=== PATIENT | male | born 1955 | race Caucasian/White ===

== ENCOUNTER → 2016-03-07 | Emergency (ER) | payer OTHER ==
[~2016-03-07] MED LIST: LISINOPRIL 20 MG TABLET (FP) ONE; LISINOPRIL 20 MG TABLET (FP) PO ONE; hydrALAZINE HCL 25 MG TABLET (FP) ONE; hydrALAZINE HCL 50 MG TABLET (FP) PO ONE
[2016-03-07 15:25] VITALS: TEMP 97.4; BMI 32.3
[2016-03-07 16:40] LABS: BASOPHIL 0.6 % (0-2.0); EOSINOPHIL 1.9 % (0-4.5); MCH 31.6 pg (25.7-33.7); MCHC 33.5 g/dl (32.0-35.9); MEAN CELL VOLUME 94.5 fl (80-96); NEUTROPHILS 78.5 % (42.8-82.8); PLATELET COUNT 275 K/MM3 (134-434); RDW 15.3 % (11.9-15.9); WHITE BLOOD COUNT 7.8 K/mm3 (4.0-10.0)
[2016-03-07 17:14] LABS: ALBUMIN 3.3 g/dl (3.4-5.0); CALCIUM 8.6 mg/dL (8.5-10.1); CREATININE 5.4 mg/dL (0.7-1.3)
[2016-03-07 17:16] LABS: BILIRUBIN,TOTAL 0.4 mg/dL (0.2-1.0); TOT PROT 7.7 g/dl (6.4-8.2)
--- NOTE | 2016-03-07 17:16 | PDOC ---
History of Present Illness - General History Source: Patient - History of Present Illness Initial Comments: 03/07/16 17:16 Pt. is a 60 y/o male with PMH of ESRD on dialysis, HTN, presenting to the ED today complaining of a cough. History of present illness is translated by his daughter as the patient does not speak Yi. Patient states that his cough began approximate 10 days ago. His cough is productive with clear sputum. Patient also admits to sore throat. Denies fevers, chills, rhinorhea, ear pain, SOB, chest pain, palpitations, N/V/D. Patient was last dialyzed today. After the patient left dialysis he decided to get his cough evaluated at [facility] for treatment his cough. Upon evaluation patient's blood pressure was 190/90 and the pt.was sent back to the ED for evaluation. Pt. denies headaches or visual changes. GENERAL/CONSTITUTIONAL: No fever or chills. No weakness. No weight change. HEAD, EYES, EARS, NOSE AND THROAT: (+) sore throat. No change in vision. No ear pain or discharge. CARDIOVASCULAR: No chest pain or palpitations. RESPIRATORY: (+) cough. (-) wheezing, or shortness of breath. GASTROINTESTINAL: No nausea, vomiting, diarrhea or constipation. GENITOURINARY: No dysuria, frequency, or change in urination. MUSCULOSKELETAL: No joint or muscle swelling or pain. No neck or back pain. SKIN: No rash or easy bruising. NEUROLOGIC: No headache, vertigo, loss of consciousness, or loss of sensation. PSYCHIATRIC: No depression or anxiety. ENDOCRINE: No increased thirst. No abnormal weight change. HEMATOLOGIC/LYMPHATIC: No anemia, easy bleeding, or history of blood clots. ALLERGIC/IMMUNOLOGIC: No hives or skin allergy. No latex allergy. <Brittany Mcdonnell - Last Filed: 03/07/16 18:33> <Martha Rizvi - Last Filed: 03/08/16 10:12> - General Chief Complaint: Cold Symptoms Stated Complaint: HIGH BLOOD PRESSURE, COUGH Time Seen by Provider: 03/07/16 16:29 Past History - Past Medical History Anemia: No Asthma: No Cancer: No Cardiac Disorders: No CVA: No COPD: No CHF: No Dementia: No Diabetes: Yes (m,w,f) GI Disorders: Yes (EPIGASTRIC PAIN,CONSTIPATION) Disorders: No HTN: Yes Hypercholesterolemia: Yes Liver Disease: No Seizures: No Thyroid Disease: No - Surgical History Abdominal Surgery: No Appendectomy: No Cardiac Surgery: No Cholecystectomy: No Lung Surgery: No Neurologic Surgery: No Orthopedic Surgery: No - Immunization History Immunization Up to Date: Yes - Psycho/Social/Smoking Cessation Hx Anxiety: No Suicidal Ideation: No Smoking Status: No Smoking History: Never smoked Have you smoked in the past 12 months: No Number of Cigarettes Smoked Daily: 0 Hx Alcohol Use: No Drug/Substance Use Hx: No Substance Use Type: None Hx Substance Use Treatment: No <Brittany Mcdonnell - Last Filed: 03/07/16 18:33> <Martha Rizvi - Last Filed: 03/08/16 10:12> - Past Medical History Allergies/Adverse Reactions: Allergies Allergy/AdvReac Type Severity Reaction Status Date / Time No Known Allergies Allergy Verified 03/07/16 15:21 Home Medications: Ambulatory Orders Benzonatate [Tessalon Pearls -] 100 mg PO TID #21 capsule 03/07/16 Cinacalcet HCl [Sensipar] 90 mg PO DAILY 03/07/16 Hydralazine HCl [Apresoline -] 50 mg PO DAILY 03/07/16 Lisinopril [Prinivil -] 40 mg PO DAILY 03/07/16 Ranolazine [Ranexa] 800 mg PO DAILY 03/07/16 *Physical Exam - Vital Signs Last Vital Signs Temp Pulse Resp BP Pulse Ox 97.4 F L 64 20 192/91 98 03/07/16 15:22 03/07/16 15:22 03/07/16 15:22 03/07/16 15:22 03/07/16 15:22 - Physical Exam Comments: 03/07/16 17:27 GENERAL: The patient is awake, alert, and fully oriented, in no acute distress. HEAD: Normal with no signs of trauma. ENT: (+) mild erthyema of the posterior pharynx. Pupils equal, round and reactive to light, extraocular movements intact, sclera anicteric, conjunctiva clear. Neck supple. LUNGS: Clear to auscultation bilaterally. Normal excursion. No respiratory distress or use of accessory muscles. CV: RRR, S1/S2, no RG. (+) grade III systolic murmur heard over the base. Cap refill < 2 sec. AV Fistula intact. ABDOMEN: Soft, non-distended, non-tender. EXTREMITIES: Normal range of motion, no edema. NEUROLOGICAL: Normal speech, normal gait. CN II-XII grossly intact. PSYCH: Normal mood, normal affect. SKIN: Warm, dry, normal turgor, no rashes or lesions noted. <Brittany Mcdonnell - Last Filed: 03/07/16 18:33> - Vital Signs Last Vital Signs Temp Pulse Resp BP Pulse Ox 97.4 F L 71 18 178/82 98 03/07/16 15:22 03/07/16 18:57 03/07/16 18:57 03/07/16 18:57 03/07/16 18:57 <Martha Rizvi - Last Filed: 03/08/16 10:12> ED Treatment Course - LABORATORY CBC & Chemistry Diagram: 03/07/16 16:31 03/07/16 16:31 <Brittany Mcdonnell - Last Filed: 03/07/16 18:33> - LABORATORY CBC & Chemistry Diagram: 03/07/16 16:31 03/07/16 16:31 - ADDITIONAL ORDERS Additional order review: 03/07/16 16:50 Influenza Types A,B Antigen (MARIA G) - Final Nasopharyngeal Swab - Final 03/07/16 16:31 RBC 3.19 L MCV 94.5 MCHC 33.5 RDW 15.3 MPV 8.0 Neutrophils % 78.5 Lymphocytes % 12.1 D Monocytes % 6.9 Eosinophils % 1.9 Basophils % 0.6 - Medications Given in the ED: ED Medications Discontinued Medications Generic Name Dose Route Start Last Admin Trade Name Freq PRN Reason Stop Dose Admin Hydralazine HCl 50 mg 03/07/16 17:12 03/07/16 17:19 Apresoline - PO 03/07/16 17:13 50 mg ONCE ONE Administration Lisinopril 40 mg 03/07/16 17:09 03/07/16 17:19 Prinivil PO 03/07/16 17:10 40 mg ONCE ONE Administration <Martha Rizvi - Last Filed: 03/08/16 10:12> Medical Decision Making - Medical Decision Making 03/07/16 17:28 Pt. is a 60 y/o male with a cough and elevated blood pressure. Will evaluate for URI, flu, pneumonia. Given BP will evaluate for ACS, less likely given asymptomatic presentation. 1. Will order basic labs, CBC CMP, CXR for evaluation of infection 2. Will order EKG, and cardiac labs to evaluate blood pressure. 3. Since the pt. was dialyzed today, will readminister home blood pressure medications and doses. 4. Will re-evaluate. 03/07/16 18:15 CXR shows no acute cardiopulmonary event. No evidence of infiltrates. EKG remains unchanged from old one on 12/25/14. No acute ST-T wave changes. White count is WNL. Influenza A and B negative Most likely a viral URI with cough as the presenting symptom. 03/07/16 18:33 Pts. BP is still elevated at 180/90. However, pt is still asymptomatic. Denies headache, vision changes. Will discharge at this time. <Brittany Mcdonnell - Last Filed: 03/07/16 18:33> *DC/Admit/Observation/Transfer - Discharge Dispostion Admit: No <Brittany Mcdonnell - Last Filed: 03/07/16 18:33> - Attestations Physician Attestion: I reviewed the case with the mid-level practitioner and agree with the mid- level practitioner's assessment, diagnosis and disposition. <Martha Rizvi - Last Filed: 03/08/16 10:12> Diagnosis at time of Disposition: URI (upper respiratory infection) Qualifiers: URI type: unspecified URI Qualified Code(s): J06.9 - Acute upper respiratory infection, unspecified Hypertension Qualifiers: Hypertension type: secondary to other renal disorders Qualified Code(s): I15.1 - Hypertension secondary to other renal disorders - Prescriptions Prescriptions: Benzonatate [Tessalon Pearls -] 100 mg PO TID #21 capsule - Referrals Referrals: Maco Villanueva MD [Primary Care Provider] - - Patient Instructions Printed Discharge Instructions: DI for Common Cold Additional Instructions: You have an Upper respiratory infection (common cold). Your cough can last up to 4 weeks. Keep appropriately hydrated and get plenty of rest. You also have high blood pressure. Continue to take your home medications as prescribed. If you get a headache or have vision changes, return to the ED. - Post Discharge Activity Work/School Note: Back to Work
[2016-03-07 17:17] LABS: TROPONIN I 0.05 ng/ml (0.00-0.05)
[2016-03-07 18:29] LABS: URINE APPEARANCE CLEAR; URINE BILIRUBIN NEGATIVE (NEGATIVE); URINE BLOOD NEGATIVE (NEGATIVE); URINE COLOR LTYELLOW; URINE GLUCOSE (UA) 1+ (NEGATIVE); URINE KETONE NEGATIVE (NEGATIVE); URINE LEUK ESTERASE NEGATIVE (NEGATIVE); URINE NITRITE NEGATIVE (NEGATIVE); URINE UROBILINOGEN NEGATIVE E.U./dl (0.2-1.0)
[2016-03-07 18:30] LABS: URINE PROTEIN 3+ (NEGATIVE)
[2016-03-07 18:31] LABS: URINE HYALINE CAST 1 /lpf; URINE MUCUS RARE; URINE RBC 3 /hpf (0-3); URINE WBC 2 /hpf (3-5)
[2016-03-07 18:58] VITALS: BP 178/82; PULSE 71
--- NOTE | 2016-03-09 15:36 | EKG ---
Test Reason : Blood Pressure : / mmHG Vent. Rate : 066 BPM Atrial Rate : 066 BPM P-R Int : 158 ms QRS Dur : 098 ms QT Int : 462 ms P-R-T Axes : 042 032 -71 degrees QTc Int : 484 ms NORMAL SINUS RHYTHM LEFT VENTRICULAR HYPERTROPHY WITH REPOLARIZATION ABNORMALITY PROLONGED QT ABNORMAL ECG WHEN COMPARED WITH ECG OF 25-DEC-2014 09:05, NO SIGNIFICANT CHANGE WAS FOUND Confirmed by KARTIK SCOTT, GAB ([id number]) on 03/09/2016 3:35:43 PM Referred By: Confirmed By:GAB VERDUGO MD
== END | disposition home or self-care (01) ==
LOC: JERFT 15:11 → JER 15:11
DX: J06.9 Acute upper respiratory infection, unspecified (principal); I12.0 Hypertensive chronic kidney disease with stage 5 chronic kidney disease or end stage renal disease; N18.6 End stage renal disease; N17.8 Other acute kidney failure; Z99.2 Dependence on renal dialysis; E78.00 Pure hypercholesterolemia, unspecified
CPT/HCPCS: 36415; 71010-TC; 80053; 81003; 81015; 82550; 82553; 84484; 85025; 87804; 93005; 93010; 99282-25

== ENCOUNTER 2017-11-19 14:44 | Inpatient (IN) | payer OTHER ==
--- NOTE | 2017-11-19 14:56 | PDOC ---
History of Present Illness - General Chief Complaint: Chest Pain Stated Complaint: PAIN ON THE LEFT SIDE OF HIS CHEST Time Seen by Provider: 11/19/17 14:55 - History of Present Illness Initial Comments: 62 yo M w a hx of ESRD on dialysis m,w,f, HTN, T2DM, HLD, cardiac cath in [place] at [facility], presents to the ER today with subjective fevers and R sided chest pain which started 3 days ago. Yesterday, the pain acutely worsened and was associated with hemoptysis so he came into the ER today. A small amount of blood was spotted on the tissue. He describes the pain as pressure like, constant, non-radiating and 6/10 in intensity. It is painful for the patient to take a deep breath, the pain is reproducible with palpation and worsened with movement. He also endorses slight nausea but no emesis. He also admits to Left sided Calf pain. Here in the ER his oral temp is 102.5 No hx of cancer, recent travel. Denies dysuria, frequency or urgency. PCP: Rich Dewey Social Hx: Denies smoking, drinks alcohol recreationally, and denies illicit drug usage. Allergies: NKA, NKDA Past History - Past Medical History Allergies/Adverse Reactions: Allergies Allergy/AdvReac Type Severity Reaction Status Date / Time No Known Allergies Allergy Verified 11/19/17 14:54 Home Medications: Ambulatory Orders Amlodipine Besylate 10 mg PO DAILY 11/19/17 Hydralazine HCl 100 mg PO BID 11/19/17 Lisinopril [Prinivil -] 40 mg PO DAILY 11/19/17 Sevelamer Carbonate [Renvela] 1,600 mg PO BID 11/19/17 Anemia: No Asthma: No Cancer: No Cardiac Disorders: No CVA: No COPD: No CHF: No Dementia: No Diabetes: Yes Dialysis: Yes (M,W,F) GI Disorders: Yes (EPIGASTRIC PAIN,CONSTIPATION) Disorders: No HTN: Yes Hypercholesterolemia: Yes Liver Disease: No Seizures: No Thyroid Disease: No - Surgical History Abdominal Surgery: No Appendectomy: No Cardiac Surgery: No Cholecystectomy: No Lung Surgery: No Neurologic Surgery: No Orthopedic Surgery: No - Immunization History Immunization Up to Date: Yes - Suicide/Smoking/Psychosocial Hx Smoking Status: No Smoking History: Never smoked Have you smoked in the past 12 months: No Number of Cigarettes Smoked Daily: 0 Information on smoking cessation initiated: No Hx Alcohol Use: No Drug/Substance Use Hx: No Substance Use Type: None Hx Substance Use Treatment: No Cardiac Specific PMH - Complaint Specific PMHX Pacemaker: No Review of Systems - Review of Systems Constitutional: Yes: Chills, Diaphoresis, Fever, Loss of Appetite, Malaise, Night Sweats, Weakness HEENTM: No: Blurred Vision, Double Vision, Nose Congestion, Throat Pain, Difficulty Swallowing Respiratory: Yes: Cough, Shortness of Breath, Wheezing, Productive cough, Hemoptysis Cardiac (ROS): Yes: Chest Pain. No: Edema, Lightheadedness, Palpitations, Syncope ABD/GI: Yes: Abdominal Distended, Nausea, Poor Appetite, Poor Fluid Intake, Vomiting. No: Constipated, Diarrhea : Yes: Flank Pain, Hematuria, Pain. No: Burning, Dysuria, Discharge, Frequency Musculoskeletal: No: Back Pain Integumentary: Yes: Pallor, Sweating. No: Bruising, Change in Color, Erythema, Pruritus, Rash Neurological: Yes: Headache, Weakness. No: Numbness, Paresthesia, Tingling, Unsteady Gait, Ataxia, Dizziness Psychiatric: No: Anxiety, Depression Endocrine: No: Excessive Sweating, Flushing, Intolerance to Cold, Intolerance to Heat, Increased Thirst Hematologic/Lymphatic: Yes: Anemia, Easy Bleeding. No: Blood Clots *Physical Exam - Vital Signs Last Vital Signs Temp Pulse Resp BP Pulse Ox 102.8 F H 94 H 18 162/71 94 L 11/19/17 18:00 11/19/17 18:00 11/19/17 18:00 11/19/17 18:00 11/19/17 18:00 - Physical Exam General Appearance: Yes: Nourished, Appropriately Dressed, Moderate Distress HEENT: positive: EOMI, HANNAH, Normal ENT Inspection, Normal Voice, Pharynx Normal. negative: Pharyngeal Erythema, Nasal Congestion, Rhinorrhea Neck: positive: Trachea midline, Supple. negative: Decreased range of motion, Lymphadenopathy (R), Lymphadenopathy (L) Respiratory/Chest: positive: Chest Tender, Respiratory Distress, Labored Respiration, Rapid RR, Decreased Breath Sounds, Crackles, Wheezing, Dullness. negative: Lungs Clear, Normal Breath Sounds, Accessory Muscle Use, Paradoxal Breathing, Rales, Rhonchi, Stridor, Hyperresonant, Plerual Rub Cardiovascular: positive: Regular Rhythm, Murmur, Tachycardia, Systolic Murmur. negative: Regular Rate, JVD Vascular Pulses: Dorsalis-Pedis (R): 2+, Doralis-Pedis (L): 2+ Gastrointestinal/Abdominal: positive: Normal Bowel Sounds, Soft, Protuberent, Distended. negative: Increased Bowel Sounds, Guarding, Rebound Lymphatic: negative: Adenopathy Musculoskeletal: positive: Normal Inspection, CVA Tenderness, CVA Tenderness (R) , CVA Tenderness (L). negative: Decreased Range of Motion, Vertebral Tenderness Extremity: positive: Normal Inspection, Normal Range of Motion. negative: Normal Capillary Refill, Delayed Capillary Refill Integumentary: positive: Normal Color, Dry, Warm, Diaphoresis. negative: Jaundice, Petechiae, Rash, Ecchymosis Neurologic: positive: dentist attendant II-XII NML intact, Fully Oriented, Alert, Normal Mood/ Affect, Normal Response ED Treatment Course - LABORATORY CBC & Chemistry Diagram: 11/19/17 16:54 11/19/17 16:54 - ADDITIONAL ORDERS Additional order review: Laboratory Results 11/19/17 11/19/17 11/19/17 17:32 16:54 16:54 PT with INR INR PTT (Actin FS) VBG pH POC VBG pCO2 POC VBG pO2 Mixed VBG HCO3 Sodium Potassium Chloride Carbon Dioxide Anion Gap BUN Creatinine Creat Clearance w eGFR Random Glucose Lactic Acid 1.0 Calcium Total Bilirubin AST ALT Alkaline Phosphatase Creatine Kinase Creatine Kinase Index CK-MB (CK-2) Troponin I 0.16 H Total Protein Albumin Urine Color Ltyellow Urine Appearance Clear Urine pH 8.0 Ur Specific [place] 1.010 Urine Protein 3+ H Urine Glucose (UA) 1+ H Urine Ketones Negative Urine Blood 1+ H Urine Nitrite Negative Urine Bilirubin Negative Urine Urobilinogen Negative Ur Leukocyte Esterase Negative Urine WBC (Auto) 2 Urine RBC (Auto) 4 Blood Type Antibody Screen 11/19/17 11/19/17 11/19/17 16:54 16:54 16:54 PT with INR 13.40 H INR 1.13 H PTT (Actin FS) 33.2 VBG pH 7.41 POC VBG pCO2 40.9 POC VBG pO2 29.8 Mixed VBG HCO3 25.4 H Sodium 129 L Potassium 5.2 H Chloride 94 L Carbon Dioxide 25 Anion Gap 10 BUN 68 H Creatinine 12.5 H* Creat Clearance w eGFR 4.12 Random Glucose 108 H Lactic Acid Calcium 9.9 Total Bilirubin 0.6 AST 20 ALT 17 Alkaline Phosphatase 75 Creatine Kinase 219 Creatine Kinase Index 0.6 CK-MB (CK-2) 1.5 Troponin I 0.18 H Total Protein 7.6 Albumin 3.0 L Urine Color Urine Appearance Urine pH Ur Specific [place] Urine Protein Urine Glucose (UA) Urine Ketones Urine Blood Urine Nitrite Urine Bilirubin Urine Urobilinogen Ur Leukocyte Esterase Urine WBC (Auto) Urine RBC (Auto) Blood Type Antibody Screen 11/19/17 16:45 PT with INR INR PTT (Actin FS) VBG pH POC VBG pCO2 POC VBG pO2 Mixed VBG HCO3 Sodium Potassium Chloride Carbon Dioxide Anion Gap BUN Creatinine Creat Clearance w eGFR Random Glucose Lactic Acid Calcium Total Bilirubin AST ALT Alkaline Phosphatase Creatine Kinase Creatine Kinase Index CK-MB (CK-2) Troponin I Total Protein Albumin Urine Color Urine Appearance Urine pH Ur Specific [place] Urine Protein Urine Glucose (UA) Urine Ketones Urine Blood Urine Nitrite Urine Bilirubin Urine Urobilinogen Ur Leukocyte Esterase Urine WBC (Auto) Urine RBC (Auto) Blood Type A POSITIVE Antibody Screen Negative 11/19/17 16:54 RBC 3.68 L MCV 94.0 MCHC 32.4 RDW 19.7 H MPV 9.1 D Neutrophils % 87.9 H Lymphocytes % 3.3 L D Monocytes % 8.6 Eosinophils % 0.0 D Basophils % 0.2 - RADIOLOGY Radiology Studies Ordered: Category Date Time Status CHEST CT WITHOUT CONTRAST [CT] Stat CT Scan 11/19/17 17:44 Ordered CHEST X-RAY PORTABLE* [RAD] Stat Radiology 11/19/17 15:51 Taken - Medications Given in the ED: ED Medications Discontinued Medications Generic Name Dose Route Start Last Admin Trade Name Freq PRN Reason Stop Dose Admin Acetaminophen 1,000 mg 11/19/17 17:23 11/19/17 18:05 Ofirmev Injection - IVPB 11/19/17 17:24 1,000 mg ONCE ONE Administration Albuterol/Ipratropium 1 amp 11/19/17 17:24 11/19/17 17:45 Duoneb - NEB 11/19/17 17:25 1 amp ONCE ONE Administration Albuterol/Ipratropium 1 amp 11/19/17 17:25 11/19/17 18:06 Duoneb - NEB 11/19/17 17:26 1 amp ONCE ONE Administration Piperacillin Sod/Tazobactam 100 mls @ 200 mls/hr 11/19/17 17:25 11/19/17 18: 20 Sod 4.5 gm/ Dextrose IVPB 11/19/17 17:54 200 mls/hr ONCE ONE Administration Protocol Sodium Chloride 1,000 ml 11/19/17 17:23 11/19/17 18:05 Normal Saline - IV 11/19/17 17:24 1,000 ml ONCE ONE Administration Medical Decision Making - Medical Decision Making 62 yo M w a hx of ESRD on dialysis m,w,f, HTN, T2DM, HLD, cardiac cath in [place] at [facility], here with high fevers, tachycardia, tachypnea, hypoxia, hemoptysis. He satisfies SIRS criteria. Source - lungs. He is Septic. Sepsis protocall began here in ED. Treating infection with Vanc and Zosyn. In addition to Sepsis caused by PNA this patient has an elevated trop which might be from ACS. Given the hemoptysis other diagnoses that need to be ruled out include: PE, lung cancer, +/- TB? -Low suspicion for TB bc patient's fever was not gradual in onset. He has had an abrupt rise in fever two days prior. Labs are also significant for Cr of 12.1. Patient has chronic renal failure. Will obtain 2nd trop. Will recheck vitals after Abx administration. Patient will be admitted to [facility] for further care and workup. Signing out patient to Night team. *DC/Admit/Observation/Transfer Diagnosis at time of Disposition: Sepsis, Pneumonia, Hemoptysis, Renal failure - Discharge Dispostion Condition at time of disposition: Guarded Decision to Admit order: Yes Decision to Admit order Date/Time: Decision to Admit Order Category Date Time Status Decision to Admit to Hospital Routine Admission 11/19/17 17:55 Active - Referrals Referrals: Maco Villanueva MD [Primary Care Provider] - - Patient Instructions - Post Discharge Activity
[2017-11-19 17:09] LABS: VENOUS PC02 40.9 mmHg (38-52); VENOUS PH 7.41 (7.32-7.42); VENOUS PO2 29.8 mmHg (28-48)
[2017-11-19 17:10] LABS: HEMATOCRIT 34.6 % (35.4-49); HEMOGLOBIN 11.2 GM/dL (11.7-16.9); MCH 30.5 pg (25.7-33.7); MCHC 32.4 g/dl (32.0-35.9); PLATELET COUNT 260 K/MM3 (134-434); RBC 3.68 M/mm3 (4.00-5.60); RDW 19.7 % (11.9-15.9)
[2017-11-19 17:11] LABS: BASO % 0.2 % (0-2.0); LYMPH % 3.3 % (8-40); MEAN PLT VOLUME 9.1 fl (7.5-11.1); MONO % 8.6 % (3.8-10.2); NEUT % 87.9 % (42.8-82.8)
[2017-11-19] MEDS ORDERED: ACETAMINOPHEN 1000 MG/100 ML VIAL (NON FORMULARY) IVPB ONE (17:23)
[2017-11-19] MEDS ORDERED: SODIUM CHLORIDE 0.9% 500 ML INFUS.BAG IV ONE (17:23)
[2017-11-19] MEDS ORDERED: ALBUTEROL SO4 2.5/IPRATROPIUM 0.5 INH SOL 3 ML VIAL.NEB. NEB ONE ×3 (17:24→18:00)
[2017-11-19] MEDS ORDERED: VANCOMYCIN 1,500 MG in DEXTROSE 5%-WATER - 250 ML IVPB ONE (17:24)
[2017-11-19] MEDS ORDERED: PIPERACILLIN/TAZOB 4.5 GM 4.5 GM in DEXTROSE 5%-WATER 100 ML IVPB ONE (17:25)
[2017-11-19 17:36] LABS: INR 1.13 (0.83-1.09); PROTHROMBIN TIME (PATIENT) 13.4 SEC (9.7-13.0)
[2017-11-19 17:39] LABS: ACTIVATED PTT 33.2 SECONDS (25.2-36.5)
[2017-11-19 17:40] LABS: ALK PHOS 75 U/L (45-117); ANION GAP 10 MMOL/L (8-16); BILIRUBIN,TOTAL 0.6 mg/dL (0.2-1); BLOOD UREA NITROGEN 68 mg/dL (7-18); CALCIUM 9.9 mg/dL (8.5-10.1); CHLORIDE 94 mmol/L (98-107); CO2 25 mmol/L (21-32); GLUCOSE,RANDOM 108 mg/dL (74-106); POTASSIUM 5.2 mmol/L (3.5-5.1); SGOT/AST 20 U/L (15-37); SGPT/ALT 17 U/L (13-61); SODIUM 129 mmol/L (136-145); TOT PROT 7.6 g/dl (6.4-8.2)
[2017-11-19] MEDS ORDERED: VANCOMYCIN 1,500 MG in DEXTROSE 5%-WATER - 500 ML IVPB ONE ×2 (17:45→19:52)
[2017-11-19 17:48] LABS: CREATININE 12.5 mg/dL (0.55-1.3)
[2017-11-19 17:59] LABS: PLATELET ESTIMATE ADEQUATE
[2017-11-19 18:00] LABS: ANISOCYTOSIS 1+; MACROCYTOSIS 1+
[2017-11-19] MEDS ORDERED: PIPERACILLIN/TAZOB 4.5 GM 4.5 GM/100 ML BAG IVPB ONE (18:01)
[2017-11-19] MEDS ORDERED: ACETAMINOPHEN INJECTION 100 ML IVPB ONE (18:01)
--- NOTE | 2017-11-19 18:18 | PDOC ---
Attending Attestation - Resident Resident Name: Adeel Hernandez - ED Attending Attestation I have performed the following: I have examined & evaluated the patient, The case was reviewed & discussed with the resident, I agree w/resident's findings & plan - HPI HPI: 11/19/17 18:16 Mr. Chacon is a 62 year old male presenting with his and daughter, with a significant past medical history of ESRD (HD M/W/F), HTN, HLD, DM2, cardiac cath in [place] at [facility], who presents to the ED complaining of right sided chest pain, shortness of breath, fevers, nausea and hemoptysis (small amount of blood noticed on tissue) for the past 3 days. He describes his chest pain as a pressure, localized on the right side, ranging from mild to moderate, rating it a 6/10 in severity, without radiation and associated with his cough. The patient denies headache and dizziness. Denies chills, vomiting, diarrhea or constipation. Denies dysuria, frequency, urgency and hematuria. Allergies: None Past surgical history: AVF, cardiac cath Social History: No alcohol, tobacco or drug use reported - Physicial Exam PE: 11/19/17 18:15 malaised appearing, nl conjunctiva, anicteric; neck supple. (+) Wheezing on right side of lungs, crackles bilaterally at the bases, tachycardic and (+) holosystolic murmur, abdomen soft nontender. +RUE AV fistula with palp thrill. VELAZQUEZ x4, no focal neuro deficits. No peripheral edema. normal color for ethnicity , [facility]. 11/19/17 18:17 - Critical Care Time Total Critical Care Time: 45 (pneumonia, dehydration, sepsis) Critical Care Statement: The care of this patient involved high complexity decision making to prevent further life threatening deterioration of the patient 's condition and/or to evaluate & treat vital organ system(s) failure or risk of failure. - Medical Decision Making 11/19/17 18:18 Mr. Chacon is a 62 year old male presenting with his and daughter, with a significant past medical history of ESRD (HD M/W/F), HTN, HLD, DM2, presenting with productive cough, hemoptysis, fevers, SOB/CP and malaise x 3 days. DDx cough/SOB/fever: infection, Pneumonia, viral syndrome, bronchietasis, UTI, metabolic/electrolyte derangement, dehydration, ACS, PE, pleurisy, pleural effusion, pericardial effusion/tamponade. Vital signs reviewed, +febrile up to 103, tachycardic and mildly hypoxic in the low 90s. Prior notes reviewed, including admissions, discharges and consultations. laboratory results and imaging reviewed, basic labs and lytes wnl, notable for + leukocytosis up to 16K, c/w acute infection. coags wnl. VBG normal. lactic normal. sodium mildly low 129, but potassium fine; likely hypovolemic, will trend and hydrate. Cr with ESRD elevated ~12.5, changed from 2017. also able to produce urine. will need HD tomorrow. EKG normal sinus rhythm, no interval abnormalities, narrow QRS, ST and T wave segments and morphology normal. Nonspecific T wave abnormalities POCUS echo and thoracic exam performed, indication includes chest pain/dyspnea. views obtained (PSLA, PSS, A4, SX, IVC, bilateral lung soliz). Findings include normal EF, no pericardial or pleural effusion, primarily A lines, Flat IVC with >50% inspiratory collapse. Normal aortic root <4cm. RV<LV. Impression: severe dehydration, otherwise no acute findings, - does have hemoptysis, tachy and SOB, borderline hypoxia; however considered PE , but does have alternative etiology, an infection. - with pocus findings, less likely submassive/massive PE, so defer CTA as risk of contrast as there is alternative source with pneumonia/febrile illness and treat as such. more with dehydration and flat IVC, so can use fluids for adequate hydration, starting with 1L NSS hydration - abx with vancomycin/zosyn for empiric coverage of pneumonia/sepsis, as he is diabetic and gets HD with ESRD, cover broadly - antipyretics with tylenol, check VS again; gentle fluids. - CT chest to r/o multifocal pna vs mass vs. bronchiectasis; - sputum culture for production and hemoptysis. blood cultures and urine cultures pending. Dispo: Admit for febrile illness/sepsis likely secondary to pneumonia clinically. Discussed results and management plan with pt and family member at bedside, agree with impression and plan 11/19/17 18:30 11/19/17 18:31 Heart Score/ECG Review - ECG Impressions Comment:: 10/07/18 18:26 EKG normal sinus rhythm, no interval abnormalities, narrow QRS, ST and T wave segments and morphology normal. Nonspecific T wave abnormalities Procedures - Bedside Ultrasound Bedside Ultrasound: Cardiac Remarks: 11/19/17 18:24 POCUS echo and thoracic exam performed, indication includes chest pain/dyspnea. views obtained (PSLA, PSS, A4, SX, IVC, bilateral lung soliz). Findings include normal EF, no pericardial or pleural effusion, primarily A lines, Flat IVC with >50% inspiratory collapse. Normal aortic root <4cm. RV<LV. Impression: severe dehydration, otherwise no acute findings
[2017-11-19 18:20] LABS: URINE APPEARANCE CLEAR; URINE BILIRUBIN NEGATIVE (<2.0 mg/dL); URINE COLOR LTYELLOW; URINE GLUCOSE (UA) 1+ (NEGATIVE); URINE KETONE NEGATIVE (NEGATIVE); URINE LEUK ESTERASE NEGATIVE (NEGATIVE); URINE NITRITE NEGATIVE (NEGATIVE); URINE PROTEIN 3+ (NEGATIVE); URINE UROBILINOGEN NEGATIVE mg/dL (0.2-1.0)
--- NOTE | 2017-11-19 20:05 | HP ---
CHIEF COMPLAINT: fever, cough, chest pain PCP: Rich, Renal: Shelbie, Cardiology: Sarah Beth ([facility] [phone]) HISTORY OF PRESENT ILLNESS: This is a 62 year old male with a significant past medical history of ESRD on dialysis, HTN, CAD who presented to the ED with cough and right sided chest pain x 3 days. He states that the cough began first. Pt also reports fever since last night as well as hemoptysis and worsening pain. The chest pain is worsened with movement and deep breathing. He denies any respiratory distress or trouble breathing. He was hospitalized at [facility] 2 weeks ago for cardiac cath. ER course was notable for: (1) WBC 16.0, fever 102.9, HR 99, lactic acid 1.0 (2) CXR c/w right sided pneumonia (3) Recent Travel: pt denies PAST MEDICAL HISTORY: ESRD on dialysis MWF, HTN, HLD, CAD PAST SURGICAL HISTORY: AVF right upper arm Social History: Smoking: pt denies Alcohol: occasional Drugs: pt denies Family History: unknown Allergies No Known Allergies Allergy (Verified 11/19/17 14:54) HOME MEDICATIONS: 3 Medication Instructions Recorded Amlodipine Besylate 10 mg PO DAILY 11/19/17 Hydralazine HCl 100 mg PO BID 11/19/17 Lisinopril [Prinivil -] 40 mg PO DAILY 11/19/17 Sevelamer Carbonate [Renvela] 1,600 mg PO BID 11/19/17 REVIEW OF SYSTEMS CONSTITUTIONAL: Present: fever, chills Absent: diaphoresis, generalized weakness, malaise, loss of appetite, weight change HEENT: Absent: rhinorrhea, nasal congestion, throat pain, throat swelling, difficulty swallowing, mouth swelling, ear pain, eye pain, visual changes CARDIOVASCULAR: Present: chest pain Absent: syncope, palpitations, irregular heart rate, lightheadedness, peripheral edema RESPIRATORY: Present: cough, hemoptysis Absent: shortness of breath, dyspnea with exertion, orthopnea, wheezing, stridor GASTROINTESTINAL: Absent: abdominal pain, abdominal distension, nausea, vomiting, diarrhea, constipation, melena, hematochezia GENITOURINARY: Absent: dysuria, frequency, urgency, hesitancy, hematuria, flank pain, genital pain MUSCULOSKELETAL: Absent: myalgia, arthralgia, joint swelling, back pain, neck pain SKIN: Absent: rash, itching, pallor HEMATOLOGIC/IMMUNOLOGIC: Absent: easy bleeding, easy bruising, lymphadenopathy, frequent infections ENDOCRINE: Absent: unexplained weight gain, unexplained weight loss, heat intolerance, cold intolerance NEUROLOGIC: Absent: headache, focal weakness or paresthesias, dizziness, unsteady gait, seizure, mental status changes, bladder or bowel incontinence PSYCHIATRIC: Absent: anxiety, depression, suicidal or homicidal ideation, hallucinations. PHYSICAL EXAMINATION Vital Signs - 24 hr 3 11/19/17 11/19/17 11/19/17 14:47 15:54 17:12 Temperature 102.9 F H Pulse Rate 99 H Pulse Rate [ Apical] Respiratory 22 H Rate Blood Pressure 168/70 Blood Pressure [Right Arm] O2 Sat by Pulse 93 L 97 Oximetry (%) 3 11/19/17 18:00 Temperature 102.8 F H Pulse Rate Pulse Rate [ 94 H Apical] Respiratory 18 Rate Blood Pressure Blood Pressure 162/71 [Right Arm] O2 Sat by Pulse 94 L Oximetry (%) GENERAL: Awake, alert, and fully oriented, in no acute distress. HEAD: Normal with no signs of trauma. EYES: Pupils equal, round and reactive to light, extraocular movements intact, sclera anicteric, conjunctiva clear. No lid lag. EARS, NOSE, THROAT: Ears normal, nares patent, oropharynx clear without exudates. Moist mucous membranes. NECK: Normal range of motion, supple without lymphadenopathy, JVD, or masses. LUNGS: Clear to auscultation left side, + rhonchi right lung soliz. No wheezes , and no crackles. No accessory muscle use. HEART: Regular rate and rhythm, normal S1 and S2 without murmur, rub or gallop. ABDOMEN: Soft, nontender, not distended, normoactive bowel sounds, no guarding, no rebound, no masses. No hepatomegaly or splenomegaly. MUSCULOSKELETAL: Normal range of motion at all joints. No bony deformities or tenderness. No CVA tenderness. UPPER EXTREMITIES: 2+ pulses, warm, well-perfused. No cyanosis. No clubbing. No peripheral edema. Right upper arm + fistula, +bruit/thrill LOWER EXTREMITIES: 2+ pulses, warm, well-perfused. No calf tenderness. No peripheral edema. NEUROLOGICAL: Cranial nerves II-XII intact. Normal speech. Normal gait. PSYCHIATRIC: Cooperative. Good eye contact. Appropriate mood and affect. SKIN: Warm, dry, normal turgor, no rashes or lesions noted, normal capillary refill. Laboratory Results - last 24 hr 3 11/19/17 11/19/17 11/19/17 16:45 16:54 16:54 WBC 16.0 H RBC 3.68 L Hgb 11.2 L Hct 34.6 L MCV 94.0 MCH 30.5 MCHC 32.4 RDW 19.7 H Plt Count 260 MPV 9.1 D Absolute Neuts (auto) 14.0 H Neutrophils % 87.9 H Neutrophils % (Manual) 89.0 H Band Neutrophils % 2.0 Lymphocytes % 3.3 L D Lymphocytes % (Manual) 4.0 L Monocytes % 8.6 Monocytes % (Manual) 5 Eosinophils % 0.0 D Basophils % 0.2 Nucleated RBC % 0 Hypochromia 1+ Platelet Estimate Adequate Platelet Comment No clumping noted Anisocytosis 1+ Microcytosis 1+ Macrocytosis 1+ PT with INR INR PTT (Actin FS) VBG pH POC VBG pCO2 POC VBG pO2 Mixed VBG HCO3 Sodium 129 L Potassium 5.2 H Chloride 94 L Carbon Dioxide 25 Anion Gap 10 BUN 68 H Creatinine 12.5 H* Creat Clearance w eGFR 4.12 Random Glucose 108 H Lactic Acid Calcium 9.9 Total Bilirubin 0.6 AST 20 ALT 17 Alkaline Phosphatase 75 Creatine Kinase 219 Creatine Kinase Index 0.6 CK-MB (CK-2) 1.5 Troponin I 0.18 H Total Protein 7.6 Albumin 3.0 L Urine Color Urine Appearance Urine pH Ur Specific [place] Urine Protein Urine Glucose (UA) Urine Ketones Urine Blood Urine Nitrite Urine Bilirubin Urine Urobilinogen Ur Leukocyte Esterase Urine WBC (Auto) Urine RBC (Auto) Blood Type A POSITIVE Antibody Screen Negative 3 11/19/17 11/19/17 11/19/17 16:54 16:54 16:54 WBC RBC Hgb Hct MCV MCH MCHC RDW Plt Count MPV Absolute Neuts (auto) Neutrophils % Neutrophils % (Manual) Band Neutrophils % Lymphocytes % Lymphocytes % (Manual) Monocytes % Monocytes % (Manual) Eosinophils % Basophils % Nucleated RBC % Hypochromia Platelet Estimate Platelet Comment Anisocytosis Microcytosis Macrocytosis PT with INR 13.40 H INR 1.13 H PTT (Actin FS) 33.2 VBG pH 7.41 POC VBG pCO2 40.9 POC VBG pO2 29.8 Mixed VBG HCO3 25.4 H Sodium Potassium Chloride Carbon Dioxide Anion Gap BUN Creatinine Creat Clearance w eGFR Random Glucose Lactic Acid 1.0 Calcium Total Bilirubin AST ALT Alkaline Phosphatase Creatine Kinase Creatine Kinase Index CK-MB (CK-2) Troponin I 0.16 H Total Protein Albumin Urine Color Urine Appearance Urine pH Ur Specific [place] Urine Protein Urine Glucose (UA) Urine Ketones Urine Blood Urine Nitrite Urine Bilirubin Urine Urobilinogen Ur Leukocyte Esterase Urine WBC (Auto) Urine RBC (Auto) Blood Type Antibody Screen 3 Urine Color Ltyellow 11/19/17 17:32 Urine Appearance Clear 11/19/17 17:32 Urine pH 8.0 (5.0-8.0) 11/19/17 17:32 Ur Specific [place] 1.010 (1.010-1.035) 11/19/17 17:32 Urine Protein 3+ (NEGATIVE) H 11/19/17 17:32 Urine Glucose (UA) 1+ (NEGATIVE) H 11/19/17 17:32 Urine Ketones Negative (NEGATIVE) 11/19/17 17:32 Urine Blood 1+ (NEGATIVE) H 11/19/17 17:32 Urine Nitrite Negative (NEGATIVE) 11/19/17 17:32 Urine Bilirubin Negative (<2.0 mg/dL) 11/19/17 17:32 Ur Leukocyte Esterase Negative (NEGATIVE) 11/19/17 17:32 Urine WBC (Auto) 2 11/19/17 17:32 Urine RBC (Auto) 4 11/19/17 17:32 ECG Normal sinus rhythm Vent rate 89, QTC 430 moderate voltage criteria for LVH Nonspecific T wave abnormality ASSESSMENT/PLAN: 62yM with PMH ESRD on dialysis MWF, HTN, HLD, CAD presented to the ED with fever , cough, right sided chest pain. Sepsis secondary to PNA - tx with zosyn and vanco in ED, cont same, will treat for health care related PNA given recent hospitalization and dialysis status - ID consult, defer to PCP in am - CT chest pending - received 1L NS bolus in ED; hold further IVF unless BP low given dialysis status Chest pain with elevated troponin - likely due to pneumonia - given cardiac history will trend trops - monitor on tele - troponin possibly due to ESRD, will trend - recommend cardiology consult, defer to PCP in am HTN/HLD/CAD - cont home meds ESRD - renal consult - 1000ml fluid restriction diabetes - no longer on po meds - monitor glucose on BMP, was 108 in ED, if elevated add finger sticks and novolog SS DVT PPX - heparin SC FEN - tolerating po - bmp in am - renal diet Dispo: Pt currently requires further inpatient management of his emergent condition. Visit type - Emergency Visit Emergency Visit: Yes ED Registration Date: 11/19/17 Care time: The patient presented to the Emergency Department on the above date and was hospitalized for further evaluation of their emergent condition. - New Patient This patient is new to me today: Yes Date on this admission: 11/19/17 - Critical Care Critical Care patient: No
[2017-11-19] MEDS: HEPARIN NA (PORCINE) 5,000 UNITS/ML 1ML VIAL SQ SCH (22:05)
[2017-11-19] MEDS: hydrALAZINE HCL 50 MG TABLET (FP) PO SCH (22:05)
[2017-11-19] MEDS ORDERED: HEPARIN NA (PORCINE) 5,000 UNITS/ML 1ML VIAL ONE (22:28)
[2017-11-19] MEDS ORDERED: hydrALAZINE HCL 25 MG TABLET (FP) ONE (22:28)
[2017-11-20] MEDS ORDERED: HEPARIN NA (PORCINE) 5,000 UNITS/ML 1ML VIAL ONE ×3 (06:21→22:35)
[2017-11-20] MEDS: HEPARIN NA (PORCINE) 5,000 UNITS/ML 1ML VIAL SQ SCH ×3 (06:27→22:44)
[2017-11-20 07:01] LABS: BASO % 0.1 % (0-2.0); HEMATOCRIT 31.4 % (35.4-49); HEMOGLOBIN 10.1 GM/dL (11.7-16.9); LYMPH % 3.2 % (8-40); MCH 30.3 pg (25.7-33.7); MCHC 32.2 g/dl (32.0-35.9); MEAN CELL VOLUME 94.2 fl (80-96); MEAN PLT VOLUME 8.6 fl (7.5-11.1); MONO % 6.7 % (3.8-10.2); PLATELET COUNT 247 K/MM3 (134-434); RBC 3.33 M/mm3 (4.00-5.60); RDW 19.7 % (11.9-15.9); WHITE BLOOD COUNT 17.9 K/mm3 (4.0-10.0)
[2017-11-20 07:37] LABS: ANION GAP 14 MMOL/L (8-16); BLOOD UREA NITROGEN 76 mg/dL (7-18); CALCIUM 9.1 mg/dL (8.5-10.1); CHLORIDE 95 mmol/L (98-107); CO2 24 mmol/L (21-32); GLUCOSE,RANDOM 110 mg/dL (74-106); MAGNESIUM 2.3 mg/dL (1.8-2.4); PHOSPHOROUS 6.2 mg/dL (2.5-4.9); POTASSIUM 5.5 mmol/L (3.5-5.1); SODIUM 133 mmol/L (136-145)
[2017-11-20 07:38] LABS: CREATININE 13.8 mg/dL (0.55-1.3)
[2017-11-20] MEDS ORDERED: ACETAMINOPHEN 325 MG TABLET (FP) ONE ×3 (08:17→23:06)
[2017-11-20] MEDS: ACETAMINOPHEN 325 MG TABLET (FP) PO PRN ×2 (08:21→14:28)
[2017-11-20] MEDS: SEVELAMER CARBONATE 800 MG TAB (FP) PO SCH ×2 (08:39→17:59)
[2017-11-20] MEDS: LISINOPRIL 20 MG TABLET (FP) PO SCH (09:34)
[2017-11-20] MEDS: amLODIPine BESYLATE 10 MG TABLET (FP) PO SCH (09:34)
[2017-11-20] MEDS: hydrALAZINE HCL 50 MG TABLET (FP) PO SCH ×2 (09:34→22:44)
[2017-11-20] MEDS ORDERED: PATIENT'S OWN MEDICATION (NON-FORMULARY) (Lisinopril [Prinivil -] 40 MG) PO SCH (10:00)
[2017-11-20] MEDS ORDERED: PATIENT'S OWN MEDICATION (NON-FORMULARY) (Hydralazine Hcl [Hydralazine Hcl] 100 MG) PO SCH (10:00)
[2017-11-20] MEDS ORDERED: SODIUM CHLORIDE 250 ML IV PRN (11:36)
[2017-11-20] MEDS ORDERED: HEPARIN NA (PORCINE) 5,000 UNITS/ML 1ML VIAL IVPUSH ONE (11:36)
--- NOTE | 2017-11-20 11:36 | CONSULT ---
Consult Consult Specialty:: Nephrology Reason for Consultation:: ESRD - History of Present Illness Chief Complaint: fever and chest pain History of Present Illness: Pt is a 62 year old male with pmhx of ESRD (MWF), HTN, DM, HLD, and cardiac cath who presents to the ER with fevers and chest pain. He says that it began about 3 days ago. He does complain of a productive cough. He denies palpitations. He last went to HD on Monday. He still has the cough and he does feel the discomfort when he coughs. - History Source History Provided By: Patient - Past Medical History Cardio/Vascular: Yes: CAD, HTN, Hyperlipdemia Pulmonary: Yes: Asthma Renal/: Yes: Renal Inusuff, Hemodialysis, Renal Calculi Endocrine: Yes: Diabetes Mellitus - Past Surgical History Past Surgical History: Yes: AV Fistula/Graft - Alcohol/Substance Use Hx Alcohol Use: No History of Substance Use: reports: None - Smoking History Smoking history: Never smoked Have you smoked in the past 12 months: No Aproximately how many cigarettes per day: 0 Home Medications - Allergies Allergies/Adverse Reactions: Allergies Allergy/AdvReac Type Severity Reaction Status Date / Time No Known Allergies Allergy Verified 11/19/17 14:54 - Home Medications Home Medications: Ambulatory Orders Amlodipine Besylate 10 mg PO DAILY 11/19/17 Hydralazine HCl 100 mg PO BID 11/19/17 Lisinopril [Prinivil -] 40 mg PO DAILY 11/19/17 Sevelamer Carbonate [Renvela] 1,600 mg PO BID 11/19/17 Family Disease History - Family Disease History Family Disease History: Heart Disease: Father (stroke, kidney stones, of [place] at age 56), Other: Grandparent (stroke), Father Review of Systems - Review of Systems Constitutional: reports: No Symptoms Eyes: reports: No Symptoms HENT: reports: No Symptoms Neck: reports: No Symptoms Cardiovascular: reports: Chest Pain. denies: Edema Respiratory: reports: Cough Gastrointestinal: reports: No Symptoms Genitourinary: reports: No Symptoms Musculoskeletal: reports: No Symptoms Integumentary: reports: No Symptoms Neurological: reports: No Symptoms Endocrine: reports: No Symptoms Hematology/Lymphatic: reports: No Symptoms Psychiatric: reports: No Symptoms Physical Exam Vital Signs: Vital Signs Temperature 100.7 F H 11/20/17 11:21 Pulse Rate 70 11/20/17 11:21 Respiratory Rate 17 11/20/17 11:21 Blood Pressure 113/61 11/20/17 11:21 O2 Sat by Pulse Oximetry (%) 98 11/20/17 11:21 Constitutional: Yes: Calm Eyes: Yes: Conjunctiva Clear HENT: Yes: Atraumatic Neck: Yes: Supple Cardiovascular: Yes: S1, S2 Respiratory: Yes: CTA Bilaterally Gastrointestinal: Yes: Soft Renal/: Yes: WNL Extremities: Yes: Other (right arm fistula with thrill and bruit) Edema: No Neurological: Yes: Oriented Psychiatric: Yes: Oriented Labs: CBC, BMP 11/20/17 06:00 11/20/17 06:00 Laboratory Tests 11/19/17 11/19/17 11/19/17 16:54 16:54 16:54 WBC 16.0 H Hgb 11.2 L Sodium 129 L Potassium 5.2 H BUN 68 H Creatinine 12.5 H* Troponin I 0.18 H 0.16 H 11/20/17 11/20/17 06:00 06:00 WBC 17.9 H Hgb 10.1 L Sodium 133 L Potassium 5.5 H BUN 76 H Creatinine 13.8 H* Troponin I Imaging - Results Chest X-ray: Report Reviewed Cat Scan: Report Reviewed Problem List - Problems (1) ESRD (end stage renal disease) Code(s): N18.6 - END STAGE RENAL DISEASE (2) Pneumonia Code(s): J18.9 - PNEUMONIA, UNSPECIFIED ORGANISM Assessment/Plan Current Medications Generic Name Dose Route Start Last Admin Trade Name Freq PRN Reason Stop Dose Admin Acetaminophen 650 mg 11/20/17 08:12 11/20/17 08:21 Tylenol - PO 650 mg Q6H PRN Administration FEVER Amlodipine Besylate 10 mg 11/20/17 10:00 11/20/17 09:34 Norvasc - PO 10 mg DAILY VONNIE Administration Heparin Sodium (Porcine) 5,000 unit 11/19/17 22:00 11/20/17 06:27 Heparin - SQ 5,000 unit TID VONNIE Administration Hydralazine HCl 100 mg 11/19/17 22:00 11/20/17 09:34 Apresoline - PO 100 mg BID VONNIE Administration Lisinopril 40 mg 11/20/17 10:00 11/20/17 09:34 Prinivil PO 40 mg DAILY VONNIE Administration Sevelamer Carbonate 1,600 mg 11/20/17 08:00 11/20/17 08:39 Renvela - PO 1,600 mg BIDWM VONNIE Administration Impression 1. ESRD 2. Hyperkalemia 3. HTN 4. chest pain 5. DM 6. PNA 7. pleural effusion Plan - will arrange for HD today - will treat potassium with HD - orders written - consider pulmonary eval - HD orders: AVF 3:30, opti 180, abf 450, 2 k , heparin 1000 bolus, micera 100 q 2 weeks (last dose 11/15)
--- NOTE | 2017-11-20 14:40 | PN ---
Progress Note (short form) - Note Progress Note: Pt examined in ER Denies chest pain or SOB he is lying in bed without any discomfort Vital Signs - 24 hr 11/20/17 11/20/17 11/20/17 07:32 07:37 11:21 Temperature 102.2 F H 100.7 F H Pulse Rate Pulse Rate [ 89 70 Apical] Respiratory 18 17 Rate Blood Pressure Blood Pressure 133/65 113/61 [Right Arm] O2 Sat by Pulse 95 95 98 Oximetry (%) 11/20/17 11/20/17 11/20/17 13:42 15:05 15:10 Temperature 101.1 F H 99.9 F H Pulse Rate 68 65 Pulse Rate [ 85 Apical] Respiratory 18 18 18 Rate Blood Pressure 149/76 143/71 Blood Pressure 151/78 [Right Arm] O2 Sat by Pulse 93 L Oximetry (%) 11/20/17 11/20/17 11/20/17 15:40 16:10 16:40 Temperature Pulse Rate 68 76 87 Pulse Rate [ Apical] Respiratory 18 18 18 Rate Blood Pressure 153/72 157/80 146/65 Blood Pressure [Right Arm] O2 Sat by Pulse Oximetry (%) 11/20/17 11/20/17 11/20/17 17:10 17:40 18:10 Temperature Pulse Rate 87 84 100 H Pulse Rate [ Apical] Respiratory 18 18 18 Rate Blood Pressure 150/63 173/81 H 177/93 H Blood Pressure [Right Arm] O2 Sat by Pulse Oximetry (%) 11/20/17 11/20/17 18:40 18:45 Temperature Pulse Rate 93 H 91 H Pulse Rate [ Apical] Respiratory 18 18 Rate Blood Pressure 161/93 158/90 Blood Pressure [Right Arm] O2 Sat by Pulse Oximetry (%) Current Medications Generic Name Dose Route Start Last Admin Trade Name Freq PRN Reason Stop Dose Admin Acetaminophen 650 mg 11/20/17 08:12 11/20/17 14:28 Tylenol - PO 650 mg Q6H PRN Administration FEVER Amlodipine Besylate 10 mg 11/20/17 10:00 11/20/17 09:34 Norvasc - PO 10 mg DAILY VONNIE Administration Heparin Sodium (Porcine) 5,000 unit 11/19/17 22:00 11/20/17 13:41 Heparin - SQ 5,000 unit TID VONNIE Administration Hydralazine HCl 100 mg 11/19/17 22:00 11/20/17 09:34 Apresoline - PO 100 mg BID VONNIE Administration Sodium Chloride 250 mls @ 3,000 mls/hr 11/20/17 11:36 Normal Saline - IV 11/21/17 11:36 PRN PRN Hypotension during Dialysis Levofloxacin 500 mg in 100 mls @ 100 mls/hr 11/22/17 16:30 Levaquin 500 Mg Premixed Ivpb - IVPB Q48H [facility] Protocol Lisinopril 40 mg 11/20/17 10:00 11/20/17 09:34 Prinivil PO 40 mg DAILY VONNIE Administration Sevelamer Carbonate 1,600 mg 11/20/17 08:00 11/20/17 17:59 Renvela - PO Not Given BIDWM [facility] Laboratory Results - last 24 hr 11/19/17 11/19/17 11/20/17 21:24 23:11 06:00 WBC 17.9 H RBC 3.33 L Hgb 10.1 L Hct 31.4 L MCV 94.2 MCH 30.3 MCHC 32.2 RDW 19.7 H Plt Count 247 MPV 8.6 Absolute Neuts (auto) 16.1 H Neutrophils % 90.0 H Lymphocytes % 3.2 L Monocytes % 6.7 Eosinophils % 0.0 Basophils % 0.1 Nucleated RBC % 0 Sodium Potassium Chloride Carbon Dioxide Anion Gap BUN Creatinine Creat Clearance w eGFR Random Glucose Lactic Acid 1.6 Calcium Phosphorus Magnesium Creatine Kinase 297 Creatine Kinase Index 0.9 CK-MB (CK-2) 2.9 Troponin I 0.17 H 11/20/17 06:00 WBC RBC Hgb Hct MCV MCH MCHC RDW Plt Count MPV Absolute Neuts (auto) Neutrophils % Lymphocytes % Monocytes % Eosinophils % Basophils % Nucleated RBC % Sodium 133 L Potassium 5.5 H Chloride 95 L Carbon Dioxide 24 Anion Gap 14 BUN 76 H Creatinine 13.8 H* Creat Clearance w eGFR 3.67 Random Glucose 110 H Lactic Acid Calcium 9.1 Phosphorus 6.2 H Magnesium 2.3 Creatine Kinase 396 H Creatine Kinase Index 0.8 CK-MB (CK-2) 3.2 Troponin I 0.22 H S1 S2 RRR Lungs decreased Abd- soft, NT No edema PLAN Check urine antigens for pneumonia sputum culture IV antibiotics ID eval HD per Renal Troponins flat, denies chest pain Problem List - Problems (1) Diastolic dysfunction without heart failure Code(s): I51.89 - OTHER ILL-DEFINED HEART DISEASES (2) ESRD (end stage renal disease) Code(s): N18.6 - END STAGE RENAL DISEASE (3) Hypertensive cardiomyopathy Code(s): I11.9 - HYPERTENSIVE HEART DISEASE WITHOUT HEART FAILURE; I43 - CARDIOMYOPATHY IN DISEASES CLASSIFIED ELSEWHERE (4) Pneumonia Code(s): J18.9 - PNEUMONIA, UNSPECIFIED ORGANISM Qualifiers: Pneumonia type: due to unspecified organism Laterality: right Lung location: lower lobe of lung Qualified Code(s): J18.1 - Lobar pneumonia, unspecified organism (5) Sepsis Code(s): A41.9 - SEPSIS, UNSPECIFIED ORGANISM
--- NOTE | 2017-11-20 14:58 | CON.CARD ---
Consult Consult Specialty:: Cardiology Referred by:: Monica Marlow MD Reason for Consultation:: Demand ischemia - History of Present Illness Chief Complaint: Chest pain History of Present Illness: PCP: Rich, Renal: Shelbie, Cardiology: Sarah Beth ([facility] [phone]) HISTORY OF PRESENT ILLNESS: This is a 62 year old male with a significant past medical history of ESRD on dialysis, HTN, CAD who presented to the ED with cough and right sided chest pain x 3 days. He states that the cough began first. Pt also reports fever since last night as well as hemoptysis and worsening pain. The chest pain is worsened with movement and deep breathing. He denies any respiratory distress or trouble breathing. ER course was notable for: (1) WBC 16.0, fever 102.9, HR 99, lactic acid 1.0 (2) CXR c/w right sided pneumonia - History Source History Provided By: Patient Limitations to Obtaining History: No Limitations - Past Medical History Cardio/Vascular: Yes: CAD, HTN, Hyperlipdemia Pulmonary: Yes: Asthma Renal/: Yes: Renal Inusuff, Hemodialysis, Renal Calculi Endocrine: Yes: Diabetes Mellitus - Past Surgical History Past Surgical History: Yes: AV Fistula/Graft - Alcohol/Substance Use Hx Alcohol Use: No History of Substance Use: reports: None - Smoking History Smoking history: Never smoked Have you smoked in the past 12 months: No Aproximately how many cigarettes per day: 0 Home Medications - Allergies Allergies/Adverse Reactions: Allergies Allergy/AdvReac Type Severity Reaction Status Date / Time No Known Allergies Allergy Verified 11/19/17 14:54 - Home Medications Home Medications: Ambulatory Orders Amlodipine Besylate 10 mg PO DAILY 11/19/17 Hydralazine HCl 100 mg PO BID 11/19/17 Lisinopril [Prinivil -] 40 mg PO DAILY 11/19/17 Sevelamer Carbonate [Renvela] 1,600 mg PO BID 11/19/17 Family Disease History - Family Disease History Family Disease History: Heart Disease: Father (stroke, kidney stones, of [place] at age 56), Other: Grandparent (stroke), Father Review of Systems - Review of Systems Constitutional: reports: Fever Eyes: reports: No Symptoms HENT: reports: No Symptoms Neck: reports: No Symptoms Cardiovascular: reports: Chest Pain Respiratory: reports: Cough, Hemoptysis Gastrointestinal: reports: No Symptoms Genitourinary: reports: No Symptoms Musculoskeletal: reports: No Symptoms Integumentary: reports: No Symptoms Neurological: reports: No Symptoms Vital Signs: Vital Signs Temperature 101.1 F H 11/20/17 13:42 Pulse Rate 85 11/20/17 13:42 Respiratory Rate 18 11/20/17 13:42 Blood Pressure 151/78 11/20/17 13:42 O2 Sat by Pulse Oximetry (%) 93 L 11/20/17 13:42 Constitutional: Yes: No Distress, Calm Neck: Yes: Supple Respiratory: Yes: Regular, Diminished Gastrointestinal: Yes: Normal Bowel Sounds, Soft Cardiovascular: Yes: Regular Rate and Rhythm JVD: No Carotid Bruit: No Heart Sounds: Yes: S1, S2 Murmur: Yes: Systolic Murmur, Grade 1 Edema: No - Other Data Labs, Other Data: CBC, BMP 11/20/17 06:00 11/20/17 06:00 INR, PTT INR 1.13 (0.83-1.09) H 11/19/17 16:54 Troponin, BNP 11/19/17 11/19/17 11/19/17 16:54 16:54 23:11 Troponin I 0.18 H 0.16 H 0.17 H 11/20/17 06:00 Troponin I 0.22 H Troponin, BNP 11/19/17 11/19/17 11/19/17 16:54 16:54 23:11 Troponin I 0.18 H 0.16 H 0.17 H 11/20/17 06:00 Troponin I 0.22 H NSR @ 89 LVH with nonspec T wave changes Ejection Fraction %: LVEF > or = 40 % Imaging - Results Cat Scan: Report Reviewed (RLL PNA) Problem List - Problems (1) Hypertensive cardiomyopathy Code(s): I11.9 - HYPERTENSIVE HEART DISEASE WITHOUT HEART FAILURE; I43 - CARDIOMYOPATHY IN DISEASES CLASSIFIED ELSEWHERE (2) Diastolic dysfunction without heart failure Code(s): I51.89 - OTHER ILL-DEFINED HEART DISEASES (3) ESRD (end stage renal disease) Code(s): N18.6 - END STAGE RENAL DISEASE (4) Hemoptysis Code(s): R04.2 - HEMOPTYSIS (5) Pneumonia Code(s): J18.9 - PNEUMONIA, UNSPECIFIED ORGANISM Qualifiers: Pneumonia type: due to unspecified organism Laterality: right Lung location: lower lobe of lung Qualified Code(s): J18.1 - Lobar pneumonia, unspecified organism Assessment/Plan 04/27/2017: Moderate pulm HTN from left-sided heart disease (HTN, LVH, diastolic dysfunction) WHO-2 PH 1. Atypical chest pain -> Legionella RLL PNA 2. ESRD on HD on [facility] renal transplant list 3. Hyperkalemia 4. HTN/HCVD with subendocardial ischemia 5. Diastolic dysfunction with pulm HTN 6. DM Plan 1. Trend trops to document peak 2. HD with K reduction bath per renal 3. Review echo and stress testing performed this year at [facility] 4. Renal-dosed Abx course per ID 5. Norvasc 10 qd, hydralazine 100 bid, hold lisinopril pending recovery of hyperkalemia 6. Thank you for consultative opportunity
[2017-11-20] MEDS ORDERED: PIPERACILLIN/TAZOB 2.25 GM 2.25 GM in DEXTROSE 5%-WATER - 50 ML IVPB SCH (15:00)
--- NOTE | 2017-11-20 15:37 | EKG ---
Test Reason : Blood Pressure : / mmHG Vent. Rate : 089 BPM Atrial Rate : 089 BPM P-R Int : 138 ms QRS Dur : 088 ms QT Int : 354 ms P-R-T Axes : 036 001 076 degrees QTc Int : 430 ms NORMAL SINUS RHYTHM MODERATE VOLTAGE CRITERIA FOR LVH, MAY BE NORMAL VARIANT NONSPECIFIC T WAVE ABNORMALITY ABNORMAL ECG WHEN COMPARED WITH ECG OF 07-MAR-2016 16:57, T WAVE VARIATION Confirmed by JACQUI SCOTT, NABILA ([id number]) on 11/20/2017 3:36:37 PM Referred By: Confirmed By:NABILA OSMAN MD
--- NOTE | 2017-11-20 16:56 | PN ---
Progress Note (short form) - Note Progress Note: ID consult dictated Legionella RLL pneumonia Possible sepsis secondary to pneumonia ESRD Start Levaquin 750mg IVPB x 1, then 500mg IVPB q48H
--- NOTE | 2017-11-20 19:11 | CONS ---
DATE OF CONSULTATION: DATE OF DICTATION: 11/20/2017 The patient is a 62-year-old male with a history of end-stage renal disease on hemodialysis, evaluated for pneumonia. He was admitted through the emergency room today with complaints of right-sided, pleuritic-type chest pain; cough productive of blood-streaked, yellowish sputum; and fever. The patient had been hospitalized at [facility] 2 weeks ago for a coronary catheterization. He was evaluated in the emergency room where chest x-ray shows a right lower lobe infiltrate. CAT scan confirms the presence of a right lower lobe consolidation. Urine legionella antigen has now been reported as positive. He complains of chills. He was febrile to 102.9 in the emergency room. He complains of mild dyspnea at rest. He appears slightly short of breath at rest on nasal cannula O2. He lives at home. He is originally from the [facility] [place]. He has been in the [place] for the past 8 years. Denies any recent travel. Recent hospitalization at [facility]. Denies any ill contacts. He is not presently working. He is a nonsmoker. PAST MEDICAL HISTORY: Positive for end-stage renal disease on hemodialysis, hypertension, diabetes mellitus, hyperlipidemia. ALLERGIES: No known allergies. MEDICATIONS: Amlodipine, hydralazine, lisinopril. SOCIAL HISTORY: As per HPI. LABORATORY DATA: White count 17.9, hematocrit 31, platelet count 247. BUN 76, creatinine 13.8. Sodium 133. Lactic acid 1.6. Urinalysis: White cells 2. SYSTEMS REVIEW: Neurologic: No loss of consciousness, seizure activity, or focal weakness. Cardiac: Positive right-sided, pleuritic chest pain. Respiratory: As per HPI. Gastrointestinal: Negative vomiting or diarrhea. Genitourinary: Negative for urinary tract infection. Positive for end-stage renal disease. PHYSICAL EXAMINATION: General: He is awake and alert. He is slightly short of breath on nasal cannula O2. Vital Signs: T-max 102.9; blood pressure 153/72; pulse 68, regular; respirations 18 per minute; O2 saturation 95% on 3 L. HEENT: Sclerae are anicteric. Oropharynx negative. Neck: Supple. Heart: Sounds S1, S2. Lungs: Scattered rhonchi bilaterally. Crepitation at the right base. Abdomen: Soft. No tenderness elicited. No mass, rebound, or rigidity. Extremities: Negative for edema. IMPRESSION: 1. Legionella right lower lobe pneumonia. 2. Possible sepsis secondary to pneumonia. 3. End-stage renal disease on hemodialysis. Advise treatment for legionella pneumonia in this dialysis patient with Levaquin 750 mg IV piggyback stat, then 500 mg IV piggyback every 48 hours. Will obtain legionella serology, acute and convalescent. Will follow. Thank you for the kind referral. TAIWO MCKINNON M.D. [id number]
[2017-11-21] MEDS ORDERED: HEPARIN NA (PORCINE) 5,000 UNITS/ML 1ML VIAL ONE (06:04)
[2017-11-21] MEDS ORDERED: ACETAMINOPHEN 325 MG TABLET (FP) ONE (06:30)
[2017-11-21] MEDS: HEPARIN NA (PORCINE) 5,000 UNITS/ML 1ML VIAL SQ SCH ×3 (06:45→21:32)
[2017-11-21] MEDS: ACETAMINOPHEN 325 MG TABLET (FP) PO PRN (06:45)
[2017-11-21 07:21] LABS: BASO % 0.1 % (0-2.0); EOS % 0.5 % (0-4.5); HEMOGLOBIN 10.8 GM/dL (11.7-16.9); MCH 29.8 pg (25.7-33.7); MCHC 31.9 g/dl (32.0-35.9); MEAN CELL VOLUME 93.6 fl (80-96); MEAN PLT VOLUME 8.7 fl (7.5-11.1); MONO % 3.7 % (3.8-10.2); NEUT % 93.7 % (42.8-82.8); PLATELET COUNT 276 K/MM3 (134-434); RBC 3.64 M/mm3 (4.00-5.60); RDW 19.7 % (11.9-15.9); WHITE BLOOD COUNT 18.3 K/mm3 (4.0-10.0)
[2017-11-21 08:13] LABS: ANION GAP 11 MMOL/L (8-16); BLOOD UREA NITROGEN 42 mg/dL (7-18); CALCIUM 9.6 mg/dL (8.5-10.1); CHLORIDE 98 mmol/L (98-107); CO2 29 mmol/L (21-32); GLUCOSE,RANDOM 96 mg/dL (74-106); POTASSIUM 4.7 mmol/L (3.5-5.1); SODIUM 138 mmol/L (136-145)
[2017-11-21] MEDS: SEVELAMER CARBONATE 800 MG TAB (FP) PO SCH ×2 (08:14→17:23)
[2017-11-21 08:23] LABS: CREATININE 8.4 mg/dL (0.55-1.3)
[2017-11-21] MEDS: hydrALAZINE HCL 50 MG TABLET (FP) PO SCH ×2 (09:10→21:32)
[2017-11-21] MEDS: amLODIPine BESYLATE 10 MG TABLET (FP) PO SCH (09:12)
[2017-11-21] MEDS: LISINOPRIL 20 MG TABLET (FP) PO SCH (09:12)
[2017-11-21] MEDS ORDERED: LISINOPRIL 20 MG TABLET (FP) ONE (09:18)
--- NOTE | 2017-11-21 10:37 | PN ---
Progress Note, Physician History of Present Illness: Feeling a little better Still with cough, blood-streaked sputum No c/o chest pain/ dyspnea Remains febrile WBC remains elevated Received 750mg dose levaquin yesterday after dialysis - Current Medication List Current Medications: Active Medications Acetaminophen (Tylenol -) 650 mg PO Q6H PRN PRN Reason: FEVER Last Admin: 11/21/17 06:45 Dose: 650 mg Amlodipine Besylate (Norvasc -) 10 mg PO DAILY [facility] Last Admin: 11/21/17 09:12 Dose: 10 mg Heparin Sodium (Porcine) (Heparin -) 5,000 unit SQ TID [facility] Last Admin: 11/21/17 06:45 Dose: 5,000 unit Hydralazine HCl (Apresoline -) 100 mg PO BID [facility] Last Admin: 11/21/17 09:10 Dose: 100 mg Sodium Chloride (Normal Saline -) 250 mls @ 3,000 mls/hr IV PRN PRN PRN Reason: Hypotension during Dialysis Stop: 11/21/17 11:36 Levofloxacin (Levaquin 500 Mg Premixed Ivpb -) 500 mg in 100 mls @ 100 mls/hr IVPB Q48H [facility]; Protocol Lisinopril (Prinivil) 40 mg PO DAILY [facility] Last Admin: 11/21/17 09:12 Dose: 40 mg Sevelamer Carbonate (Renvela -) 1,600 mg PO BIDWM [facility] Last Admin: 11/21/17 08:14 Dose: 1,600 mg - Objective Vital Signs: Vital Signs Temperature 100.0 F H 11/21/17 09:08 Pulse Rate 68 11/21/17 09:08 Respiratory Rate 20 11/21/17 09:59 Blood Pressure 127/56 L 11/21/17 09:08 O2 Sat by Pulse Oximetry (%) 99 11/21/17 09:59 Constitutional: Yes: No Distress Eyes: Yes: Conjunctiva Clear Cardiovascular: Yes: Regular Rate and Rhythm, S1, S2, Other (+ rales R base) Gastrointestinal: Yes: Normal Bowel Sounds, Soft. No: Tenderness Extremities: Yes: Other (AVG R UE) Edema: Yes Edema: LLE: 1+, RLE: 1+ Labs: CBC, BMP 11/21/17 06:25 11/21/17 06:25 INR, PTT INR 1.13 (0.83-1.09) H 11/19/17 16:54 Assessment/Plan RLL legionella pneumonia Sepsis Fever/ leukocytosis ESRD Hyponatremia-improved Redose levaquin 500mg after HD 11/22
[2017-11-21 10:57] LABS: ANISOCYTOSIS 1+; MACROCYTOSIS 1+; PLATELET ESTIMATE NORMAL; TARGET CELLS 1+
--- NOTE | 2017-11-21 11:20 | PN ---
Progress Note (short form) - Note Progress Note: Pt examined in ER Denies chest pain or SOB has bloody sputum Vital Signs - 24 hr 11/20/17 11/20/17 11/20/17 13:42 15:05 15:10 Temperature 101.1 F H 99.9 F H Pulse Rate 68 65 Pulse Rate [ 85 Apical] Respiratory 18 18 18 Rate Blood Pressure 149/76 143/71 Blood Pressure 151/78 [Right Arm] O2 Sat by Pulse 93 L Oximetry (%) 11/20/17 11/20/17 11/20/17 15:40 16:10 16:40 Temperature Pulse Rate 68 76 87 Pulse Rate [ Apical] Respiratory 18 18 18 Rate Blood Pressure 153/72 157/80 146/65 Blood Pressure [Right Arm] O2 Sat by Pulse Oximetry (%) 11/20/17 11/20/17 11/20/17 17:10 17:40 18:10 Temperature Pulse Rate 87 84 100 H Pulse Rate [ Apical] Respiratory 18 18 18 Rate Blood Pressure 150/63 173/81 H 177/93 H Blood Pressure [Right Arm] O2 Sat by Pulse Oximetry (%) 11/20/17 11/20/17 11/21/17 18:40 18:45 03:00 Temperature 99.9 F H Pulse Rate 93 H 91 H Pulse Rate [ 79 Apical] Respiratory 18 18 20 Rate Blood Pressure 161/93 158/90 Blood Pressure 138/70 [Right Arm] O2 Sat by Pulse 95 Oximetry (%) 11/21/17 11/21/17 11/21/17 06:46 07:30 09:08 Temperature 102.0 F H 100.0 F H Pulse Rate Pulse Rate [ 75 68 Apical] Respiratory 19 20 Rate Blood Pressure Blood Pressure 133/69 127/56 L [Right Arm] O2 Sat by Pulse 90 L 99 96 Oximetry (%) 11/21/17 11/21/17 09:59 13:33 Temperature 99.1 F Pulse Rate Pulse Rate [ 67 Apical] Respiratory 20 20 Rate Blood Pressure Blood Pressure 142/78 [Right Arm] O2 Sat by Pulse 99 99 Oximetry (%) Current Medications Generic Name Dose Route Start Last Admin Trade Name Freq PRN Reason Stop Dose Admin Acetaminophen 650 mg 11/20/17 08:12 11/21/17 06:45 Tylenol - PO 650 mg Q6H PRN Administration FEVER Amlodipine Besylate 10 mg 11/20/17 10:00 11/21/17 09:12 Norvasc - PO 10 mg DAILY [facility] Administration Heparin Sodium (Porcine) 5,000 unit 11/19/17 22:00 11/21/17 13:27 Heparin - SQ 5,000 unit TID [facility] Administration Hydralazine HCl 100 mg 11/19/17 22:00 11/21/17 09:10 Apresoline - PO 100 mg BID [facility] Administration Sodium Chloride 250 mls @ 3,000 mls/hr 11/20/17 11:36 Normal Saline - IV 11/21/17 11:36 PRN PRN Hypotension during Dialysis Levofloxacin 500 mg in 100 mls @ 100 mls/hr 11/22/17 16:30 Levaquin 500 Mg Premixed Ivpb - IVPB Q48H [facility] Protocol Lisinopril 40 mg 11/20/17 10:00 11/21/17 09:12 Prinivil PO 40 mg DAILY [facility] Administration Sevelamer Carbonate 1,600 mg 11/20/17 08:00 11/21/17 08:14 Renvela - PO 1,600 mg BIDWM [facility] Administration Laboratory Results - last 24 hr 11/21/17 11/21/17 06:25 06:25 WBC 18.3 H RBC 3.64 L Hgb 10.8 L Hct 34.0 L MCV 93.6 MCH 29.8 MCHC 31.9 L RDW 19.7 H Plt Count 276 MPV 8.7 Absolute Neuts (auto) 17.1 H Neutrophils % 93.7 H Neutrophils % (Manual) 83.5 H Band Neutrophils % 4.9 Lymphocytes % 2.0 L D Lymphocytes % (Manual) 4.8 L Monocytes % 3.7 L Monocytes % (Manual) 6 Eosinophils % 0.5 D Eosinophils % (Manual) 0.0 Basophils % 0.1 Basophils % (Manual) 0.0 Myelocytes % (Man) 0 Promyelocytes % (Man) 0 Blast Cells % (Manual) 0 Nucleated RBC % 0 Metamyelocytes 1 Hypochromia 1+ Platelet Estimate Normal Polychromasia 1+ Poikilocytosis 1+ Anisocytosis 1+ Microcytosis 1+ Macrocytosis 1+ Target Cells 1+ Schistocytes 1+ Sodium 138 Potassium 4.7 Chloride 98 Carbon Dioxide 29 Anion Gap 11 BUN 42 H Creatinine 8.4 H* Creat Clearance w eGFR 6.52 Random Glucose 96 Calcium 9.6 Troponin I 0.25 H S1 S2 RRR Lungs decreased Abd- soft, NT No edema PLAN urine antigens positiove for legionella ID eval appreciated on IV Levaquin HD per Renal Troponins flat, denies chest pain spoke with Cardiology, Rt heart cath report noted from [facility] - ok to go to medical floor Problem List - Problems (1) Diastolic dysfunction without heart failure Code(s): I51.89 - OTHER ILL-DEFINED HEART DISEASES (2) ESRD (end stage renal disease) Code(s): N18.6 - END STAGE RENAL DISEASE (3) Hypertensive cardiomyopathy Code(s): I11.9 - HYPERTENSIVE HEART DISEASE WITHOUT HEART FAILURE; I43 - CARDIOMYOPATHY IN DISEASES CLASSIFIED ELSEWHERE (4) Pneumonia Code(s): J18.9 - PNEUMONIA, UNSPECIFIED ORGANISM Qualifiers: Pneumonia type: due to unspecified organism Laterality: right Lung location: lower lobe of lung Qualified Code(s): J18.1 - Lobar pneumonia, unspecified organism (5) Sepsis Code(s): A41.9 - SEPSIS, UNSPECIFIED ORGANISM
[2017-11-21] MEDS ORDERED: ALBUTEROL SO4 2.5/IPRATROPIUM 0.5 INH SOL 3 ML VIAL.NEB. NEB PRN (13:40)
--- NOTE | 2017-11-21 14:22 | PN ---
Progress Note, Physician Chief Complaint: Events noted Not in distress History of Present Illness: Patient was seen and examined. Awake and alert. Chart was reviewed Denies chest pain or palpitations - Current Medication List Current Medications: Active Medications Acetaminophen (Tylenol -) 650 mg PO Q6H PRN PRN Reason: FEVER Last Admin: 11/21/17 06:45 Dose: 650 mg Albuterol/Ipratropium (Duoneb -) 1 amp NEB Q6H PRN PRN Reason: SHORTNESS OF BREATH Amlodipine Besylate (Norvasc -) 10 mg PO DAILY [facility] Last Admin: 11/21/17 09:12 Dose: 10 mg Heparin Sodium (Porcine) (Heparin -) 5,000 unit SQ TID [facility] Last Admin: 11/21/17 13:27 Dose: 5,000 unit Hydralazine HCl (Apresoline -) 100 mg PO BID [facility] Last Admin: 11/21/17 09:10 Dose: 100 mg Sodium Chloride (Normal Saline -) 250 mls @ 3,000 mls/hr IV PRN PRN PRN Reason: Hypotension during Dialysis Stop: 11/21/17 11:36 Levofloxacin (Levaquin 500 Mg Premixed Ivpb -) 500 mg in 100 mls @ 100 mls/hr IVPB Q48H [facility]; Protocol Lisinopril (Prinivil) 40 mg PO DAILY [facility] Last Admin: 11/21/17 09:12 Dose: 40 mg Sevelamer Carbonate (Renvela -) 1,600 mg PO BIDWM [facility] Last Admin: 11/21/17 08:14 Dose: 1,600 mg - Objective Vital Signs: Vital Signs Temperature 99.1 F 11/21/17 13:33 Pulse Rate 67 11/21/17 13:33 Respiratory Rate 20 11/21/17 13:33 Blood Pressure 142/78 11/21/17 13:33 O2 Sat by Pulse Oximetry (%) 99 11/21/17 13:33 Neck: Yes: Supple Cardiovascular: Yes: Regular Rate and Rhythm, Murmur (Soft SM), S1, S2 Respiratory: Yes: Diminished Gastrointestinal: Yes: Normal Bowel Sounds, Soft. No: Tenderness Edema: No Labs: CBC, BMP 11/21/17 06:25 11/21/17 06:25 Problem List - Problems (1) Diastolic dysfunction without heart failure Code(s): I51.89 - OTHER ILL-DEFINED HEART DISEASES (2) ESRD (end stage renal disease) Code(s): N18.6 - END STAGE RENAL DISEASE (3) Pneumonia Code(s): J18.9 - PNEUMONIA, UNSPECIFIED ORGANISM Qualifiers: Pneumonia type: due to unspecified organism Laterality: right Lung location: lower lobe of lung Qualified Code(s): J18.1 - Lobar pneumonia, unspecified organism (4) [id number]-[id number] renal failure Code(s): N17.9 - ACUTE KIDNEY FAILURE, UNSPECIFIED; N18.9 - CHRONIC KIDNEY DISEASE, UNSPECIFIED (5) Hypertension Code(s): I10 - ESSENTIAL (PRIMARY) HYPERTENSION Qualifiers: Hypertension type: secondary to other renal disorders Qualified Code(s): I15.1 - Hypertension secondary to other renal disorders Assessment/Plan 1. Atypical chest pain - Legionella RLL pneumonia 2. ESRD on HD on renal transplant list 3. Hyperkalemia 4. HTN/HCVD 5. Diastolic dysfunction with pulmonary HTN 6. DM PLAN: 1. Trend troponin to document peak 2. HD and monitor K 3. Cardiac testing done at [facility] 4. Renal-dosed Antibiotic course per ID 5. Continue Norvasc and Hydralazine. Hold lisinopril pending recovery of hyperkalemia Further plans are to follow Cruz Cardenas MD
[2017-11-21] MEDS ORDERED: ACETAMINOPHEN 325 MG TABLET (FP) PO PRN (16:28)
[2017-11-21] MEDS ORDERED: SODIUM CHLORIDE 250 ML IV PRN ×2 (16:28→18:46)
[2017-11-21 17:17] VITALS: BMI 30.7
--- NOTE | 2017-11-21 18:45 | PN ---
Progress Note, Physician History of Present Illness: Pt seen and examined earlier today. He denies chest pain but did complain of cough. - Current Medication List Current Medications: Active Medications Acetaminophen (Tylenol -) 650 mg PO Q6H PRN PRN Reason: FEVER Albuterol/Ipratropium (Duoneb -) 1 amp NEB Q6H PRN PRN Reason: SHORTNESS OF BREATH Amlodipine Besylate (Norvasc -) 10 mg PO DAILY [facility] Heparin Sodium (Porcine) (Heparin -) 5,000 unit SQ TID [facility] Hydralazine HCl (Apresoline -) 100 mg PO BID [facility] Sodium Chloride (Normal Saline -) 250 mls @ 3,000 mls/hr IV PRN PRN PRN Reason: Hypotension during Dialysis Levofloxacin (Levaquin 250 Mg Premixed Ivpb -) 250 mg in 50 mls @ 100 mls/hr IVPB Q48H [facility]; Protocol Lisinopril (Prinivil) 40 mg PO DAILY [facility] Sevelamer Carbonate (Renvela -) 1,600 mg PO BIDWM [facility] Last Admin: 11/21/17 17:23 Dose: 1,600 mg - Objective Vital Signs: Vital Signs Temperature 98.6 F 11/21/17 17:06 Pulse Rate 75 11/21/17 17:06 Respiratory Rate 20 11/21/17 17:06 Blood Pressure 139/64 11/21/17 17:06 O2 Sat by Pulse Oximetry (%) 95 11/21/17 17:06 Constitutional: Yes: Calm Eyes: Yes: Conjunctiva Clear HENT: Yes: Atraumatic Cardiovascular: Yes: S1, S2 Respiratory: Yes: Cough, Rhonchi Gastrointestinal: Yes: Soft Genitourinary: Yes: WNL Musculoskeletal: Yes: WNL Edema: No Neurological: Yes: Oriented Psychiatric: Yes: Oriented Labs: CBC, BMP 11/21/17 06:25 11/21/17 06:25 INR, PTT INR 1.13 (0.83-1.09) H 11/19/17 16:54 Problem List - Problems (1) ESRD (end stage renal disease) Code(s): N18.6 - END STAGE RENAL DISEASE (2) Pneumonia Code(s): J18.9 - PNEUMONIA, UNSPECIFIED ORGANISM Qualifiers: Pneumonia type: due to unspecified organism Laterality: right Lung location: lower lobe of lung Qualified Code(s): J18.1 - Lobar pneumonia, unspecified organism Assessment/Plan Current Medications Generic Name Dose Route Start Last Admin Trade Name Freq PRN Reason Stop Dose Admin Acetaminophen 650 mg 11/21/17 16:28 Tylenol - PO Q6H PRN FEVER Albuterol/Ipratropium 1 amp 11/21/17 13:40 Duoneb - NEB Q6H PRN SHORTNESS OF BREATH Amlodipine Besylate 10 mg 11/22/17 10:00 Norvasc - PO DAILY [facility] Heparin Sodium (Porcine) 5,000 unit 11/21/17 22:00 Heparin - SQ TID [facility] Hydralazine HCl 100 mg 11/21/17 22:00 Apresoline - PO BID [facility] Sodium Chloride 250 mls @ 3,000 mls/hr 11/21/17 16:28 Normal Saline - IV PRN PRN Hypotension during Dialysis Levofloxacin 250 mg in 50 mls @ 100 mls/hr 11/22/17 18:30 Levaquin 250 Mg Premixed Ivpb - IVPB Q48H [facility] Protocol Lisinopril 40 mg 11/22/17 10:00 Prinivil PO DAILY [facility] Sevelamer Carbonate 1,600 mg 11/21/17 17:30 11/21/17 17:23 Renvela - PO 1,600 mg BIDWM [facility] Administration Impression 1. ESRD 2. Hyperkalemia 3. HTN 4. chest pain 5. DM 6. PNA 7. pleural effusion 8. PNA Plan - will arrange for HD tomorrow - abx for PNA - cardio follow up - potassium improved - HD orders: AVF 3:30, opti 180, abf 450, 2 k , heparin 1000 bolus, micera 100 q 2 weeks (last dose 11/15)
[2017-11-22] MEDS: HEPARIN NA (PORCINE) 5,000 UNITS/ML 1ML VIAL SQ SCH ×3 (05:55→21:58)
[2017-11-22] MEDS: SEVELAMER CARBONATE 800 MG TAB (FP) PO SCH ×2 (08:37→17:27)
[2017-11-22] MEDS ORDERED: HEPARIN NA (PORCINE) 5,000 UNITS/ML 1ML VIAL IVPUSH ONE (09:15)
[2017-11-22] MEDS ORDERED: EPOETIN ALFA 3,000 UNIT/1 ML ML IVPUSH ONE (09:15)
[2017-11-22 09:26] LABS: BASO % 0.5 % (0-2.0); EOS % 0.4 % (0-4.5); HEMATOCRIT 29.7 % (35.4-49); HEMOGLOBIN 9.7 GM/dL (11.7-16.9); LYMPH % 3.2 % (8-40); MCH 30.9 pg (25.7-33.7); MCHC 32.7 g/dl (32.0-35.9); MEAN CELL VOLUME 94.7 fl (80-96); MONO % 6.5 % (3.8-10.2); NEUT % 89.4 % (42.8-82.8); PLATELET COUNT 294 K/MM3 (134-434); RBC 3.13 M/mm3 (4.00-5.60); RDW 20.7 % (11.9-15.9); WHITE BLOOD COUNT 14.6 K/mm3 (4.0-10.0)
--- NOTE | 2017-11-22 10:00 | PN ---
Progress Note, Physician History of Present Illness: Feeling better Still with cough, blood-streaked sputum, but less No c/o chest pain/ dyspnea Temps down Afebrile WBC improved Received 750mg dose levaquin 11/20 - Current Medication List Current Medications: Active Medications Acetaminophen (Tylenol -) 650 mg PO Q6H PRN PRN Reason: FEVER Albuterol/Ipratropium (Duoneb -) 1 amp NEB Q6H PRN PRN Reason: SHORTNESS OF BREATH Amlodipine Besylate (Norvasc -) 10 mg PO DAILY [facility] Heparin Sodium (Porcine) (Heparin -) 5,000 unit SQ TID [facility] Last Admin: 11/22/17 05:55 Dose: 5,000 unit Hydralazine HCl (Apresoline -) 100 mg PO BID [facility] Last Admin: 11/21/17 21:32 Dose: 100 mg Sodium Chloride (Normal Saline -) 250 mls @ 3,000 mls/hr IV PRN PRN PRN Reason: Hypotension during Dialysis Stop: 11/22/17 18:46 Lisinopril (Prinivil) 40 mg PO DAILY [facility] Sevelamer Carbonate (Renvela -) 1,600 mg PO BIDWM [facility] Last Admin: 11/22/17 08:37 Dose: Not Given - Objective Vital Signs: Vital Signs Temperature 98.6 F 11/22/17 08:00 Pulse Rate 62 11/22/17 09:20 Respiratory Rate 18 11/22/17 09:20 Blood Pressure 124/64 11/22/17 09:20 O2 Sat by Pulse Oximetry (%) 95 11/21/17 20:18 Constitutional: Yes: No Distress Eyes: Yes: Conjunctiva Clear Cardiovascular: Yes: Regular Rate and Rhythm, S1, S2 Respiratory: Yes: Other (few crepitations R base) Gastrointestinal: Yes: Normal Bowel Sounds, Soft. No: Tenderness Edema: No Labs: CBC, BMP 11/22/17 09:00 INR, PTT INR 1.13 (0.83-1.09) H 11/19/17 16:54 Assessment/Plan RLL legionella pneumonia clinically improved Sepsis Fever/ leukocytosis improved ESRD Hyponatremia- resolved Redose levaquin 500mg after HD today
[2017-11-22 10:16] LABS: ALBUMIN 2.2 g/dl (3.4-5.0); ALK PHOS 99 U/L (45-117); ANION GAP 13 MMOL/L (8-16); BILIRUBIN,TOTAL 0.5 mg/dL (0.2-1); BLOOD UREA NITROGEN 73 mg/dL (7-18); CALCIUM 10.3 mg/dL (8.5-10.1); CHLORIDE 96 mmol/L (98-107); CO2 26 mmol/L (21-32); GLUCOSE,RANDOM 133 mg/dL (74-106); POTASSIUM 4.3 mmol/L (3.5-5.1); SGOT/AST 66 U/L (15-37); SGPT/ALT 43 U/L (13-61); SODIUM 135 mmol/L (136-145); TOT PROT 6.2 g/dl (6.4-8.2)
[2017-11-22 10:29] LABS: CREATININE 10.4 mg/dL (0.55-1.3)
[2017-11-22 11:16] LABS: ANISOCYTOSIS 2+; MACROCYTOSIS 0; PLATELET ESTIMATE NORMAL; TARGET CELLS 1+
--- NOTE | 2017-11-22 11:31 | PN ---
Progress Note (short form) - Note Progress Note: Pt examined in dialysis family at bedside Denies chest pain or SOB has bloody sputum Vital Signs - 24 hr 11/21/17 11/22/17 11/22/17 20:18 06:00 08:00 Temperature 98.4 F 98.6 F Pulse Rate 60 67 Respiratory 20 20 Rate Blood Pressure 123/56 L 147/66 O2 Sat by Pulse 95 Oximetry (%) 11/22/17 11/22/17 11/22/17 08:40 08:50 09:20 Temperature Pulse Rate 66 60 62 Respiratory 18 18 18 Rate Blood Pressure 126/65 136/72 124/64 O2 Sat by Pulse Oximetry (%) 11/22/17 11/22/17 11/22/17 09:50 10:10 10:50 Temperature Pulse Rate 99 H 60 59 L Respiratory 18 18 18 Rate Blood Pressure 141/72 153/77 149/79 O2 Sat by Pulse Oximetry (%) 11/22/17 11/22/17 11/22/17 11:20 11:50 12:20 Temperature Pulse Rate 70 67 60 Respiratory 18 18 18 Rate Blood Pressure 143/70 143/61 142/70 O2 Sat by Pulse Oximetry (%) 11/22/17 11/22/17 11/22/17 12:30 14:00 16:38 Temperature 97.6 F 98.6 F 99.8 F H Pulse Rate 61 63 66 Respiratory 18 18 20 Rate Blood Pressure 140/72 135/67 145/64 O2 Sat by Pulse Oximetry (%) Intake & Output 11/19/17 11/20/17 11/21/17 11/22/17 23:59 23:59 23:59 23:59 Intake Total 200 300 Output Total 0 Balance 200 300 Weight 180 lb 190 lb 6.4 oz 187 lb Current Medications Generic Name Dose Route Start Last Admin Trade Name Freq PRN Reason Stop Dose Admin Acetaminophen 650 mg 11/21/17 16:28 Tylenol - PO Q6H PRN FEVER Albuterol/Ipratropium 1 amp 11/21/17 13:40 Duoneb - NEB Q6H PRN SHORTNESS OF BREATH Amlodipine Besylate 10 mg 11/22/17 10:00 11/22/17 13:09 Norvasc - PO 10 mg DAILY [facility] Administration Heparin Sodium (Porcine) 5,000 unit 11/21/17 22:00 11/22/17 13:09 Heparin - SQ 5,000 unit TID [facility] Administration Hydralazine HCl 100 mg 11/21/17 22:00 11/22/17 13:08 Apresoline - PO 100 mg BID [facility] Administration Sodium Chloride 250 mls @ 3,000 mls/hr 11/21/17 18:46 Normal Saline - IV 11/22/17 18:46 PRN PRN Hypotension during Dialysis Levofloxacin 500 mg in 100 mls @ 100 mls/hr 11/22/17 10:00 11/22/17 13:07 Levaquin 500 Mg Premixed Ivpb - IVPB 100 mls/hr Q48H [facility] Administration Protocol Lisinopril 40 mg 11/22/17 10:00 11/22/17 13:08 Prinivil PO 40 mg DAILY [facility] Administration Sevelamer Carbonate 1,600 mg 11/21/17 17:30 11/22/17 17:27 Renvela - PO 1,600 mg BIDWM [facility] Administration Abnormal Lab Results 11/22/17 11/22/17 09:00 09:00 WBC 14.6 H RBC 3.13 L Hgb 9.7 L Hct 29.7 L RDW 20.7 H Absolute Neuts (auto) 13.0 H Neutrophils % 89.4 H Neutrophils % (Manual) 90.5 H Lymphocytes % 3.2 L D Lymphocytes % (Manual) 2.1 L D Sodium 135 L Chloride 96 L BUN 73 H Creatinine 10.4 H* Random Glucose 133 H Calcium 10.3 H AST 66 H Total Protein 6.2 L Albumin 2.2 L S1 S2 RRR Lungs decreased Abd- soft, NT No edema PLAN urine antigens positive for legionella on IV Levaquin HD per Renal OOB Problem List - Problems (1) Diastolic dysfunction without heart failure Code(s): I51.89 - OTHER ILL-DEFINED HEART DISEASES (2) ESRD (end stage renal disease) Code(s): N18.6 - END STAGE RENAL DISEASE (3) Hypertensive cardiomyopathy Code(s): I11.9 - HYPERTENSIVE HEART DISEASE WITHOUT HEART FAILURE; I43 - CARDIOMYOPATHY IN DISEASES CLASSIFIED ELSEWHERE (4) Pneumonia Code(s): J18.9 - PNEUMONIA, UNSPECIFIED ORGANISM Qualifiers: Pneumonia type: due to unspecified organism Laterality: right Lung location: lower lobe of lung Qualified Code(s): J18.1 - Lobar pneumonia, unspecified organism (5) Sepsis Code(s): A41.9 - SEPSIS, UNSPECIFIED ORGANISM
--- NOTE | 2017-11-22 13:05 | PN ---
Progress Note, Physician History of Present Illness: Pt seen and examined at bedside. He is awake and alert. He is tolerating HD. - Current Medication List Current Medications: Active Medications Acetaminophen (Tylenol -) 650 mg PO Q6H PRN PRN Reason: FEVER Albuterol/Ipratropium (Duoneb -) 1 amp NEB Q6H PRN PRN Reason: SHORTNESS OF BREATH Amlodipine Besylate (Norvasc -) 10 mg PO DAILY [facility] Heparin Sodium (Porcine) (Heparin -) 5,000 unit SQ TID [facility] Last Admin: 11/22/17 05:55 Dose: 5,000 unit Hydralazine HCl (Apresoline -) 100 mg PO BID [facility] Last Admin: 11/21/17 21:32 Dose: 100 mg Sodium Chloride (Normal Saline -) 250 mls @ 3,000 mls/hr IV PRN PRN PRN Reason: Hypotension during Dialysis Stop: 11/22/17 18:46 Levofloxacin (Levaquin 500 Mg Premixed Ivpb -) 500 mg in 100 mls @ 100 mls/hr IVPB Q48H [facility]; Protocol Lisinopril (Prinivil) 40 mg PO DAILY [facility] Sevelamer Carbonate (Renvela -) 1,600 mg PO BIDWM [facility] Last Admin: 11/22/17 08:37 Dose: Not Given - Objective Vital Signs: Vital Signs Temperature 97.6 F 11/22/17 12:30 Pulse Rate 61 11/22/17 12:30 Respiratory Rate 18 11/22/17 12:30 Blood Pressure 140/72 11/22/17 12:30 O2 Sat by Pulse Oximetry (%) 95 11/21/17 20:18 Constitutional: Yes: Calm Eyes: Yes: Conjunctiva Clear HENT: Yes: Atraumatic Neck: Yes: Supple Cardiovascular: Yes: S1, S2 Respiratory: Yes: Rales Gastrointestinal: Yes: Normal Bowel Sounds, Soft Genitourinary: Yes: WNL Musculoskeletal: Yes: WNL Edema: No Neurological: Yes: Oriented Psychiatric: Yes: Oriented Labs: CBC, BMP 11/22/17 09:00 11/22/17 09:00 INR, PTT INR 1.13 (0.83-1.09) H 11/19/17 16:54 Problem List - Problems (1) ESRD (end stage renal disease) Code(s): N18.6 - END STAGE RENAL DISEASE (2) Pneumonia Code(s): J18.9 - PNEUMONIA, UNSPECIFIED ORGANISM Qualifiers: Pneumonia type: due to unspecified organism Laterality: right Lung location: lower lobe of lung Qualified Code(s): J18.1 - Lobar pneumonia, unspecified organism Assessment/Plan Current Medications Generic Name Dose Route Start Last Admin Trade Name Freq PRN Reason Stop Dose Admin Acetaminophen 650 mg 11/21/17 16:28 Tylenol - PO Q6H PRN FEVER Albuterol/Ipratropium 1 amp 11/21/17 13:40 Duoneb - NEB Q6H PRN SHORTNESS OF BREATH Amlodipine Besylate 10 mg 11/22/17 10:00 Norvasc - PO DAILY [facility] Heparin Sodium (Porcine) 5,000 unit 11/21/17 22:00 11/22/17 05:55 Heparin - SQ 5,000 unit TID [facility] Administration Hydralazine HCl 100 mg 11/21/17 22:00 11/21/17 21:32 Apresoline - PO 100 mg BID [facility] Administration Sodium Chloride 250 mls @ 3,000 mls/hr 11/21/17 18:46 Normal Saline - IV 11/22/17 18:46 PRN PRN Hypotension during Dialysis Levofloxacin 500 mg in 100 mls @ 100 mls/hr 11/22/17 10:00 Levaquin 500 Mg Premixed Ivpb - IVPB Q48H [facility] Protocol Lisinopril 40 mg 11/22/17 10:00 Prinivil PO DAILY [facility] Sevelamer Carbonate 1,600 mg 11/21/17 17:30 11/22/17 08:37 Renvela - PO Not Given BIDWM [facility] Impression 1. ESRD 2. Hyperkalemia 3. HTN 4. chest pain 5. DM 6. PNA 7. pleural effusion Plan - HD today - abx per ID - monitor lytes - pt still has cough but feels better - HD orders: AVF 3:30, opti 180, abf 450, 2 k , heparin 1000 bolus, micera 100 q 2 weeks (last dose 11/15)
[2017-11-22] MEDS: hydrALAZINE HCL 50 MG TABLET (FP) PO SCH ×2 (13:08→21:58)
[2017-11-22] MEDS: LISINOPRIL 20 MG TABLET (FP) PO SCH (13:08)
[2017-11-22] MEDS: amLODIPine BESYLATE 10 MG TABLET (FP) PO SCH (13:09)
--- NOTE | 2017-11-22 14:09 | PN ---
Progress Note, Physician History of Present Illness: Afebrile, pleurisy and cough improved. - Current Medication List Current Medications: Active Medications Acetaminophen (Tylenol -) 650 mg PO Q6H PRN PRN Reason: FEVER Albuterol/Ipratropium (Duoneb -) 1 amp NEB Q6H PRN PRN Reason: SHORTNESS OF BREATH Amlodipine Besylate (Norvasc -) 10 mg PO DAILY [facility] Last Admin: 11/22/17 13:09 Dose: 10 mg Heparin Sodium (Porcine) (Heparin -) 5,000 unit SQ TID [facility] Last Admin: 11/22/17 13:09 Dose: 5,000 unit Hydralazine HCl (Apresoline -) 100 mg PO BID [facility] Last Admin: 11/22/17 13:08 Dose: 100 mg Sodium Chloride (Normal Saline -) 250 mls @ 3,000 mls/hr IV PRN PRN PRN Reason: Hypotension during Dialysis Stop: 11/22/17 18:46 Levofloxacin (Levaquin 500 Mg Premixed Ivpb -) 500 mg in 100 mls @ 100 mls/hr IVPB Q48H [facility]; Protocol Last Admin: 11/22/17 13:07 Dose: 100 mls/hr Lisinopril (Prinivil) 40 mg PO DAILY [facility] Last Admin: 11/22/17 13:08 Dose: 40 mg Sevelamer Carbonate (Renvela -) 1,600 mg PO BIDWM [facility] Last Admin: 11/22/17 08:37 Dose: Not Given - Objective Vital Signs: Vital Signs Temperature 97.6 F 11/22/17 12:30 Pulse Rate 61 11/22/17 12:30 Respiratory Rate 18 11/22/17 12:30 Blood Pressure 140/72 11/22/17 12:30 O2 Sat by Pulse Oximetry (%) 95 11/21/17 20:18 Constitutional: Yes: No Distress, Calm Neck: Yes: Supple Cardiovascular: Yes: Regular Rate and Rhythm Respiratory: Yes: Regular, Diminished, On Nasal O2 Gastrointestinal: Yes: Normal Bowel Sounds, Soft Edema: No Labs: CBC, BMP 11/22/17 09:00 11/22/17 09:00 INR, PTT INR 1.13 (0.83-1.09) H 11/19/17 16:54 Problem List - Problems (1) Hypertensive cardiomyopathy Code(s): I11.9 - HYPERTENSIVE HEART DISEASE WITHOUT HEART FAILURE; I43 - CARDIOMYOPATHY IN DISEASES CLASSIFIED ELSEWHERE (2) Diastolic dysfunction without heart failure Code(s): I51.89 - OTHER ILL-DEFINED HEART DISEASES (3) ESRD (end stage renal disease) Code(s): N18.6 - END STAGE RENAL DISEASE (4) Hemoptysis Code(s): R04.2 - HEMOPTYSIS (5) Pneumonia Code(s): J18.9 - PNEUMONIA, UNSPECIFIED ORGANISM Qualifiers: Pneumonia type: due to unspecified organism Laterality: right Lung location: lower lobe of lung Qualified Code(s): J18.1 - Lobar pneumonia, unspecified organism Assessment/Plan 04/27/2017: Moderate pulm HTN from left-sided heart disease (HTN, LVH, diastolic dysfunction) WHO-2 PH 1. Atypical chest pain -> Legionella RLL PNA 2. ESRD on HD on [facility] renal transplant list 3. Hyperkalemia 4. HTN/HCVD with subendocardial ischemia 5. Diastolic dysfunction with pulm HTN 6. DM Plan 1. Trend trops to document peak 2. HD with K reduction bath per renal 3. Review echo and stress testing performed this year at [facility] 4. Renal-dosed Abx course per ID 5. Norvasc 10 qd, hydralazine 100 bid, and lisinopril 40 qd after correction of hyperkalemia
[2017-11-23 00:11] LABS: HBSAG SCREEN Negative (Negative); HEP A AB, IGM Negative (Negative)
[2017-11-23] MEDS: HEPARIN NA (PORCINE) 5,000 UNITS/ML 1ML VIAL SQ SCH ×3 (06:25→21:24)
--- NOTE | 2017-11-23 10:35 | PN ---
Progress Note (short form) - Note Progress Note: Pt examined family at bedside Denies chest pain or SOB has bloody sputum - decreased Vital Signs - 24 hr 11/22/17 11/22/17 11/22/17 16:38 18:00 21:00 Temperature 99.8 F H 100.1 F H Pulse Rate 66 61 Respiratory 20 20 20 Rate Blood Pressure 145/64 132/57 L O2 Sat by Pulse 95 Oximetry (%) 11/22/17 11/23/17 11/23/17 22:00 02:00 06:00 Temperature 99.6 F 98.1 F 98.4 F Pulse Rate 62 62 60 Respiratory 20 20 20 Rate Blood Pressure 134/60 136/69 142/66 O2 Sat by Pulse Oximetry (%) 11/23/17 09:05 Temperature 98.5 F Pulse Rate 58 L Respiratory 18 Rate Blood Pressure 133/69 O2 Sat by Pulse Oximetry (%) Current Medications Generic Name Dose Route Start Last Admin Trade Name Freq PRN Reason Stop Dose Admin Acetaminophen 650 mg 11/21/17 16:28 11/22/17 21:58 Tylenol - PO 650 mg Q6H PRN Administration FEVER Albuterol/Ipratropium 1 amp 11/21/17 13:40 Duoneb - NEB Q6H PRN SHORTNESS OF BREATH Amlodipine Besylate 10 mg 11/22/17 10:00 11/23/17 12:31 Norvasc - PO 10 mg DAILY [facility] Administration Heparin Sodium (Porcine) 5,000 unit 11/21/17 22:00 11/23/17 15:00 Heparin - SQ 5,000 unit TID [facility] Administration Hydralazine HCl 100 mg 11/21/17 22:00 11/23/17 12:31 Apresoline - PO 100 mg BID [facility] Administration Levofloxacin 500 mg in 100 mls @ 100 mls/hr 11/22/17 10:00 11/22/17 13:07 Levaquin 500 Mg Premixed Ivpb - IVPB 100 mls/hr Q48H [facility] Administration Protocol Lisinopril 40 mg 11/22/17 10:00 11/23/17 12:31 Prinivil PO 40 mg DAILY [facility] Administration Sevelamer Carbonate 1,600 mg 11/21/17 17:30 11/23/17 12:29 Renvela - PO Not Given BIDWM [facility] Laboratory Results - last 24 hr 11/20/17 11/23/17 15:10 07:00 Troponin I 0.11 H Hep A IgM Ab Confirm Negative Hepatitis A Ab Total Positive H Hep Bs Antigen Negative Hep Bs Antibody Reactive S1 S2 RRR Lungs decreased Abd- soft, NT No edema PLAN urine antigens positive for legionella on IV Levaquin HD per Renal OOB dc plan per ID Problem List - Problems (1) Diastolic dysfunction without heart failure Code(s): I51.89 - OTHER ILL-DEFINED HEART DISEASES (2) ESRD (end stage renal disease) Code(s): N18.6 - END STAGE RENAL DISEASE (3) Hypertensive cardiomyopathy Code(s): I11.9 - HYPERTENSIVE HEART DISEASE WITHOUT HEART FAILURE; I43 - CARDIOMYOPATHY IN DISEASES CLASSIFIED ELSEWHERE (4) Pneumonia Code(s): J18.9 - PNEUMONIA, UNSPECIFIED ORGANISM Qualifiers: Pneumonia type: due to unspecified organism Laterality: right Lung location: lower lobe of lung Qualified Code(s): J18.1 - Lobar pneumonia, unspecified organism (5) Sepsis Code(s): A41.9 - SEPSIS, UNSPECIFIED ORGANISM
--- NOTE | 2017-11-23 11:04 | PN ---
Progress Note, Physician History of Present Illness: Afebrile, pleurisy resolved and cough improving. - Current Medication List Current Medications: Active Medications Acetaminophen (Tylenol -) 650 mg PO Q6H PRN PRN Reason: FEVER Last Admin: 11/22/17 21:58 Dose: 650 mg Albuterol/Ipratropium (Duoneb -) 1 amp NEB Q6H PRN PRN Reason: SHORTNESS OF BREATH Amlodipine Besylate (Norvasc -) 10 mg PO DAILY [facility] Last Admin: 11/22/17 13:09 Dose: 10 mg Heparin Sodium (Porcine) (Heparin -) 5,000 unit SQ TID [facility] Last Admin: 11/23/17 06:25 Dose: 5,000 unit Hydralazine HCl (Apresoline -) 100 mg PO BID [facility] Last Admin: 11/22/17 21:58 Dose: 100 mg Levofloxacin (Levaquin 500 Mg Premixed Ivpb -) 500 mg in 100 mls @ 100 mls/hr IVPB Q48H [facility]; Protocol Last Admin: 11/22/17 13:07 Dose: 100 mls/hr Lisinopril (Prinivil) 40 mg PO DAILY [facility] Last Admin: 11/22/17 13:08 Dose: 40 mg Sevelamer Carbonate (Renvela -) 1,600 mg PO BIDWM [facility] Last Admin: 11/22/17 17:27 Dose: 1,600 mg - Objective Vital Signs: Vital Signs Temperature 98.4 F 11/23/17 06:00 Pulse Rate 60 11/23/17 06:00 Respiratory Rate 20 11/23/17 06:00 Blood Pressure 142/66 11/23/17 06:00 O2 Sat by Pulse Oximetry (%) 95 11/22/17 21:00 Constitutional: Yes: No Distress, Calm Neck: Yes: Supple Cardiovascular: Yes: Regular Rate and Rhythm Respiratory: Yes: Regular, Diminished Gastrointestinal: Yes: Normal Bowel Sounds, Soft Edema: No Labs: CBC, BMP 11/22/17 09:00 11/22/17 09:00 INR, PTT INR 1.13 (0.83-1.09) H 11/19/17 16:54 Problem List - Problems (1) Hypertensive cardiomyopathy Code(s): I11.9 - HYPERTENSIVE HEART DISEASE WITHOUT HEART FAILURE; I43 - CARDIOMYOPATHY IN DISEASES CLASSIFIED ELSEWHERE (2) Diastolic dysfunction without heart failure Code(s): I51.89 - OTHER ILL-DEFINED HEART DISEASES (3) ESRD (end stage renal disease) Code(s): N18.6 - END STAGE RENAL DISEASE (4) Hemoptysis Code(s): R04.2 - HEMOPTYSIS (5) Pneumonia Code(s): J18.9 - PNEUMONIA, UNSPECIFIED ORGANISM Qualifiers: Pneumonia type: due to unspecified organism Laterality: right Lung location: lower lobe of lung Qualified Code(s): J18.1 - Lobar pneumonia, unspecified organism Assessment/Plan 04/27/2017: Moderate pulm HTN from left-sided heart disease (HTN, LVH, diastolic dysfunction) WHO-2 PH 1. Atypical chest pain -> Legionella RLL PNA 2. ESRD on HD on [facility] renal transplant list 3. Hyperkalemia 4. HTN/HCVD with subendocardial ischemia 5. Diastolic dysfunction with pulm HTN 6. DM Plan 1. Trops have peaked 2. HD with K reduction bath per renal 3. Review echo and stress testing performed this year at [facility] 4. Renal-dosed Abx course per ID, BD as needed 5. Norvasc 10 qd, hydralazine 100 bid, and lisinopril 40 qd after correction of hyperkalemia 6. DVT prophylaxis
[2017-11-23] MEDS: SEVELAMER CARBONATE 800 MG TAB (FP) PO SCH ×2 (12:29→17:29)
[2017-11-23] MEDS: amLODIPine BESYLATE 10 MG TABLET (FP) PO SCH (12:31)
[2017-11-23] MEDS: LISINOPRIL 20 MG TABLET (FP) PO SCH (12:31)
[2017-11-23] MEDS: hydrALAZINE HCL 50 MG TABLET (FP) PO SCH ×2 (12:31→21:24)
--- NOTE | 2017-11-23 16:13 | PN ---
Progress Note, Physician History of Present Illness: Feeling better Still with cough, but less. Sputum no longer blood-streaked No c/o chest pain/ dyspnea Low grade temp WBC improved 14.6 Received 500 mg dose levaquin 11/22 - Current Medication List Current Medications: Active Medications Acetaminophen (Tylenol -) 650 mg PO Q6H PRN PRN Reason: FEVER Last Admin: 11/22/17 21:58 Dose: 650 mg Albuterol/Ipratropium (Duoneb -) 1 amp NEB Q6H PRN PRN Reason: SHORTNESS OF BREATH Amlodipine Besylate (Norvasc -) 10 mg PO DAILY [facility] Last Admin: 11/23/17 12:31 Dose: 10 mg Heparin Sodium (Porcine) (Heparin -) 5,000 unit SQ TID [facility] Last Admin: 11/23/17 15:00 Dose: 5,000 unit Hydralazine HCl (Apresoline -) 100 mg PO BID [facility] Last Admin: 11/23/17 12:31 Dose: 100 mg Levofloxacin (Levaquin 500 Mg Premixed Ivpb -) 500 mg in 100 mls @ 100 mls/hr IVPB Q48H [facility]; Protocol Last Admin: 11/22/17 13:07 Dose: 100 mls/hr Lisinopril (Prinivil) 40 mg PO DAILY [facility] Last Admin: 11/23/17 12:31 Dose: 40 mg Sevelamer Carbonate (Renvela -) 1,600 mg PO BIDWM [facility] Last Admin: 11/23/17 12:29 Dose: Not Given - Objective Vital Signs: Vital Signs Temperature 98.5 F 11/23/17 09:05 Pulse Rate 58 L 11/23/17 09:05 Respiratory Rate 18 11/23/17 09:05 Blood Pressure 133/69 11/23/17 09:05 O2 Sat by Pulse Oximetry (%) 95 11/22/17 21:00 Constitutional: Yes: No Distress Eyes: Yes: Conjunctiva Clear Cardiovascular: Yes: Regular Rate and Rhythm, S1, S2 Respiratory: Yes: Rhonchi Gastrointestinal: Yes: Normal Bowel Sounds, Soft. No: Tenderness Labs: CBC, BMP 11/22/17 09:00 11/22/17 09:00 INR, PTT INR 1.13 (0.83-1.09) H 11/19/17 16:54 Assessment/Plan RLL legionella pneumonia clinically improved Sepsis Fever/ leukocytosis improved ESRD Hyponatremia- resolved Redose levaquin 500mg after HD tomorrow
--- NOTE | 2017-11-23 16:52 | PN ---
Progress Note, Physician History of Present Illness: Pt seen and examined at bedside. He is awake and alert. He feels that the cough is improved. He is eager to go home. - Current Medication List Current Medications: Active Medications Acetaminophen (Tylenol -) 650 mg PO Q6H PRN PRN Reason: FEVER Last Admin: 11/22/17 21:58 Dose: 650 mg Albuterol/Ipratropium (Duoneb -) 1 amp NEB Q6H PRN PRN Reason: SHORTNESS OF BREATH Amlodipine Besylate (Norvasc -) 10 mg PO DAILY [facility] Last Admin: 11/23/17 12:31 Dose: 10 mg Heparin Sodium (Porcine) (Heparin -) 5,000 unit SQ TID [facility] Last Admin: 11/23/17 15:00 Dose: 5,000 unit Hydralazine HCl (Apresoline -) 100 mg PO BID [facility] Last Admin: 11/23/17 12:31 Dose: 100 mg Levofloxacin (Levaquin 500 Mg Premixed Ivpb -) 500 mg in 100 mls @ 100 mls/hr IVPB Q48H [facility]; Protocol Last Admin: 11/22/17 13:07 Dose: 100 mls/hr Lisinopril (Prinivil) 40 mg PO DAILY [facility] Last Admin: 11/23/17 12:31 Dose: 40 mg Sevelamer Carbonate (Renvela -) 1,600 mg PO BIDWM [facility] Last Admin: 11/23/17 12:29 Dose: Not Given - Objective Vital Signs: Vital Signs Temperature 98.5 F 11/23/17 09:05 Pulse Rate 58 L 11/23/17 09:05 Respiratory Rate 18 11/23/17 09:05 Blood Pressure 133/69 11/23/17 09:05 O2 Sat by Pulse Oximetry (%) 95 11/22/17 21:00 Constitutional: Yes: Calm Eyes: Yes: Conjunctiva Clear HENT: Yes: Atraumatic Neck: Yes: Supple Cardiovascular: Yes: S1, S2 Respiratory: Yes: CTA Bilaterally Gastrointestinal: Yes: Soft Genitourinary: Yes: WNL Musculoskeletal: Yes: WNL Edema: No Neurological: Yes: Oriented Psychiatric: Yes: Oriented Labs: CBC, BMP 11/22/17 09:00 11/22/17 09:00 INR, PTT INR 1.13 (0.83-1.09) H 11/19/17 16:54 Problem List - Problems (1) ESRD (end stage renal disease) Code(s): N18.6 - END STAGE RENAL DISEASE (2) Pneumonia Code(s): J18.9 - PNEUMONIA, UNSPECIFIED ORGANISM Qualifiers: Pneumonia type: due to unspecified organism Laterality: right Lung location: lower lobe of lung Qualified Code(s): J18.1 - Lobar pneumonia, unspecified organism Assessment/Plan Current Medications Generic Name Dose Route Start Last Admin Trade Name Freq PRN Reason Stop Dose Admin Acetaminophen 650 mg 11/21/17 16:28 11/22/17 21:58 Tylenol - PO 650 mg Q6H PRN Administration FEVER Albuterol/Ipratropium 1 amp 11/21/17 13:40 Duoneb - NEB Q6H PRN SHORTNESS OF BREATH Amlodipine Besylate 10 mg 11/22/17 10:00 11/23/17 12:31 Norvasc - PO 10 mg DAILY [facility] Administration Heparin Sodium (Porcine) 5,000 unit 11/21/17 22:00 11/23/17 15:00 Heparin - SQ 5,000 unit TID [facility] Administration Hydralazine HCl 100 mg 11/21/17 22:00 11/23/17 12:31 Apresoline - PO 100 mg BID [facility] Administration Levofloxacin 500 mg in 100 mls @ 100 mls/hr 11/22/17 10:00 11/22/17 13:07 Levaquin 500 Mg Premixed Ivpb - IVPB 100 mls/hr Q48H [facility] Administration Protocol Lisinopril 40 mg 11/22/17 10:00 11/23/17 12:31 Prinivil PO 40 mg DAILY [facility] Administration Sevelamer Carbonate 1,600 mg 11/21/17 17:30 11/23/17 12:29 Renvela - PO Not Given BIDWM [facility] Impression 1. ESRD 2. Hyperkalemia 3. HTN 4. chest pain 5. DM 6. PNA 7. pleural effusion Plan - HD in am - cont abx per ID - pt clinically improved - monitor lytes - HD orders: AVF 3:30, opti 180, abf 450, 2 k , heparin 1000 bolus, micera 100 q 2 weeks (last dose 11/15)
[2017-11-23] MEDS ORDERED: SODIUM CHLORIDE 250 ML IV PRN (16:53)
[2017-11-24] MEDS: HEPARIN NA (PORCINE) 5,000 UNITS/ML 1ML VIAL SQ SCH ×2 (06:04→14:58)
[2017-11-24] MEDS: SEVELAMER CARBONATE 800 MG TAB (FP) PO SCH ×2 (07:59→17:17)
[2017-11-24] MEDS: LISINOPRIL 20 MG TABLET (FP) PO SCH (09:22)
[2017-11-24] MEDS: hydrALAZINE HCL 50 MG TABLET (FP) PO SCH (09:23)
[2017-11-24] MEDS: amLODIPine BESYLATE 10 MG TABLET (FP) PO SCH (09:23)
[2017-11-24] MEDS ORDERED: HEPARIN NA (PORCINE) 5,000 UNITS/ML 1ML VIAL IVPUSH ONE (10:30)
[2017-11-24 11:01] LABS: HEMATOCRIT 29.2 % (35.4-49); HEMOGLOBIN 9.6 GM/dL (11.7-16.9); MCH 30.6 pg (25.7-33.7); MEAN CELL VOLUME 92.7 fl (80-96); MEAN PLT VOLUME 8.8 fl (7.5-11.1); PLATELET COUNT 365 K/MM3 (134-434); RBC 3.15 M/mm3 (4.00-5.60); RDW 19.8 % (11.9-15.9); WHITE BLOOD COUNT 10.7 K/mm3 (4.0-10.0)
[2017-11-24 11:30] LABS: ANION GAP 14 MMOL/L (8-16); BLOOD UREA NITROGEN 80 mg/dL (7-18); CALCIUM 9.8 mg/dL (8.5-10.1); CHLORIDE 93 mmol/L (98-107); CO2 26 mmol/L (21-32); GLUCOSE,RANDOM 159 mg/dL (74-106); POTASSIUM 4.2 mmol/L (3.5-5.1); SODIUM 134 mmol/L (136-145)
[2017-11-24 11:41] LABS: CREATININE 9.1 mg/dL (0.55-1.3)
--- NOTE | 2017-11-24 11:51 | PN ---
Progress Note (short form) - Note Progress Note: pt seen/ examined in dialysis feels well chart reviewed awake/ comfortable. denies cp/sob. i/d f/u noted-- Pt got Levaquin Before dialysis today !! Vital Signs Temp 98.8 F 11/24/17 10:25 Pulse 54 L 11/24/17 11:30 Resp 18 11/24/17 11:30 BP 143/81 11/24/17 11:30 Pulse Ox 95 11/23/17 22:00 Intake & Output 11/23/17 11/23/17 11/24/17 11:59 23:59 11:59 Intake Total 300 1310 Balance 300 1310 Weight 187 lb 183 lb 14.4 oz Intake: Oral 300 1310 Other: Voiding Method Toilet Toilet # Unmeasured Voids Void 2 2 2 Bowel Movement No No # Bowel Movements 0 Weight Measurement Method Built in [facility] Active Medications Acetaminophen (Tylenol -) 650 mg PO Q6H PRN PRN Reason: FEVER Last Admin: 11/22/17 21:58 Dose: 650 mg Albuterol/Ipratropium (Duoneb -) 1 amp NEB Q6H PRN PRN Reason: SHORTNESS OF BREATH Amlodipine Besylate (Norvasc -) 10 mg PO DAILY [facility] Last Admin: 11/24/17 09:23 Dose: 10 mg Epoetin Sanchez (Epogen -) 4,000 unit IVPUSH ONCE ONE Stop: 11/24/17 12:01 Last Admin: 11/24/17 11:37 Dose: 4,000 unit Heparin Sodium (Porcine) (Heparin -) 5,000 unit SQ TID [facility] Last Admin: 11/24/17 06:04 Dose: 5,000 unit Hydralazine HCl (Apresoline -) 100 mg PO BID [facility] Last Admin: 11/24/17 09:23 Dose: 100 mg Levofloxacin (Levaquin 500 Mg Premixed Ivpb -) 500 mg in 100 mls @ 100 mls/hr IVPB Q48H [facility]; Protocol Last Admin: 11/24/17 09:23 Dose: 100 mls/hr Sodium Chloride (Normal Saline -) 250 mls @ 3,000 mls/hr IV PRN PRN PRN Reason: Hypotension during Dialysis Stop: 11/24/17 16:53 Lisinopril (Prinivil) 40 mg PO DAILY [facility] Last Admin: 11/24/17 09:22 Dose: 40 mg Sevelamer Carbonate (Renvela -) 1,600 mg PO BIDWM [facility] Last Admin: 11/24/17 07:59 Dose: 1,600 mg CBC, BMP 11/24/17 10:30 11/24/17 10:30 Physical Exam awake/ comfortable. S1 S2 RRR Lungs decreased at bases Abd- soft, NT No edema. neuro - alert/ awake PLAN urine antigens positive for legionella on IV Levaquin--given today before dialysis i/d to follow will discuss with i/d will follow Problem List - Problems (1) Diastolic dysfunction without heart failure Code(s): I51.89 - OTHER ILL-DEFINED HEART DISEASES (2) ESRD (end stage renal disease) Code(s): N18.6 - END STAGE RENAL DISEASE (3) Hypertensive cardiomyopathy Code(s): I11.9 - HYPERTENSIVE HEART DISEASE WITHOUT HEART FAILURE; I43 - CARDIOMYOPATHY IN DISEASES CLASSIFIED ELSEWHERE (4) Pneumonia Code(s): J18.9 - PNEUMONIA, UNSPECIFIED ORGANISM Qualifiers: Pneumonia type: due to unspecified organism Laterality: right Lung location: lower lobe of lung Qualified Code(s): J18.1 - Lobar pneumonia, unspecified organism (5) Sepsis Code(s): A41.9 - SEPSIS, UNSPECIFIED ORGANISM
[2017-11-24] MEDS ORDERED: EPOETIN ALFA 2,000 UNIT/1 ML VIAL IVPUSH ONE (12:00)
--- NOTE | 2017-11-24 13:49 | PN ---
Progress Note, Physician History of Present Illness: Afebrile, pleurisy resolved and cough improving. - Current Medication List Current Medications: Active Medications Acetaminophen (Tylenol -) 650 mg PO Q6H PRN PRN Reason: FEVER Last Admin: 11/22/17 21:58 Dose: 650 mg Albuterol/Ipratropium (Duoneb -) 1 amp NEB Q6H PRN PRN Reason: SHORTNESS OF BREATH Amlodipine Besylate (Norvasc -) 10 mg PO DAILY [facility] Last Admin: 11/24/17 09:23 Dose: 10 mg Heparin Sodium (Porcine) (Heparin -) 5,000 unit SQ TID [facility] Last Admin: 11/24/17 06:04 Dose: 5,000 unit Hydralazine HCl (Apresoline -) 100 mg PO BID [facility] Last Admin: 11/24/17 09:23 Dose: 100 mg Levofloxacin (Levaquin 500 Mg Premixed Ivpb -) 500 mg in 100 mls @ 100 mls/hr IVPB Q48H [facility]; Protocol Last Admin: 11/24/17 09:23 Dose: 100 mls/hr Sodium Chloride (Normal Saline -) 250 mls @ 3,000 mls/hr IV PRN PRN PRN Reason: Hypotension during Dialysis Stop: 11/24/17 16:53 Lisinopril (Prinivil) 40 mg PO DAILY [facility] Last Admin: 11/24/17 09:22 Dose: 40 mg Sevelamer Carbonate (Renvela -) 1,600 mg PO BIDWM [facility] Last Admin: 11/24/17 07:59 Dose: 1,600 mg - Objective Vital Signs: Vital Signs Temperature 98.8 F 11/24/17 10:25 Pulse Rate 55 L 11/24/17 13:30 Respiratory Rate 18 11/24/17 13:30 Blood Pressure 142/72 11/24/17 13:30 O2 Sat by Pulse Oximetry (%) 95 11/24/17 09:00 Constitutional: Yes: No Distress, Calm, Thin Neck: Yes: Supple Cardiovascular: Yes: Regular Rate and Rhythm Respiratory: Yes: Regular, Diminished Gastrointestinal: Yes: Normal Bowel Sounds, Soft Edema: No Labs: CBC, BMP 11/24/17 10:30 11/24/17 10:30 INR, PTT INR 1.13 (0.83-1.09) H 11/19/17 16:54 Problem List - Problems (1) Hypertensive cardiomyopathy Code(s): I11.9 - HYPERTENSIVE HEART DISEASE WITHOUT HEART FAILURE; I43 - CARDIOMYOPATHY IN DISEASES CLASSIFIED ELSEWHERE (2) Diastolic dysfunction without heart failure Code(s): I51.89 - OTHER ILL-DEFINED HEART DISEASES (3) ESRD (end stage renal disease) Code(s): N18.6 - END STAGE RENAL DISEASE (4) Hemoptysis Code(s): R04.2 - HEMOPTYSIS (5) Pneumonia Code(s): J18.9 - PNEUMONIA, UNSPECIFIED ORGANISM Qualifiers: Pneumonia type: due to unspecified organism Laterality: right Lung location: lower lobe of lung Qualified Code(s): J18.1 - Lobar pneumonia, unspecified organism Assessment/Plan 04/27/2017: Moderate pulm HTN from left-sided heart disease (HTN, LVH, diastolic dysfunction) WHO-2 PH 1. Atypical chest pain -> Legionella RLL PNA 2. ESRD on HD on [facility] renal transplant list 3. Hyperkalemia 4. HTN/HCVD with subendocardial ischemia 5. Diastolic dysfunction with pulm HTN 6. DM Plan 1. Trops have peaked 2. HD with K reduction bath per renal 3. Review echo and stress testing performed this year at [facility] 4. Complete renal-dosed abx course per ID, BD as needed 5. Norvasc 10 qd, hydralazine 100 bid, and lisinopril 40 qd after correction of hyperkalemia 6. DVT prophylaxis
--- NOTE | 2017-11-24 14:30 | PN ---
Progress Note, Physician History of Present Illness: Feels well Less cough Sputum no longer blood-streaked No c/o chest pain/ dyspnea Afebrile WBC improved 10.7 Received 500 mg dose levaquin today - Current Medication List Current Medications: Active Medications Acetaminophen (Tylenol -) 650 mg PO Q6H PRN PRN Reason: FEVER Last Admin: 11/22/17 21:58 Dose: 650 mg Albuterol/Ipratropium (Duoneb -) 1 amp NEB Q6H PRN PRN Reason: SHORTNESS OF BREATH Amlodipine Besylate (Norvasc -) 10 mg PO DAILY [facility] Last Admin: 11/24/17 09:23 Dose: 10 mg Heparin Sodium (Porcine) (Heparin -) 5,000 unit SQ TID [facility] Last Admin: 11/24/17 06:04 Dose: 5,000 unit Hydralazine HCl (Apresoline -) 100 mg PO BID [facility] Last Admin: 11/24/17 09:23 Dose: 100 mg Levofloxacin (Levaquin 500 Mg Premixed Ivpb -) 500 mg in 100 mls @ 100 mls/hr IVPB Q48H [facility]; Protocol Last Admin: 11/24/17 09:23 Dose: 100 mls/hr Sodium Chloride (Normal Saline -) 250 mls @ 3,000 mls/hr IV PRN PRN PRN Reason: Hypotension during Dialysis Stop: 11/24/17 16:53 Lisinopril (Prinivil) 40 mg PO DAILY [facility] Last Admin: 11/24/17 09:22 Dose: 40 mg Sevelamer Carbonate (Renvela -) 1,600 mg PO BIDWM [facility] Last Admin: 11/24/17 07:59 Dose: 1,600 mg - Objective Vital Signs: Vital Signs Temperature 98.8 F 11/24/17 10:25 Pulse Rate 54 L 11/24/17 14:05 Respiratory Rate 18 11/24/17 14:05 Blood Pressure 156/81 11/24/17 14:05 O2 Sat by Pulse Oximetry (%) 95 11/24/17 09:00 Constitutional: Yes: Well Nourished Cardiovascular: Yes: Regular Rate and Rhythm, Murmur, S1, S2 Respiratory: Yes: CTA Bilaterally Gastrointestinal: Yes: Normal Bowel Sounds, Soft. No: Tenderness Edema: No Labs: CBC, BMP 11/24/17 10:30 11/24/17 10:30 INR, PTT INR 1.13 (0.83-1.09) H 11/19/17 16:54 Assessment/Plan RLL legionella pneumonia clinically improved Sepsis Fever/ leukocytosis improved ESRD Hyponatremia- resolved Continue levaquin 500mg po q48h x 3 more doses
[2017-11-24 15:04] VITALS: BP 138/64; PULSE 62; TEMP 98.6
--- NOTE | 2017-11-24 15:54 | DS ---
Physical Examination Vital Signs: Vital Signs Temperature 98.6 F 11/24/17 15:02 Pulse Rate 62 11/24/17 15:02 Respiratory Rate 18 11/24/17 15:02 Blood Pressure 138/64 11/24/17 15:02 O2 Sat by Pulse Oximetry (%) 95 11/24/17 09:00 Findings/Remarks: see todays progress note Labs: CBC, BMP 11/24/17 10:30 11/24/17 10:30 Discharge Summary Reason For Visit: HEMOPTYSIS, RENAL FAILURE, SEPSIS, PNEUMONIA Current Active Problems Diastolic dysfunction without heart failure (Acute) ESRD (end stage renal disease) (Acute) Hemoptysis (Acute) Hypertensive cardiomyopathy (Acute) Pneumonia (Acute) Renal failure (Acute) Sepsis (Acute) Hospital Course: pt admitted for Pneumonia RLL Legionella Treated with abx Much better Patient to continue--Levaquin for 3 more doses--- every 2 days prescription sent to pharmacy Patient instructed to have a repeat CAT scan in 2 weeks----to document clearing of pneumonia Follow-up with PMD in 1 week Discussed with nursing staff also Discharge today Condition: Improved - Instructions Diet, Activity, Other Instructions: Repeat CAT scan in 2 weeks Referrals: Maco Villanueva MD [Primary Care Provider] - - Home Medications Comprehensive Discharge Medication List: Ambulatory Orders Amlodipine Besylate 10 mg PO DAILY 11/19/17 Hydralazine HCl 100 mg PO BID 11/19/17 Lisinopril [Prinivil -] 40 mg PO DAILY 11/19/17 Sevelamer Carbonate [Renvela -] 1,600 mg PO BID 11/19/17 Acetaminophen [Tylenol .Regular Strength -] 650 mg PO Q6H PRN tablet 11/24/17 Albuterol 2.5/Ipratropium 0.5 [Duoneb -] 1 amp NEB Q6H PRN amp 11/24/17 Levofloxacin [Levaquin] 500 mg PO Q2D #3 tablet 11/24/17
--- NOTE | 2017-11-24 16:40 | PN ---
Progress Note, Physician History of Present Illness: Pt seen and examined at bedside. He tolerated HD. He feels much better and is eager to go home. - Current Medication List Current Medications: Active Medications Acetaminophen (Tylenol -) 650 mg PO Q6H PRN PRN Reason: FEVER Last Admin: 11/22/17 21:58 Dose: 650 mg Albuterol/Ipratropium (Duoneb -) 1 amp NEB Q6H PRN PRN Reason: SHORTNESS OF BREATH Amlodipine Besylate (Norvasc -) 10 mg PO DAILY [facility] Last Admin: 11/24/17 09:23 Dose: 10 mg Heparin Sodium (Porcine) (Heparin -) 5,000 unit SQ TID [facility] Last Admin: 11/24/17 14:58 Dose: 5,000 unit Hydralazine HCl (Apresoline -) 100 mg PO BID [facility] Last Admin: 11/24/17 09:23 Dose: 100 mg Levofloxacin (Levaquin 500 Mg Premixed Ivpb -) 500 mg in 100 mls @ 100 mls/hr IVPB Q48H [facility]; Protocol Last Admin: 11/24/17 09:23 Dose: 100 mls/hr Sodium Chloride (Normal Saline -) 250 mls @ 3,000 mls/hr IV PRN PRN PRN Reason: Hypotension during Dialysis Stop: 11/24/17 16:53 Lisinopril (Prinivil) 40 mg PO DAILY [facility] Last Admin: 11/24/17 09:22 Dose: 40 mg Sevelamer Carbonate (Renvela -) 1,600 mg PO BIDWM [facility] Last Admin: 11/24/17 07:59 Dose: 1,600 mg - Objective Vital Signs: Vital Signs Temperature 98.6 F 11/24/17 15:02 Pulse Rate 62 11/24/17 15:02 Respiratory Rate 18 11/24/17 15:02 Blood Pressure 138/64 11/24/17 15:02 O2 Sat by Pulse Oximetry (%) 95 11/24/17 09:00 Constitutional: Yes: Calm Eyes: Yes: Conjunctiva Clear HENT: Yes: Atraumatic Cardiovascular: Yes: S1, S2 Respiratory: Yes: CTA Bilaterally Gastrointestinal: Yes: Soft Genitourinary: Yes: WNL Musculoskeletal: Yes: WNL Edema: No Neurological: Yes: Oriented Psychiatric: Yes: Oriented Labs: CBC, BMP 11/24/17 10:30 11/24/17 10:30 INR, PTT INR 1.13 (0.83-1.09) H 11/19/17 16:54 Problem List - Problems (1) ESRD (end stage renal disease) Code(s): N18.6 - END STAGE RENAL DISEASE (2) Pneumonia Code(s): J18.9 - PNEUMONIA, UNSPECIFIED ORGANISM Qualifiers: Pneumonia type: due to unspecified organism Laterality: right Lung location: lower lobe of lung Qualified Code(s): J18.1 - Lobar pneumonia, unspecified organism Assessment/Plan Current Medications Generic Name Dose Route Start Last Admin Trade Name Freq PRN Reason Stop Dose Admin Acetaminophen 650 mg 11/21/17 16:28 11/22/17 21:58 Tylenol - PO 650 mg Q6H PRN Administration FEVER Albuterol/Ipratropium 1 amp 11/21/17 13:40 Duoneb - NEB Q6H PRN SHORTNESS OF BREATH Amlodipine Besylate 10 mg 11/22/17 10:00 11/24/17 09:23 Norvasc - PO 10 mg DAILY [facility]ON[facility]IE Administration Heparin Sodium (Porcine) 5,000 unit 11/21/17 22:00 11/24/17 14:58 Heparin - SQ 5,000 unit TID VONNIE Administration Hydralazine HCl 100 mg 11/21/17 22:00 11/24/17 09:23 Apresoline - PO 100 mg BID VONNIE Administration Levofloxacin 500 mg in 100 mls @ 100 mls/hr 11/22/17 10:00 11/24/17 09:23 Levaquin 500 Mg Premixed Ivpb - IVPB 100 mls/hr Q48H VONNIE Administration Protocol Sodium Chloride 250 mls @ 3,000 mls/hr 11/23/17 16:53 Normal Saline - IV 11/24/17 16:53 PRN PRN Hypotension during Dialysis Lisinopril 40 mg 11/22/17 10:00 11/24/17 09:22 Prinivil PO 40 mg DAILY [facility] Administration Sevelamer Carbonate 1,600 mg 11/21/17 17:30 11/24/17 07:59 Renvela - PO 1,600 mg BIDWM VONNIE Administration Impression 1. ESRD 2. Hyperkalemia 3. HTN 4. chest pain 5. DM 6. PNA 7. pleural effusion Plan - HD today, pt tolerated - he has HD set up as outpt - abx per ID - renal diet - HD orders: AVF 3:30, opti 180, abf 450, 2 k , heparin 1000 bolus, micera 100 q 2 weeks (last dose 11/15)
== END 2017-11-24 17:55 | disposition home or self-care (01) | DRG 871 ==
LOC: JER 14:44 → JERBED 17:55 → J6S 11-21 16:17
PROVIDERS: ADMIT Internal Medicine; ATTEND Internal Medicine
PROC: 5A1D70Z Performance of Urinary Filtration, Intermittent, Less than 6 Hours Per Day (ICD-10-PCS; principal; 2017-11-20)
PROC: 5A1D70Z Performance of Urinary Filtration, Intermittent, Less than 6 Hours Per Day (ICD-10-PCS; 2017-11-22)
PROC: 5A1D70Z Performance of Urinary Filtration, Intermittent, Less than 6 Hours Per Day (ICD-10-PCS; 2017-11-24)
DX: A41.9 Sepsis, unspecified organism (principal); J18.9 Pneumonia, unspecified organism; N18.6 End stage renal disease; A48.1 Legionnaires' disease; R04.2 Hemoptysis; I12.0 Hypertensive chronic kidney disease with stage 5 chronic kidney disease or end stage renal disease; I43 Cardiomyopathy in diseases classified elsewhere; E87.1 Hypo-osmolality and hyponatremia; J90 Pleural effusion, not elsewhere classified; E78.5 Hyperlipidemia, unspecified; R00.0 Tachycardia, unspecified; E11.9 Type 2 diabetes mellitus without complications; R09.02 Hypoxemia; I25.10 Atherosclerotic heart disease of native coronary artery without angina pectoris; E11.22 Type 2 diabetes mellitus with diabetic chronic kidney disease; Z99.2 Dependence on renal dialysis; Z87.442 Personal history of urinary calculi; E87.5 Hyperkalemia; I27.20 Pulmonary hypertension, unspecified; D72.829 Elevated white blood cell count, unspecified
CPT/HCPCS: 36415; 71045-TC-FY; 71250-TC; 80048; 80053; 81003; 81015; 82550; 82553; 82803; 83605; 83735; 84100; 84484; 85025; 85027; 85610; 85730; 86704; 86706; 86708; 86713; 86803; 86850; 86900; 86901; 87040; 87070; 87077; 87086; 87205; 87340; 87899; 93005; 93010; 99285-25; J0131; J0885; J1644; J7620

== ENCOUNTER 2018-12-31 12:33 | Inpatient (IN) | payer OTHER ==
[2018-12-31] MEDS ORDERED: ALBUTEROL SO4 0.083% IH SOL 2.5 MG/3 ML VIAL.NEB. NEB ONE ×2 (14:40→17:32)
--- NOTE | 2018-12-31 14:58 | PDOC ---
History of Present Illness - General Chief Complaint: Hemoptysis Stated Complaint: COUGHING UP BLOOD Time Seen by Provider: 12/31/18 13:19 - History of Present Illness Initial Comments: 12/31/18 14:57 63 year old male with a significant past medical history of ESRD on dialysis M/W /F , HTN, CAD who presented to the ED with productive cough for the past 15 days , with some bloody spotting over the past 10 days as well as mild chest pain exacerbated by cough and sob. Patient states that he saw Dr. Fairchild last week who took xrays but didn't find anything abnormal. The patient denies any fever, chills, n/v/d weight loss, recent travel or recent surgeries. Past History - Past Medical History Allergies/Adverse Reactions: Allergies Allergy/AdvReac Type Severity Reaction Status Date / Time No Known Allergies Allergy Verified 11/19/17 14:54 Home Medications: Ambulatory Orders Hydralazine HCl 100 mg PO BID 11/19/17 Anemia: No Asthma: No Cancer: No Cardiac Disorders: Yes (CAD) CVA: No COPD: No CHF: No Dementia: No Diabetes: No Dialysis: Yes (M,W,F) GI Disorders: Yes (EPIGASTRIC PAIN,CONSTIPATION) Disorders: No HTN: Yes Hypercholesterolemia: Yes Liver Disease: No Seizures: No Thyroid Disease: No - Surgical History Abdominal Surgery: No Appendectomy: No Cardiac Surgery: Yes (Cardiac Cath) Cholecystectomy: No Lung Surgery: No Neurologic Surgery: No Orthopedic Surgery: No - Immunization History Immunization Up to Date: Yes - Psycho Social/Smoking Cessation Hx Smoking Status: No Smoking History: Never smoked Have you smoked in the past 12 months: No Number of Cigarettes Smoked Daily: 0 Information on smoking cessation initiated: No Hx Alcohol Use: No Drug/Substance Use Hx: No Substance Use Type: None Hx Substance Use Treatment: No Review of Systems - Review of Systems Able to Perform ROS?: Yes Is the patient limited Cameroonian proficient: No Constitutional: No: Symptoms Reported HEENTM: No: Symptoms Reported Respiratory: Yes: See HPI Cardiac (ROS): No: Symptoms Reported ABD/GI: No: Symptoms Reported : No: Symptoms Reported Musculoskeletal: No: Symptoms Reported Integumentary: No: Symptoms Reported Neurological: No: Symptoms reported Endocrine: No: Symptoms Reported Hematologic/Lymphatic: No: Symptoms Reported All Other Systems: Reviewed and Negative *Physical Exam - Vital Signs Last Vital Signs Temp Pulse Resp BP Pulse Ox 98.0 F 62 16 134/50 L 95 12/31/18 12:47 12/31/18 12:47 12/31/18 12:47 12/31/18 12:47 12/31/18 12:47 ED Treatment Course - LABORATORY CBC & Chemistry Diagram: 12/31/18 14:41 12/31/18 14:41 - RADIOLOGY Radiology Studies Ordered: Category Date Time Status CHEST CTA [CT] Stat CT Scan 12/31/18 14:39 Ordered CHEST PA & LAT [RAD] Stat Radiology 12/31/18 14:00 Taken Medical Decision Making - Medical Decision Making 12/31/18 15:04 63 year old male with a significant past medical history of ESRD on dialysis M/W /F , HTN, CAD who presented to the ED with productive cough for the past 15 days , with some bloody spotting over the past 10 days as well as mild chest pain exacerbated by cough and sob. WEll's score for pe OF 2.5 = MODERATE RISK (tachycardia + hemoptysis) No evidence of pneumonia on xray. Will send the patient for CTA of the chest to rule out PE. 12/31/18 16:40 Elevated creatinine for this patient is known, End stage renal failure on dialysis. Will obtain CTA anyway as high suspicion for PE. Patient understands 12/31/18 18:02 Bilateral pneumonia on CTA, no PE Will treat with ABX. (ceftriaxone and azithromycin) Consulted Dr. Johnson for electrolyte imbalance, potassium 5.2 creatinine 5.9 Already dialyzed today but need additional dialysis before going to the floor. Will admit to hospitalist for Med surg. Discharge - Discharge Information Problems reviewed: Yes Clinical Impression/Diagnosis: ESRD (end stage renal disease) Pneumonia Qualifiers: Pneumonia type: due to unspecified organism Laterality: right Lung location: lower lobe of lung Qualified Code(s): J18.1 - Lobar pneumonia, unspecified organism Condition: Stable - Admission Yes - Follow up/Referral - Patient Discharge Instructions - Post Discharge Activity
[2018-12-31 15:25] LABS: BASO % 0.7 % (0-2.0); EOS % 1.5 % (0-4.5); HEMATOCRIT 26.9 % (35.4-49); HEMOGLOBIN 8.7 GM/dL (11.7-16.9); LYMPH % 9.6 % (8-40); MCHC 32.5 g/dl (32.0-35.9); MEAN CELL VOLUME 86.3 fl (80-96); MEAN PLT VOLUME 8.3 fl (7.5-11.1); MONO % 11.5 % (3.8-10.2); NEUT % 76.7 % (42.8-82.8); PLATELET COUNT 329 K/MM3 (134-434); RBC 3.11 M/mm3 (4.00-5.60); RDW 19.8 % (11.9-15.9)
[2018-12-31] MEDS ORDERED: SODIUM CHLORIDE 0.9% 1000 ML INFUS.BAG IV ONE (15:28)
--- NOTE | 2018-12-31 15:28 | PDOC ---
Attending Attestation - Resident Resident Name: Dominic Chester - ED Attending Attestation I have performed the following: I have examined & evaluated the patient, The case was reviewed & discussed with the resident, I agree w/resident's findings & plan, Exceptions are as noted - HPI HPI: 12/31/18 15:24 63yo male presents for eval of hemoptysis x 10 days. States cough has been present x 10 days. Denies f/c. No wt loss. No recent travel. NO night sweats. No cp. States cough is bronchospastic and has phlegm that has specks of blood. No other complaints. - Physicial Exam PE: 12/31/18 15:25 Gen: aaox3, coughing- bronchospastic heart: +s1s2 reg lungs: cta b/l, bronchospastic cough present without phlegm abd: soft, nt/nd +bs ext: no c/c/e, ambulatory in the ER with a steady gait neuro: no focal deficits, awake, alert - Medical Decision Making 12/31/18 15:27 a/p: 63yo male with hemoptysis x 10 days with a cough -suspect bronchitis/pna -no TB risk factors -denies c/o pleuritic cp or PE risk factors -denies cp -will send labs, cxr, -will monitor and reassess 12/31/18 15:28 cxr shows nodules, will order ct for better imaging 12/31/18 16:30 elevated potassium, hgb [address] 12/31/18 17:57 pt with infiltrates on ct will add cultures will start abx pt will be admitted pmd joseline vasquez, admits to [facility] overnight 12/31/18 18:01 case discussed with Mini Vasquez who accepts pt to service 12/31/18 18:02 no acute PE seen on the ct chest, pending official read
[2018-12-31 15:34] LABS: INR 0.96 (0.83-1.09); PROTHROMBIN TIME (PATIENT) 11.3 SEC (9.7-13.0)
[2018-12-31 15:37] LABS: ACTIVATED PTT 32.5 SECONDS (25.2-36.5)
[2018-12-31 15:50] LABS: ALBUMIN 3.2 g/dl (3.4-5.0); BILIRUBIN,TOTAL 0.7 mg/dL (0.2-1); CALCIUM 9.9 mg/dL (8.5-10.1); CREATININE 5.9 mg/dL (0.55-1.3); POTASSIUM 5.2 mmol/L (3.5-5.1); TOT PROT 7.4 g/dl (6.4-8.2)
[2018-12-31] MEDS ORDERED: AZITHROMYCIN IVPB 500 MG in DEXTROSE 5%-WATER - 250 ML IVPB ONE (17:52)
[2018-12-31] MEDS ORDERED: CEFTRIAXONE 1 GM in DEXTROSE 5%-WATER - 100 ML IVPB ONE (17:52)
[2018-12-31] MEDS ORDERED: EPOETIN ALFA 2,000 UNIT/1 ML VIAL IVPUSH ONE (17:56)
--- NOTE | 2018-12-31 17:56 | CONSULT ---
Consult Consult Specialty:: Nephrology Reason for Consultation:: esrd - History of Present Illness Chief Complaint: hemoptysis History of Present Illness: Pt is a 63 year old male with pmhx of esrd and htn. He presents to the ER with cough. He does get pink hemoptysis at times. he denies sick contacts. He denies fevers or chills. He is due for HD today. He denies chest pain or palpitations. I was called to evaluate him for HD as he has ESRD. - History Source History Provided By: Patient - Past Medical History Cardio/Vascular: Yes: CAD, HTN, Hyperlipdemia Pulmonary: Yes: Asthma Renal/: Yes: Renal Inusuff, Hemodialysis, Renal Calculi Endocrine: Yes: Diabetes Mellitus - Past Surgical History Past Surgical History: Yes: AV Fistula/Graft - Alcohol/Substance Use Hx Alcohol Use: No History of Substance Use: reports: None - Smoking History Smoking history: Never smoked Have you smoked in the past 12 months: No Aproximately how many cigarettes per day: 0 Home Medications - Allergies Allergies/Adverse Reactions: Allergies Allergy/AdvReac Type Severity Reaction Status Date / Time No Known Allergies Allergy Verified 11/19/17 14:54 - Home Medications Home Medications: Ambulatory Orders Hydralazine HCl 100 mg PO BID 11/19/17 Family Medical History Family History: Denies Review of Systems - Review of Systems Constitutional: reports: No Symptoms Eyes: reports: No Symptoms HENT: reports: No Symptoms Cardiovascular: reports: Edema Respiratory: reports: Cough, SOB on Exertion Genitourinary: reports: No Symptoms Musculoskeletal: reports: No Symptoms Integumentary: reports: No Symptoms Neurological: reports: No Symptoms Endocrine: reports: No Symptoms Hematology/Lymphatic: reports: No Symptoms Physical Exam Vital Signs: Vital Signs Temperature 98.0 F 12/31/18 12:47 Pulse Rate 62 12/31/18 12:47 Respiratory Rate 16 12/31/18 12:47 Blood Pressure 134/50 L 12/31/18 12:47 O2 Sat by Pulse Oximetry (%) 95 12/31/18 12:47 Constitutional: Yes: Calm Eyes: Yes: Conjunctiva Clear HENT: Yes: Atraumatic Cardiovascular: Yes: S1, S2 Respiratory: Yes: Rhonchi Gastrointestinal: Yes: Soft Renal/: Yes: WNL Musculoskeletal: Yes: WNL Edema: Yes Edema: LLE: 2+, RLE: 2+ Neurological: Yes: Oriented Psychiatric: Yes: Oriented Labs: CBC, BMP 12/31/18 14:41 12/31/18 14:41 Laboratory Tests 11/19/17 11/19/17 11/19/17 16:54 16:54 17:32 WBC 16.0 H Hgb 11.2 L Plt Count 260 Sodium Potassium 5.2 H Creatinine 12.5 H* Urine Protein 3+ H Urine Blood 1+ H 11/20/17 11/20/17 06:00 06:00 WBC 17.9 H Hgb 10.1 L Plt Count 247 Sodium 133 L Potassium 5.5 H Creatinine 13.8 H* Urine Protein Urine Blood Assessment/Plan Current Medications Generic Name Dose Route Start Last Admin Trade Name Zuly PRN Reason Stop Dose Admin Azithromycin 500 mg/ Dextrose 250 mls @ 250 mls/hr 12/31/18 17:52 IVPB 12/31/18 18:51 ONCE ONE Ceftriaxone Sodium 1 gm/ 100 mls @ 200 mls/hr 12/31/18 17:52 Dextrose IVPB 12/31/18 18:21 ONCE ONE Protocol Impression 1. ESRD 2. Hyperkalemia 3. HTN 4. chest pain 5. DM 6. PNA 7. pleural effusion 8. fluid overload 9. hemoptysis Plan - HD today - will treat potassium with HD - prelim ct negative for PE - discussed with ER team - will hold heparin with HD - epogen for anemia - monitor lytes - HD orders: AVF 3:30, opti 180, abf 450, 2 k , heparin 1000 bolus, micera 100 q 2 weeks (last dose 11/15)
[2018-12-31] MEDS ORDERED: SODIUM CHLORIDE 250 ML IV PRN (19:10)
[2018-12-31] MEDS ORDERED: EPOETIN ALFA 3,000 UNIT, EPOETIN ALFA 2,000 UNIT IVPUSH ONE (19:30)
--- NOTE | 2018-12-31 19:56 | HP ---
Admitting History and Physical - Primary Care Physician PCP: - Admission Chief Complaint: hemoptysis History of Present Illness: 63 year old male with a significant past medical history of ESRD on dialysis M/W /F , HTN, CAD arrived to ED with productive cough for the past 15 days, with some bloody spotting over the past 10 days. Patient complains of mild chest pain exacerbated by cough and sob. Patient denies any fever, chills, n/v/d weight loss, recent travel or recent surgeries. History Source: Patient, Family Member Limitations to Obtaining History: No Limitations - Past Medical History Cardiovascular: Yes: CAD, HTN, Hyperlipdemia Renal/: Yes: Renal Inusuff, Hemodialysis, Renal Calculi Endocrine: Yes: Diabetes Mellitus - Past Surgical History Past Surgical History: Yes: AV Fistula/Graft - Smoking History Smoking history: Never smoked Have you smoked in the past 12 months: No Aproximately how many cigarettes per day: 0 - Alcohol/Substance Use Hx Alcohol Use: No History of Substance Use: reports: None - Social History ADL: Independent History of Recent Travel: No Home Medications - Allergies Allergies/Adverse Reactions: Allergies Allergy/AdvReac Type Severity Reaction Status Date / Time No Known Allergies Allergy Verified 11/19/17 14:54 - Home Medications Home Medications: Ambulatory Orders Hydralazine HCl 100 mg PO BID 11/19/17 Family Medical History Family History: Denies Review of Systems - Review of Systems Constitutional: reports: No Symptoms Eyes: reports: No Symptoms HENT: reports: No Symptoms Neck: reports: No Symptoms Cardiovascular: reports: No Symptoms Respiratory: reports: Cough, Hemoptysis, SOB, SOB on Exertion Gastrointestinal: reports: No Symptoms Genitourinary: reports: No Symptoms Musculoskeletal: reports: No Symptoms Integumentary: reports: No Symptoms Neurological: reports: No Symptoms Endocrine: reports: No Symptoms Hematology/Lymphatic: reports: No Symptoms Psychiatric: reports: No Symptoms Physical Examination Vital Signs: Vital Signs Temperature 98.0 F 12/31/18 12:47 Pulse Rate 62 12/31/18 12:47 Respiratory Rate 16 12/31/18 12:47 Blood Pressure 134/50 L 12/31/18 12:47 O2 Sat by Pulse Oximetry (%) 95 12/31/18 12:47 Constitutional: Yes: No Distress, Calm Eyes: Yes: Conjunctiva Clear, EOM Intact HENT: Yes: Atraumatic, Normocephalic Neck: Yes: Supple, Trachea Midline Cardiovascular: Yes: Regular Rate and Rhythm Respiratory: Yes: Regular, Cough, Rhonchi, SOB Gastrointestinal: Yes: Normal Bowel Sounds, Soft Musculoskeletal: Yes: WNL Edema: Yes Edema: LLE: 2+, RLE: 2+ Peripheral Pulses WNL: Yes Neurological: Yes: Alert, Oriented Labs: CBC, BMP 12/31/18 14:41 12/31/18 14:41 Imaging - Results Cat Scan: Report Reviewed (pathcy groundglass opacification throughout both lungs) Problem List - Problems (1) Pneumonia Code(s): J18.9 - PNEUMONIA, UNSPECIFIED ORGANISM Qualifiers: Pneumonia type: due to unspecified organism Laterality: right Lung location: lower lobe of lung (2) Pleural effusion Code(s): J90 - PLEURAL EFFUSION, NOT ELSEWHERE CLASSIFIED (3) Hemoptysis Code(s): R04.2 - HEMOPTYSIS (4) Hyperkalemia Code(s): E87.5 - HYPERKALEMIA (5) ESRD (end stage renal disease) Code(s): N18.6 - END STAGE RENAL DISEASE (6) Hypertension Code(s): I10 - ESSENTIAL (PRIMARY) HYPERTENSION Qualifiers: Hypertension type: secondary to other renal disorders Qualified Code(s): I15.1 - Hypertension secondary to other renal disorders (7) HLD (hyperlipidemia) Code(s): E78.5 - HYPERLIPIDEMIA, UNSPECIFIED (8) CAD (coronary artery disease) Code(s): I25.10 - ATHSCL HEART DISEASE OF [place] CORONARY ARTERY W/O ANG PCTRS (9) Diabetes Code(s): E11.9 - TYPE 2 DIABETES MELLITUS WITHOUT COMPLICATIONS Assessment/Plan 62yM with PMH ESRD on dialysis MWF, HTN, HLD, CAD, DM and Anemia presented to the ED with hemoptysis, cough and sob. # PNA CTA: Bilateral pneumonia, no PE - In ED treat with ABX (ceftriaxone and azithromycin) - will continue with ceftriaxone and Azithromycin - Continue with nebs - O2 via NC PRN - Tylenol q 6 hours pRN - follow up blood cx - ID consult in AM #Hyperkalemia - corrected with HD - follow up BMP in AM # pleural effusion # fluid overload - on CTA/ XR noted - HD today - renal following - fluid restriction #ESRD on HD MWF - HD today - as per Renal consult (will hold heparin with HD) - renal consult in AM # Anemia - Epogen - monitor H/H #HTN/HLD/CAD - Hydralazine HCl 100 mg PO BID # DM - no current meds - monitor FSBS QD AC DVT PPX - early ambulation, SCD - ? heparin Sq discussed with nephro in AM FEN - bmp in am - renal diet Dispo: inpatient medicine Visit type - Emergency Visit Emergency Visit: Yes ED Registration Date: 12/31/18 Care time: The patient presented to the Emergency Department on the above date and was hospitalized for further evaluation of their emergent condition. - New Patient This patient is new to me today: Yes Date on this admission: 12/31/18 - Critical Care Critical Care patient: No
[2018-12-31] MEDS ORDERED: IPRATROPIUM BR 0.02% 0.5 MG/2.5 ML VIAL.NEB. NEB PRN (20:12)
[2018-12-31] MEDS ORDERED: ALBUTEROL SO4 0.083% IH SOL 2.5 MG/3 ML VIAL.NEB. NEB PRN (20:12)
[2018-12-31] MEDS ORDERED: CEFTRIAXONE 1 GM/50 ML BAG ONE (21:26)
[2018-12-31] MEDS ORDERED: AZITHROMYCIN IVPB 500 MG/250 ML BAG IVPB ONE (21:26)
[2018-12-31] MEDS ORDERED: hydrALAZINE HCL 25 MG TABLET (FP) ONE (22:11)
[2018-12-31] MEDS: hydrALAZINE HCL 50 MG TABLET (FP) PO SCH (22:19)
[2018-12-31 23:59] VITALS: BMI 30.4
[2019-01-01 08:40] LABS: HEMATOCRIT 23.5 % (35.4-49); HEMOGLOBIN 7.7 GM/dL (11.7-16.9); MCH 28.1 pg (25.7-33.7); MCHC 32.9 g/dl (32.0-35.9); MEAN CELL VOLUME 85.6 fl (80-96); PLATELET COUNT 252 K/MM3 (134-434); RBC 2.74 M/mm3 (4.00-5.60); RDW 19.8 % (11.9-15.9); WHITE BLOOD COUNT 6.9 K/mm3 (4.0-10.0)
[2019-01-01 09:18] LABS: ALBUMIN 2.8 g/dl (3.4-5.0); BILIRUBIN,TOTAL 0.9 mg/dL (0.2-1); BLOOD UREA NITROGEN 18.1 mg/dL (7-18); CALCIUM 9.6 mg/dL (8.5-10.1); CREATININE 5.2 mg/dL (0.55-1.3); POTASSIUM 4.5 mmol/L (3.5-5.1); TOT PROT 6.2 g/dl (6.4-8.2)
[2019-01-01] MEDS: hydrALAZINE HCL 50 MG TABLET (FP) PO SCH ×2 (10:03→21:48)
--- NOTE | 2019-01-01 10:36 | EKG ---
Test Reason : Blood Pressure : / mmHG Vent. Rate : 078 BPM Atrial Rate : 078 BPM P-R Int : 152 ms QRS Dur : 098 ms QT Int : 428 ms P-R-T Axes : 019 012 143 degrees QTc Int : 487 ms POOR DATA QUALITY, INTERPRETATION MAY BE ADVERSELY AFFECTED NORMAL SINUS RHYTHM MODERATE VOLTAGE CRITERIA FOR LVH, MAY BE NORMAL VARIANT CANNOT RULE OUT SEPTAL INFARCT , AGE UNDETERMINED T WAVE ABNORMALITY, CONSIDER INFEROLATERAL ISCHEMIA ABNORMAL ECG Confirmed by MD TREVOR, PJ ([id number]) on 01/01/2019 10:36:16 AM Referred By: Confirmed By:PJ MURRAY MD
--- NOTE | 2019-01-01 12:32 | CON.ID ---
Consult Consult Specialty:: infectious diseases Referred by:: Pedro Reason for Consultation:: pnemonia,hemoptysis - History of Present Illness Chief Complaint: sob,hemoptysis History of Present Illness: 63 year old male with a significant past medical history of ESRD on dialysis M/W /F , HTN, CAD admitted with productive cough for the past 15 days, with some bloody spotting over the past 10 days. Patient complains of mild chest pain exacerbated by cough and sob. Patient denies any fever, chills, n/v/d weight loss, recent travel or recent surgeries. pain mainly on the left side of the muscular cage currently patient looks comfortable - History Source History Provided By: Patient, Medical Record Limitations to Obtaining History: Language Barrier - Past Medical History Cardio/Vascular: Yes: CAD, HTN, Hyperlipdemia Pulmonary: Yes: Asthma Renal/: Yes: Renal Inusuff, Hemodialysis, Renal Calculi Endocrine: Yes: Diabetes Mellitus - Past Surgical History Past Surgical History: Yes: AV Fistula/Graft - Alcohol/Substance Use Hx Alcohol Use: No History of Substance Use: reports: None - Smoking History Smoking history: Never smoked Have you smoked in the past 12 months: No Aproximately how many cigarettes per day: 0 - Social History ADL: Independent History of Recent Travel: No Home Medications - Allergies Allergies/Adverse Reactions: Allergies Allergy/AdvReac Type Severity Reaction Status Date / Time No Known Allergies Allergy Verified 11/19/17 14:54 - Home Medications Home Medications: Ambulatory Orders Hydralazine HCl 100 mg PO BID 11/19/17 Review of Systems - Review of Systems Constitutional: reports: No Symptoms Eyes: reports: No Symptoms HENT: reports: No Symptoms Neck: reports: No Symptoms Cardiovascular: reports: No Symptoms Respiratory: reports: Cough, SOB, SOB on Exertion Gastrointestinal: reports: No Symptoms Genitourinary: reports: No Symptoms Musculoskeletal: reports: No Symptoms Integumentary: reports: No Symptoms Neurological: reports: No Symptoms Endocrine: reports: No Symptoms Hematology/Lymphatic: reports: No Symptoms Psychiatric: reports: No Symptoms Physical Exam Vital Signs: Vital Signs Temperature 98.9 F 01/01/19 06:00 Pulse Rate 72 01/01/19 10:00 Respiratory Rate 20 01/01/19 10:00 Blood Pressure 136/62 01/01/19 10:00 O2 Sat by Pulse Oximetry (%) 98 01/01/19 09:00 Constitutional: Yes: Well Nourished, No Distress, Calm Cardiovascular: Yes: Regular Rate and Rhythm Respiratory: Yes: Regular, CTA Bilaterally Gastrointestinal: Yes: Normal Bowel Sounds, Soft Musculoskeletal: Yes: WNL Extremities: Yes: WNL Neurological: Yes: Alert, Oriented Psychiatric: Yes: Alert, Oriented Labs: CBC, BMP 01/01/19 07:20 01/01/19 07:20 Imaging - Results Chest X-ray: Report Reviewed, Image Reviewed Cat Scan: Report Reviewed, Image Reviewed Assessment/Plan this patient with multiple medical problems coming with sob and hemoptsis was given ceftriaxone and zithro 1. ESRD 2. Hyperkalemia 3. HTN 4. chest pain 5. DM 6. PNA 7. pleural effusion 8. fluid overload 9. hemoptysis plan will hold of on abx if continues to have hemoptsysis send sputum cx monitor dialysis rest as per the team
[2019-01-01] MEDS ORDERED: SODIUM CHLORIDE 250 ML IV PRN (16:43)
--- NOTE | 2019-01-01 16:43 | PN ---
Progress Note, Physician History of Present Illness: Pt seen and examined at bedside. He still complains of cough. - Current Medication List Current Medications: Active Medications Acetaminophen (Tylenol -) 650 mg PO Q6H PRN PRN Reason: PAIN LEVEL 1-5 Albuterol Sulfate (Ventolin 0.083% Nebulizer Soln -) 1 amp NEB Q6H PRN PRN Reason: SHORT OF BREATH/WHEEZING Last Admin: 01/01/19 15:51 Dose: 1 amp Hydralazine HCl (Apresoline -) 100 mg PO BID VONNIE Last Admin: 01/01/19 10:03 Dose: 100 mg Sodium Chloride (Normal Saline -) 250 mls @ 3,000 mls/hr IV PRN PRN PRN Reason: Hypotension during Dialysis Stop: 01/01/19 19:09 Ipratropium [place] (Atrovent 0.02% Nebulizer -) 1 amp NEB Q6H PRN PRN Reason: WHEEZING Last Admin: 01/01/19 15:50 Dose: 1 amp - Objective Vital Signs: Vital Signs Temperature 98.8 F 01/01/19 14:13 Pulse Rate 68 01/01/19 14:13 Respiratory Rate 20 01/01/19 14:13 Blood Pressure 140/76 01/01/19 14:13 O2 Sat by Pulse Oximetry (%) 98 01/01/19 09:00 Constitutional: Yes: Calm Eyes: Yes: Conjunctiva Clear HENT: Yes: Atraumatic Cardiovascular: Yes: S1, S2 Respiratory: Yes: CTA Bilaterally Gastrointestinal: Yes: Soft Genitourinary: Yes: WNL Musculoskeletal: Yes: WNL Edema: No Neurological: Yes: Oriented Psychiatric: Yes: Oriented Labs: CBC, BMP 01/01/19 07:20 01/01/19 07:20 INR, PTT INR 0.96 (0.83-1.09) 12/31/18 14:41 Assessment/Plan Current Medications Generic Name Dose Route Start Last Admin Trade Name Freq PRN Reason Stop Dose Admin Acetaminophen 650 mg 12/31/18 20:12 Tylenol - PO Q6H PRN PAIN LEVEL 1-5 Albuterol Sulfate 1 amp 12/31/18 20:12 01/01/19 15:51 Ventolin 0.083% Nebulizer Soln - NEB 1 amp Q6H PRN Administration SHORT OF BREATH/WHEEZING Hydralazine HCl 100 mg 12/31/18 22:00 01/01/19 10:03 Apresoline - PO 100 mg BID VONNIE Administration Sodium Chloride 250 mls @ 3,000 mls/hr 12/31/18 19:10 Normal Saline - IV 01/01/19 19:09 PRN PRN Hypotension during Dialysis Ipratropium [place] 1 amp 12/31/18 20:12 01/01/19 15:50 Atrovent 0.02% Nebulizer - NEB 1 amp Q6H PRN Administration WHEEZING Impression 1. ESRD 2. Hyperkalemia 3. HTN 4. chest pain 5. DM 6. PNA 7. pleural effusion 8. fluid overload 9. hemoptysis Plan - HD tomorrow - will hold heparin on hd - consider pulm eval - renal diet - epogen for anemia - monitor lytes - HD orders: AVF 3:30, opti 180, abf 450, 2 k , heparin 1000 bolus, micera 100 q 2 weeks (last dose 11/15)
--- NOTE | 2019-01-01 20:29 | PN ---
Progress Note (short form) - Note Progress Note: daughter at bedside Mild cough now No hemoptysis Vital Signs - 24 hr 12/31/18 12/31/18 12/31/18 20:30 21:00 21:02 Temperature Pulse Rate 77 70 78 Pulse Rate [ Apical] Respiratory 18 18 18 Rate Blood Pressure 137/60 132/64 139/64 Blood Pressure [Left Arm] O2 Sat by Pulse Oximetry (%) 12/31/18 12/31/18 12/31/18 22:20 22:24 23:53 Temperature 98.4 F Pulse Rate 90 Pulse Rate [ 78 Apical] Respiratory 20 20 Rate Blood Pressure 151/71 Blood Pressure 163/74 [Left Arm] O2 Sat by Pulse 92 L 92 L Oximetry (%) 01/01/19 01/01/19 01/01/19 00:00 06:00 09:00 Temperature 98.9 F Pulse Rate 69 Pulse Rate [ Apical] Respiratory 20 19 Rate Blood Pressure 137/53 L Blood Pressure [Left Arm] O2 Sat by Pulse 99 98 Oximetry (%) 01/01/19 01/01/19 01/01/19 10:00 14:13 17:58 Temperature 98.8 F Pulse Rate 72 68 76 Pulse Rate [ Apical] Respiratory 20 20 20 Rate Blood Pressure 136/62 140/76 150/90 Blood Pressure [Left Arm] O2 Sat by Pulse Oximetry (%) Current Medications Generic Name Dose Route Start Last Admin Trade Name Freq PRN Reason Stop Dose Admin Acetaminophen 650 mg 12/31/18 20:12 Tylenol - PO Q6H PRN PAIN LEVEL 1-5 Albuterol Sulfate 1 amp 12/31/18 20:12 01/01/19 15:51 Ventolin 0.083% Nebulizer Soln - NEB 1 amp Q6H PRN Administration SHORT OF BREATH/WHEEZING Epoetin Sanchez 7,000 unit 01/02/19 16:43 Epogen - IVPUSH 01/02/19 16:44 ONCE ONE Hydralazine HCl 100 mg 12/31/18 22:00 01/01/19 10:03 Apresoline - PO 100 mg BID VONNIE Administration Sodium Chloride 250 mls @ 3,000 mls/hr 01/01/19 16:43 Normal Saline - IV 01/02/19 16:43 PRN PRN Hypotension during Dialysis Ipratropium [place] 1 amp 12/31/18 20:12 01/01/19 15:50 Atrovent 0.02% Nebulizer - NEB 1 amp Q6H PRN Administration WHEEZING Laboratory Results - last 24 hr 12/31/18 01/01/19 01/01/19 21:11 05:38 07:20 WBC 6.9 RBC 2.74 L Hgb 7.7 L Hct 23.5 L MCV 85.6 MCH 28.1 MCHC 32.9 RDW 19.8 H Plt Count 252 D MPV 8.0 Sodium Potassium Chloride Carbon Dioxide Anion Gap BUN Creatinine Est GFR (CKD-EPI)AfAm Est GFR (CKD-EPI)NonAf POC Glucometer 88 Random Glucose Calcium Total Bilirubin AST ALT Alkaline Phosphatase Total Protein Albumin Influenza A (Rapid) Negative Influenza B (Rapid) Negative 01/01/19 01/01/19 07:20 15:29 WBC RBC Hgb Hct MCV MCH MCHC RDW Plt Count MPV Sodium 140 Potassium 4.5 Chloride 103 Carbon Dioxide 32 Anion Gap 5 L BUN 18.1 H Creatinine 5.2 H Est GFR (CKD-EPI)AfAm 12.68 Est GFR (CKD-EPI)NonAf 10.94 POC Glucometer 115 Random Glucose 78 Calcium 9.6 Total Bilirubin 0.9 AST 19 ALT 20 Alkaline Phosphatase 54 Total Protein 6.2 L Albumin 2.8 L Influenza A (Rapid) Influenza B (Rapid) S1 S2 RRR Lungs decreased Abd-soft, NT No edema PLAN CTchest reviewed with daughter and pt He will need repeat CT chest in 3 weeks on a non dialysis day DC iv antibiotics per ID HD tomorrow, may need PRBC Problem List - Problems (1) CAD (coronary artery disease) Code(s): I25.10 - ATHSCL HEART DISEASE OF [place] CORONARY ARTERY W/O ANG PCTRS (2) Diabetes Code(s): E11.9 - TYPE 2 DIABETES MELLITUS WITHOUT COMPLICATIONS (3) ESRD (end stage renal disease) Code(s): N18.6 - END STAGE RENAL DISEASE (4) HLD (hyperlipidemia) Code(s): E78.5 - HYPERLIPIDEMIA, UNSPECIFIED (5) Hyperkalemia Code(s): E87.5 - HYPERKALEMIA
[2019-01-02] MEDS ORDERED: EPOETIN ALFA 2,000 UNIT/1 ML VIAL IVPUSH ONE (07:30)
[2019-01-02 09:33] LABS: HEMATOCRIT 22.5 % (35.4-49); HEMOGLOBIN 7.3 GM/dL (11.7-16.9); MCHC 32.6 g/dl (32.0-35.9); MEAN CELL VOLUME 85.7 fl (80-96); MEAN PLT VOLUME 7.9 fl (7.5-11.1); PLATELET COUNT 236 K/MM3 (134-434); RBC 2.63 M/mm3 (4.00-5.60); RDW 19.7 % (11.9-15.9); WHITE BLOOD COUNT 7.4 K/mm3 (4.0-10.0)
[2019-01-02 09:58] LABS: BLOOD UREA NITROGEN 33.5 mg/dL (7-18); CALCIUM 9.8 mg/dL (8.5-10.1); POTASSIUM 4.5 mmol/L (3.5-5.1)
[2019-01-02 10:04] LABS: CREATININE 8.3 mg/dL (0.55-1.3)
[2019-01-02] MEDS ORDERED: SODIUM CHLORIDE NASAL SPRAY 44 ML BOTTLE NS PRN (10:06)
[2019-01-02] MEDS ORDERED: guaiFENesin 200 MG/10 ML 10 ML UNIT-DOSE CUPS PO PRN (10:06)
[2019-01-02] MEDS ORDERED: guaiFENesin/D-M SUGAR-FREE/ACLHOL-FREE 118 ML BOTTLE PO PRN (10:07)
--- NOTE | 2019-01-02 11:11 | PN ---
Progress Note (short form) - Note Progress Note: examined pt in dialysis has hemoptysis receiving 2 units PRBC in dialysis Vital Signs - 24 hr 01/01/19 01/01/19 01/01/19 14:13 17:58 21:00 Temperature 98.8 F Pulse Rate 68 76 Respiratory 20 20 20 Rate Blood Pressure 140/76 150/90 O2 Sat by Pulse 98 Oximetry (%) 01/01/19 01/02/19 01/02/19 22:00 05:45 09:05 Temperature 98.4 F 98.4 F 98.5 F Pulse Rate 94 H 66 67 Respiratory 20 20 18 Rate Blood Pressure 128/74 146/62 175/70 H O2 Sat by Pulse Oximetry (%) 01/02/19 01/02/19 01/02/19 09:10 09:41 10:10 Temperature Pulse Rate 61 60 60 Respiratory 18 18 18 Rate Blood Pressure 131/69 132/66 134/69 O2 Sat by Pulse Oximetry (%) 01/02/19 01/02/19 01/02/19 10:40 11:10 11:40 Temperature Pulse Rate 60 60 60 Respiratory 18 18 18 Rate Blood Pressure 128/69 127/71 126/67 O2 Sat by Pulse Oximetry (%) 01/02/19 12:10 Temperature Pulse Rate 60 Respiratory 18 Rate Blood Pressure 131/57 L O2 Sat by Pulse Oximetry (%) Current Medications Generic Name Dose Route Start Last Admin Trade Name Freq PRN Reason Stop Dose Admin Acetaminophen 650 mg 12/31/18 20:12 Tylenol - PO Q6H PRN PAIN LEVEL 1-5 Albuterol Sulfate 1 amp 12/31/18 20:12 01/01/19 15:51 Ventolin 0.083% Nebulizer Soln - NEB 1 amp Q6H PRN Administration SHORT OF BREATH/WHEEZING Guaifenesin 10 ml 01/02/19 10:44 Robitussin Dm - PO Q4H PRN COUGH Hydralazine HCl 100 mg 12/31/18 22:00 01/01/19 21:48 Apresoline - PO 100 mg BID VONNIE Administration Sodium Chloride 250 mls @ 3,000 mls/hr 01/01/19 16:43 Normal Saline - IV 01/02/19 16:43 PRN PRN Hypotension during Dialysis Ipratropium [place] 1 amp 12/31/18 20:12 01/01/19 15:50 Atrovent 0.02% Nebulizer - NEB 1 amp Q6H PRN Administration WHEEZING Sodium Chloride 2 spray 01/02/19 10:06 [place] Nasal [place] - NS TID PRN NASAL CONGESTION Laboratory Results - last 24 hr 12/31/18 01/01/19 01/01/19 20:00 15:29 20:49 WBC RBC Hgb Hct MCV MCH MCHC RDW Plt Count MPV Sodium Potassium Chloride Carbon Dioxide Anion Gap BUN Creatinine Est GFR (CKD-EPI)AfAm Est GFR (CKD-EPI)NonAf POC Glucometer 115 114 Random Glucose Calcium Hep Bs Antigen Negative Hep C Ab Diagnostic <0.1 Blood Type Antibody Screen Crossmatch 01/02/19 01/02/19 01/02/19 07:18 09:10 09:10 WBC 7.4 RBC 2.63 L Hgb 7.3 L Hct 22.5 L MCV 85.7 MCH 28.0 MCHC 32.6 RDW 19.7 H Plt Count 236 MPV 7.9 Sodium 138 Potassium 4.5 Chloride 102 Carbon Dioxide 30 Anion Gap 6 L BUN 33.5 H Creatinine 8.3 H* Est GFR (CKD-EPI)AfAm 7.21 Est GFR (CKD-EPI)NonAf 6.22 POC Glucometer 81 Random Glucose 135 H Calcium 9.8 Hep Bs Antigen Hep C Ab Diagnostic Blood Type Antibody Screen Crossmatch 01/02/19 09:20 WBC RBC Hgb Hct MCV MCH MCHC RDW Plt Count MPV Sodium Potassium Chloride Carbon Dioxide Anion Gap BUN Creatinine Est GFR (CKD-EPI)AfAm Est GFR (CKD-EPI)NonAf POC Glucometer Random Glucose Calcium Hep Bs Antigen Hep C Ab Diagnostic Blood Type A POSITIVE Antibody Screen Negative Crossmatch See Detail S1 S2 RRR Lungs decreased Abd-soft, NT No edema PLAN receiving PRBC spoke with Renal and ID Holding off antibiotics Repeat CT chest on Monday after dialysis check sputum culture pulmonary eval Problem List - Problems (1) CAD (coronary artery disease) Code(s): I25.10 - ATHSCL HEART DISEASE OF [place] CORONARY ARTERY W/O ANG PCTRS (2) Diabetes Code(s): E11.9 - TYPE 2 DIABETES MELLITUS WITHOUT COMPLICATIONS (3) ESRD (end stage renal disease) Code(s): N18.6 - END STAGE RENAL DISEASE (4) HLD (hyperlipidemia) Code(s): E78.5 - HYPERLIPIDEMIA, UNSPECIFIED (5) Hyperkalemia Code(s): E87.5 - HYPERKALEMIA (6) Anemia in chronic kidney disease Code(s): N18.9 - CHRONIC KIDNEY DISEASE, UNSPECIFIED; D63.1 - ANEMIA IN CHRONIC KIDNEY DISEASE (7) Hemoptysis Code(s): R04.2 - HEMOPTYSIS
--- NOTE | 2019-01-02 11:53 | PN ---
Progress Note, Physician History of Present Illness: patient stable still having hemoptysis being dialysed - Current Medication List Current Medications: Active Medications Acetaminophen (Tylenol -) 650 mg PO Q6H PRN PRN Reason: PAIN LEVEL 1-5 Albuterol Sulfate (Ventolin 0.083% Nebulizer Soln -) 1 amp NEB Q6H PRN PRN Reason: SHORT OF BREATH/WHEEZING Last Admin: 01/01/19 15:51 Dose: 1 amp Guaifenesin (Robitussin Dm -) 10 ml PO Q4H PRN PRN Reason: COUGH Hydralazine HCl (Apresoline -) 100 mg PO BID VONNIE Last Admin: 01/01/19 21:48 Dose: 100 mg Sodium Chloride (Normal Saline -) 250 mls @ 3,000 mls/hr IV PRN PRN PRN Reason: Hypotension during Dialysis Stop: 01/02/19 16:43 Ipratropium [place] (Atrovent 0.02% Nebulizer -) 1 amp NEB Q6H PRN PRN Reason: WHEEZING Last Admin: 01/01/19 15:50 Dose: 1 amp Sodium Chloride ([place] Nasal [place] -) 2 spray NS TID PRN PRN Reason: NASAL CONGESTION - Objective Vital Signs: Vital Signs Temperature 98.5 F 01/02/19 09:05 Pulse Rate 60 01/02/19 11:10 Respiratory Rate 18 01/02/19 11:10 Blood Pressure 127/71 01/02/19 11:10 O2 Sat by Pulse Oximetry (%) 98 01/01/19 21:00 Constitutional: Yes: No Distress, Calm Cardiovascular: Yes: S1, S2 Respiratory: Yes: Regular, Poor Air Entry Gastrointestinal: Yes: Normal Bowel Sounds, Soft Musculoskeletal: Yes: WNL Extremities: Yes: WNL Neurological: Yes: Alert, Oriented Psychiatric: Yes: Alert, Oriented Labs: CBC, BMP 01/02/19 09:10 01/02/19 09:10 INR, PTT INR 0.96 (0.83-1.09) 12/31/18 14:41 Assessment/Plan this patient with multiple medical problems coming with sob and hemoptsis was given ceftriaxone and zithro 1. ESRD 2. Hyperkalemia 3. HTN 4. chest pain 5. DM 6. PNA 7. pleural effusion 8. fluid overload 9. hemoptysis plan sputum cx repeat ct scan after dialysis tomorrow will hold off on abx rest as per the team
--- NOTE | 2019-01-02 12:30 | PN ---
Progress Note, Physician History of Present Illness: Pt seen and examined at bedside. He is tolerating HD. - Current Medication List Current Medications: Active Medications Acetaminophen (Tylenol -) 650 mg PO Q6H PRN PRN Reason: PAIN LEVEL 1-5 Albuterol Sulfate (Ventolin 0.083% Nebulizer Soln -) 1 amp NEB Q6H PRN PRN Reason: SHORT OF BREATH/WHEEZING Last Admin: 01/01/19 15:51 Dose: 1 amp Guaifenesin (Robitussin Dm -) 10 ml PO Q4H PRN PRN Reason: COUGH Hydralazine HCl (Apresoline -) 100 mg PO BID VONNIE Last Admin: 01/01/19 21:48 Dose: 100 mg Sodium Chloride (Normal Saline -) 250 mls @ 3,000 mls/hr IV PRN PRN PRN Reason: Hypotension during Dialysis Stop: 01/02/19 16:43 Ipratropium [place] (Atrovent 0.02% Nebulizer -) 1 amp NEB Q6H PRN PRN Reason: WHEEZING Last Admin: 01/01/19 15:50 Dose: 1 amp Sodium Chloride ([place] Nasal [place] -) 2 spray NS TID PRN PRN Reason: NASAL CONGESTION - Objective Vital Signs: Vital Signs Temperature 98.5 F 01/02/19 09:05 Pulse Rate 60 01/02/19 12:10 Respiratory Rate 18 01/02/19 12:10 Blood Pressure 131/57 L 01/02/19 12:10 O2 Sat by Pulse Oximetry (%) 98 01/01/19 21:00 Constitutional: Yes: Calm Eyes: Yes: Conjunctiva Clear HENT: Yes: Atraumatic Neck: Yes: Supple Cardiovascular: Yes: S1, S2 Respiratory: Yes: CTA Bilaterally, Other (hemoptysis) Gastrointestinal: Yes: Soft Genitourinary: Yes: WNL Musculoskeletal: Yes: WNL Edema: No Neurological: Yes: Oriented Psychiatric: Yes: Oriented Labs: CBC, BMP 01/02/19 09:10 01/02/19 09:10 INR, PTT INR 0.96 (0.83-1.09) 12/31/18 14:41 Assessment/Plan Current Medications Generic Name Dose Route Start Last Admin Trade Name Freq PRN Reason Stop Dose Admin Acetaminophen 650 mg 12/31/18 20:12 Tylenol - PO Q6H PRN PAIN LEVEL 1-5 Albuterol Sulfate 1 amp 12/31/18 20:12 01/01/19 15:51 Ventolin 0.083% Nebulizer Soln - NEB 1 amp Q6H PRN Administration SHORT OF BREATH/WHEEZING Guaifenesin 10 ml 01/02/19 10:44 Robitussin Dm - PO Q4H PRN COUGH Hydralazine HCl 100 mg 12/31/18 22:00 01/01/19 21:48 Apresoline - PO 100 mg BID VONNIE Administration Sodium Chloride 250 mls @ 3,000 mls/hr 01/01/19 16:43 Normal Saline - IV 01/02/19 16:43 PRN PRN Hypotension during Dialysis Ipratropium [place] 1 amp 12/31/18 20:12 01/01/19 15:50 Atrovent 0.02% Nebulizer - NEB 1 amp Q6H PRN Administration WHEEZING Sodium Chloride 2 spray 01/02/19 10:06 [place] Nasal [place] - NS TID PRN NASAL CONGESTION Impression 1. ESRD 2. Hyperkalemia 3. HTN 4. chest pain 5. DM 6. PNA 7. pleural effusion 8. fluid overload 9. hemoptysis Plan - HD today - discussed with medical team - prbc with HD - hold heparin on HD - check anca and gbm, ordered - pulm eval - renal diet - epogen for anemia - monitor lytes - HD orders: AVF 3:30, opti 180, abf 450, 2 k , heparin 1000 bolus, micera 100 q 2 weeks (last dose 11/15)
--- NOTE | 2019-01-02 13:50 | PN ---
Progress Note (short form) - Note Progress Note: PULMONARY CONSULTATION DICTATED 01/02/19 IMP HEMOPTYSIS ? VOLUME OVERLOAD,? INFECTIOUS,?VASCULITIS ESRD VOLUME OVERLOAD HTN ASHD HYPERTENSIVE CARDIOMYOPATHY ANEMIA PLAN HD PER RENAL F/U CHEST X-RAYS QUANTIFY HEMOPTYSIS CULTURES,SPUTUM AFB SEROLOGY C-ANCA, ANTI-GBM F/U CHEST X-RAYS MONITOR LYTES,RENAL FUNCTION,H+H DR ANN Problem List - Problems (1) Volume overload Code(s): E87.70 - FLUID OVERLOAD, UNSPECIFIED (2) Anemia in chronic kidney disease Code(s): N18.9 - CHRONIC KIDNEY DISEASE, UNSPECIFIED; D63.1 - ANEMIA IN CHRONIC KIDNEY DISEASE (3) CAD (coronary artery disease) Code(s): I25.10 - ATHSCL HEART DISEASE OF [place] CORONARY ARTERY W/O ANG PCTRS (4) Diabetes Code(s): E11.9 - TYPE 2 DIABETES MELLITUS WITHOUT COMPLICATIONS (5) ESRD (end stage renal disease) Code(s): N18.6 - END STAGE RENAL DISEASE (6) Hemoptysis Code(s): R04.2 - HEMOPTYSIS (7) Pleural effusion Code(s): J90 - PLEURAL EFFUSION, NOT ELSEWHERE CLASSIFIED
[2019-01-02] MEDS: hydrALAZINE HCL 50 MG TABLET (FP) PO SCH ×2 (13:54→22:03)
--- NOTE | 2019-01-02 14:32 | CONS ---
PULMONARY CONSULTATION DATE OF CONSULTATION: 01/02/2019 REFERRING PHYSICIAN: Monica Rodriguez MD HISTORY OF PRESENT ILLNESS: The patient is a 63-year-old male with past medical history of end-stage renal disease on hemodialysis three times weekly, hypertension, ASHD, hypertensive cardiomyopathy, congestive heart failure, hyperlipidemia, renal calculi, diabetes, nonsmoker, admitted to [facility] on December 31 with complaints of shortness of breath, dyspnea on exertion, cough productive of bloody sputum. Patient states for the past 2 weeks, he has had cough productive of bloody sputum. He denies any chest pain. Did have chest tightness. He also noted increasing shortness of breath. He presented to the emergency room with the above. In the ER, he had a chest CT performed which revealed cardiomegaly, patchy ground-glass opacifications fill both lungs, and bilateral pleural effusions. Patient underwent hemodialysis x2. Patient still has some hemoptysis. Patient states he had a history of hemoptysis two years ago when he was hospitalized secondary to pneumonia. He is a nonsmoker. He denies any history of occupational exposure to chemicals or fumes. There is no history of TB. He denies any history of fevers, weight loss or night sweats. PAST MEDICAL HISTORY: Again includes hypertensive cardiomyopathy; end-stage renal disease, on hemodialysis; hypertension; diabetes mellitus; congestive heart failure. REVIEW OF SYSTEMS: Positive orthopnea. Positive dyspnea. No chest pain. Positive cough. Positive hemoptysis. No fever. No chills. No abdominal pain. CURRENT MEDICATIONS: Include Tylenol, Robitussin DM, albuterol, Apresoline, Atrovent, normal saline, [place] nasal spray. PHYSICAL EXAMINATION: General: The patient is a well-developed, well-nourished male, awake, alert, in no acute distress. Vital Signs: He is afebrile, blood pressure is 148/81, respiratory rate 18, O2 saturation is 98% on 2 L nasal cannula. HEENT: Exam is normocephalic, atraumatic. Neck: Supple. Heart: Regular S1 and S2. Chest: A few bibasilar crackles. Abdomen: Soft. Bowel sounds are positive. Extremities: No cyanosis or edema. LABORATORIES: WBC is 7.4, hemoglobin 7.3, hematocrit 22.5 with a platelet count of 236,000. INR is 0.96. BUN is 33, creatinine is 8.3. IMAGING: Chest CT, as noted earlier, again, bilateral ground-glass opacification and bilateral pleural effusions. IMPRESSION: 1. Hemoptysis. Etiology to be determined. Rule out possible secondary to volume overload. Patient's CT is suspicious for bilateral overload with bilateral ground-glass opacifications as well as bilateral effusions. Rule out possible infectious, although patient is without a temperature. Also, rule out possible vasculitis. 2. End-stage renal disease; on hemodialysis. 3. Volume overload. 4. Hypertension. 5. Atherosclerotic heart disease. 6. Hypertensive cardiomyopathy. 7. Anemia. PLAN: Hemodialysis, as per Renal. Quantify hemoptysis. Obtain cultures. Sputum for AFB, serology. C-ANCA. Anti-glomerular basement membrane. Will follow closely with you. follow up chest x-rays. Monitor electrolytes, hemoglobin and hematocrit, and renal function. JUANCHO ANN M.D. DANIA/[id number] MTDD
[2019-01-03] MEDS: hydrALAZINE HCL 50 MG TABLET (FP) PO SCH ×2 (09:48→22:41)
[2019-01-03] MEDS: guaiFENesin/D-METHORPHAN HB 10 ML UNIT-DOSE CUPS PO PRN ×2 (09:53→21:00)
--- NOTE | 2019-01-03 10:52 | PN ---
Progress Note (short form) - Note Progress Note: PULMONARY Still some dark hemoptysis but less than yesterday. Dialyzed yesterday. Denies shortness of breath or chest pain. No fevers or chills. Vital Signs Period Temp Pulse Resp BP Sys/Thomas Pulse Ox Last 24 Hr 98.2 F-99.3 F 53-68 18-20 126-157/57-81 Intake & Output 12/31/18 01/01/19 01/02/19 01/03/19 23:59 23:59 23:59 23:59 Intake Total 427 872 3129 Output Total 1400 3700 Balance -1000 530 -2080 Weight 85.531 kg Gen: NAD at rest Heart: RRR Lung: decreased breath sounds at the bases Abd: soft, nontender Ext: no edema CBC, BMP 01/02/19 09:10 01/02/19 09:10 Active Medications Acetaminophen (Tylenol -) 650 mg PO Q6H PRN PRN Reason: PAIN LEVEL 1-5 Albuterol Sulfate (Ventolin 0.083% Nebulizer Soln -) 1 amp NEB Q6H PRN PRN Reason: SHORT OF BREATH/WHEEZING Last Admin: 01/01/19 15:51 Dose: 1 amp Guaifenesin (Robitussin Dm -) 10 ml PO Q4H PRN PRN Reason: COUGH Last Admin: 01/03/19 09:53 Dose: 10 ml Hydralazine HCl (Apresoline -) 100 mg PO BID VONNIE Last Admin: 01/03/19 09:48 Dose: 100 mg Ipratropium [place] (Atrovent 0.02% Nebulizer -) 1 amp NEB Q6H PRN PRN Reason: WHEEZING Last Admin: 01/01/19 15:50 Dose: 1 amp Sodium Chloride ([place] Nasal [place] -) 2 spray NS TID PRN PRN Reason: NASAL CONGESTION A/P Hemoptysis Volume Overload Acute on Chronic Diastolic Heart Failure Pulmonary HTN ESRD on HD CAD Anemia - hemoptysis likely from volume overload/CHF - monitor/quantify hemoptysis - f/u serologies - HD per renal - O2 to keep Spo2 >90% - DVT prophylaxis
--- NOTE | 2019-01-03 13:58 | PN ---
Progress Note, Physician History of Present Illness: stable says no more hemoptysis - Current Medication List Current Medications: Active Medications Acetaminophen (Tylenol -) 650 mg PO Q6H PRN PRN Reason: PAIN LEVEL 1-5 Albuterol Sulfate (Ventolin 0.083% Nebulizer Soln -) 1 amp NEB Q6H PRN PRN Reason: SHORT OF BREATH/WHEEZING Last Admin: 01/01/19 15:51 Dose: 1 amp Guaifenesin (Robitussin Dm -) 10 ml PO Q4H PRN PRN Reason: COUGH Last Admin: 01/03/19 09:53 Dose: 10 ml Hydralazine HCl (Apresoline -) 100 mg PO BID VONNIE Last Admin: 01/03/19 09:48 Dose: 100 mg Ipratropium [place] (Atrovent 0.02% Nebulizer -) 1 amp NEB Q6H PRN PRN Reason: WHEEZING Last Admin: 01/01/19 15:50 Dose: 1 amp Sodium Chloride ([place] Nasal [place] -) 2 spray NS TID PRN PRN Reason: NASAL CONGESTION - Objective Vital Signs: Vital Signs Temperature 98.7 F 01/03/19 05:52 Pulse Rate 68 01/03/19 05:52 Respiratory Rate 20 01/03/19 05:52 Blood Pressure 157/66 01/03/19 05:52 O2 Sat by Pulse Oximetry (%) 98 01/02/19 09:00 Constitutional: Yes: No Distress, Calm Cardiovascular: Yes: S1, S2 Respiratory: Yes: Regular, CTA Bilaterally Gastrointestinal: Yes: Normal Bowel Sounds, Soft Musculoskeletal: Yes: WNL Extremities: Yes: WNL Neurological: Yes: Alert, Oriented Psychiatric: Yes: Alert, Oriented Labs: CBC, BMP 01/02/19 09:10 01/02/19 09:10 INR, PTT INR 0.96 (0.83-1.09) 12/31/18 14:41 Assessment/Plan this patient with multiple medical problems coming with sob and hemoptsis was given ceftriaxone and zithro 1. ESRD 2. Hyperkalemia 3. HTN 4. chest pain 5. DM 6. PNA 7. pleural effusion 8. fluid overload 9. hemoptysis plan continue to monitor await for sputum cx rest as per the team
[2019-01-03] MEDS ORDERED: SODIUM CHLORIDE 250 ML IV PRN (16:00)
--- NOTE | 2019-01-03 16:00 | PN ---
Progress Note, Physician History of Present Illness: Pt seen and examined at bedside. He feels that cough is improved. He denies hemoptysis today. - Current Medication List Current Medications: Active Medications Acetaminophen (Tylenol -) 650 mg PO Q6H PRN PRN Reason: PAIN LEVEL 1-5 Albuterol Sulfate (Ventolin 0.083% Nebulizer Soln -) 1 amp NEB Q6H PRN PRN Reason: SHORT OF BREATH/WHEEZING Last Admin: 01/01/19 15:51 Dose: 1 amp Guaifenesin (Robitussin Dm -) 10 ml PO Q4H PRN PRN Reason: COUGH Last Admin: 01/03/19 09:53 Dose: 10 ml Hydralazine HCl (Apresoline -) 100 mg PO BID VONNIE Last Admin: 01/03/19 09:48 Dose: 100 mg Ipratropium [place] (Atrovent 0.02% Nebulizer -) 1 amp NEB Q6H PRN PRN Reason: WHEEZING Last Admin: 01/01/19 15:50 Dose: 1 amp Sodium Chloride ([place] Nasal [place] -) 2 spray NS TID PRN PRN Reason: NASAL CONGESTION - Objective Vital Signs: Vital Signs Temperature 98.7 F 01/03/19 05:52 Pulse Rate 68 01/03/19 05:52 Respiratory Rate 20 01/03/19 05:52 Blood Pressure 157/66 01/03/19 05:52 O2 Sat by Pulse Oximetry (%) 98 01/02/19 09:00 Constitutional: Yes: Calm Eyes: Yes: Conjunctiva Clear Cardiovascular: Yes: S1, S2 Respiratory: Yes: CTA Bilaterally Gastrointestinal: Yes: Soft Genitourinary: Yes: WNL Musculoskeletal: Yes: WNL Edema: No Neurological: Yes: Oriented Psychiatric: Yes: Oriented Labs: CBC, BMP 01/02/19 09:10 01/02/19 09:10 INR, PTT INR 0.96 (0.83-1.09) 12/31/18 14:41 Assessment/Plan Current Medications Generic Name Dose Route Start Last Admin Trade Name Freq PRN Reason Stop Dose Admin Acetaminophen 650 mg 12/31/18 20:12 Tylenol - PO Q6H PRN PAIN LEVEL 1-5 Albuterol Sulfate 1 amp 12/31/18 20:12 01/01/19 15:51 Ventolin 0.083% Nebulizer Soln - NEB 1 amp Q6H PRN Administration SHORT OF BREATH/WHEEZING Guaifenesin 10 ml 01/02/19 10:44 01/03/19 09:53 Robitussin Dm - PO 10 ml Q4H PRN Administration COUGH Hydralazine HCl 100 mg 12/31/18 22:00 01/03/19 09:48 Apresoline - PO 100 mg BID VONNIE Administration Ipratropium [place] 1 amp 12/31/18 20:12 01/01/19 15:50 Atrovent 0.02% Nebulizer - NEB 1 amp Q6H PRN Administration WHEEZING Sodium Chloride 2 spray 01/02/19 10:06 [place] Nasal [place] - NS TID PRN NASAL CONGESTION Laboratory Tests 01/02/19 01/02/19 14:00 14:00 c-ANCA Pending Proteinase 3 (PR3) Pending p-ANCA Pending Atypical p-ANCA Pending Myeloperoxidase Ab Pending Glomerular Base Memb Ab Pending Impression 1. ESRD 2. Hyperkalemia 3. HTN 4. chest pain 5. DM 6. PNA 7. pleural effusion 8. fluid overload 9. hemoptysis Plan - HD tomorrow - pulm input appreciated - follow serologies - hold heparin on HD - renal diet - epogen for anemia - HD orders: AVF 3:30, opti 180, abf 450, 2 k , heparin 1000 bolus, micera 100 q 2 weeks (last dose 11/15)
--- NOTE | 2019-01-03 16:42 | PN ---
Progress Note (short form) - Note Progress Note: not much hemoptysis no chest pain no sob Vital Signs - 24 hr 01/02/19 01/02/19 01/03/19 19:00 21:00 05:52 Temperature 99.3 F 98.7 F Pulse Rate 67 68 Respiratory 20 20 20 Rate Blood Pressure 147/72 157/66 Current Medications Generic Name Dose Route Start Last Admin Trade Name Freq PRN Reason Stop Dose Admin Acetaminophen 650 mg 12/31/18 20:12 Tylenol - PO Q6H PRN PAIN LEVEL 1-5 Albuterol Sulfate 1 amp 12/31/18 20:12 01/01/19 15:51 Ventolin 0.083% Nebulizer Soln - NEB 1 amp Q6H PRN Administration SHORT OF BREATH/WHEEZING Epoetin Sanchez 10,000 unit 01/04/19 16:00 Epogen - IVPUSH 01/04/19 16:01 ONCE ONE Guaifenesin 10 ml 01/02/19 10:44 01/03/19 09:53 Robitussin Dm - PO 10 ml Q4H PRN Administration COUGH Hydralazine HCl 100 mg 12/31/18 22:00 01/03/19 09:48 Apresoline - PO 100 mg BID VONNIE Administration Sodium Chloride 250 mls @ 3,000 mls/hr 01/03/19 16:00 Normal Saline - IV 01/04/19 16:01 PRN PRN Hypotension during Dialysis Ipratropium [place] 1 amp 12/31/18 20:12 01/01/19 15:50 Atrovent 0.02% Nebulizer - NEB 1 amp Q6H PRN Administration WHEEZING Sodium Chloride 2 spray 01/02/19 10:06 [place] Nasal [place] - NS TID PRN NASAL CONGESTION Laboratory Results - last 24 hr 01/02/19 01/03/19 20:22 06:46 POC Glucometer 102 81 S1 S2 RRR Lungs decreased Abd-soft, NT No edema PLAN spoke with Renal and ID Holding off antibiotics Repeat CT chest on Monday after dialysis check sputum culture pulmonary eval noted likely vascular congestion Problem List - Problems (1) CAD (coronary artery disease) Code(s): I25.10 - ATHSCL HEART DISEASE OF [place] CORONARY ARTERY W/O ANG PCTRS (2) Diabetes Code(s): E11.9 - TYPE 2 DIABETES MELLITUS WITHOUT COMPLICATIONS (3) ESRD (end stage renal disease) Code(s): N18.6 - END STAGE RENAL DISEASE (4) HLD (hyperlipidemia) Code(s): E78.5 - HYPERLIPIDEMIA, UNSPECIFIED (5) Hyperkalemia Code(s): E87.5 - HYPERKALEMIA (6) Anemia in chronic kidney disease Code(s): N18.9 - CHRONIC KIDNEY DISEASE, UNSPECIFIED; D63.1 - ANEMIA IN CHRONIC KIDNEY DISEASE (7) Hemoptysis Code(s): R04.2 - HEMOPTYSIS
[2019-01-03] MEDS: ACETAMINOPHEN 325 MG TABLET (FP) PO PRN (20:59)
[2019-01-04] MEDS: hydrALAZINE HCL 50 MG TABLET (FP) PO SCH ×2 (10:44→21:27)
[2019-01-04] MEDS: guaiFENesin/D-METHORPHAN HB 10 ML UNIT-DOSE CUPS PO PRN ×2 (11:12→21:28)
[2019-01-04 12:18] LABS: HEMATOCRIT 30.4 % (35.4-49); HEMOGLOBIN 10.1 GM/dL (11.7-16.9); MCH 28.3 pg (25.7-33.7); MCHC 33.1 g/dl (32.0-35.9); MEAN CELL VOLUME 85.5 fl (80-96); PLATELET COUNT 294 K/MM3 (134-434); RBC 3.55 M/mm3 (4.00-5.60); RDW 17.5 % (11.9-15.9); WHITE BLOOD COUNT 7.2 K/mm3 (4.0-10.0)
--- NOTE | 2019-01-04 12:24 | PN ---
Progress Note, Physician History of Present Illness: stable no new issues - Current Medication List Current Medications: Active Medications Acetaminophen (Tylenol -) 650 mg PO Q6H PRN PRN Reason: PAIN LEVEL 1-5 Last Admin: 01/03/19 20:59 Dose: 650 mg Albuterol Sulfate (Ventolin 0.083% Nebulizer Soln -) 1 amp NEB Q6H PRN PRN Reason: SHORT OF BREATH/WHEEZING Last Admin: 01/01/19 15:51 Dose: 1 amp Epoetin Sanchez (Epogen -) 10,000 unit IVPUSH ONCE ONE Stop: 01/04/19 16:01 Guaifenesin (Robitussin Dm -) 10 ml PO Q4H PRN PRN Reason: COUGH Last Admin: 01/04/19 11:12 Dose: 10 ml Hydralazine HCl (Apresoline -) 100 mg PO BID VONNIE Last Admin: 01/04/19 10:44 Dose: 100 mg Sodium Chloride (Normal Saline -) 250 mls @ 3,000 mls/hr IV PRN PRN PRN Reason: Hypotension during Dialysis Stop: 01/04/19 16:01 Ipratropium [place] (Atrovent 0.02% Nebulizer -) 1 amp NEB Q6H PRN PRN Reason: WHEEZING Last Admin: 01/01/19 15:50 Dose: 1 amp Sodium Chloride ([place] Nasal [place] -) 2 spray NS TID PRN PRN Reason: NASAL CONGESTION - Objective Vital Signs: Vital Signs Temperature 98.1 F 01/04/19 11:35 Pulse Rate 59 L 01/04/19 12:10 Respiratory Rate 18 01/04/19 12:10 Blood Pressure 142/72 01/04/19 12:10 O2 Sat by Pulse Oximetry (%) 98 01/03/19 21:00 Constitutional: Yes: No Distress, Calm Cardiovascular: Yes: S1, S2 Respiratory: Yes: Regular, CTA Bilaterally Musculoskeletal: Yes: WNL Extremities: Yes: WNL Neurological: Yes: Alert, Oriented Psychiatric: Yes: Alert, Oriented Labs: CBC, BMP 01/04/19 11:48 INR, PTT INR 0.96 (0.83-1.09) 12/31/18 14:41 Assessment/Plan this patient with multiple medical problems coming with sob and hemoptsis was given ceftriaxone and zithro 1. ESRD 2. Hyperkalemia 3. HTN 4. chest pain 5. DM 6. PNA 7. pleural effusion 8. fluid overload 9. hemoptysis plan continue to monitor await for sputum cx rest as per the team
[2019-01-04] MEDS ORDERED: EPOETIN ALFA 10,000 UNIT/1 ML VIAL IVPUSH ONE (12:30)
[2019-01-04 13:01] LABS: BLOOD UREA NITROGEN 47.3 mg/dL (7-18); POTASSIUM 4.3 mmol/L (3.5-5.1)
[2019-01-04 13:33] LABS: CREATININE 8.9 mg/dL (0.55-1.3)
--- NOTE | 2019-01-04 14:28 | PN ---
Progress Note, Physician History of Present Illness: Pt seen and examined at bedside. He is awake and alert. He is tolerating HD. He has not had any more hemoptysis. - Current Medication List Current Medications: Active Medications Acetaminophen (Tylenol -) 650 mg PO Q6H PRN PRN Reason: PAIN LEVEL 1-5 Last Admin: 01/03/19 20:59 Dose: 650 mg Albuterol Sulfate (Ventolin 0.083% Nebulizer Soln -) 1 amp NEB Q6H PRN PRN Reason: SHORT OF BREATH/WHEEZING Last Admin: 01/01/19 15:51 Dose: 1 amp Guaifenesin (Robitussin Dm -) 10 ml PO Q4H PRN PRN Reason: COUGH Last Admin: 01/04/19 11:12 Dose: 10 ml Hydralazine HCl (Apresoline -) 100 mg PO BID VONNIE Last Admin: 01/04/19 10:44 Dose: 100 mg Sodium Chloride (Normal Saline -) 250 mls @ 3,000 mls/hr IV PRN PRN PRN Reason: Hypotension during Dialysis Stop: 01/04/19 16:01 Ipratropium [place] (Atrovent 0.02% Nebulizer -) 1 amp NEB Q6H PRN PRN Reason: WHEEZING Last Admin: 01/01/19 15:50 Dose: 1 amp Sodium Chloride ([place] Nasal [place] -) 2 spray NS TID PRN PRN Reason: NASAL CONGESTION - Objective Vital Signs: Vital Signs Temperature 98.1 F 01/04/19 11:35 Pulse Rate 61 01/04/19 13:40 Respiratory Rate 18 01/04/19 13:40 Blood Pressure 144/80 01/04/19 13:40 O2 Sat by Pulse Oximetry (%) 98 01/03/19 21:00 Constitutional: Yes: Calm Eyes: Yes: Conjunctiva Clear HENT: Yes: Atraumatic Neck: Yes: Supple Cardiovascular: Yes: S1, S2 Respiratory: Yes: CTA Bilaterally Gastrointestinal: Yes: Normal Bowel Sounds, Soft Genitourinary: Yes: WNL Musculoskeletal: Yes: WNL Edema: No Neurological: Yes: Oriented Psychiatric: Yes: Oriented Labs: CBC, BMP 01/04/19 11:48 01/04/19 11:48 INR, PTT INR 0.96 (0.83-1.09) 12/31/18 14:41 Assessment/Plan Current Medications Generic Name Dose Route Start Last Admin Trade Name Freq PRN Reason Stop Dose Admin Acetaminophen 650 mg 12/31/18 20:12 01/03/19 20:59 Tylenol - PO 650 mg Q6H PRN Administration PAIN LEVEL 1-5 Albuterol Sulfate 1 amp 12/31/18 20:12 01/01/19 15:51 Ventolin 0.083% Nebulizer Soln - NEB 1 amp Q6H PRN Administration SHORT OF BREATH/WHEEZING Guaifenesin 10 ml 01/02/19 10:44 01/04/19 11:12 Robitussin Dm - PO 10 ml Q4H PRN Administration COUGH Hydralazine HCl 100 mg 12/31/18 22:00 01/04/19 10:44 Apresoline - PO 100 mg BID VONNIE Administration Sodium Chloride 250 mls @ 3,000 mls/hr 01/03/19 16:00 Normal Saline - IV 01/04/19 16:01 PRN PRN Hypotension during Dialysis Ipratropium [place] 1 amp 12/31/18 20:12 01/01/19 15:50 Atrovent 0.02% Nebulizer - NEB 1 amp Q6H PRN Administration WHEEZING Sodium Chloride 2 spray 01/02/19 10:06 [place] Nasal [place] - NS TID PRN NASAL CONGESTION Impression 1. ESRD 2. Hyperkalemia 3. HTN 4. chest pain 5. DM 6. PNA 7. pleural effusion 8. fluid overload 9. hemoptysis Plan - HD today - next HD on Monday - he has HD set up as outpt - follow anca - renal diet - epogen for anemia - HD orders: AVF 3:30, opti 180, abf 450, 2 k , heparin 1000 bolus, micera 100 q 2 weeks (last dose 11/15)
--- NOTE | 2019-01-04 14:37 | PN ---
Progress Note (short form) - Note Progress Note: Pt seen/ examined in dialysis chart is reviewed awake/ comfortable denies pain No further hemoptysis Vital Signs Temp 98.1 F 01/04/19 11:35 Pulse 61 01/04/19 13:40 Resp 18 01/04/19 13:40 BP 144/80 01/04/19 13:40 Pulse Ox 98 01/03/19 21:00 Intake & Output 01/03/19 01/04/19 01/04/19 23:59 11:59 23:59 Intake Total 540 200 Balance 540 200 Intake: IV 200 Normal Saline - 250 ml @ 200 3000 mls/hr IV PRN PRN Rx #:[id number] Oral 540 Other: Voiding Method Toilet Toilet # Unmeasured Voids Void 1 1 Bowel Movement No No Active Medications Acetaminophen (Tylenol -) 650 mg PO Q6H PRN PRN Reason: PAIN LEVEL 1-5 Last Admin: 01/03/19 20:59 Dose: 650 mg Albuterol Sulfate (Ventolin 0.083% Nebulizer Soln -) 1 amp NEB Q6H PRN PRN Reason: SHORT OF BREATH/WHEEZING Last Admin: 01/01/19 15:51 Dose: 1 amp Guaifenesin (Robitussin Dm -) 10 ml PO Q4H PRN PRN Reason: COUGH Last Admin: 01/04/19 11:12 Dose: 10 ml Hydralazine HCl (Apresoline -) 100 mg PO BID VONNIE Last Admin: 01/04/19 10:44 Dose: 100 mg Sodium Chloride (Normal Saline -) 250 mls @ 3,000 mls/hr IV PRN PRN PRN Reason: Hypotension during Dialysis Stop: 01/04/19 16:01 Ipratropium [place] (Atrovent 0.02% Nebulizer -) 1 amp NEB Q6H PRN PRN Reason: WHEEZING Last Admin: 01/01/19 15:50 Dose: 1 amp Sodium Chloride ([place] Nasal [place] -) 2 spray NS TID PRN PRN Reason: NASAL CONGESTION CBC, BMP 01/04/19 11:48 01/04/19 11:48 Microbiology 01/03/19 09:40 Gram Stain - Final Sputum - Expectorated Sputum Culture - Preliminary NORMAL RESPIRATORY CLAUDIA 12/31/18 20:20 Blood Culture - Preliminary Blood - Peripheral Venous NO GROWTH OBTAINED AFTER 72 HOURS, INCUBATION TO CONTINUE FOR 2 DAYS. 12/31/18 20:20 Blood Culture - Preliminary Blood - Peripheral Venous NO GROWTH OBTAINED AFTER 72 HOURS, INCUBATION TO CONTINUE FOR 2 DAYS. Physical Exam S1 S2 RRR Lungs decreased Abd-soft, NT No edema alert/ awake PLAN Stable spoke with Renal and ID Holding off antibiotics Repeat CT chest on Monday after dialysis -- check sputum culture pulmonary eval noted likely vascular congestion D/c planning-- IF- stable - Anticipate tomorrow Will follow Problem List - Problems (1) CAD (coronary artery disease) Code(s): I25.10 - ATHSCL HEART DISEASE OF [place] CORONARY ARTERY W/O ANG PCTRS (2) Diabetes Code(s): E11.9 - TYPE 2 DIABETES MELLITUS WITHOUT COMPLICATIONS (3) ESRD (end stage renal disease) Code(s): N18.6 - END STAGE RENAL DISEASE (4) HLD (hyperlipidemia) Code(s): E78.5 - HYPERLIPIDEMIA, UNSPECIFIED (5) Hyperkalemia Code(s): E87.5 - HYPERKALEMIA (6) Anemia in chronic kidney disease Code(s): N18.9 - CHRONIC KIDNEY DISEASE, UNSPECIFIED; D63.1 - ANEMIA IN CHRONIC KIDNEY DISEASE (7) Hemoptysis Code(s): R04.2 - HEMOPTYSIS
[2019-01-04 17:07] LABS: ATYPICAL pANCA <1:20 titer (Neg:<1:20); C-ANCA <1:20 titer (Neg:<1:20)
[2019-01-04] MEDS: ACETAMINOPHEN 325 MG TABLET (FP) PO PRN (21:27)
[2019-01-05 06:15] VITALS: TEMP 98.7
[2019-01-05] MEDS: hydrALAZINE HCL 50 MG TABLET (FP) PO SCH (09:54)
[2019-01-05] MEDS: guaiFENesin/D-METHORPHAN HB 10 ML UNIT-DOSE CUPS PO PRN (09:55)
[2019-01-05 11:12] VITALS: BP 134/64; PULSE 62
--- NOTE | 2019-01-05 11:41 | PN ---
Progress Note (short form) - Note Progress Note: PULMONARY No further hemoptysis. Denies shortness of breath or chest pain. No fevers or chills. Wants to go home. Vital Signs Period Temp Pulse Resp BP Sys/Thomas Pulse Ox Last 24 Hr 98.4 F-98.7 F 58-77 18-20 129-161/64-80 98-98 Gen: NAD at rest Heart: RRR Lung: decreased breath sounds at the bases Abd: soft, nontender Ext: no edema CBC, BMP 01/04/19 11:48 01/04/19 11:48 Active Medications Acetaminophen (Tylenol -) 650 mg PO Q6H PRN PRN Reason: PAIN LEVEL 1-5 Last Admin: 01/04/19 21:27 Dose: 650 mg Albuterol Sulfate (Ventolin 0.083% Nebulizer Soln -) 1 amp NEB Q6H PRN PRN Reason: SHORT OF BREATH/WHEEZING Last Admin: 01/01/19 15:51 Dose: 1 amp Guaifenesin (Robitussin Dm -) 10 ml PO Q4H PRN PRN Reason: COUGH Last Admin: 01/05/19 09:55 Dose: 10 ml Hydralazine HCl (Apresoline -) 100 mg PO BID VONNIE Last Admin: 01/05/19 09:54 Dose: 100 mg Ipratropium [place] (Atrovent 0.02% Nebulizer -) 1 amp NEB Q6H PRN PRN Reason: WHEEZING Last Admin: 01/01/19 15:50 Dose: 1 amp Sodium Chloride ([place] Nasal [place] -) 2 spray NS TID PRN PRN Reason: NASAL CONGESTION A/P Hemoptysis resolved Volume Overload Acute on Chronic Diastolic Heart Failure Pulmonary HTN ESRD on HD CAD Anemia - hemoptysis likely from volume overload/CHF - serologies negative - HD per renal - O2 to keep Spo2 >90% - DVT prophylaxis - can be discharged from pulmonary standpoint
--- NOTE | 2019-01-05 12:32 | DS ---
Physical Examination Vital Signs: Vital Signs Temperature 98.7 F 01/05/19 05:00 Pulse Rate 62 01/05/19 09:00 Respiratory Rate 20 01/05/19 09:00 Blood Pressure 134/64 01/05/19 09:00 O2 Sat by Pulse Oximetry (%) 98 01/05/19 10:00 Labs: CBC, BMP 01/04/19 11:48 01/04/19 11:48 Discharge Summary Problems reviewed: Yes Reason For Visit: END STAGE RENAL DISEASE Current Active Problems Anemia in chronic kidney disease (Acute) CAD (coronary artery disease) (Acute) Diabetes (Acute) ESRD (end stage renal disease) (Acute) HLD (hyperlipidemia) (Acute) Hemoptysis (Acute) Hyperkalemia (Acute) Pleural effusion (Acute) Pneumonia (Acute) Volume overload (Acute) Condition: Stable - Instructions Disposition: HOME - Home Medications Comprehensive Discharge Medication List: Ambulatory Orders Hydralazine HCl 100 mg PO BID 11/19/17
== END 2019-01-05 14:05 | disposition home or self-care (01) | DRG 291 ==
LOC: JER 12:33 → JERBED 18:07 → J6S 22:42
PROVIDERS: ADMIT Internal Medicine; ATTEND Internal Medicine
PROC: 5A1D70Z Performance of Urinary Filtration, Intermittent, Less than 6 Hours Per Day (ICD-10-PCS; principal; 2018-12-31)
PROC: 5A1D70Z Performance of Urinary Filtration, Intermittent, Less than 6 Hours Per Day (ICD-10-PCS; 2019-01-02)
PROC: 30233N1 Transfusion of Nonautologous Red Blood Cells into Peripheral Vein, Percutaneous Approach (ICD-10-PCS; 2019-01-02)
PROC: 5A1D70Z Performance of Urinary Filtration, Intermittent, Less than 6 Hours Per Day (ICD-10-PCS; 2019-01-04)
DX: I13.2 Hypertensive heart and chronic kidney disease with heart failure and with stage 5 chronic kidney disease, or end stage renal disease (principal); N18.6 End stage renal disease; I50.33 Acute on chronic diastolic (congestive) heart failure; R04.2 Hemoptysis; J90 Pleural effusion, not elsewhere classified; I43 Cardiomyopathy in diseases classified elsewhere; E87.5 Hyperkalemia; I25.10 Atherosclerotic heart disease of native coronary artery without angina pectoris; I27.20 Pulmonary hypertension, unspecified; E87.70 Fluid overload, unspecified; E78.5 Hyperlipidemia, unspecified; D63.1 Anemia in chronic kidney disease; E11.22 Type 2 diabetes mellitus with diabetic chronic kidney disease; Z99.2 Dependence on renal dialysis
CPT/HCPCS: 36415; 36430; 36511; 71046-TC-FY; 71250-TC; 71275-TC; 80048; 80053; 82962; 83516; 83520; 85025; 85027; 85610; 85730; 86256; 86803; 86850; 86900; 86901; 86922; 87040; 87070; 87205; 87340; 87804; 93005; 93010; 94640; 99283-25; J0885; P9038; P9058

== ENCOUNTER 2019-02-08 13:26 | Emergency (ER) | payer OTHER ==
[2019-02-08 13:31] VITALS: TEMP 98.1; BMI 30.2
--- NOTE | 2019-02-08 14:10 | PDOC ---
History of Present Illness - General Chief Complaint: Hemoptysis Stated Complaint: COUGHING UP BLOOD Time Seen by Provider: 02/08/19 14:10 History Source: Patient Exam Limitations: No Limitations - History of Present Illness Initial Comments: 63-year-old male with past medical history of hypertension, CAD, ESRD on hemodialysis (M/W/F, left UE AV fistula), hyperlipidemia presented to the emergency department for a cough for a couple of months. Patient reported he was admitted a couple of months ago to the hospital for a pneumonia causing hemoptysis, was discharged with hemoptysis. He reported he followed up with his primary care doctor about a week later, was prescribed albuterol pump to help him with his symptoms. He reported that despite using the Albuterol pump (with some improvement of symptoms with use) his cough has persisted. He reported that over the last five days he has noticed that his coughing is so intense at night time that he is on able to sleep well. He denied fever, bodyaches, chest pain, shortness of breath, lower extremity swelling, missing dialysis, night sweats. He reported he last receive dialysis today, had a full session with no complications. Pt reported losing 12 pounds in 2 weeks. ROS General: admitted to weight loss. denied fever, chills, generalized weakness. HEENT: denied sore throat, rhinorrhea, ear pain. Cardiovascular: denied chest pain, palpitations, syncope, diaphoresis. Respiratory: admitted cough, sputum production, hemoptysis. denied shortness of breath. Gastrointestinal: denied abdominal pain, nausea, vomiting, diarrhea, constipation, blood in stool. Genitourinary: denied dysuria, increased urinary frequency, hematuria, urinary incontinence, flank pain. Back: denied back pain. Musculoskeletal: denied joint pain, muscle pain, joint swelling. Neurological: denied headache, dizziness, numbness, tingling, weakness. Integumentary: denied rash, laceration, abrasion. Hematologic/Lymphatic: denied bruising or bleeding. PE Constitutional: Well-nourished, Well-developed, appearing stated age. HEENT: head is normocephalic, atraumatic. EOMI. PERRLA. no posterior pharyngeal erythema.no tonsillar swelling or exudates bilaterally. uvula midline. no peritonsillar swelling, tenderness or abscess. no jaw tenderness or misalignment. Neck: supple. Full ROM. Cardiovascular: regular heart rhythm. no murmurs. no pericardial friction rub. Respiratory: clear to auscultation bilaterally. no crackles, rhonchi or wheezing. no stridor. Gastrointestinal: soft, nontender. normal bowel sounds. no rebound, guarding, masses. Extremities: peripheral pulses intact. no lower extremity edema. Neurological: CN 2-12 grossly intact. moves all four extremities. Psych: awake, alert, oriented x3. follows commands. answers questions appropriately. Past History - Past Medical History Allergies/Adverse Reactions: Allergies Allergy/AdvReac Type Severity Reaction Status Date / Time No Known Allergies Allergy Verified 02/08/19 13:31 Home Medications: Ambulatory Orders Albuterol 0.083% Nebulizer [place] [Ventolin 0.083% Nebulizer Soln -] 1 neb NEB Q4H PRN #30 vial 02/08/19 Benzonatate [Tessalon Pearls -] 100 mg PO TID PRN #30 capsule 02/08/19 Hydralazine HCl 150 mg PO DAILY 02/08/19 Nebulizer Accessories [Adult Aerosol Mask] 1 each MC QID PRN #1 each 02/08/19 Nebulizer [Compact Compressor Nebulizer] 1 each MC QID PRN #1 each 02/08/19 Nifedipine [Nifedipine ER] 60 mg PO DAILY 02/08/19 - Surgical History Abdominal Surgery: No Appendectomy: No Cardiac Surgery: Yes (Cardiac Cath) Cholecystectomy: No Lung Surgery: No Neurologic Surgery: No Orthopedic Surgery: No - Immunization History Immunization Up to Date: Yes - Psycho Social/Smoking Cessation Hx Smoking Status: No Smoking History: Never smoked Have you smoked in the past 12 months: No Number of Cigarettes Smoked Daily: 0 Hx Alcohol Use: No Drug/Substance Use Hx: No Substance Use Type: None Hx Substance Use Treatment: No *Physical Exam - Vital Signs Last Vital Signs Temp Pulse Resp BP Pulse Ox 98.1 F 71 18 144/58 L 97 02/08/19 13:27 02/08/19 13:27 02/08/19 13:27 02/08/19 13:27 02/08/19 13:27 ED Treatment Course - LABORATORY CBC & Chemistry Diagram: 02/08/19 14:23 02/08/19 14:23 Medical Decision Making - Medical Decision Making 63 year old male with above PMH presented to ED for cough/hemoptysis x2 months. Chart review: Admit 12/31/18 for bilateral pneumonia, hyperkalemia Treated with Ceftriaxone & Azithromycin Discharged 01/05/19 Initial Vital Signs Temp Pulse Resp BP Pulse Ox 98.1 F 71 18 144/58 L 97 02/08/19 13:27 02/08/19 13:27 02/08/19 13:27 02/08/19 13:27 02/08/19 13:27 Afebrile. No tachycardia. No tachypnea. Mild systolic hypertension. No hypoxia on room air. Labs ordered: CBC, CMP Imaging ordered: CXR Medications ordered: duoneb x1 02/08/19 14:55 CXR report: Name: [facility] DEPARTMENT OF RADIOLOGY Phys: Maritza Murrieta RESIDENT : [id number] Age: 63 Sex: M [facility] Acct : [id number] Loc: [address] Exam Date: 02/08/19 Status: [place] [address] Unit Number: [id number] EXAM#: TYPE/EXAM: RESULT: [id number] RAD/CHEST PA LAT CHEST : Hemoptysis 2 views of the chest reveal mild hyperaeration with normal heart, tortuous aorta and normal [place]. The angles are sharp and the soft tissues are intact. There are some degenerative changes. Impression: No acute chest pathology. Reported By: Damien Obregon MD 02/08/19 1438 CBC WBC 6.4 K/mm3 (4.0-10.0) 02/08/19 14:23 RBC 2.61 M/mm3 (4.00-5.60) L 02/08/19 14:23 Hgb 7.4 GM/dL (11.7-16.9) L 02/08/19 14:23 Hct 22.7 % (35.4-49) L D 02/08/19 14:23 MCV 86.6 fl (80-96) 02/08/19 14:23 MCH 28.3 pg (25.7-33.7) 02/08/19 14:23 MCHC 32.7 g/dl (32.0-35.9) 02/08/19 14:23 RDW 20.6 % (11.9-15.9) H 02/08/19 14:23 Plt Count 248 K/MM3 (134-434) 02/08/19 14:23 MPV 7.5 fl (7.5-11.1) 02/08/19 14:23 Absolute Neuts (auto) 4.7 K/mm3 (1.5-8.0) 02/08/19 14:23 Neutrophils % 72.7 % (42.8-82.8) 02/08/19 14:23 Lymphocytes % 11.9 % (8-40) D 02/08/19 14:23 Monocytes % 12.6 % (3.8-10.2) H 02/08/19 14:23 Eosinophils % 2.2 % (0-4.5) 02/08/19 14:23 Basophils % 0.6 % (0-2.0) 02/08/19 14:23 Nucleated RBC % 0 % (0-0) 02/08/19 14:23 Normocytic anemia, Hx of ESRD. -Pt informed and advised to F/U with PCP/Renal -Would not transfuse, no lightheadedness, no hypotension, no chest pain, no shortness of breath No leukocytosis. 02/08/19 15:12 CMP Sodium 140 mmol/L (136-145) 02/08/19 14:23 Potassium 3.9 mmol/L (3.5-5.1) 02/08/19 14:23 Chloride 102 mmol/L (98-107) 02/08/19 14:23 Carbon Dioxide 32 mmol/L (21-32) 02/08/19 14:23 Anion Gap 6 MMOL/L (8-16) L 02/08/19 14:23 BUN 24.0 mg/dL (7-18) H 02/08/19 14:23 Creatinine 5.1 mg/dL (0.55-1.3) H 02/08/19 14:23 Est GFR (CKD-EPI)AfAm 12.98 02/08/19 14:23 Est GFR (CKD-EPI)NonAf 11.20 02/08/19 14:23 Random Glucose 100 mg/dL (74-106) 02/08/19 14:23 Calcium 9.7 mg/dL (8.5-10.1) 02/08/19 14:23 Total Bilirubin 1.1 mg/dL (0.2-1) H 02/08/19 14:23 AST 20 U/L (15-37) 02/08/19 14:23 ALT 20 U/L (13-61) 02/08/19 14:23 Alkaline Phosphatase 60 U/L (45-117) 02/08/19 14:23 Total Protein 7.6 g/dl (6.4-8.2) 02/08/19 14:23 Albumin 3.4 g/dl (3.4-5.0) 02/08/19 14:23 No hyperkalemia. Mild elevation of Cr, hx of ESRD. No transaminitis. No electrolyte abnormalities. No pneumonia or Ghon focus noted on CXR. Pt is afebrile, appears well, ambulates well without assistance. Pt stable for discharge home with Fay Barrios, prompt PCP/Renal F/U, given referral for Pulmonology. Pt reported duoneb helped his symptoms, will prescribe albuterol nebulized solution/nebulizer/mask. Discharge - Discharge Information Problems reviewed: Yes Clinical Impression/Diagnosis: Anemia, Cough Condition: Stable Disposition: HOME - Admission No - Additional Discharge Information Prescriptions: Albuterol 0.083% Nebulizer [place] [Ventolin 0.083% Nebulizer Soln -] 1 neb NEB Q4H PRN #30 vial PRN Reason: Asthma Benzonatate [Tessalon [place]ls -] 100 mg PO TID PRN #30 capsule PRN Reason: Cough Nebulizer [Compact Compressor Nebulizer] 1 each MC QID PRN #1 each PRN Reason: Asthma Nebulizer Accessories [Adult Aerosol Mask] 1 each MC QID PRN #1 each PRN Reason: Asthma - Follow up/Referral Referrals: Adarsh Fairchild [Primary Care Provider] - Reji Brush MD [Staff Physician] - - Patient Discharge Instructions Patient Printed Discharge Instructions: DI for Cough -- Adult, DI for Anemia of Chronic Disease, How to Use a Nebulizer Additional Instructions: Follow up with your primary care doctor regarding your Anemia and your Emergency Room visit within 3 days. Your care is not complete until you follow up. Follow up with your kidney doctor regarding your Anemia within 3 days. Your care is not complete until you follow up. Follow up with a warehousing technician within 7 days if your cough does not resolve. I have provided you with a referral. I have sent a prescription to your pharmacy for Tessalon [place] to help with your cough. Take as advised on label. Return to the Emergency Department for increasing pain, chest pain, shortness of breath, vomiting, ill-appearance, lightheadedness, increasing leg swelling, shortness of breath with walking or any other new, worsening or concerning symptoms. Stefany un seguimiento con anglin mdico de atencin primaria con respecto a anglin anemia y anglin visita a la amelia de emergencias dentro de los 3 barbosa. Anglin atencin no estar completa hasta que realice el seguimiento. Stefany un seguimiento con anglin mdico de rin con respecto a anglin anemia dentro de los 3 barbosa. Anglin atencin no estar completa hasta que realice el seguimiento. Stefany un seguimiento con un neumlogo dentro de los 7 barbosa si anglin tos no se resuelve. Te he proporcionado juan r referencia. Le envi juan r receta a anglin farmacia de Tessalon Pearls para ayudarlo con anglin tos. Tmelo twin se indica en la etiqueta. Regrese al Departamento de Emergencias para aumentar el dolor, dolor en el pecho , falta de aliento, vmitos, mal aspecto, mareos, aumento de la hinchazn de las piernas, dificultad para respirar al caminar o cualquier otro sntoma nuevo , que empeore o se trate. Print Language: GEORGIAN - Post Discharge Activity
[2019-02-08] MEDS ORDERED: ALBUTEROL SO4 2.5/IPRATROPIUM 0.5 INH SOL 3 ML VIAL.NEB. NEB ONE ×2 (14:21→14:26)
[2019-02-08 14:36] LABS: BASO % 0.6 % (0-2.0); EOS % 2.2 % (0-4.5); HEMATOCRIT 22.7 % (35.4-49); HEMOGLOBIN 7.4 GM/dL (11.7-16.9); LYMPH % 11.9 % (8-40); MCH 28.3 pg (25.7-33.7); MCHC 32.7 g/dl (32.0-35.9); MEAN CELL VOLUME 86.6 fl (80-96); MEAN PLT VOLUME 7.5 fl (7.5-11.1); MONO % 12.6 % (3.8-10.2); NEUT % 72.7 % (42.8-82.8); PLATELET COUNT 248 K/MM3 (134-434); RBC 2.61 M/mm3 (4.00-5.60); RDW 20.6 % (11.9-15.9); WHITE BLOOD COUNT 6.4 K/mm3 (4.0-10.0)
[2019-02-08 15:09] LABS: ALBUMIN 3.4 g/dl (3.4-5.0); BILIRUBIN,TOTAL 1.1 mg/dL (0.2-1); CALCIUM 9.7 mg/dL (8.5-10.1); CREATININE 5.1 mg/dL (0.55-1.3); POTASSIUM 3.9 mmol/L (3.5-5.1); TOT PROT 7.6 g/dl (6.4-8.2)
--- NOTE | 2019-02-08 15:15 | PDOC ---
Documentation entered by Hodan Hung SCRIBE, acting as scribe for Blayne Iglesias MD. Blayne Iglesias MD: This documentation has been prepared by the Abhilash kennedy Xhesika, SCRIBE, under my direction and personally reviewed by me in its entirety. I confirm that the documentation accurately reflects all work, treatment, procedures, and medical decision making performed by me. Attending Attestation - Resident Resident Name: Maritza Murrieta - ED Attending Attestation I have performed the following: I have examined & evaluated the patient, The case was reviewed & discussed with the resident, I agree w/resident's findings & plan, Exceptions are as noted - HPI HPI: 02/08/19 14:58 The patient is a 63 year old male with a significant PMH of ESRD (HD M/W/F, last dialysis this morning), HTN, HLD, DM2, cardiac cath who presents to the emergency department for cough with occasional hemoptysis x1 month. Pt states he was admitted here at [facility] on 12/31/18 for pneumonia and was d/c home with PCP f/u. Patient has been coughing consistently, usually worse at night is usually brownish and streaked with blood. The patient denies any shortness of breath, dyspnea on exertion, chest pain, leg swelling, calf pain. The patient denies chest pain, shortness of breath, headache and dizziness. Denies fever, chills, nausea, vomiting, diarrhea and constipation. Denies dysuria, frequency, urgency and hematuria. Pt denies smoking Allergies: NKDA PCP: Adarsh Valdivia - Physicial Exam PE: 02/08/19 14:58 GENERAL: The patient is awake, alert, and fully oriented, Nontoxic - in no acute distress. HEAD: Normocephalic, atraumatic. EYES: extraocular movements intact, sclera anicteric, conjunctiva clear. ENT: Normal voice, Moist mucous membranes. NECK: Normal range of motion, supple without lymphadenopathy, JVD, or masses. LUNGS: Breath sounds equal, clear to auscultation bilaterally. No wheezes, no crackles, no rales. HEART: Regular rate and rhythm, normal S1 and S2 without murmur, rub or gallop. ABDOMEN: Soft, nontender, normoactive bowel sounds. No guarding, no rebound. No masses. EXTREMITIES: Normal range of motion, no edema. No calf tenderness, negative Homans, AV graft on the right upper extremity w thrill NEUROLOGICAL: No facial asymmetry, Normal speech, normal gait. PSYCH: Normal mood, normal affect. SKIN: Warm, Dry, normal turgor, no rashes or lesions noted. - Medical Decision Making 02/08/19 15:11 63-year-old history of ESRD presenting with persistent cough, without associated chest pain, dyspnea on exertion, fever, chills, leg swelling. Patient's exam nonfocal No clinical signs or symptoms suggestive of pulmonary embolism, CHF/fluid overload The patient's chest x-ray without evidence of acute infiltrate or other abnormalities The patient's blood work noted for anemia however this seems to be his baseline he did have 1 hemoglobin of 10 prior to discharge on his prior hospitalization after getting EPO, but it seems that his baseline is in the 7-8 range. There are no signs suggestive of symptomatic anemia His small volume hemoptysis may be secondary to bronchitis or his chronic cough , will give the patient Fay Barrios to manage his symptoms. Will refer to pulmonology for further management of his cough and work-up of his intermittent hemoptysis.
[2019-02-08 15:50] VITALS: BP 144/72; PULSE 68
[2019-02-08 21:22] LABS: ANISOCYTOSIS 2+; MACROCYTOSIS 1+; OVALOCYTE 1+; PLATELET ESTIMATE NORMAL
== END 2019-02-08 15:50 | disposition home or self-care (01) ==
LOC: JER 13:26
PROC: 3E0F7GC Introduction of Other Therapeutic Substance into Respiratory Tract, Via Natural or Artificial Opening (ICD-10-PCS; principal; 2019-02-08)
DX: R05 Cough (principal); Z87.01 Personal history of pneumonia (recurrent); I13.11 Hypertensive heart and chronic kidney disease without heart failure, with stage 5 chronic kidney disease, or end stage renal disease; N18.6 End stage renal disease; N17.8 Other acute kidney failure; Z99.2 Dependence on renal dialysis; Z98.61 Coronary angioplasty status; E78.5 Hyperlipidemia, unspecified
CPT/HCPCS: 36415; 71046-TC-FY; 80053; 85025; 99282-25

== ENCOUNTER 2019-03-14 15:13 | Inpatient (IN) | payer OTHER ==
--- NOTE | 2019-03-14 15:40 | PDOC ---
Rapid Medical Evaluation Time Seen by Provider: 03/14/19 15:36 Medical Evaluation: Allergies Allergy/AdvReac Type Severity Reaction Status Date / Time No Known Allergies Allergy Verified 02/08/19 13:31 03/14/19 15:37 CC: sent by animal control specialist for a blood transfusion, on dialysis Pt is a 63 y/o male who presents to the ED sent by his nephro for a blood transfusion for low H/H. The patient states that he feels ok. Dialysis Mon, Mon , Mon. Had dialysis yesterday. Brief exam: Pale conjunctiva, non-toxic appearing Orders: labs including type and screen To ED for further evaluation 03/14/19 15:40 Discharge Disposition - Diagnosis Anemia - Referrals - Patient Instructions - Post Discharge Activity
[2019-03-14 16:00] LABS: BASO % 1.2 % (0-2.0); EOS % 3.2 % (0-4.5); HEMATOCRIT 22.4 % (35.4-49); HEMOGLOBIN 7.3 GM/dL (11.7-16.9); LYMPH % 13.2 % (8-40); MCHC 32.6 g/dl (32.0-35.9); MEAN CELL VOLUME 88.8 fl (80-96); MEAN PLT VOLUME 8.2 fl (7.5-11.1); NEUT % 72.4 % (42.8-82.8); PLATELET COUNT 277 K/MM3 (134-434); RBC 2.52 M/mm3 (4.00-5.60); RDW 17.8 % (11.9-15.9); WHITE BLOOD COUNT 6.4 K/mm3 (4.0-10.0)
--- NOTE | 2019-03-14 16:22 | PDOC ---
History of Present Illness - General Chief Complaint: Abnormal Lab Results (Outside) Stated Complaint: SENT BY PCP/BLOOD TRANSFUSION Time Seen by Provider: 03/14/19 15:36 - History of Present Illness Initial Comments: 03/14/19 16:22 HPI: 63 y/o M with hx of HTN, DM, CAD, ESRD on HD MWF sent to the ED by Dr Johnson for transfusion with Hb 6.8, which has been downtrending x2-3weeks. Baseline Hb 9-10 and patient is maxed out on Epo per Dr Johnson. Patient denies any symptoms; no fever, LH, CEE, chest pain. Reports SOB on exertion at baseline worsening this week. Reports colonoscopy 4 years ago that was normal PMHx: as noted above ROS: as noted SHx: Denies tobacco use; no alcohol use; no rec drugs Allergies: NKDA ROS: GENERAL/CONSTITUTIONAL: No fever or chills. No weakness. HEAD, EYES, EARS, NOSE AND THROAT: No change in vision. No ear pain or discharge. No sore throat. CARDIOVASCULAR: No chest pain; +shortness of breath RESPIRATORY: No cough, wheezing, or hemoptysis. GASTROINTESTINAL: No nausea, vomiting, diarrhea or constipation. GENITOURINARY: No dysuria, frequency, or change in urination. MUSCULOSKELETAL: No joint or muscle swelling or pain. No neck or back pain. SKIN: No rash NEUROLOGIC: No headache, vertigo, loss of consciousness, or change in strength/ sensation. ENDOCRINE: No increased thirst. No abnormal weight change HEMATOLOGIC/LYMPHATIC: +Anemia; no easy bleeding, or history of blood clots. ALLERGIC/IMMUNOLOGIC: No hives or skin allergy. PE: GENERAL: Awake, alert, and fully oriented, no acute distress HEAD: No signs of trauma, normocephalic, atraumatic EYES: EOMI, sclera anicteric, conjunctiva clear ENT: Auricles normal inspection, hearing grossly normal, nares patent, oropharynx clear without exudates. Moist mucosa NECK: Normal ROM, no lymphadenopathy LUNGS: No increased work of breathing, symmetrical chest rise, clear to auscultation bilaterally, no wheezes, crackles or rhonchi HEART: Regular rate, regular rhythm, normal S1 and S2, no murmur, peripheral pulses 2+ and equal bilaterally. ABDOMEN: Soft, nondistended, nontender, normoactive bowel sounds. No guarding, no rebound. No masses. No CVAT. +reducible nontender umbilical hernia MUSCULOSKELETAL: FROM NEUROLOGICAL: Cranial nerves II through XII grossly intact. Normal speech, normal gait, no focal sensorimotor deficits SKIN: Warm, Dry, normal turgor, no rashes or lesions noted Past History - Past Medical History Allergies/Adverse Reactions: Allergies Allergy/AdvReac Type Severity Reaction Status Date / Time No Known Allergies Allergy Verified 03/14/19 15:41 Home Medications: Ambulatory Orders Albuterol 0.083% Nebulizer Caryn [Ventolin 0.083% Nebulizer Soln -] 1 neb NEB Q4H PRN #30 vial 02/08/19 Benzonatate [Tessalon Pearls -] 100 mg PO TID PRN #30 capsule 02/08/19 Hydralazine HCl 150 mg PO DAILY 02/08/19 Nebulizer Accessories [Adult Aerosol Mask] 1 each MC QID PRN #1 each 02/08/19 Nebulizer [Compact Compressor Nebulizer] 1 each MC QID PRN #1 each 02/08/19 Nifedipine [Nifedipine ER] 60 mg PO DAILY 02/08/19 Anemia: No Asthma: No Cancer: No Cardiac Disorders: Yes (CAD) CVA: No COPD: No CHF: No Dementia: No Diabetes: No Dialysis: Yes (M-W-) GI Disorders: Yes (EPIGASTRIC PAIN,CONSTIPATION) Disorders: No HTN: Yes Hypercholesterolemia: Yes Liver Disease: No Seizures: No Thyroid Disease: No - Surgical History Abdominal Surgery: No Appendectomy: No Cardiac Surgery: Yes (Cardiac Cath) Cholecystectomy: No Lung Surgery: No Neurologic Surgery: No Orthopedic Surgery: No - Immunization History Immunization Up to Date: Yes - Psycho Social/Smoking Cessation Hx Smoking Status: No Smoking History: Never smoked Have you smoked in the past 12 months: No Number of Cigarettes Smoked Daily: 0 Information on smoking cessation initiated: No Hx Alcohol Use: No Drug/Substance Use Hx: No Substance Use Type: None Hx Substance Use Treatment: No *Physical Exam - Vital Signs Last Vital Signs Temp Pulse Resp BP Pulse Ox 98.1 F 63 17 146/59 L 100 03/14/19 15:37 03/14/19 15:37 03/14/19 15:37 03/14/19 15:37 03/14/19 15:37 ED Treatment Course - LABORATORY CBC & Chemistry Diagram: 03/14/19 15:40 03/14/19 15:40 - ADDITIONAL ORDERS Additional order review: Laboratory Results 03/14/19 15:40 WBC 6.4 RBC 2.52 L Hgb 7.3 L Hct 22.4 L MCV 88.8 MCH 29.0 MCHC 32.6 RDW 17.8 H Plt Count 277 MPV 8.2 Absolute Neuts (auto) 4.6 Neutrophils % 72.4 Lymphocytes % 13.2 Monocytes % 10.0 Eosinophils % 3.2 Basophils % 1.2 Nucleated RBC % 0 03/14/19 15:40 RBC 2.52 L MCV 88.8 MCHC 32.6 RDW 17.8 H MPV 8.2 Neutrophils % 72.4 Lymphocytes % 13.2 Monocytes % 10.0 Eosinophils % 3.2 Basophils % 1.2 Medical Decision Making - Medical Decision Making 03/14/19 17:55 63 y/o M with hx of HTN, DM, CAD, ESRD on HD MWF sent to the ED by Dr Johnson for transfusion with Hb 6.8, which has been downtrending x2-3weeks. VSS, AF. PE unremarkable. -cbc, cmp, t&s, coags, ekg -stool occult -1unit prbc -Dr Johnson consult; will receive HD tomorrow -admit for symptomatic anemia under Dr Eaton med/surg Discharge - Discharge Information Problems reviewed: Yes Clinical Impression/Diagnosis: ESRD (end stage renal disease) Anemia Qualifiers: Anemia type: unspecified type Qualified Code(s): D64.9 - Anemia, unspecified Condition: Fair - Admission Yes - Follow up/Referral Referrals: Adarsh Fairchild [Primary Care Provider] - - Patient Discharge Instructions - Post Discharge Activity
[2019-03-14 16:40] LABS: ALBUMIN 3.3 g/dl (3.4-5.0); BILIRUBIN,TOTAL 0.6 mg/dL (0.2-1); BLOOD UREA NITROGEN 33.4 mg/dL (7-18); CALCIUM 8.7 mg/dL (8.5-10.1); CREATININE 7.1 mg/dL (0.55-1.3); POTASSIUM 5.2 mmol/L (3.5-5.1); TOT PROT 6.8 g/dl (6.4-8.2)
[2019-03-14 17:42] LABS: INR 0.98 (0.83-1.09); PROTHROMBIN TIME (PATIENT) 11.6 SEC (9.7-13.0)
[2019-03-14 17:44] LABS: ACTIVATED PTT 32.9 SECONDS (25.2-36.5)
--- NOTE | 2019-03-14 17:44 | PDOC ---
Documentation entered by Aaron Jeronimo SCRIBE, acting as scribe for Toña Leavitt DO. Toña Leavitt DO: This documentation has been prepared by the Phani kennedy Daniel, SCRIBE, under my direction and personally reviewed by me in its entirety. I confirm that the documentation accurately reflects all work, treatment, procedures, and medical decision making performed by me. Attending Attestation - Resident Resident Name: Beata Zhao - ED Attending Attestation I have performed the following: I have examined & evaluated the patient, The case was reviewed & discussed with the resident, I agree w/resident's findings & plan, Exceptions are as noted - HPI HPI: 03/14/19 17:44 The patient is a 63 year old male with a past medical history of HTN, diabetes, CAD, and ESRD (MWF) here today for evaluation of low hemoglobin. The patient was sent in by Dr. Johnson for a transfusion due to a hemoglobin of 7. Per Dr. Johnson, the patients hemoglobin has been down trending for the past 2 weeks. Patient does note some dyspnea on exertion. Patient denies headache, lightheadedness. Denies fever, chills. Denies chest pain. Denies nausea, vomiting, diarrhea, abdominal pain. Allergies: NKA PCP: Adarsh Escobar Track Watchman: Bebeto Johnson - Physicial Exam PE: 03/14/19 17:36 Constitutional: Awake, alert, oriented. No acute distress. Head: Normocephalic. Atraumatic Eyes: +mildly pale conjunctiva. PERRL. EOMI. ENT: Mucous membranes are moist and intact. Posterior pharynx without exudates or erythema. Uvula midline. Neck: Supple. Full ROM. No lymphadenopathy. Cardiovascular: Regular rate. Regular rhythm. S1, S2 regular. Distal pulses are 2+ and symmetric. Pulmonary/Chest: No evidence of respiratory distress. Clear to auscultation bilaterally No wheezing, rales or rhonchi. Abdominal: Soft and non-distended. There is no tenderness. No rebound, guarding or rigidity. No organomegaly. No palpable masses. Good bowel sounds. Back: No CVA tenderness. Musculoskeletal: No edema. No cyanosis. No clubbing. Full range of motion in all extremities. No calf tenderness. Radial/pedal pulses are intact and 2+ bilaterally Skin: +right AV fistula without bruit or thrill. Skin is warm and dry. No petechiae. No purpura. Neurological: Alert and oriented to person, place, and time. Cranial nerves II -XII are grossly intact. Normal speech. Strength is grossly symmetric. No sensory deficits. Psychiatric: Good eye contact. Normal interaction, affect and behavior. - Medical Decision Making 03/14/19 17:40 a/p: 63yo male with esrd on HD m/w/f with a RUE av fistula with bruit and thrill -pt with [facility] -sent by dr. Johnson for transfusion for hgb 7 -no hawley, no cp -no blurred vision -denies blood in stool, urine, or hematemesis -denies bleeding -transfused 2 weeks ago -labs sent show a hgb of 7 -pt has been seen by dr. johnson and plan for HD tomorrow -pt will be transfused -pt will have HD tomorrow -resident discussed the case with SYMPHONY covering Dr. feng (admits for dr. escobar) who accepts pt to service -pt is hemodynamically stable Heart Score/ECG Review - ECG Intrepretation Comment:: 03/14/19 17:43 sinus at 62, nl axis, q waves septally which are age indeterminate, t wave inversions lateral leads v5-6, I, avl
[2019-03-14] MEDS ORDERED: PATIENT'S OWN MEDICATION (NON-FORMULARY) (Benzonatate 100 MG) PO PRN (19:55)
[2019-03-14] MEDS ORDERED: ALBUTEROL SO4 0.083% IH SOL 2.5 MG/3 ML VIAL.NEB. NEB PRN (19:55)
--- NOTE | 2019-03-14 20:19 | HP ---
CHIEF COMPLAINT: here from dialysis with a low hgb/hct requiring blood transfusion PCP:Dr. Mckeon Nephrology: Dr. Centeno HISTORY OF PRESENT ILLNESS: 63 year old mainly [place]guillan speaking male with a past medical history of hypertension, diabetes mellitis , coronary artery disease, and ESRD ( hemodialysis-MWF) presents for evaluation of low hemoglobin/hematocrit. He was sent in by Dr. Johnson for a blood transfusion due to a hemoglobin of 7. Per Dr. Johnson, the patients hemoglobin has been down trending for the past 2 weeks. Patient does report some dyspnea on exertion. Patient denied chest pain , headache, lightheadedness, fever, chills or abdominal pain. Labs findings with hemoglobin 7.3/hemaocrit 22.4,RBC 2.52, platelets 277 ,stool occult is negative. He received 1 Unit of PRBC's in ER. He is being admitted for further medical/hematology evaluation and treatment. Recent Travel: no PAST MEDICAL HISTORY: hypertension diabetes mellitus coronary artery disease ESRD (hemodialysis-MWF) PAST SURGICAL HISTORY: none Social History: Smoking:no Alcohol:no Drugs: no Allergies No Known Allergies Allergy (Verified 03/14/19 15:41) HOME MEDICATIONS: Home Medications Medication Instructions Recorded Albuterol 0.083% Nebulizer Caryn 1 neb NEB Q4H PRN #30 vial 02/08/19 [Ventolin 0.083% Nebulizer Soln -] Benzonatate [Tessalon Pearls -] 100 mg PO TID PRN #30 capsule 02/08/19 Hydralazine HCl 150 mg PO DAILY 02/08/19 Nebulizer Accessories [Adult 1 each MC QID PRN #1 each 02/08/19 Aerosol Mask] Nebulizer [Compact Compressor 1 each MC QID PRN #1 each 02/08/19 Nebulizer] Nifedipine [Nifedipine ER] 60 mg PO DAILY 02/08/19 REVIEW OF SYSTEMS CONSTITUTIONAL: Absent: fever, chills, diaphoresis, generalized weakness, malaise, loss of appetite, weight change HEENT: Absent: rhinorrhea, nasal congestion, throat pain, throat swelling, difficulty swallowing, mouth swelling, ear pain, eye pain, visual changes CARDIOVASCULAR: Absent: chest pain, syncope, palpitations, irregular heart rate, lightheadedness , peripheral edema RESPIRATORY: Absent: cough, shortness of breath, dyspnea with exertion, orthopnea, wheezing, stridor, hemoptysis GASTROINTESTINAL: Absent: abdominal pain, abdominal distension, nausea, vomiting, diarrhea, constipation, melena, hematochezia GENITOURINARY: Absent: dysuria, frequency, urgency, hesitancy, hematuria, flank pain, genital pain MUSCULOSKELETAL: Absent: myalgia, arthralgia, joint swelling, back pain, neck pain SKIN: Absent: rash, itching, pallor HEMATOLOGIC/IMMUNOLOGIC: Absent: easy bleeding, easy bruising, lymphadenopathy, frequent infections ENDOCRINE: Absent: unexplained weight gain, unexplained weight loss, heat intolerance, cold intolerance NEUROLOGIC: Absent: headache, focal weakness or paresthesias, dizziness, unsteady gait, seizure, mental status changes, bladder or bowel incontinence PSYCHIATRIC: Absent: anxiety, depression, suicidal or homicidal ideation, hallucinations. PHYSICAL EXAMINATION Vital Signs - 24 hr 03/14/19 03/14/19 15:37 18:01 Temperature 98.1 F 98.2 F Pulse Rate 63 Pulse Rate [ 75 Apical] Respiratory 17 19 Rate Blood Pressure 146/59 L Blood Pressure 106/61 [Left Arm] O2 Sat by Pulse 100 96 Oximetry (%) GENERAL: awake, alert,fully oriented,no acute distress HEAD: normal no signs of trauma EYES: pupils equal, round and reactive to light EARS, NOSE, THROAT: ears normal, nares patent NECK: normal range of motion LUNGS: breath sounds equal clear to auscultation bilaterally no wheezes no crackles no accessory muscle use HEART: regular rate and rhythm normal S1 and S2 without murmur ABDOMEN: Soft, nontender, not distended, normoactive bowel sounds, no guarding MUSCULOSKELETAL: normal range of motion at all joints no bony deformities or tenderness UPPER EXTREMITIES: 2+ pulses, warm well-perfused no cyanosis LOWER EXTREMITIES: 2+ pulses warm well-perfused no pitting edema NEUROLOGICAL: normal speech PSYCHIATRIC: cooperative good eye contact appropriate mood and affect SKIN: warm dry normal turgor no rashes or lesions noted Laboratory Results - last 24 hr 03/14/19 03/14/19 03/14/19 15:40 15:40 15:40 WBC 6.4 RBC 2.52 L Hgb 7.3 L Hct 22.4 L MCV 88.8 MCH 29.0 MCHC 32.6 RDW 17.8 H Plt Count 277 MPV 8.2 Absolute Neuts (auto) 4.6 Neutrophils % 72.4 Lymphocytes % 13.2 Monocytes % 10.0 Eosinophils % 3.2 Basophils % 1.2 Nucleated RBC % 0 PT with INR INR PTT (Actin FS) Sodium 140 Potassium 5.2 H Chloride 104 Carbon Dioxide 29 Anion Gap 6 L BUN 33.4 H Creatinine 7.1 H Est GFR (CKD-EPI)AfAm 8.70 Est GFR (CKD-EPI)NonAf 7.51 Random Glucose 180 H Calcium 8.7 Total Bilirubin 0.6 AST 19 ALT 25 Alkaline Phosphatase 62 Total Protein 6.8 Albumin 3.3 L Stool Occult Blood Blood Type A POSITIVE Antibody Screen Negative Crossmatch See Detail 03/14/19 03/14/19 17:00 17:10 WBC RBC Hgb Hct MCV MCH MCHC RDW Plt Count MPV Absolute Neuts (auto) Neutrophils % Lymphocytes % Monocytes % Eosinophils % Basophils % Nucleated RBC % PT with INR 11.60 INR 0.98 PTT (Actin FS) 32.9 Sodium Potassium Chloride Carbon Dioxide Anion Gap BUN Creatinine Est GFR (CKD-EPI)AfAm Est GFR (CKD-EPI)NonAf Random Glucose Calcium Total Bilirubin AST ALT Alkaline Phosphatase Total Protein Albumin Stool Occult Blood Negative Blood Type Antibody Screen Crossmatch ASSESSMENT/PLAN: Mr. Hernandez is a 63 year old mainly [place]guill[place] speaking male with a past medical history of hypertension, diabetes mellitus (not on meds), coronary artery disease, and ESRD (hemodialysis-MWF) who presented for evaluation of low hemoglobin/hematocrit . He is requiring a blood transfusion due to a low hemoglobin of 7 and hematocrit of 22.4 and a further hematological evaluation. #1 Anemia Workup with hgb 7.3.hct 22.4, RBC 2.52, platelets 277 Stool guaiac negative, mild symptoms of dyspnea, no signs of active bleeding --Receiving 1 Unit of PRBC's, will repeat CBC post transfusion --Check iron studies --Check echocardiogram --Hematology Dr. Cisneros consulted #2 ESRD/Hyperkalemia HD- - On Epogen Nephrology consulted- Dr. Johnson #3 Hypertension Controlled Continue nifedipine and hydralazine #4 Diabetes Mellitus Accucheks before meals and bedtime Insulin as per sliding scale Check hgb A1c Ideally should be on statin therapy and sreedhar #5 Coronary Artery Disease Asymptomatic Would recommend adding statin therapy, no asa due to anemia DVT Prophylaxsis TEDS SCD's FEN monitor electrolytes low sodium low renal ADA diet Visit type - Emergency Visit Emergency Visit: Yes ED Registration Date: 03/14/19 Care time: The patient presented to the Emergency Department on the above date and was hospitalized for further evaluation of their emergent condition. - New Patient This patient is new to me today: Yes Date on this admission: 03/15/19 - Critical Care Critical Care patient: No
--- NOTE | 2019-03-14 20:25 | CONSULT ---
Consult Consult Specialty:: Nephrology Reason for Consultation:: ESRD - History of Present Illness Chief Complaint: sent in for anemia History of Present Illness: Pt is a 63 year old male with pmhx of htn, dm, esrd, and anemia who I sent in for worsening anemia. His hg has been dropping steadily. He denies blood in the stool. He does complain of fatigue. He is on a large dose of epogen. He denies chest pain. He is awake and alert. He denies fevers or chills. He does get shortness of breath with exertion. His last HD was yesterday. - History Source History Provided By: Patient, Medical Record - Past Medical History Cardio/Vascular: Yes: CAD, HTN, Hyperlipdemia Pulmonary: Yes: Asthma Renal/: Yes: Renal Inusuff, Hemodialysis, Renal Calculi Endocrine: Yes: Diabetes Mellitus - Past Surgical History Past Surgical History: Yes: AV Fistula/Graft - Alcohol/Substance Use Hx Alcohol Use: No History of Substance Use: reports: None - Smoking History Smoking history: Never smoked Have you smoked in the past 12 months: No Aproximately how many cigarettes per day: 0 - Social History ADL: Independent History of Recent Travel: No Home Medications - Allergies Allergies/Adverse Reactions: Allergies Allergy/AdvReac Type Severity Reaction Status Date / Time No Known Allergies Allergy Verified 03/14/19 15:41 - Home Medications Home Medications: Ambulatory Orders Albuterol 0.083% Nebulizer Caryn [Ventolin 0.083% Nebulizer Soln -] 1 neb NEB Q4H PRN #30 vial 02/08/19 Benzonatate [Tessalon Pearls -] 100 mg PO TID PRN #30 capsule 02/08/19 Hydralazine HCl 150 mg PO DAILY 02/08/19 Nebulizer Accessories [Adult Aerosol Mask] 1 each MC QID PRN #1 each 02/08/19 Nebulizer [Compact Compressor Nebulizer] 1 each MC QID PRN #1 each 02/08/19 Nifedipine [Nifedipine ER] 60 mg PO DAILY 02/08/19 Family Medical History Family History: Denies Review of Systems - Review of Systems Constitutional: reports: No Symptoms Eyes: reports: No Symptoms HENT: reports: No Symptoms Neck: reports: No Symptoms Cardiovascular: reports: No Symptoms Respiratory: reports: No Symptoms Gastrointestinal: reports: No Symptoms Genitourinary: reports: No Symptoms Musculoskeletal: reports: No Symptoms Integumentary: reports: No Symptoms Neurological: reports: No Symptoms Endocrine: reports: No Symptoms Hematology/Lymphatic: reports: No Symptoms Psychiatric: reports: No Symptoms Physical Exam Vital Signs: Vital Signs Temperature 98.2 F 03/14/19 18:01 Pulse Rate 75 03/14/19 18:01 Respiratory Rate 19 03/14/19 18:01 Blood Pressure 106/61 03/14/19 18:01 O2 Sat by Pulse Oximetry (%) 96 03/14/19 18:01 Constitutional: Yes: Calm Eyes: Yes: Conjunctiva Clear HENT: Yes: Atraumatic Cardiovascular: Yes: S1, S2 Respiratory: Yes: CTA Bilaterally Gastrointestinal: Yes: Soft Musculoskeletal: Yes: WNL Edema: No Neurological: Yes: Oriented Psychiatric: Yes: Oriented Labs: CBC, BMP 03/14/19 15:40 03/14/19 15:40 Assessment/Plan Current Medications Generic Name Dose Route Start Last Admin Trade Name Freq PRN Reason Stop Dose Admin Albuterol Sulfate 1 amp 03/14/19 19:55 Ventolin 0.083% Nebulizer Soln - NEB Q4H PRN ASTHMA Hydralazine HCl 150 mg 03/15/19 10:00 Apresoline - PO DAILY VONNIE Nifedipine 60 mg 03/15/19 10:00 Procardia Xl - PO DAILY VONNIE Non-Formulary Medication 100 mg 03/14/19 19:55 Benzonatate PO TID PRN COUGH Impression 1. ESRD 2. Hyperkalemia 3. HTN 4. chest pain 5. DM 6. PNA 7. anemia Plan - HD tomorrow - transfuse prbc - epogen with hd - check stool for occult blod - hd tomorrow - will give a dose of lokelma - HD orders: AVF 3:30, opti 180, abf 450, 2 k
[2019-03-14] MEDS ORDERED: SODIUM ZIRCONIUM CYCLOSILICATE (LOKELMA) 5 GM PACKET PO ONE (20:32)
[2019-03-15 00:14] LABS: HEMATOCRIT 22.8 % (35.4-49); HEMOGLOBIN 7.4 GM/dL (11.7-16.9); MCH 28.7 pg (25.7-33.7); MCHC 32.5 g/dl (32.0-35.9); MEAN CELL VOLUME 88.5 fl (80-96); MEAN PLT VOLUME 8.4 fl (7.5-11.1); PLATELET COUNT 258 K/MM3 (134-434); RBC 2.58 M/mm3 (4.00-5.60); RDW 17.5 % (11.9-15.9); WHITE BLOOD COUNT 7.1 K/mm3 (4.0-10.0)
[2019-03-15 01:36] VITALS: BMI 29.7
[2019-03-15] MEDS: INSULIN SLIDING SCALE (NOVOLOG) 1 VIAL SQ SCH ×2 (06:20→17:09)
--- NOTE | 2019-03-15 09:15 | CONSULT ---
Consultation: CONSULT SERVICE: Hematology/Oncology Resident HISTORY OF PRESENT ILLNESS: 63yo [place]an-speaking M with h/o ESRD (M/W/F; on EPO), HTN, DM, CAD who presents to this facility as recommended per Dr. Johnson. Pt has had chronic anemia due to his renal disease, however recently, pt's Hgb has been downtrending for the past 2-3 weeks. Pt was seeing Dr. Johnson who recommended he come to the hospital due to a Hgb of 7.0 with symptoms of CEJA. Today patient underwent dialysis and echocardiogram today. Pt reports never having any bleeding or clotting problems throughout. He denies feeling lightheaded or dizzy and reports generally good energy depending on when he is due for dialysis. Pt denies ever being on iron supplementation and only had low counts when he was diagnosed with his renal dysfunction. Pt otherwise feels okay has no complaints. PMHx: As above PSHx: RUExt AVF creation SoHx: Tobacco - Never Alcohol - Occasional Drugs - None Occupation - PAST MEDICAL HISTORY: ESRD on dialysis MWF, HTN, HLD, CAD PAST SURGICAL HISTORY: AVF right upper arm Social History: Smoking: pt denies Alcohol: occasional Drugs: pt denies REVIEW OF SYSTEMS: As per HPI PHYSICAL EXAMINATION Vital Signs - 24 hr 03/14/19 03/14/19 03/14/19 15:37 17:11 18:01 Temperature 98.1 F 98.1 F 98.2 F Pulse Rate 63 66 Pulse Rate [ 75 Apical] Respiratory 17 20 19 Rate Blood Pressure 146/59 L 142/61 Blood Pressure 106/61 [Left Arm] O2 Sat by Pulse 100 96 Oximetry (%) 03/14/19 03/14/19 03/14/19 20:35 21:56 22:00 Temperature 98.6 F 97.9 F 97.9 F Pulse Rate 61 61 Pulse Rate [ 62 Apical] Respiratory 18 17 17 Rate Blood Pressure 140/69 140/69 Blood Pressure 139/62 [Left Arm] O2 Sat by Pulse 95 95 Oximetry (%) 03/14/19 03/15/19 03/15/19 23:30 04:15 05:00 Temperature 98.0 F Pulse Rate 62 Pulse Rate [ Apical] Respiratory 20 Rate Blood Pressure 148/68 Blood Pressure [Left Arm] O2 Sat by Pulse 96 96 Oximetry (%) GENERAL: NAD, awake, alert, and fully oriented, sitting in bed HEENT: NC/AT, EOMi, XAVI, no conjunctival pallor, MMM without any abnormalities LUNGS: CTA bilaterally. No wheezes, and no crackles. No accessory muscle use. HEART: RRR, normal S1 and S2 without murmur . ABDOMEN: Soft, nontender, not distended, normoactive bowel sounds, no guarding, no splenomegaly appreciated. EXTREMITIES: 2+ DP pulses b/l, warm, well-perfused. No calf tenderness. No peripheral edema. RUE fistula with bandages, palpable thrill appreciated, no nail bed pathology noted PSYCHIATRIC: Cooperative. Good eye contact. Appropriate mood and affect. SKIN: Warm, dry, no rashes noted, no pallor noted Laboratory Results - last 24 hr 03/14/19 03/14/19 03/14/19 15:40 15:40 15:40 WBC 6.4 RBC 2.52 L Hgb 7.3 L Hct 22.4 L MCV 88.8 MCH 29.0 MCHC 32.6 RDW 17.8 H Plt Count 277 MPV 8.2 Absolute Neuts (auto) 4.6 Neutrophils % 72.4 Lymphocytes % 13.2 Monocytes % 10.0 Eosinophils % 3.2 Basophils % 1.2 Nucleated RBC % 0 PT with INR INR PTT (Actin FS) Sodium 140 Potassium 5.2 H Chloride 104 Carbon Dioxide 29 Anion Gap 6 L BUN 33.4 H Creatinine 7.1 H Est GFR (CKD-EPI)AfAm 8.70 Est GFR (CKD-EPI)NonAf 7.51 POC Glucometer Random Glucose 180 H Calcium 8.7 Total Bilirubin 0.6 AST 19 ALT 25 Alkaline Phosphatase 62 Total Protein 6.8 Albumin 3.3 L Stool Occult Blood Blood Type A POSITIVE Antibody Screen Negative Crossmatch See Detail 03/14/19 03/14/19 03/15/19 17:00 17:10 00:00 WBC 7.1 RBC 2.58 L Hgb 7.4 L Hct 22.8 L MCV 88.5 MCH 28.7 MCHC 32.5 RDW 17.5 H Plt Count 258 MPV 8.4 Absolute Neuts (auto) Neutrophils % Lymphocytes % Monocytes % Eosinophils % Basophils % Nucleated RBC % PT with INR 11.60 INR 0.98 PTT (Actin FS) 32.9 Sodium Potassium Chloride Carbon Dioxide Anion Gap BUN Creatinine Est GFR (CKD-EPI)AfAm Est GFR (CKD-EPI)NonAf POC Glucometer Random Glucose Calcium Total Bilirubin AST ALT Alkaline Phosphatase Total Protein Albumin Stool Occult Blood Negative Blood Type Antibody Screen Crossmatch 03/15/19 06:17 WBC RBC Hgb Hct MCV MCH MCHC RDW Plt Count MPV Absolute Neuts (auto) Neutrophils % Lymphocytes % Monocytes % Eosinophils % Basophils % Nucleated RBC % PT with INR INR PTT (Actin FS) Sodium Potassium Chloride Carbon Dioxide Anion Gap BUN Creatinine Est GFR (CKD-EPI)AfAm Est GFR (CKD-EPI)NonAf POC Glucometer 94 Random Glucose Calcium Total Bilirubin AST ALT Alkaline Phosphatase Total Protein Albumin Stool Occult Blood Blood Type Antibody Screen Crossmatch Active Medications Generic Name Dose Route Start Last Admin Trade Name Freq PRN Reason Stop Dose Admin Albuterol Sulfate 1 amp 03/14/19 19:55 Ventolin 0.083% Nebulizer Soln - NEB Q4H PRN ASTHMA Epoetin Sanchez 12,000 unit 03/15/19 20:30 Procrit - SQ 03/15/19 20:31 ONCE ONE Hydralazine HCl 150 mg 03/15/19 10:00 Apresoline - PO DAILY VONNIE Sodium Chloride 250 mls @ 3,000 mls/hr 03/14/19 20:30 Normal Saline - IV 03/15/19 20:30 PRN PRN Hypotension during Dialysis Insulin Aspart 1 vial 03/15/19 07:00 03/15/19 06:20 Novolog Vial Sliding Scale - SQ Not Given BIDAC VONNIE Protocol Nifedipine 60 mg 03/15/19 10:00 Procardia Xl - PO DAILY VONNIE Non-Formulary Medication 100 mg 03/14/19 19:55 Benzonatate PO TID PRN COUGH ASSESSMENT/PLAN: Normocytic anemia ESRD on HD --Continue EPO therapy --Likely anemia of chronic disease --Will verify with iron studies --Monitor for signs of bleeding from fistula site --Questionable flow to be sent --Monitor CBC -- Rest per primary and nephrology team Case to be discussed with Dr. Jovi Aranda, DO - IM PGy-3 Visit type - Emergency Visit Emergency Visit: Yes ED Registration Date: 03/14/19 Care time: The patient presented to the Emergency Department on the above date and was hospitalized for further evaluation of their emergent condition. - New Patient This patient is new to me today: Yes Date on this admission: 03/15/19 - Critical Care Critical Care patient: No ATTENDING PHYSICIAN STATEMENT I saw and evaluated the patient. I reviewed the resident's note and discussed the case with the resident. I agree with the resident's findings and plan as documented. SUBJECTIVE: OBJECTIVE: ASSESSMENT AND PLAN:
--- NOTE | 2019-03-15 09:34 | PN ---
Progress Note, Physician Chief Complaint: Anemia ESRD on HD History of Present Illness: Previous notes and events reviewed awake and alert NAD Hg 7.4 on admission, s/p 2U PRBC transfusion pending repeat CBC denies chest pain, palpitations, SOB examined during HD - Current Medication List Current Medications: Active Medications Albuterol Sulfate (Ventolin 0.083% Nebulizer Soln -) 1 amp NEB Q4H PRN PRN Reason: ASTHMA Epoetin Sanchez (Procrit -) 12,000 unit SQ ONCE ONE Stop: 03/15/19 20:31 Hydralazine HCl (Apresoline -) 150 mg PO DAILY VONNIE Sodium Chloride (Normal Saline -) 250 mls @ 3,000 mls/hr IV PRN PRN PRN Reason: Hypotension during Dialysis Stop: 03/15/19 20:30 Insulin Aspart (Novolog Vial Sliding Scale -) 1 vial SQ BIDAC VONNIE; Protocol Last Admin: 03/15/19 06:20 Dose: Not Given Nifedipine (Procardia Xl -) 60 mg PO DAILY VONNIE Non-Formulary Medication (Benzonatate) 100 mg PO TID PRN PRN Reason: COUGH - Objective Vital Signs: Vital Signs Temperature 98.0 F 03/15/19 04:15 Pulse Rate 62 03/15/19 04:15 Respiratory Rate 20 03/15/19 04:15 Blood Pressure 148/68 03/15/19 04:15 O2 Sat by Pulse Oximetry (%) 96 03/15/19 05:00 Constitutional: Yes: No Distress, Calm Eyes: Yes: Conjunctiva Clear HENT: Yes: Atraumatic Cardiovascular: Yes: Regular Rate and Rhythm Respiratory: Yes: Regular, CTA Bilaterally Gastrointestinal: Yes: Normal Bowel Sounds, Soft Musculoskeletal: Yes: WNL Extremities: Yes: WNL Edema: No Neurological: Yes: Alert, Oriented Psychiatric: Yes: Alert, Oriented Labs: CBC, BMP 03/15/19 00:00 03/14/19 15:40 INR, PTT INR 0.98 (0.83-1.09) 03/14/19 17:10 Problem List - Problems (1) Anemia Assessment/Plan: -Hg 7.4 on last labs -s/p 2U PRBC transfusion, pending repeat CBC -Stool OB neg -Anemia profile -monitor Hg daily -transfuse for Hg <7.0 to avoid fluid overload -Hematology consult Code(s): D64.9 - ANEMIA, UNSPECIFIED Qualifiers: Anemia type: unspecified type Qualified Code(s): D64.9 - Anemia, unspecified (2) ESRD (end stage renal disease) Assessment/Plan: -Renal on board -BUN/Cr 33.4/1.7 -monitor renal function daily -continue HD on scheduled days Code(s): N18.6 - END STAGE RENAL DISEASE (3) CHF (congestive heart failure) Assessment/Plan: -1L fluid restriction -low Na diet -strict I&Os -daily weights Code(s): I50.9 - HEART FAILURE, UNSPECIFIED (4) Diabetes Assessment/Plan: -[facility] -ISS -HgA1c Code(s): E11.9 - TYPE 2 DIABETES MELLITUS WITHOUT COMPLICATIONS (5) HLD (hyperlipidemia) Assessment/Plan: -lipid panel Code(s): E78.5 - HYPERLIPIDEMIA, UNSPECIFIED (6) Hypertension Assessment/Plan: -Nifedipine and Hydralazine -low Na diet Code(s): I10 - ESSENTIAL (PRIMARY) HYPERTENSION Qualifiers: Hypertension type: secondary to other renal disorders Qualified Code(s): I15.1 - Hypertension secondary to other renal disorders (7) SOB (shortness of breath) Assessment/Plan: -Bronchodilators -O2 via NC prn for SOB -keep SpO2 >90% -Echocardiogram shows no pericardial effusion Code(s): R06.02 - SHORTNESS OF BREATH Assessment/Plan see problem list
[2019-03-15] MEDS ORDERED: SODIUM CHLORIDE 250 ML IV PRN (10:30)
--- NOTE | 2019-03-15 10:44 | ECHO ---
Name: NELY COONEY Exam:Adult Echocardiogram Study Date: 03/15/2019 09:41 AM Age: 63 yrs Reason For Study: SOB MMode/2D Measurements & Calculations IVSd: 1.4 cm Ao root diam: 2.6 cm LVIDd: 5.0 cm LA dimension: 4.7 cm LVIDs: 3.2 cm LVPWd: 1.4 cm LVPWs: 1.7 cm EDV(Teich): 115.5 ml ESV(Teich): 41.4 ml LVOT diam: 2.0 cm LAV (MOD-bp): 120.0 ml TAPSE: 2.1 cm RV S Germain: 8.7 cm/sec Doppler Measurements & Calculations MV E max germain: 141.0 cm/sec Ao V2 max: 187.9 cm/sec MV A max germain: 85.0 cm/sec Ao max P.1 mmHg MV E/A: 1.7 TIERRA(V,D): 2.0 cm2 MV dec time: 0.12 sec LV V1 max P.9 mmHg MR max germain: 496.1 cm/sec LV V1 max: 121.9 cm/sec MR max P.4 mmHg TR max germain: 390.9 cm/sec PA V2 max: 155.4 cm/sec TR max P.1 mmHg PA max P.7 mmHg Med Peak E' Germain: 4.7 cm/sec Med E/e': 30.1 Lat Peak E' Germain: 6.7 cm/sec Lat E/e': 20.9 Left Ventricle There is moderate concentric left ventricular hypertrophy. Left ventricular systolic function is norm al. The transmitral spectral Doppler flow pattern is normal for age. Right Ventricle The right ventricle is normal in size and function. Atria The left atrium is mildly dilated. Right atrial size is normal. Mitral Valve The mitral valve is normal in structure and function. There is no mitral valve stenosis. There is mil d mitral regurgitation. Tricuspid Valve The tricuspid valve is normal in structure and function. There is mild tricuspid regurgitation. Right ventricular systolic pressure is elevated at 50-60mmHg. Aortic Valve The aortic valve opens well. No hemodynamically significant valvular aortic stenosis. Pulmonic Valve The pulmonic valve is not well seen, but is grossly normal. There is no pulmonic valvular stenosis. Great Vessels The aortic root is normal size. Pericardium/Pleura There is no pericardial effusion. Interpretation Summary There is moderate concentric left ventricular hypertrophy. Left ventricular systolic function is normal. The left atrium is mildly dilated. There is mild mitral regurgitation. There is mild tricuspid regurgitation. Right ventricular systolic pressure is elevated at 50-60mmHg. There is no pericardial effusion. MD Peterson *Tmaiko 03/15/2019 10:43 AM
[2019-03-15] MEDS ORDERED: EPOETIN ALFA-EPBX 10,000 UNIT, EPOETIN ALFA-EPBX 2,000 UNIT IVPUSH ONE (11:00)
[2019-03-15 12:00] LABS: HEMATOCRIT 24.3 % (35.4-49); HEMOGLOBIN 8.2 GM/dL (11.7-16.9); MCH 29.6 pg (25.7-33.7); MCHC 33.7 g/dl (32.0-35.9); MEAN CELL VOLUME 87.8 fl (80-96); MEAN PLT VOLUME 8.2 fl (7.5-11.1); PLATELET COUNT 247 K/MM3 (134-434); RBC 2.77 M/mm3 (4.00-5.60); RDW 17.2 % (11.9-15.9); WHITE BLOOD COUNT 8.7 K/mm3 (4.0-10.0)
[2019-03-15 12:42] LABS: BLOOD UREA NITROGEN 53.1 mg/dL (7-18); CALCIUM 8.7 mg/dL (8.5-10.1); POTASSIUM 4.8 mmol/L (3.5-5.1)
[2019-03-15 12:57] LABS: CREATININE 8.5 mg/dL (0.55-1.3)
--- NOTE | 2019-03-15 15:16 | EKG ---
Test Reason : Blood Pressure : / mmHG Vent. Rate : 061 BPM Atrial Rate : 061 BPM P-R Int : 164 ms QRS Dur : 098 ms QT Int : 470 ms P-R-T Axes : -16 021 063 degrees QTc Int : 473 ms SINUS RHYTHM WITH PREMATURE ATRIAL COMPLEXES IN A PATTERN OF BIGEMINY MINIMAL VOLTAGE CRITERIA FOR LVH, MAY BE NORMAL VARIANT SEPTAL INFARCT (CITED ON OR BEFORE 31-DEC-2018) NONSPECIFIC ST ABNORMALITY ABNORMAL ECG WHEN COMPARED WITH ECG OF 31-DEC-2018 22:13, PREMATURE ATRIAL COMPLEXES ARE NOW PRESENT T WAVE INVERSION LESS EVIDENT IN LATERAL LEADS Confirmed by TAIWO SHARP MD ([id number]) on 03/15/2019 3:16:30 PM Referred By: Confirmed By:TAIWO SHARP MD
--- NOTE | 2019-03-15 16:27 | PN ---
Teaching Attending Note Name of Resident: Damien Aranda ATTENDING PHYSICIAN STATEMENT I saw and evaluated the patient. I reviewed the resident's note and discussed the case with the resident. I agree with the resident's findings and plan as documented. SUBJECTIVE: Patient seen and examined Presented with NC/NC anmia requiring 2 units of packed cells. History of HBP, DM, ESRD, receiving high dose HARRY at dialysis. Last Vital Signs Temp Pulse Resp BP Pulse Ox 98.2 F 589 H 18 145/65 95 03/15/19 14:50 03/15/19 14:50 03/15/19 14:50 03/15/19 14:50 03/15/19 08:25 HEENT: TRAVIS, EOM Intact Oropharynx: No thrush, No mucositis Neck: Supple Nodes: Without adenopathy Breasts: Without masses Cor: RSR, No murmurs, No gallops Lungs: Clear to P&A Abd: Soft, Normal bowel sounds, No organomegaly,umbilical hernia Ext:No significant edema Skin: No rashes, Integument intact Current Medications Generic Name Dose Route Start Last Admin Trade Name Freq PRN Reason Stop Dose Admin Albuterol Sulfate 1 amp 03/14/19 19:55 Ventolin 0.083% Nebulizer Soln - NEB Q4H PRN ASTHMA Hydralazine HCl 150 mg 03/15/19 10:00 Apresoline - PO DAILY VONNIE Insulin Aspart 1 vial 03/15/19 07:00 03/15/19 06:20 Novolog Vial Sliding Scale - SQ Not Given BIDAC [facility] Protocol Nifedipine 60 mg 03/15/19 10:00 Procardia Xl - PO DAILY [facility] Non-Formulary Medication 100 mg 03/14/19 19:55 Benzonatate PO TID PRN COUGH Impression: ESRD/HD Anemia HBP DM Iron studies compatible with chronic disease Will plan to do usual screening tests Can do flow cytometry OBJECTIVE: ASSESSMENT AND PLAN:
[2019-03-15] MEDS: hydrALAZINE HCL 50 MG TABLET (FP) PO SCH (17:08)
[2019-03-15] MEDS: NIFEdipine E.R 60 MG TABLET PO SCH (17:09)
--- NOTE | 2019-03-15 18:26 | PN ---
Progress Note, Physician History of Present Illness: Pt seen and examined at bedside. He tolerated HD. He denies shortness of breath. - Current Medication List Current Medications: Active Medications Albuterol Sulfate (Ventolin 0.083% Nebulizer Soln -) 1 amp NEB Q4H PRN PRN Reason: ASTHMA Hydralazine HCl (Apresoline -) 150 mg PO DAILY VONNIE Last Admin: 03/15/19 17:08 Dose: 150 mg Insulin Aspart (Novolog Vial Sliding Scale -) 1 vial SQ BIDAC VONNIE; Protocol Last Admin: 03/15/19 17:09 Dose: Not Given Nifedipine (Procardia Xl -) 60 mg PO DAILY VONNIE Last Admin: 03/15/19 17:09 Dose: 60 mg Non-Formulary Medication (Benzonatate) 100 mg PO TID PRN PRN Reason: COUGH - Objective Vital Signs: Vital Signs Temperature 98.1 F 03/15/19 17:01 Pulse Rate 56 L 03/15/19 17:01 Respiratory Rate 20 03/15/19 17:01 Blood Pressure 150/66 03/15/19 17:01 O2 Sat by Pulse Oximetry (%) 95 03/15/19 08:25 Constitutional: Yes: Calm Eyes: Yes: Conjunctiva Clear Neck: Yes: Supple Cardiovascular: Yes: S1, S2 Respiratory: Yes: CTA Bilaterally Gastrointestinal: Yes: Soft Genitourinary: Yes: WNL Musculoskeletal: Yes: WNL Edema: No Neurological: Yes: Oriented Psychiatric: Yes: Oriented Labs: CBC, BMP 03/15/19 11:00 03/15/19 11:00 INR, PTT INR 0.98 (0.83-1.09) 03/14/19 17:10 Assessment/Plan Current Medications Generic Name Dose Route Start Last Admin Trade Name Freq PRN Reason Stop Dose Admin Albuterol Sulfate 1 amp 03/14/19 19:55 Ventolin 0.083% Nebulizer Soln - NEB Q4H PRN ASTHMA Hydralazine HCl 150 mg 03/15/19 10:00 03/15/19 17:08 Apresoline - PO 150 mg DAILY VONNIE Administration Insulin Aspart 1 vial 03/15/19 07:00 03/15/19 17:09 Novolog Vial Sliding Scale - SQ Not Given BIDAC VONNIE Protocol Nifedipine 60 mg 03/15/19 10:00 01/31/20 17:09 Procardia Xl - PO 60 mg DAILY VONNIE Administration Non-Formulary Medication 100 mg 03/14/19 19:55 Benzonatate PO TID PRN COUGH Impression 1. ESRD 2. Hyperkalemia 3. HTN 4. chest pain 5. DM 6. PNA 7. anemia Plan - HD today - prbc with hd - cont epogen - monitor hg - he has HD set up as outpt - next HD on Monday - HD orders: AVF 3:30, opti 180, abf 450, 2 k
[2019-03-15] MEDS ORDERED: EPOETIN ALFA 3,000 UNIT/1 ML ML SQ ONE (20:30)
--- NOTE | 2019-03-15 22:27 | HOSP ---
Subjective - Review of Symptoms Events since last encounter: Hospitalist Encounter Notified by the RN via microblog, that the patient reports chest pain. Was asked to assess. Arrived to bedside, patient is awake, alert and oriented. Patient is Maltese speaking. [employer] line used #[id number]. Patient reports having squeezing CP after coughing, he denies CP at present. The patient denied having SOB or diaphoresis during the CP. PE performed see EMR Assessment: This is a 63 y/o man with ESRD. Admitted for abnormal lab values. Plan: EKG stat Troponin stat Pulmonary: Yes: Cough, Pleuritic Chest Pain Physical Examination Vital Signs: Vital Signs Temperature 98.1 F 03/15/19 17:01 Pulse Rate 56 L 03/15/19 17:01 Respiratory Rate 03/15/19 17:01 Blood Pressure 150/66 03/15/19 17:01 O2 Sat by Pulse Oximetry (%) 95 03/15/19 08:25 Constitutional: Yes: No Distress, Calm Eyes: Yes: WNL, Conjunctiva Clear, EOM Intact, PERRL HENT: Yes: WNL, Atraumatic, Normocephalic Neck: Yes: WNL, Supple, Trachea Midline Cardiovascular: Yes: Regular Rate and Rhythm, Murmur, S1, S2 Respiratory: Yes: WNL, Regular, CTA Bilaterally Gastrointestinal: Yes: WNL, Normal Bowel Sounds, Soft ...Rectal Exam: Yes: Deferred Breast(s): Yes: WNL Musculoskeletal: Yes: WNL Extremities: Yes: Other (AV- Fistula RUE- thrill/bruit) Edema: No Peripheral Pulses WNL: Yes Neurological: Yes: WNL, Alert, Oriented, Cran Nerves II-XII Intact ...Motor Strength: WNL Psychiatric: Yes: WNL, Alert, Oriented Labs: CBC, BMP 03/15/19 11:00 03/15/19 11:00 Laboratory Results - last 24 hr 03/14/19 03/15/19 03/15/19 15:40 00:00 06:17 WBC 7.1 RBC 2.58 L Hgb 7.4 L Hct 22.8 L MCV 88.5 MCH 28.7 MCHC 32.5 RDW 17.5 H Plt Count 258 MPV 8.4 Sodium Potassium Chloride Carbon Dioxide Anion Gap BUN Creatinine Est GFR (CKD-EPI)AfAm Est GFR (CKD-EPI)NonAf POC Glucometer 94 Random Glucose Hemoglobin A1c % Calcium Iron TIBC Iron Saturation Unsaturated IBC Troponin I Blood Type A POSITIVE Antibody Screen Negative Crossmatch See Detail 03/15/19 03/15/19 03/15/19 11:00 11:00 11:00 WBC 8.7 RBC 2.77 L Hgb 8.2 L Hct 24.3 L MCV 87.8 MCH 29.6 MCHC 33.7 RDW 17.2 H Plt Count 247 MPV 8.2 Sodium 138 Potassium 4.8 Chloride 103 Carbon Dioxide 26 Anion Gap 8 BUN 53.1 H Creatinine 8.5 H* Est GFR (CKD-EPI)AfAm 7.00 Est GFR (CKD-EPI)NonAf 6.04 POC Glucometer Random Glucose 105 Hemoglobin A1c % < 3.5 L Calcium 8.7 Iron 60 TIBC 185 L Iron Saturation 32 Unsaturated IBC 125 L Troponin I Blood Type Antibody Screen Crossmatch 03/15/19 03/15/19 17:07 21:30 WBC RBC Hgb Hct MCV MCH MCHC RDW Plt Count MPV Sodium Potassium Chloride Carbon Dioxide Anion Gap BUN Creatinine Est GFR (CKD-EPI)AfAm Est GFR (CKD-EPI)NonAf POC Glucometer 120 Random Glucose Hemoglobin A1c % Calcium Iron TIBC Iron Saturation Unsaturated IBC Troponin I 0.02 Blood Type Antibody Screen Crossmatch Intake & Output 03/12/19 03/13/19 03/14/19 03/15/19 23:59 23:59 23:59 23:59 Intake Total 0 1440 Output Total 2500 Balance 0 -1060 Weight 83.716 kg Current Medications Generic Name Dose Route Start Last Admin Trade Name Freq PRN Reason Stop Dose Admin Albuterol Sulfate 1 amp 03/14/19 19:55 Ventolin 0.083% Nebulizer Soln - NEB Q4H PRN ASTHMA Hydralazine HCl 150 mg 03/15/19 10:00 03/15/19 17:08 Apresoline - PO 150 mg DAILY VONNIE Administration Insulin Aspart 1 vial 03/15/19 07:00 03/15/19 17:09 Novolog Vial Sliding Scale - SQ Not Given BIDAC VONNIE Protocol Nifedipine 60 mg 03/15/19 10:00 03/15/19 17:09 Procardia Xl - PO 60 mg DAILY VONNIE Administration Non-Formulary Medication 100 mg 03/14/19 19:55 Benzonatate PO TID PRN COUGH Hospitalist Encounter Assessment: EKG- SR, T wave abnormality lead II, aVF, v5,v6 no change compared to prior study slightly more prominent, Prolonged QT- new Troponin- < 0.02 Chest Pain resolved per patient. ([employer] risk management internship used- #[id number])
[2019-03-16] MEDS ORDERED: INSULIN (NOVOLOG) ASPART 100 UNITS/ML 10ML VIAL ONE (05:54)
[2019-03-16] MEDS: INSULIN SLIDING SCALE (NOVOLOG) 1 VIAL SQ SCH ×2 (06:20→17:01)
--- NOTE | 2019-03-16 08:27 | PN ---
Progress Note, Physician Chief Complaint: Anemia ESRD on HD History of Present Illness: Previous notes and events reviewed awake and alert NAD Hg 8.2 last night complain of chest pain, troponin neg and EKG reviewed, cardiology consult placed currently denies chest pain, palpitations, SOB - Current Medication List Current Medications: Active Medications Albuterol Sulfate (Ventolin 0.083% Nebulizer Soln -) 1 amp NEB Q4H PRN PRN Reason: ASTHMA Hydralazine HCl (Apresoline -) 150 mg PO DAILY [facility] Last Admin: 03/15/19 17:08 Dose: 150 mg Insulin Aspart (Novolog Vial Sliding Scale -) 1 vial SQ BIDAC [facility]; Protocol Last Admin: 03/16/19 06:20 Dose: Not Given Nifedipine (Procardia Xl -) 60 mg PO DAILY [facility] Last Admin: 03/15/19 17:09 Dose: 60 mg Non-Formulary Medication (Benzonatate) 100 mg PO TID PRN PRN Reason: COUGH - Objective Vital Signs: Vital Signs Temperature 98.2 F 03/16/19 06:20 Pulse Rate 66 03/16/19 06:20 Respiratory Rate 18 03/16/19 06:20 Blood Pressure 141/70 03/16/19 06:20 O2 Sat by Pulse Oximetry (%) 100 03/15/19 22:00 Constitutional: Yes: No Distress, Calm Eyes: Yes: Conjunctiva Clear HENT: Yes: Atraumatic Neck: Yes: Supple Cardiovascular: Yes: Regular Rate and Rhythm Respiratory: Yes: Regular, CTA Bilaterally Gastrointestinal: Yes: Normal Bowel Sounds, Soft Musculoskeletal: Yes: WNL Extremities: Yes: WNL Edema: No Neurological: Yes: Alert, Oriented Psychiatric: Yes: Alert, Oriented Labs: CBC, BMP 03/15/19 11:00 03/15/19 11:00 INR, PTT INR 0.98 (0.83-1.09) 03/14/19 17:10 Problem List - Problems (1) Anemia Assessment/Plan: -Hg 8.2 -s/p 2U PRBC transfusion -Stool OB neg -Anemia profile show Iron 60, TIBC 185, Iron sat 32% -monitor Hg daily -transfuse for Hg <7.0 to avoid fluid overload -Hematology on board Code(s): D64.9 - ANEMIA, UNSPECIFIED Qualifiers: Anemia type: unspecified type Qualified Code(s): D64.9 - Anemia, unspecified (2) ESRD (end stage renal disease) Assessment/Plan: -Renal on board -BUN/Cr 53.1/8.5 from 03/15/19 -monitor renal function daily -continue HD on scheduled days Code(s): N18.6 - END STAGE RENAL DISEASE (3) CHF (congestive heart failure) Assessment/Plan: -1L fluid restriction -low Na diet -strict I&Os -daily weights Code(s): I50.9 - HEART FAILURE, UNSPECIFIED (4) Diabetes Assessment/Plan: -BGM ACHS -ISS -HgA1c <3.5% Code(s): E11.9 - TYPE 2 DIABETES MELLITUS WITHOUT COMPLICATIONS (5) HLD (hyperlipidemia) Assessment/Plan: -lipid panel pending Code(s): E78.5 - HYPERLIPIDEMIA, UNSPECIFIED (6) Hypertension Assessment/Plan: -Nifedipine and Hydralazine -low Na diet Code(s): I10 - ESSENTIAL (PRIMARY) HYPERTENSION Qualifiers: Hypertension type: secondary to other renal disorders Qualified Code(s): I15.1 - Hypertension secondary to other renal disorders (7) SOB (shortness of breath) Assessment/Plan: -Bronchodilators -O2 via NC prn for SOB -keep SpO2 >90% -Echocardiogram shows no pericardial effusion Code(s): R06.02 - SHORTNESS OF BREATH (8) Chest pain Assessment/Plan: -Troponin neg -EKG reviewed -cardiology consult placed Code(s): R07.9 - CHEST PAIN, UNSPECIFIED Assessment/Plan see problem list dvt ppx
[2019-03-16 08:41] LABS: HEMATOCRIT 28.2 % (35.4-49); HEMOGLOBIN 9.5 GM/dL (11.7-16.9); MCH 29.3 pg (25.7-33.7); MCHC 33.7 g/dl (32.0-35.9); MEAN CELL VOLUME 86.9 fl (80-96); MEAN PLT VOLUME 7.8 fl (7.5-11.1); PLATELET COUNT 255 K/MM3 (134-434); RBC 3.25 M/mm3 (4.00-5.60); RDW 17.2 % (11.9-15.9); WHITE BLOOD COUNT 8.8 K/mm3 (4.0-10.0)
--- NOTE | 2019-03-16 09:00 | PN ---
Progress Note (short form) - Note Progress Note: Renal follow up for ESRD Coverage for Dr. Johnson Seen and examined at the bedside offers no acute complaints denies any sob, chest pain, fever, chills, abd pain s/p dialysis yesterday with 1 prbc Vital Signs Temperature 98.2 F 03/16/19 06:20 Pulse Rate 66 03/16/19 06:20 Respiratory Rate 18 03/16/19 06:20 Blood Pressure 141/70 03/16/19 06:20 O2 Sat by Pulse Oximetry (%) 100 03/15/19 22:00 Intake & Output 03/13/19 03/14/19 03/15/19 03/16/19 23:59 23:59 23:59 23:59 Intake Total 0 1440 0 Output Total 2500 Balance 0 -1060 0 Weight 83.716 kg 82.372 kg NAD awake and alert RRR CTA no edema todays labs pending Current Medications Albuterol Sulfate (Ventolin 0.083% Nebulizer Soln -) 1 amp NEB Q4H PRN PRN Reason: ASTHMA Hydralazine HCl (Apresoline -) 150 mg PO DAILY [facility] Last Admin: 03/15/19 17:08 Dose: 150 mg Insulin Aspart (Novolog Vial Sliding Scale -) 1 vial SQ BIDAC [facility]; Protocol Last Admin: 03/16/19 06:20 Dose: Not Given Nifedipine (Procardia Xl -) 60 mg PO DAILY [facility] Last Admin: 03/15/19 17:09 Dose: 60 mg Non-Formulary Medication (Benzonatate) 100 mg PO TID PRN PRN Reason: COUGH Impression 1. ESRD 2. Hyperkalemia 3. HTN 4. chest pain 5. DM 6. PNA 7. anemia Plan s/p dialysis yesterday. No acute need for HD today. Next planned dialysis is Monday. Awaiting todays labs. s/p PRBC transfusion yesterday Will continue high dose HARRY with HD Hematology following. Stool occult blood negative. ] Thank you Malik Man DO
[2019-03-16] MEDS: hydrALAZINE HCL 50 MG TABLET (FP) PO SCH (09:07)
[2019-03-16] MEDS: NIFEdipine E.R 60 MG TABLET PO SCH (09:07)
--- NOTE | 2019-03-16 09:09 | CON.CARD ---
Consult Consult Specialty:: Cardiology for dr. Guillory - History of Present Illness Chief Complaint: chest pain History of Present Illness: 63 year old mainly Monegas[place] speaking male with a past medical history of hypertension, diabetes mellitis , coronary artery disease, and ESRD ( hemodialysis-MWF) presents for evaluation of low hemoglobin/hematocrit. He was sent in by Dr. Johnson for a blood transfusion due to a hemoglobin of 7. Per Dr. Johnson, the patients hemoglobin has been down trending for the past 2 weeks. Patient does report some dyspnea on exertion. Patient denied chest pain , headache, lightheadedness, fever, chills or abdominal pain. Labs findings with hemoglobin 7.3/hemaocrit 22.4,RBC 2.52, platelets 277 ,stool occult is negative. He received 1 Unit of PRBC's in ER. - History Source History Provided By: Patient, Medical Record - Past Medical History Cardio/Vascular: Yes: CAD, HTN, Hyperlipdemia Pulmonary: Yes: Asthma Renal/: Yes: Renal Inusuff, Hemodialysis, Renal Calculi Endocrine: Yes: Diabetes Mellitus - Past Surgical History Past Surgical History: Yes: AV Fistula/Graft - Alcohol/Substance Use Hx Alcohol Use: No History of Substance Use: reports: None - Smoking History Smoking history: Never smoked Have you smoked in the past 12 months: No Aproximately how many cigarettes per day: 0 - Social History ADL: Independent History of Recent Travel: No Home Medications - Allergies Allergies/Adverse Reactions: Allergies Allergy/AdvReac Type Severity Reaction Status Date / Time No Known Allergies Allergy Verified 03/14/19 15:41 - Home Medications Home Medications: Ambulatory Orders Albuterol 0.083% Nebulizer Caryn [Ventolin 0.083% Nebulizer Soln -] 1 neb NEB Q4H PRN #30 vial 02/08/19 Benzonatate [Tessalon Pearls -] 100 mg PO TID PRN #30 capsule 02/08/19 Hydralazine HCl 150 mg PO DAILY 02/08/19 Nebulizer Accessories [Adult Aerosol Mask] 1 each MC QID PRN #1 each 02/08/19 Nebulizer [Compact Compressor Nebulizer] 1 each MC QID PRN #1 each 02/08/19 Nifedipine [Nifedipine ER] 60 mg PO DAILY 02/08/19 Review of Systems - Review of Systems Constitutional: reports: No Symptoms Eyes: reports: No Symptoms HENT: reports: No Symptoms Neck: reports: No Symptoms Cardiovascular: reports: Chest Pain Respiratory: reports: No Symptoms Gastrointestinal: reports: No Symptoms Genitourinary: reports: No Symptoms Breasts: reports: No Symptoms Reported Musculoskeletal: reports: No Symptoms Integumentary: reports: No Symptoms Neurological: reports: No Symptoms Endocrine: reports: No Symptoms Hematology/Lymphatic: reports: No Symptoms Psychiatric: reports: No Symptoms Vital Signs: Vital Signs Temperature 98.2 F 03/16/19 06:20 Pulse Rate 66 03/16/19 06:20 Respiratory Rate 18 03/16/19 06:20 Blood Pressure 141/70 03/16/19 06:20 O2 Sat by Pulse Oximetry (%) 100 03/15/19 22:00 Constitutional: Yes: Well Nourished, No Distress, Calm Eyes: Yes: WNL, Conjunctiva Clear, EOM Intact HENT: Yes: WNL, Atraumatic, Normocephalic Neck: Yes: WNL, Supple, Trachea Midline Respiratory: Yes: WNL, Regular, CTA Bilaterally Gastrointestinal: Yes: WNL, Normal Bowel Sounds Renal/: Yes: WNL Cardiovascular: Yes: WNL, Regular Rate and Rhythm Musculoskeletal: Yes: WNL Extremities: Yes: WNL Integumentary: Yes: WNL Neurological: Yes: WNL, Alert, Oriented ...Motor Strength: WNL Psychiatric: Yes: WNL, Alert, Oriented - Other Data Labs, Other Data: CBC, BMP 03/16/19 08:20 INR, PTT INR 0.98 (0.83-1.09) 03/14/19 17:10 Troponin, BNP 03/15/19 21:30 Troponin I 0.02 Troponin, BNP 03/15/19 21:30 Troponin I 0.02 Imaging - Results Chest X-ray: Image Reviewed (no i/e) EKG: Image Reviewed (sr rep abn inverted t wave lateral leads old ant sept mi) Problem List - Problems (1) Anemia Code(s): D64.9 - ANEMIA, UNSPECIFIED Qualifiers: Anemia type: unspecified type Qualified Code(s): D64.9 - Anemia, unspecified (2) Chest pain Code(s): R07.9 - CHEST PAIN, UNSPECIFIED (3) ESRD (end stage renal disease) Code(s): N18.6 - END STAGE RENAL DISEASE (4) SOB (shortness of breath) Code(s): R06.02 - SHORTNESS OF BREATH (5) [id number]-[id number] renal failure Code(s): N17.9 - ACUTE KIDNEY FAILURE, UNSPECIFIED; N18.9 - CHRONIC KIDNEY DISEASE, UNSPECIFIED (6) Anemia in chronic kidney disease Code(s): N18.9 - CHRONIC KIDNEY DISEASE, UNSPECIFIED; D63.1 - ANEMIA IN CHRONIC KIDNEY DISEASE (7) CAD (coronary artery disease) Code(s): I25.10 - ATHSCL HEART DISEASE OF [place] CORONARY ARTERY W/O ANG PCTRS (8) CHF (congestive heart failure) Code(s): I50.9 - HEART FAILURE, UNSPECIFIED (9) Cough Code(s): R05 - COUGH (10) Diabetes Code(s): E11.9 - TYPE 2 DIABETES MELLITUS WITHOUT COMPLICATIONS (11) Dialysis AV fistula malfunction Code(s): T82.590A - [facility] COMPL OF SURGICALLY CREATED ARTERIOVENOUS FISTULA, INIT Qualifiers: Encounter type: initial encounter Qualified Code(s): T82.590A - Other mechanical complication of surgically created arteriovenous fistula, initial encounter (12) Diastolic dysfunction without heart failure Code(s): I51.89 - OTHER ILL-DEFINED HEART DISEASES (13) HLD (hyperlipidemia) Code(s): E78.5 - HYPERLIPIDEMIA, UNSPECIFIED (14) Hemoptysis Code(s): R04.2 - HEMOPTYSIS (15) Hemoptysis Code(s): R04.2 - HEMOPTYSIS (16) History of kidney stones Code(s): Z87.442 - PERSONAL HISTORY OF URINARY CALCULI (17) Hyperkalemia Code(s): E87.5 - HYPERKALEMIA (18) Hypernatremia Code(s): E87.0 - HYPEROSMOLALITY AND HYPERNATREMIA (19) Hypertension Code(s): I10 - ESSENTIAL (PRIMARY) HYPERTENSION Qualifiers: Hypertension type: secondary to other renal disorders Qualified Code(s): I15.1 - Hypertension secondary to other renal disorders (20) Hypertensive cardiomyopathy Code(s): I11.9 - HYPERTENSIVE HEART DISEASE WITHOUT HEART FAILURE; I43 - CARDIOMYOPATHY IN DISEASES CLASSIFIED ELSEWHERE (21) Hypomagnesemia Code(s): E83.42 - HYPOMAGNESEMIA (22) Pleural effusion Code(s): J90 - PLEURAL EFFUSION, NOT ELSEWHERE CLASSIFIED (23) Pneumonia Code(s): J18.9 - PNEUMONIA, UNSPECIFIED ORGANISM Qualifiers: Pneumonia type: due to unspecified organism Laterality: right Lung location: lower lobe of lung Qualified Code(s): J18.9 - Pneumonia, unspecified organism (24) Renal failure Code(s): N19 - UNSPECIFIED KIDNEY FAILURE (25) Renal insufficiency Code(s): N28.9 - DISORDER OF KIDNEY AND URETER, UNSPECIFIED (26) Sepsis Code(s): A41.9 - SEPSIS, UNSPECIFIED ORGANISM (27) URI (upper respiratory infection) Code(s): J06.9 - ACUTE UPPER RESPIRATORY INFECTION, UNSPECIFIED Qualifiers: URI type: unspecified URI Qualified Code(s): J06.9 - Acute upper respiratory infection, unspecified (28) Volume overload Code(s): E87.70 - FLUID OVERLOAD, UNSPECIFIED Assessment/Plan 63 y. o hypertension, diabetes mellitis , coronary artery disease, and ESRD ( hemodialysis-MWF) presents for evaluation of low hemoglobin/hematocrit. He was sent in by Dr. Johnson for a blood transfusion due to a hemoglobin of 7. Dx with anemia of chronic disease required 2 units PRBC. Deveoped CP last night EKG unchanged TNIs neg ECHO nl ef pulm htn Plan; Transfer to telemetry serial ekgs and TNIS MIBI stress test for risk stratification when anemia resolves. start ASA 81 QD (occult heme negative) Atorvastatin 40 QHS to lower LDL below 70 mg/dl Low dose of Metoprolol if patient tolerates (asthma) Coverage for dr. Guillory
[2019-03-16 09:22] LABS: ALBUMIN 3.1 g/dl (3.4-5.0); BILIRUBIN,TOTAL 0.6 mg/dL (0.2-1); CALCIUM 8.6 mg/dL (8.5-10.1); CREATININE 6.6 mg/dL (0.55-1.3); POTASSIUM 4.2 mmol/L (3.5-5.1); TOT PROT 6.5 g/dl (6.4-8.2)
[2019-03-16] MEDS ORDERED: metoPROLOL SUCCINATE 25 MG TAB.SR.24H (FP) PO SCH (11:00)
[2019-03-16] MEDS ORDERED: ASPIRIN COATED 81 MG TABLET.EC PO SCH (11:00)
--- NOTE | 2019-03-16 15:34 | EKG ---
Test Reason : Blood Pressure : / mmHG Vent. Rate : 061 BPM Atrial Rate : 061 BPM P-R Int : 106 ms QRS Dur : 110 ms QT Int : 466 ms P-R-T Axes : -64 015 217 degrees QTc Int : 469 ms ECTOPIC ATRIAL RHYTHM ANTEROSEPTAL INFARCT LEFT VENTRICULAR HYPERTROPHY WITH REPOLARIZATION ABNORMALITY ABNORMAL ECG Confirmed by MD REGALADO MOYSES ([id number]) on 03/16/2019 3:34:34 PM Referred By: Jamie BOYLE Confirmed By:JORGE REGALADO MD
--- NOTE | 2019-03-16 15:52 | EKG ---
Test Reason : Blood Pressure : / mmHG Vent. Rate : 063 BPM Atrial Rate : 063 BPM P-R Int : 086 ms QRS Dur : 098 ms QT Int : 462 ms P-R-T Axes : 000 022 239 degrees QTc Int : 472 ms ECTOPIC ATRIAL RHYTHM LEFT VENTRICULAR HYPERTROPHY WITH REPOLARIZATION ABNORMALITY ABNORMAL ECG Confirmed by MD FABRICIO, JORGE ([id number]) on 03/16/2019 3:52:34 PM Referred By: Confirmed By:JORGE REGALADO MD
[2019-03-16] MEDS ORDERED: ALBUTEROL SO4 0.083% IH SOL 2.5 MG/3 ML VIAL.NEB. NEB PRN (16:19)
[2019-03-16] MEDS ORDERED: PATIENT'S OWN MEDICATION (NON-FORMULARY) (Benzonatate 100 MG) PO PRN (16:19)
[2019-03-16] MEDS ORDERED: ATORVASTATIN CA 40 MG TABLET (FP) PO SCH ×2 (22:00)
[2019-03-17 02:19] VITALS: TEMP 98.4
[2019-03-17 06:23] LABS: HEMATOCRIT 27.3 % (35.4-49); HEMOGLOBIN 9.3 GM/dL (11.7-16.9); MCH 29.9 pg (25.7-33.7); MCHC 33.9 g/dl (32.0-35.9); MEAN PLT VOLUME 7.8 fl (7.5-11.1); PLATELET COUNT 239 K/MM3 (134-434); RDW 17.3 % (11.9-15.9); WHITE BLOOD COUNT 7.7 K/mm3 (4.0-10.0)
[2019-03-17] MEDS: INSULIN SLIDING SCALE (NOVOLOG) 1 VIAL SQ SCH (06:27)
[2019-03-17 07:24] LABS: BILIRUBIN,TOTAL 0.5 mg/dL (0.2-1); BLOOD UREA NITROGEN 59.2 mg/dL (7-18); CALCIUM 8.7 mg/dL (8.5-10.1); POTASSIUM 4.5 mmol/L (3.5-5.1); TOT PROT 6.1 g/dl (6.4-8.2)
[2019-03-17 07:28] LABS: CREATININE 9.1 mg/dL (0.55-1.3)
--- NOTE | 2019-03-17 09:13 | PN ---
Progress Note, Physician History of Present Illness: 63 year old mainly [place] speaking male with a past medical history of hypertension, diabetes mellitis , coronary artery disease, and ESRD ( hemodialysis-MWF) presents for evaluation of low hemoglobin/hematocrit. He was sent in by Dr. Johnson for a blood transfusion due to a hemoglobin of 7. Per Dr. Johnson, the patients hemoglobin has been down trending for the past 2 weeks. Patient does report some dyspnea on exertion. Patient denied chest pain , headache, lightheadedness, fever, chills or abdominal pain. Labs findings with hemoglobin 7.3/hemaocrit 22.4,RBC 2.52, platelets 277 ,stool occult is negative. He received 1 Unit of PRBC's in ER. - Current Medication List Current Medications: Active Medications Albuterol Sulfate (Ventolin 0.083% Nebulizer Soln -) 1 amp NEB Q4H PRN PRN Reason: ASTHMA Aspirin (Ecotrin -) 81 mg PO DAILY [facility] Atorvastatin Calcium (Lipitor -) 40 mg PO HS [facility] Last Admin: 03/16/19 21:43 Dose: 40 mg Hydralazine HCl (Apresoline -) 150 mg PO DAILY [facility] Insulin Aspart (Novolog Vial Sliding Scale -) 1 vial SQ BIDAC [facility]; Protocol Last Admin: 03/17/19 06:27 Dose: Not Given Metoprolol Succinate (Toprol Xl -) 12.5 mg PO DAILY [facility] Nifedipine (Procardia Xl -) 60 mg PO DAILY [facility] Non-Formulary Medication (Benzonatate) 100 mg PO TID PRN PRN Reason: COUGH - Objective Vital Signs: Vital Signs Temperature 98.4 F 03/17/19 02:00 Pulse Rate 66 03/17/19 02:00 Respiratory Rate 18 03/17/19 02:00 Blood Pressure 143/69 03/17/19 02:00 O2 Sat by Pulse Oximetry (%) 97 03/16/19 22:00 Eyes: Yes: WNL, Conjunctiva Clear, EOM Intact HENT: Yes: WNL, Atraumatic, Normocephalic Neck: Yes: WNL, Supple, Trachea Midline Cardiovascular: Yes: WNL, Regular Rate and Rhythm, Murmur (sem2/6), S1, S2 Respiratory: Yes: WNL, Regular, CTA Bilaterally Gastrointestinal: Yes: WNL, Normal Bowel Sounds Genitourinary: Yes: WNL Musculoskeletal: Yes: WNL Extremities: Yes: WNL Edema: No Integumentary: Yes: WNL Neurological: Yes: WNL, Alert, Oriented ...Motor Strength: WNL Psychiatric: Yes: WNL Labs: CBC, BMP 03/17/19 05:45 03/17/19 05:45 INR, PTT INR 0.98 (0.83-1.09) 03/14/19 17:10 Problem List - Problems (1) Anemia Code(s): D64.9 - ANEMIA, UNSPECIFIED Qualifiers: Anemia type: unspecified type Qualified Code(s): D64.9 - Anemia, unspecified (2) Chest pain Code(s): R07.9 - CHEST PAIN, UNSPECIFIED (3) ESRD (end stage renal disease) Code(s): N18.6 - END STAGE RENAL DISEASE (4) SOB (shortness of breath) Code(s): R06.02 - SHORTNESS OF BREATH (5) Qquhi-fa-ezyfvpy renal failure Code(s): N17.9 - ACUTE KIDNEY FAILURE, UNSPECIFIED; N18.9 - CHRONIC KIDNEY DISEASE, UNSPECIFIED (6) Anemia in chronic kidney disease Code(s): N18.9 - CHRONIC KIDNEY DISEASE, UNSPECIFIED; D63.1 - ANEMIA IN CHRONIC KIDNEY DISEASE (7) CAD (coronary artery disease) Code(s): I25.10 - ATHSCL HEART DISEASE OF [place] CORONARY ARTERY W/O ANG PCTRS (8) CHF (congestive heart failure) Code(s): I50.9 - HEART FAILURE, UNSPECIFIED (9) Cough Code(s): R05 - COUGH (10) Diabetes Code(s): E11.9 - TYPE 2 DIABETES MELLITUS WITHOUT COMPLICATIONS (11) Dialysis AV fistula malfunction Code(s): T82.590A - [facility] COMPL OF SURGICALLY CREATED ARTERIOVENOUS FISTULA, INIT Qualifiers: Encounter type: initial encounter Qualified Code(s): T82.590A - Other mechanical complication of surgically created arteriovenous fistula, initial encounter (12) Diastolic dysfunction without heart failure Code(s): I51.89 - OTHER ILL-DEFINED HEART DISEASES (13) HLD (hyperlipidemia) Code(s): E78.5 - HYPERLIPIDEMIA, UNSPECIFIED (14) Hemoptysis Code(s): R04.2 - HEMOPTYSIS (15) Hemoptysis Code(s): R04.2 - HEMOPTYSIS (16) History of kidney stones Code(s): Z87.442 - PERSONAL HISTORY OF URINARY CALCULI (17) Hyperkalemia Code(s): E87.5 - HYPERKALEMIA (18) Hypernatremia Code(s): E87.0 - HYPEROSMOLALITY AND HYPERNATREMIA (19) Hypertension Code(s): I10 - ESSENTIAL (PRIMARY) HYPERTENSION Qualifiers: Hypertension type: secondary to other renal disorders Qualified Code(s): I15.1 - Hypertension secondary to other renal disorders (20) Hypertensive cardiomyopathy Code(s): I11.9 - HYPERTENSIVE HEART DISEASE WITHOUT HEART FAILURE; I43 - CARDIOMYOPATHY IN DISEASES CLASSIFIED ELSEWHERE (21) Hypomagnesemia Code(s): E83.42 - HYPOMAGNESEMIA (22) Pleural effusion Code(s): J90 - PLEURAL EFFUSION, NOT ELSEWHERE CLASSIFIED (23) Pneumonia Code(s): J18.9 - PNEUMONIA, UNSPECIFIED ORGANISM Qualifiers: Pneumonia type: due to unspecified organism Laterality: right Lung location: lower lobe of lung Qualified Code(s): J18.9 - Pneumonia, unspecified organism (24) Renal failure Code(s): N19 - UNSPECIFIED KIDNEY FAILURE (25) Renal insufficiency Code(s): N28.9 - DISORDER OF KIDNEY AND URETER, UNSPECIFIED (26) Sepsis Code(s): A41.9 - SEPSIS, UNSPECIFIED ORGANISM (27) URI (upper respiratory infection) Code(s): J06.9 - ACUTE UPPER RESPIRATORY INFECTION, UNSPECIFIED Qualifiers: URI type: unspecified URI Qualified Code(s): J06.9 - Acute upper respiratory infection, unspecified (28) Volume overload Code(s): E87.70 - FLUID OVERLOAD, UNSPECIFIED Assessment/Plan 63 y. o hypertension, diabetes mellitis , coronary artery disease, and ESRD ( hemodialysis-MWF) presents for evaluation of low hemoglobin/hematocrit. He was sent in by Dr. Johnson for a blood transfusion due to a hemoglobin of 7. Dx with anemia of chronic disease required 2 units PRBC. Deveoped CP last night EKG unchanged TNIs neg ECHO nl ef pulm htn Plan; cont telemetry serial ekgs and TNIS MIBI stress test for risk stratification when anemia resolves. start ASA 81 QD (occult heme negative) Atorvastatin 40 QHS to lower LDL below 70 mg/dl cont Metoprolol BP control Coverage for dr. Guillory
--- NOTE | 2019-03-17 09:20 | DS ---
Physical Examination Vital Signs: Vital Signs Temperature 98.4 F 03/17/19 02:00 Pulse Rate 66 03/17/19 02:00 Respiratory Rate 18 03/17/19 02:00 Blood Pressure 143/69 03/17/19 02:00 O2 Sat by Pulse Oximetry (%) 97 03/16/19 22:00 Constitutional: Yes: No Distress Cardiovascular: Yes: Regular Rate and Rhythm Respiratory: Yes: WNL Gastrointestinal: Yes: WNL Renal/: Yes: Other Musculoskeletal: Yes: WNL Edema: No Peripheral Pulses WNL: Yes Integumentary: Yes: WNL Wound/Incision: Yes: Clean/Dry Neurological: Yes: WNL ...Motor Strength: WNL Psychiatric: Yes: WNL Labs: CBC, BMP 03/17/19 05:45 03/17/19 05:45 Discharge Summary Problems reviewed: Yes Reason For Visit: ANEMIA ENDSTAGE RENAL FAILURE ON DIALYSIS Current Active Problems Anemia (Acute) Chest pain (Acute) ESRD (end stage renal disease) (Acute) SOB (shortness of breath) (Acute) Procedures: Principal: HD/CXR/LABS Hospital Course: ADMITTED FOR CARDIAC RENAL WORKUP, PATIENT HAD HEMODIALYSIS, PRBC TRANSFUSION TREATED FOR FLUID OVERLOAD AND ANEMIA OF CHRONIC DISEASE Goals: FOLLOW UP WITH YOUR PMD AND HEAD OF LOSS PREVENTION IN 1 WEEK Condition: Fair - Instructions Diet, Activity, Other Instructions: RENAL DIET SEE YOUR DOCTORS IN 1 WEEK Referrals: Adarsh Fairchild [Primary Care Provider] - Disposition: HOME - Home Medications Comprehensive Discharge Medication List: Ambulatory Orders Albuterol 0.083% Nebulizer Caryn [Ventolin 0.083% Nebulizer Soln -] 1 neb NEB Q4H PRN #30 vial 02/08/19 Nebulizer Accessories [Adult Aerosol Mask] 1 each QID PRN #1 each 02/08/19 Nebulizer [Compact Compressor Nebulizer] 1 each QID PRN #1 each 02/08/19 Aspirin Coated [Ecotrin -] 81 mg PO DAILY #30 tablet.ec 03/17/19 Atorvastatin Ca [Lipitor] 40 mg PO HS #30 tablet 03/17/19 Hydralazine HCl 150 mg PO DAILY #30 tablet 03/17/19 Metoprolol Succinate [Toprol XL -] 12.5 mg PO DAILY #30 tab.sr.24h 03/17/19 Nifedipine [Nifedipine ER] 60 mg PO DAILY #30 tab.er.24 03/17/19 Prescription Drug Monitoring Program (I-STOP) results: I-STOP not reviewed
[2019-03-17] MEDS ORDERED: NIFEdipine E.R 60 MG TABLET PO SCH (10:00)
[2019-03-17] MEDS ORDERED: ASPIRIN COATED 81 MG TABLET.EC PO SCH (10:00)
[2019-03-17] MEDS ORDERED: hydrALAZINE HCL 50 MG TABLET (FP) PO SCH (10:00)
[2019-03-17] MEDS ORDERED: metoPROLOL SUCCINATE 25 MG TAB.SR.24H (FP) PO SCH (10:00)
[2019-03-17 10:51] VITALS: BP 134/96; PULSE 68
--- NOTE | 2019-03-17 13:50 | EKG ---
Test Reason : Blood Pressure : / mmHG Vent. Rate : 062 BPM Atrial Rate : 062 BPM P-R Int : 172 ms QRS Dur : 102 ms QT Int : 462 ms P-R-T Axes : -17 019 013 degrees QTc Int : 468 ms SINUS RHYTHM WITH PREMATURE ATRIAL COMPLEXES IN A PATTERN OF BIGEMINY SEPTAL INFARCT (CITED ON OR BEFORE 16-MAR-2019) LEFT VENTRICULAR HYPERTROPHY WITH REPOLARIZATION ABNORMALITY ABNORMAL ECG Confirmed by MD FABRICIO, JORGE ([id number]) on 03/17/2019 1:49:57 PM Referred By: Jamie BOYLE Confirmed By:JORGE REGALADO MD
[2019-03-19 10:11] LABS: HGB SOLUBILITY Negative (Negative); Hgb C 0 % (0.0); Hgb F 0 % (0.0-2.0); Hgb S 0 % (0.0)
== END 2019-03-17 10:55 | disposition home or self-care (01) | DRG 682 ==
LOC: JER 15:13 → JERBED 17:11 → J8W 23:27 → J4S 03-16 15:33
PROVIDERS: ADMIT Family Medicine; ATTEND Family Medicine
PROC: 30233N1 Transfusion of Nonautologous Red Blood Cells into Peripheral Vein, Percutaneous Approach (ICD-10-PCS; principal; 2019-03-14)
DX: I13.11 Hypertensive heart and chronic kidney disease without heart failure, with stage 5 chronic kidney disease, or end stage renal disease (principal); N18.6 End stage renal disease; E87.5 Hyperkalemia; R07.9 Chest pain, unspecified; Z99.2 Dependence on renal dialysis; E11.22 Type 2 diabetes mellitus with diabetic chronic kidney disease; D63.1 Anemia in chronic kidney disease; E87.70 Fluid overload, unspecified; I25.10 Atherosclerotic heart disease of native coronary artery without angina pectoris; E78.5 Hyperlipidemia, unspecified
CPT/HCPCS: 36415; 36430; 36511; 80048; 80053; 80061; 82272; 82607; 82728; 82746; 82962; 83021; 83036; 83540; 83550; 83615; 83721; 84443; 84484; 85025; 85027; 85044; 85610; 85660; 85730; 86803; 86850; 86900; 86901; 86922; 87340; 93005; 93010; 93306-TC; 99285-25; P9038; P9058; Q5106

== ENCOUNTER 2019-09-30 07:02 | Inpatient (IN) | payer OTHER ==
[2019-09-30 07:40] VITALS: BMI 29.0
[2019-09-30] MEDS ORDERED: hydrALAZINE HCL 25 MG TABLET (FP) PO ONE (08:16)
[2019-09-30] MEDS ORDERED: ACETAMINOPHEN 325 MG TABLET (FP) PO ONE (08:48)
--- NOTE | 2019-09-30 09:06 | PDOC ---
Attending Attestation - Resident Resident Name: Theo Navas - ED Attending Attestation I have performed the following: I have examined & evaluated the patient, The case was reviewed & discussed with the resident, I agree w/resident's findings & plan, Exceptions are as noted - HPI HPI: 09/30/19 09:01 64YOM with h/o ESRD (HD MWF through RUE AVF) and HTN who p/w cough, headache, chest discomfort, and mild lightheadedness. His last HD was on Monday and was uncomplicated; normal amount of fluid was removed as per his baseline. Denies f/c/n/v/d/c, pallor, jaundice, AVF malfunction, or other issue. Denies exertional component of CP and states it is mostly when he coughs but is residual at all times. Also notes SOB preventing him from laying down flat. With the CEE there is no photo/phonophobia and no change from prior headaches. Gradual onset and no new n/t/w focally. - Physicial Exam PE: 09/30/19 09:04 GENERAL: nontoxic-appearing, wearing face mask, sitting upright with HOB at 85 degrees per his preference, A/Ox4, no distress, answers questions appropriately HEENT: PERRLA, EOMI, moist mucous membranes NECK/BACK: no midline ttp, no spinal step-off or deformity, no hematoma, full ROM, neck supple CARDIOVASCULAR: regular rate/rhythm, no MGR, strong peripheral pulses, capillary refill <2 seconds, extremities wwp, trace pedal edema, RUE with AV fistula with good bruit and thrill LUNGS/RESPIRATORY: no respiratory distress, bilateral basilar crackles GI/ABDOMEN: symmetric [id number], normoactive BS, soft, no ttp, no midline pulsatile masses : no CVA tenderness MSK/EXTREMITIES: no muscle atrophy, no acute deformity SKIN: warm and dry, no pallor, no jaundice, no rash, no pathologic-appearing bruising, no skin breakdown, no cuts, no lesions NEUROLOGICAL: GCS 15, CN II-XII grossly intact, 5/5 strength proximally and distally, no facial droop - Medical Decision Making 09/30/19 09:06 64YOM with ESRD and HTN p/w CEE, cough with associated pain, lightheadedness, BP elevated above baseline, due for HD today. Initial Vital Signs Temp Pulse Resp BP Pulse Ox 98.5 F 60 16 202/82 H 89 L 09/30/19 07:05 09/30/19 07:05 09/30/19 07:05 09/30/19 07:05 09/30/19 07:05 DDX IBNLT: most likely cough d/t volume overload as he is duefor HD today after his normal weekend hiatus. Possibilities for CEE etiology include essential HTN, renal disease, medications (e.g. OCPs, NSAIDs, antidepressants, steroids), tension CEE or migraine, less likely HTN emergency given lack of additional new neuro findings (no AMS, visual change, or other neuro sxs) and no significant difference from the many headaches he has had in the past. Medications Discontinued Medications Generic Name Dose Route Start Last Admin Trade Name Freq PRN Reason Stop Dose Admin Acetaminophen 975 mg 09/30/19 08:48 Tylenol - PO 09/30/19 08:49 ONCE ONE Hydralazine HCl 25 mg 09/30/19 08:16 Apresoline - PO 09/30/19 08:17 ONCE ONE Lab Results WBC 12.3 K/mm3 (4.0-10.0) H 09/30/19 09:00 RBC 4.05 M/mm3 (4.00-5.60) 09/30/19 09:00 Hgb 12.0 GM/dL (11.7-16.9) 09/30/19 09:00 Hct 37.1 % (35.4-49) 09/30/19 09:00 MCV 91.5 fl (80-96) 09/30/19 09:00 MCH 29.7 pg (25.7-33.7) 09/30/19 09:00 MCHC 32.5 g/dl (32.0-35.9) 09/30/19 09:00 RDW 18.9 % (11.9-15.9) H 09/30/19 09:00 Plt Count 191 K/MM3 (134-434) 09/30/19 09:00 MPV 7.7 fl (7.5-11.1) D 09/30/19 09:00 Absolute Neuts (auto) 10.7 K/mm3 (1.5-8.0) H 09/30/19 09:00 Neutrophils % 86.9 % (42.8-82.8) H D 09/30/19 09:00 Lymphocytes % 4.6 % (8-40) L D 09/30/19 09:00 Monocytes % 7.4 % (3.8-10.2) 09/30/19 09:00 Eosinophils % 0.6 % (0-4.5) D 09/30/19 09:00 Basophils % 0.5 % (0-2.0) 09/30/19 09:00 Nucleated RBC % 0 % (0-0) 09/30/19 09:00 PT with INR 11.40 SEC (9.7-13.0) 09/30/19 09:00 INR 0.97 (0.83-1.09) 09/30/19 09:00 Sodium 135 mmol/L (136-145) L 09/30/19 09:00 Potassium 7.6 mmol/L (3.5-5.1) H* 09/30/19 09:00 Chloride 99 mmol/L (98-107) 09/30/19 09:00 Carbon Dioxide 27 mmol/L (21-32) 09/30/19 09:00 Anion Gap 9 MMOL/L (8-16) 09/30/19 09:00 BUN 72.2 mg/dL (7-18) H 09/30/19 09:00 Creatinine 13.0 mg/dL (0.55-1.3) H* 09/30/19 09:00 Est GFR (CKD-EPI)AfAm 4.16 09/30/19 09:00 Est GFR (CKD-EPI)NonAf 3.59 09/30/19 09:00 Random Glucose 88 mg/dL (74-106) 09/30/19 09:00 Calcium 9.7 mg/dL (8.5-10.1) 09/30/19 09:00 Phosphorus 6.1 mg/dL (2.5-4.9) H 09/30/19 09:00 Magnesium 2.9 mg/dL (1.8-2.4) H 09/30/19 09:00 Total Bilirubin 0.8 mg/dL (0.2-1) 09/30/19 09:00 AST 37 U/L (15-37) 09/30/19 09:00 ALT 27 U/L (13-61) 09/30/19 09:00 Alkaline Phosphatase 72 U/L (45-117) 09/30/19 09:00 Creatine Kinase 168 U/L (26-308) 09/30/19 09:00 Creatine Kinase Index 2.7 % (0.0-5.0) 09/30/19 09:00 CK-MB (CK-2) 4.6 ng/mL (0.5-3.6) H 09/30/19 09:00 Troponin I 0.08 ng/ml (0.00-0.05) H 09/30/19 09:00 B-Natriuretic Peptide 46066.7 pg/ml (5-125) H 09/30/19 09:00 Total Protein 7.8 g/dl (6.4-8.2) 09/30/19 09:00 Albumin 3.8 g/dl (3.4-5.0) 09/30/19 09:00 COVID-19 (ASIM) Not detected (Not Detected) 09/30/19 09:30 RAD/CHEST X-RAY PORTABLE* Chest : Hypertension. Shortness of breath A single view of the chest reveals well expanded lungs with congestive changes, fullness of the blaine, prominent knob and large heart. The angles are sharp. The bones and soft tissues are intact. Impression: Congestive changes. Large heart. Follow-up recommended. CT/HEAD CT WITHOUT CONTRAST Hypertensive with headache. Evaluate for bleed CT scan of the head without intravenous contrast Compared to prior CT scan of the head dated 05/15/2019 There is mild volume loss and ventricular prominence. Minimal bilateral anterior periventricular chronic microvascular ischemic disease changes are present. No mass lesion, gross CT evidence of an acute infarct or acute intracranial hemorrhage are identified. No extra-axial collection is seen. There is no shift of the midline structures. Calvarium is intact. Minimal deviation of the nasal septum towards the right. The mastoid air cells are well aerated. Calcification of the cavernous carotid arteries are present IMPRESSION: No significant interval change or gross CT evidence of acute intracranial pathology is identified. Correlate clinically to determine further evaluation and follow-up The patient requires admission for CP and high HEART score, and is agreeable to this. Admission procedures per resident note. Heart Score/ECG Review - History History: Slightly suspicious - Electrocardiogram EKG: Non specific repolarization disturbance - Age Age: 45-65 - Risk Factors Risk Factors Heart Score: Yes Hx Hypertension, Yes Positive family hx of cardiac disease Based on the list above the patient has:: 1-2 risk factors - Troponin Troponin: 1-3x normal limit - Score Heart Score - Total: 4 #1 09/30/19 07:55 Sinus rhythm, rate 61, normal axis and intervals, TWI in I, II, III, and aVF which are new, +voltages for LVH, early repolarization anterior leads, poor R wave progression, peaked T waves, othewise no ischemic ST-T changes Discharge - Discharge Information Problems reviewed: Yes Clinical Impression/Diagnosis: ESRD (end stage renal disease), Hyperkalemia, Hypertensive emergency, Chest pain Heart failure Qualifiers: Heart failure type: unspecified Heart failure chronicity: unspecified Qualified Code(s): I50.9 - Heart failure, unspecified Condition: Guarded - Admission Yes - Follow up/Referral - Patient Discharge Instructions - Post Discharge Activity
[2019-09-30] MEDS ORDERED: ACETAMINOPHEN 325 MG TABLET (FP) ONE (09:12)
[2019-09-30] MEDS ORDERED: hydrALAZINE HCL 25 MG TABLET (FP) ONE (09:12)
--- NOTE | 2019-09-30 09:13 | PDOC ---
History of Present Illness - General Chief Complaint: Blood Pressure Problem Stated Complaint: HYPERTENSION Time Seen by Provider: 09/30/19 08:05 History Source: Patient, [employer] Used Exam Limitations: No Limitations - History of Present Illness Initial Comments: 09/30/19 09:14 64yo with a PMH of ESRD (m/w/f, not yet dialyzed today), CAD, HTN, HLD, DM presents after a high BP reading at home. States he took his BP meds, it did not come down, so he came in. Complains of frontal intermittent headache and blurry vision for one day, as well as cough productive of clear sputum, shortness of breath, central chest pain when coughing, and abdominal pain when coughing for one week. Also complains of left hand numbness/tingling. Headache was not maximal or sudden in onset, no fevers or chills, associated with photophobia but not phonophobia, and feels different from a normal headache for him. The chest pain is currently present, not exertional or relieved by rest, not worse with position or deep breaths, and is worse when he coughs. No weakness, n/v, orthopnea, decreased exercise tolerance, dysuria, hematuria, diarrhea, constipation. ROS GENERAL/CONSTITUTIONAL: No fever or chills. No weakness. HEAD, EYES, EARS, NOSE AND THROAT: blurry vision. No ear pain or discharge. No sore throat. CARDIOVASCULAR: chest pain and SOB RESPIRATORY: cough. no wheezing, or hemoptysis. GASTROINTESTINAL: abdominal pain. No nausea, vomiting, diarrhea or constipation. GENITOURINARY: No dysuria, frequency, or change in urination. MUSCULOSKELETAL: No joint or muscle swelling or pain. No neck or back pain. SKIN: No rash NEUROLOGIC: headache. No vertigo, loss of consciousness ENDOCRINE: No increased thirst. No abnormal weight change HEMATOLOGIC/LYMPHATIC: No anemia, easy bleeding, or history of blood clots. ALLERGIC/IMMUNOLOGIC: No hives or skin allergy. PE GENERAL: Awake, alert, and fully oriented, in no acute distress HEAD: No signs of trauma, normocephalic, atraumatic EYES: PERRLA, EOMI, sclera anicteric, conjunctiva clear ENT: Auricles normal inspection, hearing grossly normal, nares patent, oropharynx clear without exudates. Moist mucosa NECK: Normal ROM, supple, no lymphadenopathy, JVD, or masses LUNGS: No distress, speaks full sentences, crackles in right lung field HEART: Regular rate and rhythm, normal S1 and S2, no murmurs, rubs or gallops, peripheral pulses normal and equal bilaterally. ABDOMEN: Soft, nontender, normoactive bowel sounds. No guarding, no rebound. No masses EXTREMITIES : Normal inspection, Normal range of motion, no edema. No clubbing or cyanosis. NEUROLOGICAL: Cranial nerves II through XII grossly intact. Normal speech, no focal sensorimotor deficits SKIN: Warm, Dry, normal turgor, no rashes or lesions noted Vital Signs Temp Pulse Resp BP Pulse Ox 98.5 F 60 16 202/82 H 89 L 09/30/19 07:05 09/30/19 07:05 09/30/19 07:05 09/30/19 07:05 09/30/19 07:05 09/30/19 09:17 MDM 64yo with a PMH of ESRD (m/w/f, not yet dialyzed today), CAD, HTN, HLD, DM presents after a high BP reading at home, took home meds but persistently hypertensive (/82) at triage. Also complains of headache, blurry vision, cough productive of clear sputum, shortness of breath, central chest pain when coughing, and abdominal pain when coughing, left hand numbness/tingling. Hypoxic to 89 on room air, so placed on nasal cannula, saturating well on 6L. Physical exam notable for crackles in right lung field. EKG NSR with LVH and t wave inversions unchanged from prior. He is in hypertensive emergency. Differential also includes ACS, pneumonia, CHF, brain bleed, electrolyte abnormality. -CXR -CT head -CBC, CMP, trops, BNP -hydralazine 25mg PO -tylenol 100mg PO 09/30/19 09:41 CXR: vascular congestion CT head: negative Labs notable for K 7.6, BUN/Cr 72.2/13, WBC count 112.3 with left shift, BNP 22K, trop 0.08, phos 6.1, Mg 2.9 Cover for pneumonia with doxy/azithro. Correct K with insulin/D50, cardioprotection with calcium gluconate Admit to [facility] for dialysis and heart failure Signed out to admitting team 09/30/19 13:53 09/30/19 13:55 Past History - Medical History Allergies/Adverse Reactions: Allergies Allergy/AdvReac Type Severity Reaction Status Date / Time No Known Allergies Allergy Verified 09/30/19 07:27 Home Medications: Ambulatory Orders Nebulizer [Compact Compressor Nebulizer] 1 each MC QID PRN #1 each 02/08/19 Nifedipine [Nifedipine ER] 60 mg PO DAILY #30 tab.er.24 03/17/19 Aspirin Coated [Ecotrin -] 81 mg PO DAILY #0 tablet.ec 05/20/19 Atorvastatin Ca [Lipitor] 80 mg PO HS #90 tablet 05/20/19 hydrALAZINE HCL [Apresoline -] 25 mg PO BID #90 tablet 05/20/19 Anemia: No Asthma: No Cancer: No Cardiac Disorders: Yes (CAD) CVA: No COPD: No CHF: No Dementia: No Diabetes: No Dialysis: Yes (M-W-F) GI Disorders: Yes (EPIGASTRIC PAIN,CONSTIPATION) Disorders: No HTN: Yes Hypercholesterolemia: Yes Liver Disease: No Seizures: No Thyroid Disease: No - Surgical History Abdominal Surgery: No Appendectomy: No Cardiac Surgery: Yes (Cardiac Cath) Cholecystectomy: No Lung Surgery: No Neurologic Surgery: No Orthopedic Surgery: No - Immunization History Immunization Up to Date: Yes - Psycho-Social/Smoking History Smoking Status: No Smoking History: Never smoked Have you smoked in the past 12 months: No Number of Cigarettes Smoked Daily: 0 - Substance Abuse Hx (Audit-C & DAST Scrn) How often the patient has a drink containing alcohol: Never Score: In Men: 4 or > Positive; In Women: 3 or > Positive: 0 Screen Result (Pos requires Nsg. Audit-10AR): Negative In the last yr the pt used illegal drug/Rx for NonMed reason: No Score: Yes response is considered Positive: 0 Screen Result (Positive result requires Nsg. DAST-10): Negative *Physical Exam - Vital Signs Last Vital Signs Temp Pulse Resp BP Pulse Ox 98.5 F 60 16 202/82 H 89 L 09/30/19 07:05 09/30/19 07:05 09/30/19 07:05 09/30/19 07:05 09/30/19 07:05 ED Treatment Course - LABORATORY CBC & Chemistry Diagram: 09/30/19 09:00 09/30/19 09:00 Discharge - Discharge Information Problems reviewed: Yes Clinical Impression/Diagnosis: ESRD (end stage renal disease), Hyperkalemia, Hypertensive emergency Heart failure Qualifiers: Heart failure type: unspecified Heart failure chronicity: unspecified Qualified Code(s): I50.9 - Heart failure, unspecified Condition: Fair - Follow up/Referral - Patient Discharge Instructions - Post Discharge Activity
[2019-09-30 10:15] LABS: BASO % 0.5 % (0-2.0); EOS % 0.6 % (0-4.5); HEMATOCRIT 37.1 % (35.4-49); LYMPH % 4.6 % (8-40); MCH 29.7 pg (25.7-33.7); MCHC 32.5 g/dl (32.0-35.9); MEAN CELL VOLUME 91.5 fl (80-96); MEAN PLT VOLUME 7.7 fl (7.5-11.1); MONO % 7.4 % (3.8-10.2); NEUT % 86.9 % (42.8-82.8); PLATELET COUNT 191 K/MM3 (134-434); RBC 4.05 M/mm3 (4.00-5.60); RDW 18.9 % (11.9-15.9); WHITE BLOOD COUNT 12.3 K/mm3 (4.0-10.0)
[2019-09-30 10:27] LABS: INR 0.97 (0.83-1.09); PROTHROMBIN TIME (PATIENT) 11.4 SEC (9.7-13.0)
[2019-09-30] MEDS ORDERED: DOXYCYCLINE INJECTION 100 MG in DEXTROSE 5%-WATER - 100 ML IVPB ONE (10:36)
[2019-09-30] MEDS ORDERED: AZITHROMYCIN IVPB 500 MG in DEXTROSE 5%-WATER - 250 ML IVPB ONE (10:40)
[2019-09-30 10:53] LABS: ALBUMIN 3.8 g/dl (3.4-5.0); BILIRUBIN,TOTAL 0.8 mg/dL (0.2-1); BLOOD UREA NITROGEN 72.2 mg/dL (7-18); CALCIUM 9.7 mg/dL (8.5-10.1); MAGNESIUM 2.9 mg/dL (1.8-2.4); N-TERMINAL BNP 22684.7 pg/ml (5-125); PHOSPHOROUS 6.1 mg/dL (2.5-4.9); TOT PROT 7.8 g/dl (6.4-8.2)
[2019-09-30 10:56] LABS: POTASSIUM 7.6 mmol/L (3.5-5.1)
[2019-09-30] MEDS ORDERED: INSULIN REGULAR HUMAN 100 UNITS/ML *VIAL IVPUSH ONE ×2 (11:00→11:03)
[2019-09-30] MEDS ORDERED: DEXTROSE 50%-WATER - 25 GM/50 ML VIAL IVPUSH ONE (11:01)
[2019-09-30] MEDS ORDERED: CALCIUM GLUCONATE 10% - 1,000 MG/10 ML VIAL IVPUSH ONE (11:04)
[2019-09-30] MEDS ORDERED: CALCIUM GLUCONATE 10% - 1,000 MG/10 ML VIAL ONE (11:08)
[2019-09-30] MEDS ORDERED: INSULIN REGULAR HUMAN 100 UNITS/ML *VIAL ONE (11:09)
[2019-09-30] MEDS ORDERED: DEXTROSE 50%-WATER 25 GM/50 ML DISP.SYRIN ONE (11:09)
[2019-09-30] MEDS ORDERED: ALBUTEROL SO4 0.083% IH SOL 2.5 MG/3 ML VIAL.NEB. NEB ONE ×2 (11:09→12:36)
[2019-09-30] MEDS ORDERED: AZITHROMYCIN IVPB 500 MG/250 ML BAG IVPB ONE (11:11)
[2019-09-30] MEDS ORDERED: SODIUM CHLORIDE 250 ML IV PRN (11:16)
--- NOTE | 2019-09-30 11:18 | CONSULT ---
Consult Consult Specialty:: Nephrology Reason for Consultation:: ESRD - History of Present Illness Chief Complaint: elevated bp History of Present Illness: Pt is a 64 year old male with pmhx of esrd (MWF), cad, htn, hld, dm who presents to the ER complaining of elevated bp reading at home. He also complains of chest pain. he says that the pain was dull and non radiating. He currently does not have the pain. He denies shortness of breath at rest. He denies fevers or chills. He last had HD on Monday. He says that he took his bp meds. - History Source History Provided By: Patient - Past Medical History Cardio/Vascular: Yes: CAD, HTN, Hyperlipdemia Pulmonary: Yes: Asthma Renal/: Yes: Renal Inusuff, Hemodialysis, Renal Calculi Endocrine: Yes: Diabetes Mellitus - Past Surgical History Past Surgical History: Yes: AV Fistula/Graft - Alcohol/Substance Use Hx Alcohol Use: No History of Substance Use: reports: None - Smoking History Smoking history: Never smoked Have you smoked in the past 12 months: No Aproximately how many cigarettes per day: 0 - Social History ADL: Independent History of Recent Travel: No Home Medications - Allergies Allergies/Adverse Reactions: Allergies Allergy/AdvReac Type Severity Reaction Status Date / Time No Known Allergies Allergy Verified 09/30/19 07:27 - Home Medications Home Medications: Ambulatory Orders Nebulizer [Compact Compressor Nebulizer] 1 each MC QID PRN #1 each 02/08/19 Nifedipine [Nifedipine ER] 60 mg PO DAILY #30 tab.er.24 03/17/19 Aspirin Coated [Ecotrin -] 81 mg PO DAILY #0 tablet.ec 05/20/19 Atorvastatin Ca [Lipitor] 80 mg PO HS #90 tablet 05/20/19 hydrALAZINE HCL [Apresoline -] 25 mg PO BID #90 tablet 05/20/19 Family Medical History Family History: Denies Review of Systems - Review of Systems Constitutional: reports: Malaise Eyes: reports: No Symptoms HENT: reports: No Symptoms Neck: reports: No Symptoms Cardiovascular: reports: Chest Pain Respiratory: reports: No Symptoms Gastrointestinal: reports: No Symptoms Genitourinary: reports: No Symptoms Musculoskeletal: reports: No Symptoms Integumentary: reports: No Symptoms Neurological: reports: No Symptoms Endocrine: reports: No Symptoms Hematology/Lymphatic: reports: No Symptoms Psychiatric: reports: No Symptoms Physical Exam Vital Signs: Vital Signs Temperature 98.5 F 09/30/19 07:05 Pulse Rate 60 09/30/19 07:05 Respiratory Rate 16 09/30/19 07:05 Blood Pressure 202/82 H 09/30/19 07:05 O2 Sat by Pulse Oximetry (%) 89 L 09/30/19 07:05 Constitutional: Yes: Calm Eyes: Yes: Conjunctiva Clear HENT: Yes: Atraumatic Cardiovascular: Yes: S1, S2 Respiratory: Yes: On Nasal O2, Rhonchi Gastrointestinal: Yes: Soft Renal/: Yes: WNL Musculoskeletal: Yes: WNL Edema: Yes Edema: LLE: Trace, RLE: Trace Neurological: Yes: Oriented Psychiatric: Yes: Oriented Labs: CBC, BMP 09/30/19 09:00 09/30/19 09:00 Laboratory Tests 09/30/19 09/30/19 09:00 09:30 Sodium 135 L Potassium 7.6 H* Chloride 99 Carbon Dioxide 27 Anion Gap 9 BUN 72.2 H Creatinine 13.0 H* Magnesium 2.9 H B-Natriuretic Peptide 39557.7 H COVID-19 (ASIM) Pending Imaging - Results Chest X-ray: Report Reviewed Problem List - Problems (1) ESRD (end stage renal disease) Code(s): N18.6 - END STAGE RENAL DISEASE (2) Hyperkalemia Code(s): E87.5 - HYPERKALEMIA (3) Hypertensive emergency Code(s): I16.1 - HYPERTENSIVE EMERGENCY Assessment/Plan Current Medications Generic Name Dose Route Start Last Admin Trade Name Freq PRN Reason Stop Dose Admin Doxycycline Hyclate 100 mg/ 100 mls @ 100 mls/hr 09/30/19 10:36 Dextrose IVPB 09/30/19 11:35 ONCE ONE Azithromycin 500 mg/ Dextrose 250 mls @ 250 mls/hr 09/30/19 10:40 IVPB 09/30/19 11:39 ONCE ONE Sodium Chloride 250 mls @ 3,000 mls/hr 09/30/19 11:16 Normal Saline - IV 10/01/19 11:16 PRN PRN Hypotension during Dialysis Impression 1. ESRD 2. hypertensive emergency 3. hyperkalemia 4. anemia 5. DM 6. r/o covid 7. chest pain Plan - resume home bp meds - will arrange for urgent bedside HD - admit to monitored unit - monitor bp - renal diet - discussed with ER - called HD and he last had HD on Monday - reviewed HD prescription with dialysis
[2019-09-30] MEDS ORDERED: DOXYCYCLINE HYCLATE 100 MG VIAL ONE (12:37)
--- NOTE | 2019-09-30 15:58 | EKG ---
Test Reason : Blood Pressure : / mmHG Vent. Rate : 061 BPM Atrial Rate : 061 BPM P-R Int : 142 ms QRS Dur : 104 ms QT Int : 456 ms P-R-T Axes : 008 038 266 degrees QTc Int : 459 ms NORMAL SINUS RHYTHM MODERATE VOLTAGE CRITERIA FOR LVH, MAY BE NORMAL VARIANT T WAVE ABNORMALITY, CONSIDER INFERIOR ISCHEMIA ABNORMAL ECG WHEN COMPARED WITH ECG OF 30-SEP-2019 07:46, NO SIGNIFICANT CHANGE WAS FOUND Confirmed by JACQUI SCOTT, NABILA ([id number]) on 09/30/2019 3:58:44 PM Referred By: Confirmed By:NABILA OSMAN MD
[2019-09-30 17:13] LABS: CALCIUM 9.2 mg/dL (8.5-10.1); POTASSIUM 5.1 mmol/L (3.5-5.1)
[2019-09-30 17:22] LABS: CREATININE 10.8 mg/dL (0.55-1.3)
[2019-09-30] MEDS: NIFEdipine E.R. 30 MG TABLET PO SCH (18:41)
[2019-09-30] MEDS: ATORVASTATIN CA 80 MG TABLET (FP) PO SCH (21:10)
[2019-09-30] MEDS: HEPARIN NA (PORCINE) 5,000 UNITS/ML 1ML VIAL SQ SCH (21:10)
[2019-09-30] MEDS: hydrALAZINE HCL 50 MG TABLET (FP) PO SCH (21:10)
[2019-09-30] MEDS ORDERED: hydrALAZINE HCL 25 MG TABLET (FP) PO SCH (22:00)
[2019-10-01 07:15] LABS: BASO % 0.7 % (0-2.0); EOS % 1.1 % (0-4.5); HEMATOCRIT 34.7 % (35.4-49); HEMOGLOBIN 11.4 GM/dL (11.7-16.9); LYMPH % 5.8 % (8-40); MCH 29.5 pg (25.7-33.7); MCHC 32.8 g/dl (32.0-35.9); MEAN CELL VOLUME 89.9 fl (80-96); MEAN PLT VOLUME 7.5 fl (7.5-11.1); MONO % 8.2 % (3.8-10.2); NEUT % 84.2 % (42.8-82.8); PLATELET COUNT 168 K/MM3 (134-434); RBC 3.86 M/mm3 (4.00-5.60); RDW 19.3 % (11.9-15.9); WHITE BLOOD COUNT 9.7 K/mm3 (4.0-10.0)
[2019-10-01 07:19] LABS: ALBUMIN 3.2 g/dl (3.4-5.0); CALCIUM 8.9 mg/dL (8.5-10.1); POTASSIUM 4.8 mmol/L (3.5-5.1); TOT PROT 6.8 g/dl (6.4-8.2)
[2019-10-01 07:37] LABS: CREATININE 8.2 mg/dL (0.55-1.3)
[2019-10-01] MEDS ORDERED: PNEUMOC 13-VAL CONJ-DIP CRM/PF 0.5 ML DISP.SYRIN IM ONE (08:45)
--- NOTE | 2019-10-01 09:09 | EKG ---
Test Reason : Blood Pressure : / mmHG Vent. Rate : 056 BPM Atrial Rate : 056 BPM P-R Int : 182 ms QRS Dur : 096 ms QT Int : 474 ms P-R-T Axes : 012 041 -58 degrees QTc Int : 457 ms POOR DATA QUALITY, INTERPRETATION MAY BE ADVERSELY AFFECTED SINUS BRADYCARDIA SEPTAL INFARCT , AGE UNDETERMINED ABNORMAL ECG WHEN COMPARED WITH ECG OF 30-SEP-2019 07:55, ST NOW DEPRESSED IN INFERIOR LEADS Confirmed by David Styles MD ([id number]) on 10/01/2019 9:08:37 AM Referred By: Confirmed By:David Styles MD
--- NOTE | 2019-10-01 09:42 | HP ---
Admitting History and Physical - Admission Chief Complaint: HTN. Chest pain History of Present Illness: Pt is a 64 year old male with pmhx of esrd (MWF), cad, htn, hld, dm who presents to the ER complaining of elevated bp reading at home. He also complains of chest pain. he says that the pain was dull and non radiating. He currently does not have the pain. He denies shortness of breath at rest. He denies fevers or chills. He last had HD on Monday. He says that he took his bp meds. History Source: Patient Limitations to Obtaining History: No Limitations - Past Medical History Cardiovascular: Yes: CAD, HTN, Hyperlipdemia Pulmonary: Yes: Asthma Renal/: Yes: Renal Inusuff, Hemodialysis, Renal Calculi Endocrine: Yes: Diabetes Mellitus - Past Surgical History Past Surgical History: Yes: AV Fistula/Graft - Smoking History Smoking history: Never smoked Have you smoked in the past 12 months: No Aproximately how many cigarettes per day: 0 - Alcohol/Substance Use Hx Alcohol Use: No History of Substance Use: reports: None - Social History ADL: Independent History of Recent Travel: No Home Medications - Allergies Allergies/Adverse Reactions: Allergies Allergy/AdvReac Type Severity Reaction Status Date / Time No Known Allergies Allergy Verified 09/30/19 07:27 - Home Medications Home Medications: Ambulatory Orders Nebulizer [Compact Compressor Nebulizer] 1 each MC QID PRN #1 each 02/08/19 Nifedipine [Nifedipine ER] 60 mg PO DAILY #30 tab.er.24 03/17/19 Aspirin Coated [Ecotrin -] 81 mg PO DAILY #0 tablet.ec 05/20/19 Atorvastatin Ca [Lipitor] 80 mg PO HS #90 tablet 05/20/19 hydrALAZINE HCL [Apresoline -] 25 mg PO BID #90 tablet 05/20/19 Family Medical History Family History: Denies Review of Systems Findings/Remarks: Sitting at the edge of the bed Denies any Chest pain or SOB - Review of Systems Constitutional: reports: No Symptoms Eyes: reports: No Symptoms HENT: reports: No Symptoms Neck: reports: No Symptoms Cardiovascular: reports: No Symptoms Respiratory: reports: No Symptoms Gastrointestinal: reports: No Symptoms Genitourinary: reports: No Symptoms Breasts: reports: No Symptoms Reported Musculoskeletal: reports: No Symptoms Integumentary: reports: No Symptoms Neurological: reports: No Symptoms Endocrine: reports: No Symptoms Hematology/Lymphatic: reports: No Symptoms Psychiatric: reports: No Symptoms Physical Examination Vital Signs: Vital Signs Temperature 99 F 10/01/19 06:00 Pulse Rate 62 10/01/19 06:00 Respiratory Rate 18 10/01/19 06:00 Blood Pressure 183/88 H 10/01/19 06:00 O2 Sat by Pulse Oximetry (%) 100 09/30/19 21:08 Constitutional: Yes: Well Nourished, No Distress, Calm Cardiovascular: Yes: Regular Rate and Rhythm Respiratory: Yes: Regular, CTA Bilaterally Gastrointestinal: Yes: Normal Bowel Sounds, Soft Renal/: Yes: WNL Musculoskeletal: Yes: WNL Extremities: Yes: WNL Edema: No Peripheral Pulses WNL: Yes Neurological: Yes: Alert, Oriented Psychiatric: Yes: Alert, Oriented Labs: CBC, BMP 10/01/19 05:48 10/01/19 05:48 Problem List - Problems (1) ESRD (end stage renal disease) Assessment/Plan: -See by nephrology -MWF Problems reviewed: Yes Code(s): N18.6 - END STAGE RENAL DISEASE (2) Heart failure Assessment/Plan: -Cardiology consult -Dialysis MWF - Problems reviewed: Yes Code(s): I50.9 - HEART FAILURE, UNSPECIFIED Qualifiers: Heart failure type: unspecified Heart failure chronicity: unspecified Qualified Code(s): I50.9 - Heart failure, unspecified (3) Hypertensive emergency Assessment/Plan: -BP improved after dialysis -Stress test upon cardiology discretion -Increase hydralazine to 75 mg po bid -Continue procardia 60 mg po daily Problems reviewed: Yes Code(s): I16.1 - HYPERTENSIVE EMERGENCY (4) SOB (shortness of breath) Assessment/Plan: -Pulmonary consult -2/2 to fluid overload -Dialysis Problems reviewed: Yes Code(s): R06.02 - SHORTNESS OF BREATH Assessment/Plan See problem list
[2019-10-01] MEDS: hydrALAZINE HCL 50 MG TABLET (FP) PO SCH ×2 (10:51→21:11)
[2019-10-01] MEDS: HEPARIN NA (PORCINE) 5,000 UNITS/ML 1ML VIAL SQ SCH ×2 (10:51→21:11)
[2019-10-01] MEDS: NIFEdipine E.R. 30 MG TABLET PO SCH (10:51)
--- NOTE | 2019-10-01 11:32 | CON.CARD ---
Consult Consult Specialty:: cardiology Reason for Consultation:: HTN; ESRD - History of Present Illness Chief Complaint: Pt A&Ox3; anxious; no chest pain presently. History of Present Illness: Mr. Chacon (. [facility]) is a 64yo man with a PMH of ESRD (m/w/f), CAD (2011 stress MIBI: no ischemia), HTN, HLD, DM, diastolic CHF, who presents after a high BP reading at home. States he took his BP meds, it did not come down, so he came in. Complains of frontal intermittent headache and blurry vision for one day, as well as cough productive of clear sputum, shortness of breath, central chest pain when coughing, and abdominal pain when coughing for one week. Also complains of left hand numbness/tingling. Headache was not maximal or sudden in onset, no fevers or chills, associated with photophobia but not phonophobia, and feels different from a normal headache for him. The chest pain is currently present, not exertional or relieved by rest, not worse with position or deep breaths, and is worse when he coughs. No weakness, n/v, o rthopnea, decreased exercise tolerance, dysuria, hematuria, diarrhea, constipation. PMD: Dr. Adarsh Fairchild - History Source History Provided By: Patient, Medical Record - Past Medical History Cardio/Vascular: Yes: CAD, CHF (diastolic ), HTN, Hyperlipdemia Pulmonary: Yes: Asthma Renal/: Yes: Renal Inusuff, Hemodialysis, Renal Calculi Psych: Yes: Anxiety Endocrine: Yes: Diabetes Mellitus - Past Surgical History Past Surgical History: Yes: AV Fistula/Graft - Alcohol/Substance Use Hx Alcohol Use: No History of Substance Use: reports: None - Smoking History Smoking history: Never smoked Have you smoked in the past 12 months: No Aproximately how many cigarettes per day: 0 - Social History ADL: Independent History of Recent Travel: No Home Medications - Allergies Allergies/Adverse Reactions: Allergies Allergy/AdvReac Type Severity Reaction Status Date / Time No Known Allergies Allergy Verified 09/30/19 07:27 - Home Medications Home Medications: Ambulatory Orders Nebulizer [Compact Compressor Nebulizer] 1 each MC QID PRN #1 each 02/08/19 Nifedipine [Nifedipine ER] 60 mg PO DAILY #30 tab.er.24 03/17/19 Aspirin Coated [Ecotrin -] 81 mg PO DAILY #0 tablet.ec 05/20/19 Atorvastatin Ca [Lipitor] 80 mg PO HS #90 tablet 05/20/19 hydrALAZINE HCL [Apresoline -] 25 mg PO BID #90 tablet 05/20/19 Albuterol 2.5/Ipratropium 0.5 [Duoneb -] 1 amp NEB RQID amp 10/03/19 Family Medical History Family History: Denies Review of Systems - Review of Systems Constitutional: reports: No Symptoms Eyes: reports: No Symptoms HENT: reports: No Symptoms Neck: reports: No Symptoms Cardiovascular: reports: Chest Pain, Shortness of Breath Respiratory: reports: SOB Genitourinary: reports: No Symptoms Breasts: reports: No Symptoms Reported Musculoskeletal: reports: No Symptoms Integumentary: reports: No Symptoms Neurological: reports: No Symptoms Endocrine: reports: No Symptoms Hematology/Lymphatic: reports: No Symptoms Psychiatric: reports: Anxiety - Risk Factors Known Risk Factors: Yes: Age, Gender, Hypercholesterolemia, Hypertension, Other (ESRD) Vital Signs: Vital Signs Temperature 99 F 10/01/19 06:00 Pulse Rate 62 10/01/19 06:00 Respiratory Rate 18 10/01/19 06:00 Blood Pressure 183/88 H 10/01/19 06:00 O2 Sat by Pulse Oximetry (%) 100 09/30/19 21:08 Constitutional: Yes: Anxious Eyes: Yes: WNL HENT: Yes: WNL Neck: Yes: WNL Respiratory: Yes: WNL Gastrointestinal: Yes: WNL Renal/: Yes: WNL Cardiovascular: Yes: Regular Rate and Rhythm JVD: No Carotid Bruit: No PMI: Non-Displaced Heart Sounds: Yes: S1, S2, S4 Murmur: Yes: Systolic Murmur, Grade 1 Musculoskeletal: Yes: Muscle Weakness Extremities: Yes: WNL Edema: No Peripheral Pulses WNL: Yes Integumentary: Yes: Other Neurological: Yes: WNL Psychiatric: Yes: Alert, Oriented, Other - Other Data Labs, Other Data: CBC, BMP 10/01/19 05:48 10/01/19 05:48 INR, PTT INR 0.97 (0.83-1.09) 09/30/19 09:00 Troponin, BNP 09/30/19 10/01/19 16:00 05:48 Troponin I 0.06 H 0.06 H Troponin, BNP 09/30/19 10/01/19 16:00 05:48 Troponin I 0.06 H 0.06 H Imaging - Results Chest X-ray: Image Reviewed EKG: Image Reviewed Assessment/Plan Uncontrolled HTN ESRD diastolic CHF (ECHO: normal LVEF; moderate LAE; mild MR). chronic elevation of TNI (since at least 2013), with multiple contributors to demand ischemia. EKG: sinus bradycardia (Stress MIBI 2011 negative for ischemia) HLD Plan: Increase hydralazine to 75 mg bid; continue nifedipine 60 mg daily. Serial BP. s/p hemodialysis, with improvement in pulmonary congestion F/u BUn/Cr, electrolyes, Is and Os, daily weight. Plan on stress MIBI when stable.
--- NOTE | 2019-10-01 12:09 | EKG ---
Test Reason : Blood Pressure : / mmHG Vent. Rate : 056 BPM Atrial Rate : 056 BPM P-R Int : 158 ms QRS Dur : 094 ms QT Int : 492 ms P-R-T Axes : -15 030 213 degrees QTc Int : 474 ms SINUS BRADYCARDIA VOLTAGE CRITERIA FOR LEFT VENTRICULAR HYPERTROPHY CANNOT RULE OUT SEPTAL INFARCT (CITED ON OR BEFORE 30-SEP-2019) T WAVE ABNORMALITY, CONSIDER INFEROLATERAL ISCHEMIA ABNORMAL ECG WHEN COMPARED WITH ECG OF 30-SEP-2019 14:40, SERIAL CHANGES OF EVOLVING SEPTAL INFARCT PRESENT Confirmed by David Styles MD ([id number]) on 10/01/2019 12:08:49 PM Referred By: Aren EDWARDS Confirmed By:David Styles MD
[2019-10-01] MEDS: ALBUTEROL SO4 2.5/IPRATROPIUM 0.5 INH SOL 3 ML VIAL.NEB. NEB SCH ×3 (12:22→20:30)
[2019-10-01] MEDS ORDERED: hydrALAZINE HCL 25 MG TABLET (FP) PO ONE (13:15)
[2019-10-01] MEDS ORDERED: SODIUM CHLORIDE 250 ML IV PRN (13:41)
--- NOTE | 2019-10-01 13:41 | PN ---
Progress Note, Physician History of Present Illness: Pt seen and examined at bedside. He is awake and alert. He denies chest pain. - Current Medication List Current Medications: Active Medications Albuterol/Ipratropium (Duoneb -) 1 amp NEB RQID VONNIE Atorvastatin Calcium (Lipitor -) 80 mg PO HS [facility] Last Admin: 09/30/19 21:10 Dose: 80 mg Documented by: Heparin Sodium (Porcine) (Heparin -) 5,000 unit SQ BID [facility] Last Admin: 10/01/19 10:51 Dose: 5,000 unit Documented by: Hydralazine HCl (Apresoline -) 75 mg PO BID [facility] Sodium Chloride (Normal Saline -) 250 mls @ 3,000 mls/hr IV PRN PRN PRN Reason: Hypotension during Dialysis Stop: 10/01/19 11:16 Nifedipine (Procardia Xl -) 60 mg PO DAILY [facility] Last Admin: 10/01/19 10:51 Dose: 60 mg Documented by: - Objective Vital Signs: Vital Signs Temperature 99 F 10/01/19 06:00 Pulse Rate 62 10/01/19 06:00 Respiratory Rate 18 10/01/19 06:00 Blood Pressure 183/88 H 10/01/19 06:00 O2 Sat by Pulse Oximetry (%) 100 09/30/19 21:08 Constitutional: Yes: Calm Eyes: Yes: Conjunctiva Clear Cardiovascular: Yes: S1, S2 Respiratory: Yes: CTA Bilaterally Gastrointestinal: Yes: Soft Genitourinary: Yes: WNL Musculoskeletal: Yes: WNL Edema: No Neurological: Yes: Oriented Psychiatric: Yes: Oriented Labs: CBC, BMP 10/01/19 05:48 10/01/19 05:48 INR, PTT INR 0.97 (0.83-1.09) 09/30/19 09:00 Problem List - Problems (1) ESRD (end stage renal disease) Code(s): N18.6 - END STAGE RENAL DISEASE (2) Hyperkalemia Code(s): E87.5 - HYPERKALEMIA (3) Hypertensive emergency Code(s): I16.1 - HYPERTENSIVE EMERGENCY Assessment/Plan Current Medications Generic Name Dose Route Start Last Admin Trade Name Freq PRN Reason Stop Dose Admin Albuterol/Ipratropium 1 amp 10/01/19 12:00 Duoneb - NEB RQID VONNIE Atorvastatin Calcium 80 mg 09/30/19 22:00 09/30/19 21:10 Lipitor - PO 80 mg HS VONNIE Administration Heparin Sodium (Porcine) 5,000 unit 09/30/19 22:00 10/01/19 10:51 Heparin - SQ 5,000 unit BID VONNIE Administration Hydralazine HCl 75 mg 10/01/19 13:17 Apresoline - PO BID VONNIE Sodium Chloride 250 mls @ 3,000 mls/hr 09/30/19 11:16 Normal Saline - IV 10/01/19 11:16 PRN PRN Hypotension during Dialysis Nifedipine 60 mg 09/30/19 14:45 10/01/19 10:51 Procardia Xl - PO 60 mg DAILY VONNIE Administration Impression 1. ESRD 2. hypertensive emergency 3. hyperkalemia 4. anemia 5. DM 6. r/o covid 7. chest pain Plan - cardio input appreciated - HD tomorrow - renal diet - monitor bp - hydralazine increased to 75 mg
[2019-10-01] MEDS: ATORVASTATIN CA 80 MG TABLET (FP) PO SCH (21:11)
[2019-10-02] MEDS: ALBUTEROL SO4 2.5/IPRATROPIUM 0.5 INH SOL 3 ML VIAL.NEB. NEB SCH ×4 (07:30→20:33)
[2019-10-02] MEDS: hydrALAZINE HCL 50 MG TABLET (FP) PO SCH ×2 (09:13→21:24)
[2019-10-02] MEDS: HEPARIN NA (PORCINE) 5,000 UNITS/ML 1ML VIAL SQ SCH ×2 (09:14→21:20)
[2019-10-02] MEDS: NIFEdipine E.R. 30 MG TABLET PO SCH (09:15)
--- NOTE | 2019-10-02 10:31 | DS ---
Physical Examination Vital Signs: Vital Signs Temperature 98.2 F 10/02/19 05:57 Pulse Rate 95 H 10/02/19 09:50 Respiratory Rate 16 10/02/19 09:50 Blood Pressure 144/62 10/02/19 09:50 O2 Sat by Pulse Oximetry (%) 98 10/02/19 09:00 Findings/Remarks: Pt is a 64 year old male with pmhx of esrd (MW), cad, htn, hld, dm who presents to the ER complaining of elevated bp reading at home. He also complains of chest pain. he says that the pain was dull and non radiating. He currently does not hawley ve the pain. He denies shortness of breath at rest. He denies fevers or chills. He last had HD on Monday. He says that he took his bp meds. (1) ESRD (end stage renal disease) Assessment/Plan: -See by nephrology -[facility] -HD today Problems reviewed: Yes Code(s): N18.6 - END STAGE RENAL DISEASE (2) Heart failure Assessment/Plan: -Cardiology consult -Dialysis [facility] -Continue procardia + Hydralazine Problems reviewed: Yes Code(s): I50.9 - HEART FAILURE, UNSPECIFIED Qualifiers: Heart failure type: unspecified Heart failure chronicity: unspecified Qualified Code(s): I50.9 - Heart failure, unspecified (3) Hypertensive emergency Assessment/Plan: -BP improved after dialysis -Stress test upon cardiology discretion -Continue hydralazine to 75 mg po bid -Continue procardia 60 mg po daily Problems reviewed: Yes Code(s): I16.1 - HYPERTENSIVE EMERGENCY (4) SOB (shortness of breath) Assessment/Plan: -Pulmonary consult -2/2 to fluid overload -Dialysis -Stress test outpatient Problems reviewed: Yes Code(s): R06.02 - SHORTNESS OF BREATH Assessment/Plan See problem list Constitutional: Yes: Well Nourished, No Distress, Calm Cardiovascular: Yes: Regular Rate and Rhythm Respiratory: Yes: Regular, CTA Bilaterally Gastrointestinal: Yes: Normal Bowel Sounds, Soft Renal/: Yes: Oliguria Musculoskeletal: Yes: WNL Extremities: Yes: WNL Edema: No Peripheral Pulses WNL: Yes Neurological: Yes: Alert, Oriented Psychiatric: Yes: Alert, Oriented Labs: CBC, BMP 10/01/19 05:48 10/01/19 05:48 Discharge Summary Problems reviewed: Yes Reason For Visit: HYPOXIA END STAGE RENAL DISEASE HYPERKALEMIA Current Active Problems ESRD (end stage renal disease) (Acute) Heart failure (Acute) Hyperkalemia (Acute) Hypertensive emergency (Acute) Condition: Stable - Instructions Referrals: Adarsh Fairchild [Primary Care Provider] - Disposition: HOME - Home Medications Comprehensive Discharge Medication List: Ambulatory Orders Nebulizer [Compact Compressor Nebulizer] 1 each QID PRN #1 each 02/08/19 Nifedipine [Nifedipine ER] 60 mg PO DAILY #30 tab.er.24 03/17/19 Aspirin Coated [Ecotrin -] 81 mg PO DAILY #0 tablet.ec 05/20/19 Atorvastatin Ca [Lipitor] 80 mg PO HS #90 tablet 05/20/19 hydrALAZINE HCL [Apresoline -] 25 mg PO BID #90 tablet 05/20/19 Prescription Drug Monitoring Program (I-STOP) results: I-STOP reviewed and no issues identified
--- NOTE | 2019-10-02 10:38 | PN ---
Progress Note, Physician History of Present Illness: Mr. Chacon is a 64yo man with a PMH of ESRD (m/w/f), CAD (2012 stress MIBI: no ischemia), HTN, HLD, DM, diastolic CHF, who presents after a high BP reading at home. States he took his BP meds, it did not come down, so he came in. Complains of frontal intermittent headache and blurry vision for one day, as well as cough productive of clear sputum, shortness of breath, central chest pain when coughing, and abdominal pain when coughing for one week. Also complains of left hand numbness/tingling. Headache was not maximal or sudden in onset, no fevers or chills, associated with photophobia but not phonophobia, and feels different from a normal headache for him. The chest pain is currently present, not exertional or relieved by rest, not worse with position or deep breaths, and is worse when he coughs. No weakness, n/v, orthopnea, decreased exercise tolerance, dysuria, hematuria, diarrhea, constipation. - Current Medication List Current Medications: Active Medications Albuterol/Ipratropium (Duoneb -) 1 amp NEB RQID [facility] Last Admin: 10/02/19 07:30 Dose: 1 amp Documented by: Atorvastatin Calcium (Lipitor -) 80 mg PO HS [facility] Last Admin: 10/01/19 21:11 Dose: 80 mg Documented by: Heparin Sodium (Porcine) (Heparin -) 5,000 unit SQ BID [facility] Last Admin: 10/02/19 09:14 Dose: 5,000 unit Documented by: Heparin Sodium (Porcine) (Heparin -) 1,000 unit IVPUSH ONCE ONE Stop: 10/02/19 13:42 Hydralazine HCl (Apresoline -) 75 mg PO BID [facility] Last Admin: 10/02/19 09:13 Dose: 75 mg Documented by: Sodium Chloride (Normal Saline -) 250 mls @ 3,000 mls/hr IV PRN PRN PRN Reason: Hypotension during Dialysis Stop: 10/02/19 13:41 Nifedipine (Procardia Xl -) 60 mg PO DAILY [facility] [place] Last Admin: 10/02/19 09:15 Dose: 60 mg Documented by: - Objective Vital Signs: Vital Signs Temperature 98.2 F 10/02/19 05:57 Pulse Rate 95 H 10/02/19 09:50 Respiratory Rate 16 10/02/19 09:50 Blood Pressure 144/62 10/02/19 09:50 O2 Sat by Pulse Oximetry (%) 98 10/02/19 09:00 Eyes: Yes: WNL, Conjunctiva Clear, EOM Intact HENT: Yes: WNL, Atraumatic, Normocephalic Neck: Yes: WNL, Supple, Trachea Midline Cardiovascular: Yes: WNL, Regular Rate and Rhythm Respiratory: Yes: WNL, Regular, CTA Bilaterally Gastrointestinal: Yes: WNL, Normal Bowel Sounds Genitourinary: Yes: WNL Musculoskeletal: Yes: WNL Extremities: Yes: WNL Edema: No Integumentary: Yes: WNL Neurological: Yes: WNL, Alert, Oriented ...Motor Strength: WNL Psychiatric: Yes: WNL Labs: CBC, BMP 10/01/19 05:48 10/01/19 05:48 INR, PTT INR 0.97 (0.83-1.09) 09/30/19 09:00 Assessment/Plan Uncontrolled HTN ESRD diastolic CHF (ECHO: normal LVEF; moderate LAE; mild MR). chronic elevation of TNI (since at least 2013), with multiple contributors to demand ischemia. EKG: sinus bradycardia (Stress MIBI 2011 negative for ischemia) HLD Plan: Increase hydralazine to 75 mg bid; continue nifedipine 60 mg daily. Serial BP. s/p hemodialysis, with improvement in pulmonary congestion F/u BUn/Cr, electrolyes, Is and Os, daily weight. Stress MIBI in AM.
--- NOTE | 2019-10-02 11:15 | PN ---
Progress Note, Physician History of Present Illness: Pt seen and examined at bedside. he is awake and alert. He denies shortness of breath. - Current Medication List Current Medications: Active Medications Albuterol/Ipratropium (Duoneb -) 1 amp NEB RQID [facility] Last Admin: 10/02/19 07:30 Dose: 1 amp Documented by: Atorvastatin Calcium (Lipitor -) 80 mg PO HS [facility] Last Admin: 10/01/19 21:11 Dose: 80 mg Documented by: Heparin Sodium (Porcine) (Heparin -) 5,000 unit SQ BID [facility] Last Admin: 10/02/19 09:14 Dose: 5,000 unit Documented by: Heparin Sodium (Porcine) (Heparin -) 1,000 unit IVPUSH ONCE ONE Stop: 10/02/19 13:42 Hydralazine HCl (Apresoline -) 75 mg PO BID [facility] Last Admin: 10/02/19 09:13 Dose: 75 mg Documented by: Sodium Chloride (Normal Saline -) 250 mls @ 3,000 mls/hr IV PRN PRN PRN Reason: Hypotension during Dialysis Stop: 10/02/19 13:41 Nifedipine (Procardia Xl -) 60 mg PO DAILY [facility] Last Admin: 10/02/19 09:15 Dose: 60 mg Documented by: - Objective Vital Signs: Vital Signs Temperature 98.2 F 10/02/19 05:57 Pulse Rate 104 H 10/02/19 10:50 Respiratory Rate 19 10/02/19 10:50 Blood Pressure 148/82 10/02/19 10:50 O2 Sat by Pulse Oximetry (%) 98 10/02/19 09:00 Constitutional: Yes: Calm Eyes: Yes: Conjunctiva Clear HENT: Yes: Atraumatic Neck: Yes: Supple Cardiovascular: Yes: S1, S2 Respiratory: Yes: CTA Bilaterally Gastrointestinal: Yes: Soft Genitourinary: Yes: WNL Musculoskeletal: Yes: WNL Edema: No Integumentary: Yes: WNL Neurological: Yes: Oriented Psychiatric: Yes: Oriented Labs: CBC, BMP 10/01/19 05:48 10/01/19 05:48 INR, PTT INR 0.97 (0.83-1.09) 09/30/19 09:00 Problem List - Problems (1) ESRD (end stage renal disease) Code(s): N18.6 - END STAGE RENAL DISEASE (2) Hyperkalemia Code(s): E87.5 - HYPERKALEMIA (3) Hypertensive emergency Code(s): I16.1 - HYPERTENSIVE EMERGENCY Assessment/Plan Current Medications Generic Name Dose Route Start Last Admin Trade Name Freq PRN Reason Stop Dose Admin Albuterol/Ipratropium 1 amp 10/01/19 12:00 10/02/19 07:30 Duoneb - NEB 1 amp RQID VONNIE Administration Atorvastatin Calcium 80 mg 09/30/19 22:00 10/01/19 21:11 Lipitor - PO 80 mg HS VONNIE Administration Heparin Sodium (Porcine) 5,000 unit 09/30/19 22:00 10/02/19 09:14 Heparin - SQ 5,000 unit BID VONNIE Administration Heparin Sodium (Porcine) 1,000 unit 10/02/19 13:41 Heparin - IVPUSH 10/02/19 13:42 ONCE ONE Hydralazine HCl 75 mg 10/01/19 13:17 10/02/19 09:13 Apresoline - PO 75 mg BID VONNIE Administration Sodium Chloride 250 mls @ 3,000 mls/hr 10/01/19 13:41 Normal Saline - IV 10/02/19 13:41 PRN PRN Hypotension during Dialysis Nifedipine 60 mg 09/30/19 14:45 10/02/19 09:15 Procardia Xl - PO 60 mg DAILY VONNIE Administration Impression 1. ESRD 2. hypertensive emergency 3. hyperkalemia 4. anemia 5. DM 6. r/o covid 7. chest pain Plan - HD today - cardio follow up - monitor bp - renal diet - hydralazine increased to 75 mg - discussed with medical team
[2019-10-02 12:25] LABS: HEMATOCRIT 33.3 % (35.4-49); MCH 29.3 pg (25.7-33.7); MCHC 32.9 g/dl (32.0-35.9); MEAN PLT VOLUME 7.9 fl (7.5-11.1); PLATELET COUNT 176 K/MM3 (134-434); RBC 3.74 M/mm3 (4.00-5.60); RDW 19.1 % (11.9-15.9); WHITE BLOOD COUNT 8.8 K/mm3 (4.0-10.0)
[2019-10-02 12:44] LABS: ALBUMIN 3.2 g/dl (3.4-5.0); BILIRUBIN,TOTAL 0.6 mg/dL (0.2-1); BLOOD UREA NITROGEN 31.6 mg/dL (7-18); CALCIUM 8.9 mg/dL (8.5-10.1); CREATININE 5.8 mg/dL (0.55-1.3); POTASSIUM 3.5 mmol/L (3.5-5.1); TOT PROT 6.9 g/dl (6.4-8.2)
[2019-10-02] MEDS ORDERED: HEPARIN NA (PORCINE) 5,000 UNITS/ML 1ML VIAL IVPUSH ONE (13:41)
[2019-10-02] MEDS: ATORVASTATIN CA 80 MG TABLET (FP) PO SCH (21:21)
[2019-10-03] MEDS: ALBUTEROL SO4 2.5/IPRATROPIUM 0.5 INH SOL 3 ML VIAL.NEB. NEB SCH ×3 (07:20→15:15)
[2019-10-03] MEDS: hydrALAZINE HCL 50 MG TABLET (FP) PO SCH (08:46)
[2019-10-03] MEDS: NIFEdipine E.R. 30 MG TABLET PO SCH (08:46)
[2019-10-03] MEDS ORDERED: REGADENOSON 0.4 MG/5 ML PRE-FILLED SYRINGE IVPUSH ONE ×2 (11:18→11:30)
--- NOTE | 2019-10-03 12:00 | PN ---
Progress Note, Physician Chief Complaint: SOB Chest pain History of Present Illness: Last echo 05/02-unremarkable doing stress test at the moment - Current Medication List Current Medications: Active Medications Albuterol/Ipratropium (Duoneb -) 1 amp NEB RQID [facility] Last Admin: 10/03/19 11:24 Dose: Not Given Documented by: Atorvastatin Calcium (Lipitor -) 80 mg PO HS [facility] Last Admin: 10/02/19 21:21 Dose: 80 mg Documented by: Heparin Sodium (Porcine) (Heparin -) 5,000 unit SQ BID [facility] Last Admin: 10/02/19 21:20 Dose: 5,000 unit Documented by: Heparin Sodium (Porcine) (Heparin -) 1,000 unit IVPUSH ONCE ONE Stop: 10/02/19 13:42 Hydralazine HCl (Apresoline -) 75 mg PO BID [facility] Last Admin: 10/03/19 08:46 Dose: 75 mg Documented by: Sodium Chloride (Normal Saline -) 250 mls @ 3,000 mls/hr IV PRN PRN PRN Reason: Hypotension during Dialysis Stop: 10/02/19 13:41 Nifedipine (Procardia Xl -) 60 mg PO DAILY [facility] Last Admin: 10/03/19 08:46 Dose: 60 mg Documented by: - Objective Vital Signs: Vital Signs Temperature 98.4 F 10/03/19 08:39 Pulse Rate 78 10/03/19 08:39 Respiratory Rate 18 10/03/19 09:00 Blood Pressure 164/79 10/03/19 08:39 O2 Sat by Pulse Oximetry (%) 93 L 10/03/19 09:00 Constitutional: Yes: Well Nourished, No Distress, Calm Cardiovascular: Yes: Regular Rate and Rhythm Respiratory: Yes: Regular, CTA Bilaterally Gastrointestinal: Yes: Normal Bowel Sounds, Soft Genitourinary: Yes: WNL Musculoskeletal: Yes: WNL Extremities: Yes: WNL Edema: No Peripheral Pulses WNL: Yes Neurological: Yes: Alert, Oriented Psychiatric: Yes: Alert, Oriented Labs: CBC, BMP 10/02/19 11:40 10/02/19 11:40 INR, PTT INR 0.97 (0.83-1.09) 09/30/19 09:00 Problem List - Problems (1) ESRD (end stage renal disease) Assessment/Plan: -See by nephrology -MWF Problems reviewed: Yes Code(s): N18.6 - END STAGE RENAL DISEASE (2) Heart failure Assessment/Plan: -Cardiology consult -Dialysis MWF -Last echo 05/02-unremarkable -If stress test is negative- would d/c home with outpatient f/u Problems reviewed: Yes Code(s): I50.9 - HEART FAILURE, UNSPECIFIED Qualifiers: Heart failure type: unspecified Heart failure chronicity: unspecified Qualified Code(s): I50.9 - Heart failure, unspecified (3) Hypertensive emergency Assessment/Plan: -BP improved -Stress test -Increased hydralazine to 75 mg po bid -Continue procardia 60 mg po daily Problems reviewed: Yes Code(s): I16.1 - HYPERTENSIVE EMERGENCY (4) SOB (shortness of breath) Assessment/Plan: -resolved -Pulmonary consult -2/2 to fluid overload -Dialysis Problems reviewed: Yes Code(s): R06.02 - SHORTNESS OF BREATH Assessment/Plan See problem list
[2019-10-03] MEDS ORDERED: hydrALAZINE HCL 50 MG TABLET (FP) PO SCH (14:00)
[2019-10-03] MEDS ORDERED: SODIUM CHLORIDE 250 ML IV PRN (15:08)
--- NOTE | 2019-10-03 15:08 | PN ---
Progress Note, Physician History of Present Illness: Pt seen and examined at bedside. He is awake and alert. He denies chest pain. - Current Medication List Current Medications: Active Medications Albuterol/Ipratropium (Duoneb -) 1 amp NEB RQID [facility] Last Admin: 10/03/19 11:24 Dose: Not Given Documented by: Atorvastatin Calcium (Lipitor -) 80 mg PO HS [facility] Last Admin: 10/02/19 21:21 Dose: 80 mg Documented by: Heparin Sodium (Porcine) (Heparin -) 5,000 unit SQ BID [facility] Last Admin: 10/02/19 21:20 Dose: 5,000 unit Documented by: Heparin Sodium (Porcine) (Heparin -) 1,000 unit IVPUSH ONCE ONE Stop: 10/02/19 13:42 Hydralazine HCl (Apresoline -) 75 mg PO TID [facility] Sodium Chloride (Normal Saline -) 250 mls @ 3,000 mls/hr IV PRN PRN PRN Reason: Hypotension during Dialysis Stop: 10/02/19 13:41 Nifedipine (Procardia Xl -) 60 mg PO DAILY [facility] Last Admin: 10/03/19 08:46 Dose: 60 mg Documented by: - Objective Vital Signs: Vital Signs Temperature 98.4 F 10/03/19 08:39 Pulse Rate 78 10/03/19 08:39 Respiratory Rate 18 10/03/19 09:00 Blood Pressure 164/79 10/03/19 08:39 O2 Sat by Pulse Oximetry (%) 93 L 10/03/19 09:00 Constitutional: Yes: Calm Eyes: Yes: Conjunctiva Clear HENT: Yes: Atraumatic Cardiovascular: Yes: S1, S2 Respiratory: Yes: CTA Bilaterally Gastrointestinal: Yes: Soft Genitourinary: Yes: WNL Musculoskeletal: Yes: WNL Edema: No Neurological: Yes: Oriented Psychiatric: Yes: Oriented Labs: CBC, BMP 10/02/19 11:40 10/02/19 11:40 INR, PTT INR 0.97 (0.83-1.09) 09/30/19 09:00 Problem List - Problems (1) ESRD (end stage renal disease) Code(s): N18.6 - END STAGE RENAL DISEASE (2) Hyperkalemia Code(s): E87.5 - HYPERKALEMIA (3) Hypertensive emergency Code(s): I16.1 - HYPERTENSIVE EMERGENCY Assessment/Plan Current Medications Generic Name Dose Route Start Last Admin Trade Name Zuly PRN Reason Stop Dose Admin Albuterol/Ipratropium 1 amp 10/01/19 12:00 10/03/19 11:24 Duoneb - NEB Not Given RQID VONNIE Atorvastatin Calcium 80 mg 09/30/19 22:00 10/02/19 21:21 Lipitor - PO 80 mg HS VONNIE Administration Heparin Sodium (Porcine) 5,000 unit 09/30/19 22:00 10/02/19 21:20 Heparin - SQ 5,000 unit BID VONNIE Administration Heparin Sodium (Porcine) 1,000 unit 10/02/19 13:41 Heparin - IVPUSH 10/02/19 13:42 ONCE ONE Hydralazine HCl 75 mg 10/03/19 14:00 Apresoline - PO TID [facility]ONNIE Sodium Chloride 250 mls @ 3,000 mls/hr 10/01/19 13:41 Normal Saline - IV 10/02/19 13:41 PRN PRN Hypotension during Dialysis Nifedipine 60 mg 09/30/19 14:45 10/03/19 08:46 Procardia Xl - PO 60 mg DAILY [facility]ONN[facility] Administration Impression 1. ESRD 2. hypertensive emergency 3. hyperkalemia 4. anemia 5. DM 6. r/o covid 7. chest pain Plan - HD tomorrow - cardio follow up for stress test results - hydralalzine 75 tid - monitor bp - increase procardia dose
[2019-10-03 15:13] VITALS: BP 158/72; PULSE 66; TEMP 97.9
[2019-10-03] MEDS ORDERED: NIFEdipine E.R. 90 MG TABLET PO SCH (15:15)
--- NOTE | 2019-10-03 15:21 | PN ---
Progress Note, Physician Chief Complaint: Pt A&Ox3; asymptomatic History of Present Illness: Mr. Chacon (. [facility]) is a 64yo man with a PMH of ESRD (m/w/f), CAD (2012 stress MIBI: no ischemia), HTN, HLD, DM, diastolic CHF, who presents after a high BP reading at home. States he took his BP meds, it did not come down, so he came in. Complains of frontal intermittent headache and blurry vision for one day, as well as cough productive of clear sputum, shortness of breath, central chest pain when coughing, and abdominal pain when coughing for one week. Also complains of left hand numbness/tingling. Headache was not maximal or sudden in onset, no fevers or chills, associated with photophobia but not phonophobia, and feels different from a normal headache for him. The chest pain is currently present, not exertional or relieved by rest, not worse with position or deep breaths, and is worse when he coughs. No weakness, n/v, orthopnea, decreased exercise tolerance, dysuria, hematuria, diarrhea, constipation. PMD: Dr. Adarsh Fairchild - Current Medication List Current Medications: Active Medications Albuterol/Ipratropium (Duoneb -) 1 amp NEB RQID [facility] Last Admin: 10/03/19 11:24 Dose: Not Given Documented by: Atorvastatin Calcium (Lipitor -) 80 mg PO HS [facility] Last Admin: 10/02/19 21:21 Dose: 80 mg Documented by: Heparin Sodium (Porcine) (Heparin -) 5,000 unit SQ BID [facility] Last Admin: 10/02/19 21:20 Dose: 5,000 unit Documented by: Heparin Sodium (Porcine) (Heparin -) 1,000 unit IVPUSH ONCE ONE Stop: 10/02/19 13:42 Hydralazine HCl (Apresoline -) 75 mg PO TID [facility] Sodium Chloride (Normal Saline -) 250 mls @ 3,000 mls/hr IV PRN PRN PRN Reason: Hypotension during Dialysis Stop: 10/02/19 13:41 Sodium Chloride (Normal Saline -) 250 mls @ 3,000 mls/hr IV PRN PRN PRN Reason: Hypotension during Dialysis Stop: 10/04/19 15:08 Nifedipine (Procardia Xl -) 90 mg PO DAILY VONNIE - Objective Vital Signs: Vital Signs Temperature 97.9 F 10/03/19 14:00 Pulse Rate 66 10/03/19 14:00 Respiratory Rate 18 10/03/19 09:00 Blood Pressure 158/72 10/03/19 14:00 O2 Sat by Pulse Oximetry (%) 93 L 10/03/19 09:00 Constitutional: Yes: Anxious Eyes: Yes: WNL HENT: Yes: WNL Neck: Yes: WNL Cardiovascular: Yes: Regular Rate and Rhythm, Bradycardia, S1, S2, S4 Respiratory: Yes: WNL Gastrointestinal: Yes: WNL, Abdomen, Obese (truncal obesity) ...Rectal Exam: Yes: Deferred Genitourinary: No: Anuria Breast(s): Yes: WNL Musculoskeletal: Yes: Muscle Weakness Extremities: Yes: Cool Edema: No Peripheral Pulses WNL: Yes Integumentary: Yes: WNL Neurological: Yes: WNL Psychiatric: Yes: WNL Labs: CBC, BMP 10/02/19 11:40 10/02/19 11:40 INR, PTT INR 0.97 (0.83-1.09) 09/30/19 09:00 - ....Imaging Other: Image Reviewed (stress Lexiscan MIBI: negative for ischemia) Assessment/Plan Uncontrolled HTN ESRD diastolic CHF (ECHO: normal LVEF; moderate LAE; mild MR). chronic elevation of TNI (since at least 2013), with multiple contributors to demand ischemia, including renal failure, CHF. EKG: sinus bradycardia (Stress MIBI 2011 negative for ischemia); and now, negative again today. HLD Plan: Stress Lexiscan today negative for myocardial ischemia. Increased hydralazine to 75 mg bid; continue nifedipine 60 mg daily. Serial BP. s/p hemodialysis, with improvement in pulmonary congestion F/u BUn/Cr, electrolyes, Is and Os, daily weight. Discussed pt with his daughter. Plan to acquire a BP home monitor, in addition to readings during HD, for better control. Plan to follow heart-healthy diet, with increase exercise and reduction in weight.
== END 2019-10-03 15:30 | disposition home or self-care (01) | DRG 304 ==
LOC: JER 07:02 → JERBED 11:14 → J4W 15:10
PROVIDERS: ADMIT Family Medicine; ATTEND Family Medicine
PROC: 5A1D70Z Performance of Urinary Filtration, Intermittent, Less than 6 Hours Per Day (ICD-10-PCS; principal; 2019-09-30)
PROC: 5A1D70Z Performance of Urinary Filtration, Intermittent, Less than 6 Hours Per Day (ICD-10-PCS; 2019-10-02)
DX: I16.1 Hypertensive emergency (principal); N18.6 End stage renal disease; I50.32 Chronic diastolic (congestive) heart failure; I25.10 Atherosclerotic heart disease of native coronary artery without angina pectoris; E78.5 Hyperlipidemia, unspecified; E11.9 Type 2 diabetes mellitus without complications; I10 Essential (primary) hypertension; K59.09 Other constipation; R00.1 Bradycardia, unspecified; E87.5 Hyperkalemia; E66.9 Obesity, unspecified; D64.9 Anemia, unspecified; E87.70 Fluid overload, unspecified; R07.89 Other chest pain; R06.02 Shortness of breath; I13.2 Hypertensive heart and chronic kidney disease with heart failure and with stage 5 chronic kidney disease, or end stage renal disease; Z99.2 Dependence on renal dialysis; Z68.29 Body mass index [BMI] 29.0-29.9, adult
CPT/HCPCS: 36415; 70450-TC; 71045-TC-FY; 78452-TC; 80048; 80053; 82550; 82553; 83735; 83880; 84100; 84484; 85025; 85027; 85610; 86803; 87340; 90670; 93005; 93010; 93017; 94640; 99285-25; A9502; J1644; J2785; U0003

== ENCOUNTER 2019-11-25 16:26 | Emergency (ER) | payer OTHER ==
--- OUTSIDE RECORDS SUMMARY | 2019-11-25 16:37 | XMS ---
:1955 Author Organization [facility] Care Team Providers Name Role Phone ED STAFF PHYSICIAN, STAFF Unavailable Unavailable CHERELLE BUCK Unavailable Unavailable HINDUISM, HUMAYUN Unavailable Unavailable EDER MC Unavailable Unavailable ANASTACIO GOODSON Unavailable Unavailable SASHA NEGRON Unavailable Unavailable Re-disclosure Warning The records that you are about to access may contain information from federally- assisted alcohol or drug abuse programs. If such information is present, then the following federally mandated warning applies: This information has been disclosed to you from records protected by federal confidentiality rules (42 CFR part 2). The federal rules prohibit you from making any further disclosure of this information unless further disclosure is expressly permitted by the written consent of the person to whom it pertains or as otherwise permitted by 42 CFR part 2. A general authorization for the release of medical or other information is NOT sufficient for this purpose. The Federal rules restrict any use of the information to criminally investigate or prosecute any alcohol or drug abuse patient.The records that you are about to access may contain highly sensitive health information, the redisclosure of which is protected by Article 27-F of the [facility] Public Health law. If you continue you may haveaccess to information: Regarding HIV / AIDS; Provided by facilities licensed or operated by the [facility] Office of Mental Health; or Provided by the [facility] Office for People With Developmental Disabilities. If such information is present, then the following [facility] mandated warning applies: This information has been disclosed to you from confidential records which are protected by state law. State law prohibits you from making any further disclosure of this information without the specific written consent of the person to whom it pertains, or as otherwise permitted by law. Any unauthorized further disclosure in violation of state law may result in a fine or senior care sentence or both. A general authorization for the release of medical or other information is NOT sufficient authorization for further disclosure. Encounters Encounter Providers Location Date Indications Data Source(s ) [facility]: SU[facility]: [facility] HEBER, EDT [employer] THOMASReferrer: CHERELLE BUCK Outpatient Attender: HEBER, [facility]: 12[facility] AM [facility] are HEBER, EDT [employer] CHERELLEReferrer: CHERELLE BUCK Outpatient Attender: HEBER, [facility]14[facility]2019 [facility]: 04:58:00 AM Health C are HEBER [employer] CHERELLEReferrer: CHERELLE BUCK Outpatient Attender: HEBER, 08/14/2019 [facility] THOMASAdmitter: 03:44:00 AM Health C are HEBER [employer] THOMASReferrer: CHERELLE BUCK Outpatient Attender: HEBER, 07/15/2019 [facility] THOMASAdmitter: 01:51:00 PM Health C are HEBER, EDT [employer] THOMASReferrer: CHERELLE BUCK Outpatient Attender: HEBER, [facility]/14/2019 [facility] 11:39[facility]00 AM Health C are HEBER [employer] CHERELLEReferrer: CHERELLE BUCK Outpatient Attender: HEBER, 05/15/2019 [facility] 03:24:00 AM Health C are HEBER EDT [employer] THOMASReferrer: CHERELLE BUCK Outpatient Attender: HEBER, 04/14/2019 [facility]: 04:07:00 AM Health C are HEBER, EST [employer] CHERELLEReferrer: CHERELLE BUCK Outpatient Attender: HEBER, 03/16/2019 [facility]: 02:52:00 PM Health C are HEBER, EST [employer] CHERELLEReferrer: CHERELLE BUCK Inpatient Attender: EDER H-HAL6 02/20/2019 [facility] ankur YANELIS 10:05:00 AM Medical Lilliam FLYNNttender: EST - STAFF ED STAFF 03/01/2019 PHYSICIANAdmitter: 03:55:00 PM EDER ESCOBEDO AKINOReferrer: EDER GAINES Patient discharged. Outpatient Attender: HINDUISM, 02/14/2019 11:37:00 N18.6 [facility] HINDUISM[facility] AM [facility] HUMAYUNReferrer: Lianne NEGRON N18.6 Outpatient Attender: HEBER, 02/13/2019 11:31:00 [facility] THOMASReferrer: HEBER Co [employer] CHERELLE Outpatient Attender: HEBER, 01/13/2019 12:39:00 [facility]BER[facility] PM EST [facility] THOMASReferrer: HEBER Co rporation CHERELLE Outpatient Attender: ANASTACIO Dial 12/27/2018 11:33:00 [facility] CARRENO EST [facility] GOODSON Outpatient Attender: HEBER, 12/14/2018 10:14:00 [facility] HEBER, AM EDT [facility] THOMASReferrer: HEBER Co rpor[employer] CHERELLE Outpatient Attender: HEBER, 11/13/2018 11:40:00 [facility] DIFLO, AM EDT [facility] THOMASReferrer: HEBER Co rporation CHERELLE Outpatient Attender: HEBER, 10/14/2018 05:00:00 [facility] SUJEYLO, AM EDT [facility] THOMASReferrer: DIFLOTerry Insurance Providers Payer name Policy type Policy ID Covered Covered green party's Policy P darwin / Coverage green party ID relationship to [facility] type [place] MEDICAID [id number] SP [id number] MEDICARE [id number] SP [id number] 34 4 MEDICAID [id number] SP [id number] MEDICARE [id number] SP [id number] 34 4 HIP MEDICAID [id number] SP [id number] MEDICAID OF [id number] 1 [id number] [place] [id number] 1 [id number] PART B 4 DOWNSTATE W [id number] 01 [id number] M [id number] 01 [id number] 34 4 M [id number] 01 [id number] 34 4 M [id number] 01 [id number] 34 4 W [id number] 01 [id number] M [id number] 01 [id number] T Problems, Conditions, and Diagnoses Code Display Name Description Problem Type Effective Data Sour ce(s) Dates N18.6 End stage renal END STAGE RENAL Diagnosis 11/14/2019 [place] disease DISEASE 12:10:00 AM [facility] on E78.5 Hyperlipidemia, HYPERLIPIDEMIA, Diagnosis 03/01/2019 [facility] unspecified UNSPECIFIED 03:55:[address] EST D63.1 Anemia in chronic ANEMIA IN CHRONIC Diagnosis 03/01/2019 [facility] kidney disease KIDNEY DISEASE 03:55:00 PM [facility] EST E11.22 Type 2 diabetes TYPE 2 DIABETES Diagnosis 03/01/2019 [facility] mellitus with MELLITUS W 03:55:00 PM Medical Ce nter diabetic chronic DIABETIC CHRONIC EST kidney disease KIDNEY DISEASE I12.0 Hypertensive HYP CHR KIDNEY Diagnosis 03/01/2019 [facility] DISEASE W STAGE 5 03:55:00 PM Ri dical Center disease with stage CHR KIDNEY EST 5 chronic kidney DISEASE OR ESRD disease or end stage renal disease B37.89 Other sites of OTHER SITES OF Diagnosis 03/01/2019 [facility] candidiasis CANDIDIASIS 03:55:[address] EST N18.6 End stage renal END STAGE RENAL Diagnosis 03/01/2019 [facility] disease DISEASE 03:55:00 PM Medical Cent[facility] r EST J81.0 Acute pulmonary ACUTE PULMONARY Diagnosis 03/01/2019 [facility] edema EDEMA 03:55:00 PM Medical Cent[facility] r EST 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 03/01/2019 [facility] renal dialysis RENAL DIALYSIS 03:55:00 PM Medic al Center EST R04.2 Hemoptysis HEMOPTYSIS Diagnosis 02/20/2019 [facility] 10:05:00 AM Medical Cente r EST I50.9 Heart failure, HEART FAILURE, Diagnosis 12/27/2018 [facility] unspecified UNSPECIFIED 11:33:[address] EST J18.9 Pneumonia, PNEUMONIA, Diagnosis 12/27/2018 [facility] unspecified UNSPECIFIED 11:33:[address] organism ORGANISM EST Results ID Date Data Source [id number] 09/30/2019 09:30:00 AM EDT [facility] Name Value Range Interpretation Description Data Sup porting Code Source(s) Document(s ) SARS [facility] coronavirus 2 RNA This lab was ordered by [facility] and reported by [facility]. ID Date Data Source [id number] 08/19/2019 03:31:00 PM EDT [facility] Name Value Range Interpretation Code Description Data Ruth rce(s) Supporting Document(s ) SARS-CoV-2 [facility] Ql ASIM+probe This lab was ordered by [facility] and reported by [facility]. ID Date Data Source [id number] 07/25/2019 09:54:00 AM EDT [facility] Name Value Range Interpretation Code Description Data Ruth rce(s) Supporting Document(s ) SARS-CoV-2 [facility] Ql ASIM+probe This lab was ordered by [facility] and reported by [facility]. ID Date Data Source [id number] 05/14/2019 12:00:00 AM EDT [facility] Name Value Range Interpretation Code Description Data Ruth rce(s) Supporting Document(s ) 2019-nCoV [facility] N XXX Ql ASIM N2 This lab was ordered by [facility] and reported by [facility]. ID Date Data Source HematologyRou.[id number] 03/01/2019 05:38:00 AM EST [facility] 0500 Name Value Range Interpretation Description Data Sup porting Code Source(s) Document(s ) Hematocrit 41.0-53. Below low normal <content Saint [Volume 0 styleCode="[facility] Fraction] of ">Hematocrit Medical Blood by </content>24.0 Center Automated count % L<content styleCode="Ital ics"> (41.0-53.0 %)</content> Hemoglobin 13.5-17. Below low normal <content Saint [Mass/volume] in 5 styleCode="Bold [facility] Blood ">Hemoglobin Medical </content>7.8 Center G/DL L<content styleCode="Ital ics"> (13.5-17.5 G/DL)</content> Leukocytes 4.4-11.0 <content Saint [#/volume] in styleCode="Bold [facility] Blood by ">White Blood Medical Automated count Cell Count Center </content>8.52 KCUMM<content styleCode="Ital ics"> (4.4-11.0 KCUMM)</content > Erythrocytes 4.4-5.9 Below low normal <content Saint [#/volume] in styleCode="Bold [facility] Blood by ">Red Blood Medical Automated count Cell Count Center </content>2.73 MCUMM L<content styleCode="Ital ics"> (4.4-5.9 MCUMM)</content > Erythrocyte mean 32.0-37. <content Saint corpuscular 0 styleCode="Baltazar [facility] hemoglobin ">Mean Corpus. Medical concentration Hgb Center [Mass/volume] by Concentration Automated count (MCHC) </content>32.5 G/DL<content styleCode="Ital ics"> (32.0-37.0 G/DL)</content> Erythrocyte 11.5-14. Above high <content Saint distribution 5 normal styleCode="Baltazar [facility]ou[facility] width [Ratio] by ">Red Cell Medical Automated count Distribution Center Width </content>17.0 % H<content styleCode="Ital ics"> (11.5-14.5 %)</content> Erythrocyte mean 80.0-100 <content [facility] corpuscular .0 styleCode="Bold [facility] volume [Entitic ">Mean Medical volume] by Corpuscular Center Automated count Volume </content>87.9 FL<content styleCode="Ital ics"> (80.0-100.0 FL)</content> Erythrocyte mean 26.0-34. <content Saint corpuscular 0 styleCode="Bold [facility] hemoglobin ">Mean Medical [Entitic mass] Corposcular Center by Automated Hemoglobin count </content>28.6 PG<content styleCode="Ital ics"> (26.0-34.0 PG)</content> UNK 0.0 <content Saint styleCode="Bold Javan ">Nucleated Red Medical Blood Cell Center Count </content>0.00 KCUMM<content styleCode="Ital ics"> (0.0 KCUMM)</content > Platelet mean 8.0-11.0 <content Saint volume [Entitic styleCode="Bold [facility] volume] in Blood ">Mean Platelet Medical by Automated Volume Center count </content>9.8 FL<content styleCode="Ital ics"> (8.0-11.0 FL)</content> Platelets 130-400 <content Saint [#/volume] in styleCode="Bold [facility] Blood by ">Platelet Medical Automated count Count Center </content>273 KCUMM<content styleCode="Ital ics"> (130-400 KCUMM)</content > UNK 0 <content Saint styleCode="Bold [facility] ">Nucleated Red Medical Blood Cell Center </content>0.0 /100<content styleCode="Ital ics"> (0 /100)</content> ID Date Data Source GFR(Creatinine).[id number] 03/01/2019 05:38:00 AM EST [facility] 0-0500 Name Value Range Interpretation Code Description Data Ruth rce(s) Supporting Document(s ) UNK > 60 Below low normal <content Psychiatric styleCode="Bold"> Medical Cent er EGFR </content>5 GFR L<content styleCode="Italic s"> (> 60 GFR)</content> ID Date Data Source Coagulation 03/01/2019 05:38:00 AM [facility].[id number] EST Name Value Range Interpretation Description Data Sup porting Code Source(s) Document(s ) UNK 9.0-13.0 <content Saint styleCode="Bold" [facility] >Protime Medical </content>11.6 Center SEC<content styleCode="Itali cs"> (9.0-13.0 SEC)</content> INR in 0.80-1.2 <content Saint Platelet poor 0 styleCode="Bold" [facility] plasma by >INR Medical Coagulation </content>1.05 Center assay #<content styleCode="Itali cs"> (0.80-1.20 #)</content> aPTT in 25.1-36. <content Saint Platelet poor 5 styleCode="Bold" [facility] plasma by >Partial Medical Coagulation Thromboplastin Center assay Time </content>35.0 SEC<content styleCode="Itali cs"> (25.1-36.5 SEC)</content> ID Date Data Source CHMROUTINECCDA.[id number] 03/01/2019 05:38:00 AM EST [facility] -0500 Name Value Range Interpretation Description Data Sup porting Code Source(s) Document(s ) Magnesium 1.6-2.3 <content Saint [Mass/volume] styleCode="Cullen [facility] in Serum or d">Magnesium Medical Plasma </content>2.2 Center MG/DL<content styleCode="Rand lics"> (1.6-2.3 MG/DL)</conten t> Phosphate 2.5-4.5 Above high normal <content Saint [Mass/volume] styleCode="Cullen [facility]avan in Serum or d">Phosphorus Medical Plasma </content>8.3 Center MG/DL H<content styleCode="Rand lics"> (2.5-4.5 MG/DL)</conten t> ID Date Data Source [id number] 03/01/2019 05:38:00 AM EST [facility] Name Value Range Interpretation Description Data Sup porting Code Source(s) Document(s ) Sodium 137-145 <content Saint [Moles/volume] styleCode="Cullen Javan in Serum or d">Sodium Medical Plasma </content>140 Center MEQ/L<content styleCode="Rand lics"> (137-145 MEQ/L)</conten t> UNK 9-20 Above high normal <content Saint styleCode="Cullen [place]avan d">BUN Medical </content>80 Center MG/DL H<content styleCode="Rand lics"> (9-20 MG/DL)</conten t> Creatinine 0.5-1.3 Above upper panic <content Saint [Mass/volume] limits styleCode="Cullen [facility]avan in Serum or d">Creatinine Medical Plasma </content><con Center tent styleCode="Cullen d">10.4 MG/DL HH</content><c ontent styleCode="Rand lics"> (0.5-1.3 MG/DL)</conten t> Potassium 3.5-5.3 <content Saint [Moles/volume] styleCode="Cullen Javan in Serum or d">Potassium Medical Plasma </content>4.7 Center MEQ/L<content styleCode="Rand lics"> (3.5-5.3 MEQ/L)</conten t> Chloride 98-107 <content Saint [Moles/volume] styleCode="Cullen [place] in Serum or d">Chloride Medical Plasma </content>98 Center MEQ/L<content styleCode="Rand lics"> (98-107 MEQ/L)</conten t> Carbon 22-30 <content Saint dioxide, total styleCode="Cullen [facility]avan [Moles/volume] d">Carbon Medical in Serum or Dioxide Center Plasma </content>25 MEQ/L<content styleCode="Rand lics"> (22-30 MEQ/L)</conten t> Glucose 74-106 Above high normal <content Saint [Mass/volume] styleCode="Cullen [place]avan in Serum or d">Glucose Medical Plasma </content>107 Center MG/DL H<content styleCode="Rand lics"> (74-106 MG/DL)</conten t> Calcium 8.4-10.2 <content Saint [Mass/volume] styleCode="Cullen Javan in Serum or d">Calcium Medical Plasma </content>10.1 Center MG/DL<content styleCode="Rand lics"> (8.4-10.2 MG/DL)</conten t> UNK > 60 Below low normal <content Saint styleCode="Cullen [place] d">EGFR Medical </content>5 Center GFR L<content styleCode="Rand lics"> (> 60 GFR)</content> ID Date Data Source HematologyRou.[id number] 02/27/2019 01:45:00 PM EST [facility] 0500 Name Value Range Interpretation Description Data Sup porting Code Source(s) Document(s ) Hematocrit 41.0-53. Below low normal <content Saint [Volume 0 styleCode="Baltazar Mendozas Fraction] of ">Hematocrit Medical Blood by </content>20.8 Center Automated count % L<content styleCode="Ital ics"> (41.0-53.0 %)</content> Erythrocytes 4.4-5.9 Below low normal <content Saint [#/volume] in styleCode="Bold [facility] Blood by ">Red Blood Medical Automated count Cell Count Center </content>2.39 MCUMM L<content styleCode="Ital ics"> (4.4-5.9 MCUMM)</content > Leukocytes 4.4-11.0 <content Saint [#/volume] in styleCode="Bold [facility] Blood by ">White Blood Medical Automated count Cell Count Center </content>6.44 KCUMM<content styleCode="Ital ics"> (4.4-11.0 KCUMM)</content > Hemoglobin 13.5-17. Below lower <content Saint [Mass/volume] in 5 panic limits styleCode="Bold Dario phs Blood ">Hemoglobin Medical </content><cont Center ent styleCode="Bold ">6.8 G/DL LL</content><co ntent styleCode="Ital ics"> (13.5-17.5 G/DL)</content> Erythrocyte mean 26.0-34. <content Saint corpuscular 0 styleCode="Bold [facility] hemoglobin ">Mean Medical [Entitic mass] Corposcular Center by Automated Hemoglobin count </content>28.5 PG<content styleCode="Ital ics"> (26.0-34.0 PG)</content> Erythrocyte 11.5-14. Above high <content Saint distribution 5 normal styleCode="Bold [facility] width [Ratio] by ">Red Cell Medical Automated count Distribution Center Width </content>17.3 % H<content styleCode="Ital ics"> (11.5-14.5 %)</content> Erythrocyte mean 80.0-100 <content Saint corpuscular .0 styleCode="Bold [facility] volume [Entitic ">Mean Medical volume] by Corpuscular Center Automated count Volume </content>87.0 FL<content styleCode="Ital ics"> (80.0-100.0 FL)</content> Erythrocyte mean 32.0-37. <content Saint corpuscular 0 styleCode="Bold [facility] hemoglobin ">Mean Corpus. Medical concentration Hgb Center [Mass/volume] by Concentration Automated count (MCHC) </content>32.7 G/DL<content styleCode="Ital ics"> (32.0-37.0 G/DL)</content> Platelet mean 8.0-11.0 <content Saint volume [Entitic styleCode="Bold Javan volume] in Blood ">Mean Platelet Medical by Automated Volume Center count </content>10.2 FL<content styleCode="Ital ics"> (8.0-11.0 FL)</content> Platelets 130-400 <content Saint [#/volume] in styleCode="Bold [facility] Blood by ">Platelet Medical Automated count Count Center </content>269 KCUMM<content styleCode="Ital ics"> (130-400 KCUMM)</content > UNK 0.0 <content Saint styleCode="Bold [facility]avan ">Nucleated Red Medical Blood Cell Center Count </content>0.00 KCUMM<content styleCode="Ital ics"> (0.0 KCUMM)</content > UNK 0 <content Saint styleCode="Bold [facility]avan ">Nucleated Red Medical Blood Cell Center </content>0.0 /100<content styleCode="Ital ics"> (0 /100)</content> ID Date Data Source GFR(Creatinine).[id number] 02/27/2019 01:45:00 PM [facility] 0-0500 Name Value Range Interpretation Code Description Data Ruth rce(s) Supporting Document(s ) UNK > 60 Below low normal <content Psychiatric styleCode="Bold"> Medical Cent er EGFR </content>5 GFR L<content styleCode="Italic s"> (> 60 GFR)</content> ID Date Data Source CHMROUTINECCDA.[id number] 02/27/2019 01:45:00 PM [facility] -0500 Name Value Range Interpretation Description Data Sup porting Code Source(s) Document(s ) Phosphate 2.5-4.5 Above high normal <content Saint [Mass/volume] styleCode="Cullen [facility]avan in Serum or d">Phosphorus Medical Plasma </content>8.6 Center MG/DL H<content styleCode="Rand lics"> (2.5-4.5 MG/DL)</conten t> ID Date Data Source [facility].[id number] 02/27/2019 01:45:00 PM EST [facility] Name Value Range Interpretation Description Data Sup porting Code Source(s) Document(s ) Potassium 3.5-5.3 <content Saint [Moles/volume] styleCode="Cullen [place]avan in Serum or d">Potassium Medical Plasma </content>5.1 Center MEQ/L<content styleCode="Rand lics"> (3.5-5.3 MEQ/L)</conten t> Chloride 98-107 Below low normal <content Saint [Moles/volume] styleCode="Cullen [facility]avan in Serum or d">Chloride Medical Plasma </content>97 Center MEQ/L L<content styleCode="Rand lics"> (98-107 MEQ/L)</conten t> Sodium 137-145 <content Saint [Moles/volume] styleCode="Cullen Javan in Serum or d">Sodium Medical Plasma </content>139 Center MEQ/L<content styleCode="Rand lics"> (137-145 MEQ/L)</conten t> Glucose 74-106 <content Saint [Mass/volume] styleCode="Cullen Mendozas in Serum or d">Glucose Medical Plasma </content>78 Center MG/DL<content styleCode="Rand lics"> (74-106 MG/DL)</conten t> Calcium 8.4-10.2 <content Saint [Mass/volume] styleCode="Cullen Mendozas in Serum or d">Calcium Medical Plasma </content>10.2 Center MG/DL<content styleCode="Rand lics"> (8.4-10.2 MG/DL)</conten t> Creatinine 0.5-1.3 Above upper panic <content Saint [Mass/volume] limits styleCode="Cullen Edouard in Serum or d">Creatinine Medical Plasma </content><con Center tent styleCode="Cullen d">11.1 MG/DL HH</content><c ontent styleCode="Rand lics"> (0.5-1.3 MG/DL)</conten t> UNK 9-20 Above high normal <content Saint styleCode="Cullen [facility] d">BUN Medical </content>84 Center MG/DL H<content styleCode="Rand lics"> (9-20 MG/DL)</conten t> Carbon 22-30 <content Saint dioxide, total styleCode="Cullen [facility]ouard [Moles/volume] d">Carbon Medical in Serum or Dioxide Center Plasma </content>22 MEQ/L<content styleCode="Rand lics"> (22-30 MEQ/L)</conten t> UNK > 60 Below low normal <content Saint styleCode="Cullen [facility] d">EGFR Medical </content>5 Center GFR L<content styleCode="Rand lics"> (> 60 GFR)</content> ID Date Data Source Microbiology.[id number] 02/27/2019 12:20:00 PM EST [facility] 500 Name Value Range Interpretation Code Description Data Ruth rce(s) Supporting Document(s ) UNK <item><content Psychiatric styleCode="Bold"> Medical [facility] er Culture Report </content>
<t able><tbody><tr>< td>Specimen Number:</td><td>[id number]</td></tr ><tr><td>Sample Collection Date/Time: </td><td> 0 12:20 PM</td></tr><tr>< td>Specimen Source:</td><td>B RONCHIAL</td></tr ><tr><td>Culture Report:</td><td>N O ANAEROBES ISOLATED </td></tr><tr><td >Culture Status:</td><td>P reliminary </td></tr><tr><td >Body Fluids Culture:</td><td> Collection Plate Date: 02/27/2019 12:36 </td></tr><tr><td >Gram Stain:</td><td>NO POLYS OR WHITE BLOOD CELLS SEEN </td></tr></tbody ></table></item> UNK <item><content Psychiatric styleCode="Bold"> Medical [facility] Culture Status </content>
<t able><tbody><tr>< td>Specimen Number:</td><td>[id number]</td></tr ><tr><td>Sample Collection Date/Time: </td><td> 0 12:20 PM</td></tr><tr>< td>Specimen Source:</td><td>B RONCHIAL</td></tr ><tr><td>Culture Status:</td><td>P reliminary </td></tr><tr><td >Body Fluids Culture:</td><td> Collection Plate Date: 02/27/2019 12:36 </td></tr><tr><td >Culture Report:</td><td>N O ANAEROBES ISOLATED </td></tr><tr><td >Gram Stain:</td><td>NO POLYS OR WHITE BLOOD CELLS SEEN </td></tr></tbody ></table></item> ID Date Data Source [facility].[id number] 02/26/2019 01:38:00 PM [facility] Name Value Range Interpretation Code Description Data Ruth rce(s) Supporting Document(s ) UNK <content Psychiatric styleCode="Bold" Medical Cente r >Blood Type </content>GROUP A (Reference Range: not available)
UNK <content Psychiatric styleCode="Bold" Medical Cente r >Cross-Match for Packed Cells </content>=[id number] COMP O POS (Reference Range: not available)
UNK NEGATIVE <content Psychiatric styleCode="Bold" Medical Cente r >Antibody Screen </content>NEGATI VE <content styleCode="Itali cs"> (NEGATIVE )</content> UNK <content Psychiatric styleCode="Bold" Medical Cente r >Cross-Match for Packed Cells </content>=[id number] COMP. A NEG. (Reference Range: not available)
UNK <content Psychiatric styleCode="Bold" Medical Cente r >RH Type </content>POSITI VE (Reference Range: not available)
ID Date Data Source HematologyRou.[id number] 02/26/2019 05:20:00 AM [facility] 0500 Name Value Range Interpretation Description Data Sup porting Code Source(s) Document(s ) Erythrocytes 4.4-5.9 Below low normal <content Saint [#/volume] in styleCode="Bold [facility] Blood by ">Red Blood Medical Automated count Cell Count Center </content>2.15 MCUMM L<content styleCode="Ital ics"> (4.4-5.9 MCUMM)</content > Leukocytes 4.4-11.0 <content Saint [#/volume] in styleCode="Bold Javan Blood by ">White Blood Medical Automated count Cell Count Center </content>6.23 KCUMM<content styleCode="Ital ics"> (4.4-11.0 KCUMM)</content > Hemoglobin 13.5-17. Below lower <content Saint [Mass/volume] in 5 panic limits styleCode="Bold Dario phs Blood ">Hemoglobin Medical </content><cont Center ent styleCode="Bold ">6.0 G/DL LL</content><co ntent styleCode="Ital ics"> (13.5-17.5 G/DL)</content> Erythrocyte mean 80.0-100 <content Saint corpuscular .0 styleCode="Bold Javan volume [Entitic ">Mean Medical volume] by Corpuscular Center Automated count Volume </content>90.2 FL<content styleCode="Ital ics"> (80.0-100.0 FL)</content> Erythrocyte mean 26.0-34. <content Saint corpuscular 0 styleCode="Bold Javan hemoglobin ">Mean Medical [Entitic mass] Corposcular Center by Automated Hemoglobin count </content>27.9 PG<content styleCode="Ital ics"> (26.0-34.0 PG)</content> Erythrocyte mean 32.0-37. Below low normal <content [facility] corpuscular 0 styleCode="Bold Javan hemoglobin ">Mean Corpus. Medical concentration Hgb Center [Mass/volume] by Concentration Automated count (MCHC) </content>30.9 G/DL L<content styleCode="Ital ics"> (32.0-37.0 G/DL)</content> Hematocrit 41.0-53. Below lower <content Saint [Volume 0 panic limits styleCode="Bold Javan Fraction] of ">Hematocrit Medical Blood by </content><cont Center Automated count ent styleCode="Bold ">19.4 % LL</content><co ntent styleCode="Ital ics"> (41.0-53.0 %)</content> Platelet mean 8.0-11.0 <content Saint volume [Entitic styleCode="Bold Javan volume] in Blood ">Mean Platelet Medical by Automated Volume Center count </content>10.0 FL<content styleCode="Ital ics"> (8.0-11.0 FL)</content> Erythrocyte 11.5-14. Above high <content [facility] distribution 5 normal styleCode="Bold Javan width [Ratio] by ">Red Cell Medical Automated count Distribution Center Width </content>17.7 % H<content styleCode="Ital ics"> (11.5-14.5 %)</content> Platelets 130-400 <content Saint [#/volume] in styleCode="Bold Javan Blood by ">Platelet Medical Automated count Count Center </content>244 KCUMM<content styleCode="Ital ics"> (130-400 KCUMM)</content > Neutrophils 36-66 Above high <content Saint [#/volume] in normal styleCode="Bold Javan Blood by ">Neutrophil Medical Automated count </content>72.6 Center % H<content styleCode="Ital ics"> (36-66 %)</content> Monocytes 3.0-10.0 Above high <content Saint [#/volume] in normal styleCode="Bold Javan Blood by ">Monocyte Medical Automated count </content>11.2 Center % H<content styleCode="Ital ics"> (3.0-10.0 %)</content> UNK 1.6-7.3 <content Saint styleCode="Bold Javan ">Neutrophil Medical Count Center </content>4.53 KCUMM<content styleCode="Ital ics"> (1.6-7.3 KCUMM)</content > Lymphocytes 24.0-44. Below low normal <content Saint [#/volume] in 0 styleCode="Bold Javan Blood by ">Lymphocyte Medical Automated count </content>13.2 Center % L<content styleCode="Ital ics"> (24.0-44.0 %)</content> UNK 1.0-4.8 Below low normal <content Saint styleCode="Bold Javan ">Lymphocyte Medical Count Center </content>0.82 KCUMM L<content styleCode="Ital ics"> (1.0-4.8 KCUMM)</content > UNK 0.2-0.9 <content Saint styleCode="Bold Javan ">Monocyte Medical Count Center </content>0.70 KCUMM<content styleCode="Ital ics"> (0.2-0.9 KCUMM)</content > Eosinophils 0-5.0 <content Saint [#/volume] in styleCode="Bold Javan Blood by ">Eosinophil Medical Automated count </content>2.6 Center %<content styleCode="Ital ics"> (0-5.0 %)</content> UNK 0.0-0.6 <content Saint styleCode="Bold Javan ">Eosinophil Medical Count Center </content>0.16 KCUMM<content styleCode="Ital ics"> (0.0-0.6 KCUMM)</content > Basophils 0.0-1.0 <content Saint [#/volume] in styleCode="Bold Javan Blood by ">Basophil Medical Automated count </content>0.2 Center %<content styleCode="Ital ics"> (0.0-1.0 %)</content> UNK 0.0 <content Saint styleCode="Bold Javan ">Nucleated Red Medical Blood Cell Center Count </content>0.00 KCUMM<content styleCode="Ital ics"> (0.0 KCUMM)</content > UNK 0.0-0.3 <content Saint styleCode="Bold Javan ">Basophil Medical Count Center </content>0.01 KCUMM<content styleCode="Ital ics"> (0.0-0.3 KCUMM)</content > UNK 0 <content Saint styleCode="Bold Javan ">Nucleated Red Medical Blood Cell Center </content>0.0 /100<content styleCode="Ital ics"> (0 /100)</content> UNK 0-0.1 <content Saint styleCode="Bold Javan ">Immature Medical Granulocyte Center Count </content>0.01 KCUMM<content styleCode="Ital ics"> (0-0.1 KCUMM)</content > UNK NORMAL <content Saint styleCode="Bold Javan ">Polychromasia Medical </content>SLIGH Center T <content styleCode="Ital ics"> (NORMAL )</content> UNK < 1 <content Saint styleCode="Bold Javan ">Immature Medical Granulocyte Center Ratio </content>0.2 %<content styleCode="Ital ics"> (< 1 %)</content> UNK NORMAL <content Saint styleCode="Bold Javan ">RBC Medical Morphology Center </content>ABNOR MAL <content styleCode="Ital ics"> (NORMAL )</content> UNK NORMAL <content Saint styleCode="Bold Javan ">Microcyte Medical </content>SLIGH Center T <content styleCode="Ital ics"> (NORMAL )</content> UNK NORMAL <content Saint styleCode="Bold Javan ">Hypochromia Medical </content>MODER Center ATE <content styleCode="Ital ics"> (NORMAL )</content> UNK NORMAL <content Saint styleCode="Bold Javan ">Macrocyte Medical </content>SLIGH Center T <content styleCode="Ital ics"> (NORMAL )</content> ID Date Data Source GFR(Creatinine).[id number] 02/26/2019 05:20:00 AM [facility] 0-0500 Name Value Range Interpretation Code Description Data Ruth rce(s) Supporting Document(s ) UNK > 60 Below low normal <content [facility] styleCode="Bold"> Medical Cent er EGFR </content>8 GFR L<content styleCode="Italic s"> (> 60 GFR)</content> ID Date Data Source CHMROUTINECCDA.[id number] 02/26/2019 05:20:00 AM [facility] -0500 Name Value Range Interpretation Description Data Sup porting Code Source(s) Document(s ) Phosphate 2.5-4.5 Above high normal <content Saint [Mass/volume] styleCode="Cullen Edouard in Serum or d">Phosphorus Medical Plasma </content>7.4 Center MG/DL H<content styleCode="Rand lics"> (2.5-4.5 MG/DL)</conten t> Magnesium 1.6-2.3 <content Saint [Mass/volume] styleCode="Cullen Javan in Serum or d">Magnesium Medical Plasma </content>2.2 Center MG/DL<content styleCode="Rand lics"> (1.6-2.3 MG/DL)</conten t> ID Date Data Source [facility].[id number] 02/26/2019 05:20:00 AM EST [facility] Name Value Range Interpretation Description Data Sup porting Code Source(s) Document(s ) Sodium 137-145 <content Saint [Moles/volume] styleCode="Cullen Javan in Serum or d">Sodium Medical Plasma </content>138 Center MEQ/L<content styleCode="Rand lics"> (137-145 MEQ/L)</conten t> Creatinine 0.5-1.3 Above upper panic <content Saint [Mass/volume] limits styleCode="Cullen Javan in Serum or d">Creatinine Medical Plasma </content><con Center tent styleCode="Cullen d">7.6 MG/DL HH</content><c ontent styleCode="Rand lics"> (0.5-1.3 MG/DL)</conten t> Potassium 3.5-5.3 <content Saint [Moles/volume] styleCode="Cullen Javan in Serum or d">Potassium Medical Plasma </content>5.1 Center MEQ/L<content styleCode="Rand lics"> (3.5-5.3 MEQ/L)</conten t> Chloride 98-107 Below low normal <content Saint [Moles/volume] styleCode="Cullen Javan in Serum or d">Chloride Medical Plasma </content>96 Center MEQ/L L<content styleCode="Rand lics"> (98-107 MEQ/L)</conten t> Carbon 22-30 <content Saint dioxide, total styleCode="Cullen Javan [Moles/volume] d">Carbon Medical in Serum or Dioxide Center Plasma </content>30 MEQ/L<content styleCode="Rand lics"> (22-30 MEQ/L)</conten t> UNK 9-20 Above high normal <content Saint styleCode="Cullen Mendozas d">BUN Medical </content>61 Center MG/DL H<content styleCode="Rand lics"> (9-20 MG/DL)</conten t> UNK > 60 Below low normal <content Saint styleCode="Cullen Mendozas d">EGFR Medical </content>8 Center GFR L<content styleCode="Rand lics"> (> 60 GFR)</content> Calcium 8.4-10.2 <content [facility] [Mass/volume] styleCode="Cullen Mendozas in Serum or d">Calcium Medical Plasma </content>9.6 Center MG/DL<content styleCode="Radn lics"> (8.4-10.2 MG/DL)</conten t> Glucose 74-106 <content Saint [Mass/volume] styleCode="Cullen Mendozas in Serum or d">Glucose Medical Plasma </content>90 Center MG/DL<content styleCode="Rand lics"> (74-106 MG/DL)</conten t> ID Date Data Source Liver 02/24/2019 05:56:00 AM EST [facility] Profile.[id number] Name Value Range Interpretation Description Data Sup porting Code Source(s) Document(s ) Aspartate 17-59 <content aminotransferase styleCode="Bold"> Frankie hs [Enzymatic Aspartate Medical activity/volume] Aminotransferase Center in Serum or Plasma (AST) </content>17 IU/L<content styleCode="Italic s"> (17-59 IU/L)</content> Alanine 7-50 <content aminotransferase styleCode="Bold"> Frankie hs [Enzymatic Alanine Medical activity/volume] Aminotransferase Center in Serum or Plasma (ALT) </content>12 IU/L<content styleCode="Italic s"> (7-50 IU/L)</content> Alkaline 38-126 <content phosphatase styleCode="Bold"> Javan [Enzymatic Alkaline Medical activity/volume] Phosphatase (ALP) Cente r in Serum or Plasma </content>46 IU/L<content styleCode="Italic s"> (38-126 IU/L)</content> Bilirubin.total 0.2-1.3 <content Saint [Mass/volume] in styleCode="Bold"> Frankie hs Serum or Plasma Bilirubin Total Medical </content>0.7 Center MG/DL<content styleCode="Italic s"> (0.2-1.3 MG/DL)</content> Albumin 3.5-5.0 Below low <content [facility] [Mass/volume] in normal styleCode="Bold"> Frankie hs Serum or Plasma Albumin Medical </content>3.4 Center G/DL L<content styleCode="Italic s"> (3.5-5.0 G/DL)</content> ID Date Data Source GFR(Creatinine).[id number] 02/24/2019 05:56:00 AM [facility] 0-0500 Name Value Range Interpretation Code Description Data Ruth rce(s) Supporting Document(s ) UNK > 60 Below low normal <content Psychiatric styleCode="Bold"> Medical Cent er EGFR </content>6 GFR L<content styleCode="Italic s"> (> 60 GFR)</content> ID Date Data Source CHMROUTINECCDA.[id number] 02/24/2019 05:56:00 AM [facility] -0500 Name Value Range Interpretation Description Data Sup porting Code Source(s) Document(s ) UNK 2.3-3.5 <content Psychiatric styleCode="Bold Medical ">Globulin Center </content>2.9 G/DL<content styleCode="Ital ics"> (2.3-3.5 G/DL)</content> UNK >= 1.0 <content Psychiatric styleCode="Bold Medical ">AG Ratio Center </content>1.2 <content styleCode="Ital ics"> (>= 1.0 )</content> Protein 6.3-8.2 <content Psychiatric [Mass/volum styleCode="Bold Medical e] in Serum ">Total Protein Center or Plasma </content>6.3 G/DL<content styleCode="Ital ics"> (6.3-8.2 G/DL)</content> ID Date Data Source [facility].[id number] 02/24/2019 05:56:00 AM EST [facility] Center Name Value Range Interpretation Description Data Sup porting Code Source(s) Document(s ) Chloride 98-107 <content Saint [Moles/volume] in styleCode="Bold"> [facility] Serum or Plasma Chloride Medical </content>98 Center MEQ/L<content styleCode="Italic s"> (98-107 MEQ/L)</content> Sodium 137-145 <content Saint [Moles/volume] in styleCode="Bold"> [facility] Serum or Plasma Sodium Medical </content>137 Center MEQ/L<content styleCode="Italic s"> (137-145 MEQ/L)</content> Potassium 3.5-5.3 <content Saint [Moles/volume] in styleCode="Bold"> [facility] Serum or Plasma Potassium Medical </content>5.0 Center MEQ/L<content styleCode="Italic s"> (3.5-5.3 MEQ/L)</content> Glucose 74-106 <content [facility] [Mass/volume] in styleCode="Bold"> Frankie hs Serum or Plasma Glucose Medical </content>87 Center MG/DL<content styleCode="Italic s"> (74-106 MG/DL)</content> UNK 9-20 Above high <content Saint normal styleCode="Bold"> Javan BUN </content>68 Medical MG/DL H<content Center styleCode="Italic s"> (9-20 MG/DL)</content> Carbon dioxide, 22-30 <content Saint total styleCode="Bold"> Javan [Moles/volume] in Carbon Dioxide Medical Serum or Plasma </content>27 Center MEQ/L<content styleCode="Italic s"> (22-30 MEQ/L)</content> Calcium 8.4-10. <content [facility] [Mass/volume] in 2 styleCode="Bold"> Frankie hs Serum or Plasma Calcium Medical </content>9.9 Center MG/DL<content styleCode="Italic s"> (8.4-10.2 MG/DL)</content> Creatinine 0.5-1.3 Above upper <content Saint [Mass/volume] in panic limits styleCode="Bold"> [facility] Serum or Plasma Creatinine Medical </content><conten Center t styleCode="Bold"> 9.5 MG/DL HH</content><cont ent styleCode="Italic s"> (0.5-1.3 MG/DL)</content> Alanine 7-50 <content [facility] aminotransferase styleCode="Bold"> Frankie hs [Enzymatic Alanine Medical activity/volume] Aminotransferase Center in Serum or Plasma (ALT) </content>12 IU/L<content styleCode="Italic s"> (7-50 IU/L)</content> Alkaline 38-126 <content [facility] phosphatase styleCode="Bold"> Javan [Enzymatic Alkaline Medical activity/volume] Phosphatase (ALP) Cente r in Serum or Plasma </content>46 IU/L<content styleCode="Italic s"> (38-126 IU/L)</content> Aspartate 17-59 <content [facility] aminotransferase styleCode="Bold"> Frankie hs [Enzymatic Aspartate Medical activity/volume] Aminotransferase Center in Serum or Plasma (AST) </content>17 IU/L<content styleCode="Italic s"> (17-59 IU/L)</content> Bilirubin.total 0.2-1.3 <content [facility] [Mass/volume] in styleCode="Bold"> Frankie hs Serum or Plasma Bilirubin Total Medical </content>0.7 Center MG/DL<content styleCode="Italic s"> (0.2-1.3 MG/DL)</content> UNK > 60 Below low <content Saint normal styleCode="Bold"> Javan EGFR </content>6 Medical GFR L<content Center styleCode="Italic s"> (> 60 GFR)</content> Albumin 3.5-5.0 Below low <content Saint [Mass/volume] in normal styleCode="Bold"> Frankie hs Serum or Plasma Albumin Medical </content>3.4 Center G/DL L<content styleCode="Italic s"> (3.5-5.0 G/DL)</content> ID Date Data Source Microbiology.[id number] 02/23/2019 11:00:00 AM [facility] 500 Name Value Range Interpretation Code Description Data Ruth rce(s) Supporting Document(s ) UNK <item><content Psychiatric styleCode="Bold"> Medical Cent er Culture Status </content>
<t able><tbody><tr>< td>Specimen Number:</td><td>[id number]</td></tr ><tr><td>Sample Collection Date/Time: </td><td> 0 11:00 AM</td></tr><tr>< td>Specimen Source:</td><td>S PUTUM</td></tr><t r><td>Preliminary 1:</td><td>SPECIM EN SENT TO [facility] DEPARTMENT OF </td></tr><tr><td >Note:</td><td>: NO ACID FAST BACILLI SEEN.TEST PERFORMED BY [facility] </td></tr><tr><td >Culture Status:</td><td>P reliminary </td></tr><tr><td >Acid Fast Stain / Culture:</td><td> Collection Plate Date: 02/23/2019 11:22 </td></tr></tbody ></table></item> ID Date Data Source Microbiology.[id number] 02/21/2019 01:35:00 PM EST [facility] 500 Name Value Range Interpretation Code Description Data Ruth rce(s) Supporting Document(s ) UNK <item><content Psychiatric styleCode="Bold"> Medical Cent er Culture Status </content>
<t able><tbody><tr>< td>Specimen Number:</td><td>[id number]</td></tr ><tr><td>Sample Collection Date/Time: </td><td>02/21/2019 1:35 PM</td></tr><tr>< td>Specimen Source:</td><td>S PUTUM</td></tr><t r><td>Culture Status:</td><td>P reliminary </td></tr><tr><td >Preliminary 1:</td><td>SPECIM EN SENT TO [facility] DEPARTMENT OF </td></tr><tr><td >Acid Fast Stain / Culture:</td><td> Collection Plate Date: 02/21/2019 14:50 </td></tr><tr><td >Note:</td><td>: NO ACID FAST BACILLI SEEN.TEST PERFORMED BY [facility] </td></tr></tbody ></table></item> ID Date Data Source CoagulationSpeci.[id number] 02/21/2019 06:45:00 AM EST [facility] 00-0500 Name Value Range Interpretation Code Description Data Ruth rce(s) Supporting Document(s ) UNK <=11 <content Psychiatric styleCode="Bold"> Medical Cent er Cardiolipin Antibody IGA </content><11 APL<content styleCode="Italic s"> (<=11 APL)</content> UNK <=14 <content Psychiatric styleCode="Bold"> Medical Cent er Cardiolipin Antibody, IGG </content><14 GPL<content styleCode="Italic s"> (<=14 GPL)</content> UNK <=12 <content Psychiatric styleCode="Bold"> Medical Cent er Cardiolipin Antibody IGM </content><12 MPL<content styleCode="Italic s"> (<=12 MPL)</content> ID Date Data Source Coagulation 02/21/2019 06:45:00 AM [facility] Center Rout.[id number] EST Name Value Range Interpretation Description Data Sup porting Code Source(s) Document(s ) UNK 9.0-13.0 <content Saint styleCode="Bold" Javan >Protime Medical </content>12.4 Center SEC<content styleCode="Itali cs"> (9.0-13.0 SEC)</content> aPTT in 25.1-36. <content Saint Platelet poor 5 styleCode="Bold" Javan plasma by >Partial Medical Coagulation Thromboplastin Center assay Time </content>33.0 SEC<content styleCode="Itali cs"> (25.1-36.5 SEC)</content> INR in 0.80-1.2 <content [facility] Platelet poor 0 styleCode="Bold" Javan plasma by >INR Medical Coagulation </content>1.12 Center assay #<content styleCode="Itali cs"> (0.80-1.20 #)</content> ID Date Data [id number] 02/21/2019 06:45[facility]00 [facility] Name Value Range Interpretation Code Description Data Ruth rce(s) Supporting Document(s ) UNK -<1.0 <content [facility] Javan styleCode="Bold"> Medical Cent er Glomerular Bsement Membrane AB </content><1.0 AI<content styleCode="Italic s"> (-<1.0 AI)</content> ID Date Data Source CardiacMarkers.[id number] 02/21/2019 06:45:00 AM EST [facility] -0500 Name Value Range Interpretation Description Data Sup porting Code Source(s) Document(s ) Troponin < 0.034 Above upper panic <content Saint I.cardiac limits styleCode="Bold Javan [Mass/volume ">Troponin I Medical ] in Serum </content><cont Center or Plasma ent styleCode="Bold ">0.092 NG/ML HH</content><co ntent styleCode="Ital ics"> (< 0.034 NG/ML)</content > ID Date Data Source HematologyRou.[id number] 02/21/2019 05:20:00 AM EST [facility] 0500 Name Value Range Interpretation Description Data Sup porting Code Source(s) Document(s ) Erythrocytes 4.4-5.9 Below low normal <content Saint [#/volume] in styleCode="Bold Javan Blood by ">Red Blood Medical Automated count Cell Count Center </content>2.66 MCUMM L<content styleCode="Ital ics"> (4.4-5.9 MCUMM)</content > Hemoglobin 13.5-17. Below low normal <content Saint [Mass/volume] in 5 styleCode="Bold Javan Blood ">Hemoglobin Medical </content>7.5 Center G/DL L<content styleCode="Ital ics"> (13.5-17.5 G/DL)</content> Leukocytes 4.4-11.0 <content Saint [#/volume] in styleCode="Bold Javan Blood by ">White Blood Medical Automated count Cell Count Center </content>9.85 KCUMM<content styleCode="Ital ics"> (4.4-11.0 KCUMM)</content > Erythrocyte mean 32.0-37. Below low normal <content [facility] corpuscular 0 styleCode="Bold Javan hemoglobin ">Mean Corpus. Medical concentration Hgb Center [Mass/volume] by Concentration Automated count (MCHC) </content>31.4 G/DL L<content styleCode="Ital ics"> (32.0-37.0 G/DL)</content> Hematocrit 41.0-53. Below low normal <content Saint [Volume 0 styleCode="Bold Javan Fraction] of ">Hematocrit Medical Blood by </content>23.9 Center Automated count % L<content styleCode="Ital ics"> (41.0-53.0 %)</content> Erythrocyte mean 80.0-100 <content [facility] corpuscular .0 styleCode="Bold Javan volume [Entitic ">Mean Medical volume] by Corpuscular Center Automated count Volume </content>89.8 FL<content styleCode="Ital ics"> (80.0-100.0 FL)</content> Erythrocyte mean 26.0-34. <content Saint corpuscular 0 styleCode="Bold Javan hemoglobin ">Mean Medical [Entitic mass] Corposcular Center by Automated Hemoglobin count </content>28.2 PG<content styleCode="Ital ics"> (26.0-34.0 PG)</content> Erythrocyte 11.5-14. Above high <content Saint distribution 5 normal styleCode="Baltazar Edouard width [Ratio] by ">Red Cell Medical Automated count Distribution Center Width </content>18.8 % H<content styleCode="Ital ics"> (11.5-14.5 %)</content> Platelet mean 8.0-11.0 <content Saint volume [Entitic styleCode="Bold Javan volume] in Blood ">Mean Platelet Medical by Automated Volume Center count </content>10.2 FL<content styleCode="Ital ics"> (8.0-11.0 FL)</content> Platelets 130-400 <content Saint [#/volume] in styleCode="Bold Javan Blood by ">Platelet Medical Automated count Count Center </content>230 KCUMM<content styleCode="Ital ics"> (130-400 KCUMM)</content > UNK 0 <content Saint styleCode="Bold Javan ">Nucleated Red Medical Blood Cell Center </content>0.0 /100<content styleCode="Ital ics"> (0 /100)</content> UNK 0.0 <content Saint styleCode="Bold Javan ">Nucleated Red Medical Blood Cell Center Count </content>0.00 KCUMM<content styleCode="Ital ics"> (0.0 KCUMM)</content > ID Date Data Source GFR(Creatinine).[id number] 02/21/2019 05:20:00 AM [facility] Name Value Range Interpretation Code Description Data Ruth rce(s) Supporting Document(s ) UNK > 60 Below low normal <content [facility] styleCode="Bold"> Medical Cent er EGFR </content>9 GFR L<content styleCode="Italic s"> (> 60 GFR)</content> ID Date Data Source BMP.[id number] 02/21/2019 05:20:00 AM EST [facility] Name Value Range Interpretation Description Data Sup porting Code Source(s) Document(s ) Potassium 3.5-5.3 <content Saint [Moles/volume] styleCode="Cullen Javan in Serum or d">Potassium Medical Plasma </content>5.2 Center MEQ/L<content styleCode="Rand lics"> (3.5-5.3 MEQ/L)</conten t> Sodium 137-145 <content Saint [Moles/volume] styleCode="Cullen Javan in Serum or d">Sodium Medical Plasma </content>139 Center MEQ/L<content styleCode="Rand lics"> (137-145 MEQ/L)</conten t> Glucose 74-106 <content Saint [Mass/volume] styleCode="Cullen Javan in Serum or d">Glucose Medical Plasma </content>97 Center MG/DL<content styleCode="Rand lics"> (74-106 MG/DL)</conten t> UNK 9-20 Above high normal <content Saint styleCode="Cullen Javan d">BUN Medical </content>36 Center MG/DL H<content styleCode="Rand lics"> (9-20 MG/DL)</conten t> Chloride 98-107 Below low normal <content Saint [Moles/volume] styleCode="Cullen Javan in Serum or d">Chloride Medical Plasma </content>97 Center MEQ/L L<content styleCode="Rand lics"> (98-107 MEQ/L)</conten t> Creatinine 0.5-1.3 Above upper panic <content Saint [Mass/volume] limits styleCode="Cullen Javan in Serum or d">Creatinine Medical Plasma </content><con Center tent styleCode="Cullen d">7.0 MG/DL HH</content><c ontent styleCode="Rand lics"> (0.5-1.3 MG/DL)</conten t> Carbon 22-30 Above high normal <content Saint dioxide, total styleCode="Cullen Javan [Moles/volume] d">Carbon Medical in Serum or Dioxide Center Plasma </content>31 MEQ/L H<content styleCode="Rand lics"> (22-30 MEQ/L)</conten t> Calcium 8.4-10.2 <content Saint [Mass/volume] styleCode="Cullen Mendozas in Serum or d">Calcium Medical Plasma </content>9.7 Center MG/DL<content styleCode="Rand lics"> (8.4-10.2 MG/DL)</conten t> UNK > 60 Below low normal <content Saint styleCode="Cullen Javan d">EGFR Medical </content>9 Center GFR L<content styleCode="Rand lics"> (> 60 GFR)</content> ID Date Data Source CHMROUTINECCDA.[id number] 02/21/2019 05:20:00 AM [facility] -0500 Name Value Range Interpretation Description Data Sup porting Code Source(s) Document(s ) Magnesium 1.6-2.3 <content Saint [Mass/volume] styleCode="Cullen Mendozas in Serum or d">Magnesium Medical Plasma </content>2.1 Center MG/DL<content styleCode="Rand lics"> (1.6-2.3 MG/DL)</conten t> Phosphate 2.5-4.5 Above high normal <content Saint [Mass/volume] styleCode="Cullen Javan in Serum or d">Phosphorus Medical Plasma </content>4.8 Center MG/DL H<content styleCode="Rand lics"> (2.5-4.5 MG/DL)</conten t> ID Date Data Source Microbiology.[id number] 02/21/2019 05:00:00 AM [facility] 500 Name Value Range Interpretation Code Description Data Ruth rce(s) Supporting Document(s ) UNK <item><content Psychiatric styleCode="Bold"> Medical Cent er Culture Status </content>
<t able><tbody><tr>< td>Specimen Number:</td><td>[id number]</td></tr ><tr><td>Sample Collection Date/Time: </td><td>02/21/2019 5:00 AM</td></tr><tr>< td>Specimen Source:</td><td>S PUTUM</td></tr><t r><td>Preliminary 1:</td><td>SPECIM EN SENT TO [facility] DEPARTMENT OF </td></tr><tr><td >Culture Status:</td><td>P reliminary </td></tr><tr><td >Acid Fast Stain / Culture:</td><td> Collection Plate Date: 02/21/2019 05:12 </td></tr><tr><td >Note:</td><td>: NO ACID FAST BACILLI SEEN.TEST PERFORMED BY [facility] </td></tr></tbody ></table></item> ID Date Data Source Microbiology.[id number] 02/21/2019 02:20:00 AM EST [facility] 500 Name Value Range Interpretation Code Description Data Ruth rce(s) Supporting Document(s ) UNK <item><content Psychiatric styleCode="Bold"> Medical Cent er Culture Status </content>
<t able><tbody><tr>< td>Specimen Number:</td><td>[id number]</td></tr ><tr><td>Sample Collection Date/Time: </td><td>02/21/2019 2:20 AM</td></tr><tr>< td>Specimen Source:</td><td>S PUTUM</td></tr><t r><td>Culture Status:</td><td>P reliminary </td></tr><tr><td >Acid Fast Stain / Culture:</td><td> Collection Plate Date: 02/21/2019 02:36 </td></tr><tr><td >Preliminary 1:</td><td>SPECIM EN SENT TO [facility] DEPARTMENT OF </td></tr><tr><td >Note:</td><td>: NO ACID FAST BACILLI SEEN.TEST PERFORMED BY [facility] </td></tr></tbody ></table></item> ID Date Data Source BloodBank.[id number] 02/20/2019 09:08:00 PM EST [facility] Name Value Range Interpretation Code Description Data Ruth rce(s) Supporting Document(s ) UNK <content Psychiatric styleCode="Bold"> Medical Cent er Packed Red Blood Cells </content>Transfu sed 1 unit. (Reference Range: not available)
ID Date Data Source BloodBank.[id number] 02/20/2019 06:17:00 PM EST [facility] Name Value Range Interpretation Code Description Data Ruth rce(s) Supporting Document(s ) UNK <content [facility] styleCode="Bold" Medical Cente r >Blood Type </content>GROUP A (Reference Range: not available)
UNK NEGATIVE <content [facility] styleCode="Bold" Medical Cente r >Antibody Screen </content>NEGATI VE <content styleCode="Itali cs"> (NEGATIVE )</content> UNK <content [facility] styleCode="Bold" Medical Cente r >Cross-Match for Packed Cells </content>[id number] COMP O POS (Reference Range: not available)
UNK <content [facility] styleCode="Bold" Medical Cente r >RH Type </content>POSITI VE (Reference Range: not available)
UNK <content [facility] styleCode="Bold" Medical Cente r >Cross-Match for Packed Cells </content>[id number] COMP O POS (Reference Range: not available)
ID Date Data Source Microbiology.[id number] 02/20/2019 12:50:00 PM EST [facility] 500 Name Value Range Interpretation Code Description Data Ruth rce(s) Supporting Document(s ) UNK <item><content [facility] styleCode="Bold"> Medical Cent er Culture Report </content>
<t able><tbody><tr>< td>Specimen Number:</td><td>[id number]</td></tr ><tr><td>Sample Collection Date/Time: </td><td>02/20/2019 12:50 PM</td></tr><tr>< td>Specimen Source:</td><td>B LOOD</td></tr><tr ><td>Blood Culture:</td><td> Collection Plate Date: 02/20/2019 13:03 </td></tr><tr><td >Culture Status:</td><td>P reliminary </td></tr><tr><td >Culture Report:</td><td>C ulture in progress </td></tr></tbody ></table></item> UNK <item><content [facility] styleCode="Bold"> Medical [facility] er Culture Status </content>
<t able><tbody><tr>< td>Specimen Number:</td><td>[id number]</td></tr ><tr><td>Sample Collection Date/Time: </td><td>02/20/2019 12:50 PM</td></tr><tr>< td>Specimen Source:</td><td>B LOOD</td></tr><tr ><td>Blood Culture:</td><td> Collection Plate Date: 02/20/2019 13:03 </td></tr><tr><td >Culture Report:</td><td>C ulture in progress </td></tr><tr><td >Culture Status:</td><td>P reliminary </td></tr></tbody ></table></item> ID Date Data Source Microbiology.[id number] 02/20/2019 12:30:00 PM EST [facility] 500 Name Value Range Interpretation Code Description Data Ruth rce(s) Supporting Document(s ) UNK <item><content Psychiatric styleCode="Bold"> Medical Cent er Culture Status </content>
<t able><tbody><tr>< td>Specimen Number:</td><td>[id number]</td></tr ><tr><td>Sample Collection Date/Time: </td><td>02/20/2019 12:30 PM</td></tr><tr>< td>Specimen Source:</td><td>B LOOD</td></tr><tr ><td>Culture Report:</td><td>C ulture in progress </td></tr><tr><td >Culture Status:</td><td>P reliminary </td></tr><tr><td >Blood Culture:</td><td> Collection Plate Date: 02/20/2019 13:03 </td></tr></tbody ></table></item> UNK <item><content Psychiatric styleCode="Bold"> Medical Cent er Culture Report </content>
<t able><tbody><tr>< td>Specimen Number:</td><td>[id number]</td></tr ><tr><td>Sample Collection Date/Time: </td><td>02/20/2019 12:30 PM</td></tr><tr>< td>Specimen Source:</td><td>B LOOD</td></tr><tr ><td>Blood Culture:</td><td> Collection Plate Date: 02/20/2019 13:03 </td></tr><tr><td >Culture Status:</td><td>P reliminary </td></tr><tr><td >Culture Report:</td><td>C ulture in progress </td></tr></tbody ></table></item> ID Date Data Source Liver 02/20/2019 11:15:00 AM EST [facility] Profile.[id number] Name Value Range Interpretation Description Data Sup porting Code Source(s) Document(s ) Aspartate 17-59 <content Saint aminotransferase styleCode="Bold"> Frankie hs [Enzymatic Aspartate Medical activity/volume] Aminotransferase Center in Serum or Plasma (AST) </content>21 IU/L<content styleCode="Italic s"> (17-59 IU/L)</content> Alanine 7-50 <content [facility] aminotransferase styleCode="Bold"> Frankie hs [Enzymatic Alanine Medical activity/volume] Aminotransferase Center in Serum or Plasma (ALT) </content>14 IU/L<content styleCode="Italic s"> (7-50 IU/L)</content> Albumin 3.5-5.0 <content Saint [Mass/volume] in styleCode="Bold"> Frankie hs Serum or Plasma Albumin Medical </content>4.3 Center G/DL<content styleCode="Italic s"> (3.5-5.0 G/DL)</content> Alkaline 38-126 <content Saint phosphatase styleCode="Bold"> [facility]avan [Enzymatic Alkaline Medical activity/volume] Phosphatase (ALP) Cente r in Serum or Plasma </content>53 IU/L<content styleCode="Italic s"> (38-126 IU/L)</content> Bilirubin.total 0.2-1.3 <content Saint [Mass/volume] in styleCode="Bold"> Frankie hs Serum or Plasma Bilirubin Total Medical </content>0.7 Center MG/DL<content styleCode="Italic s"> (0.2-1.3 MG/DL)</content> ID Date Data Source HematologyRou.[id number] 02/20/2019 11:15:00 AM EST [facility] 0500 Name Value Range Interpretation Description Data Sup porting Code Source(s) Document(s ) Leukocytes 4.4-11.0 <content Saint [#/volume] in styleCode="Bold [facility] Blood by ">White Blood Medical Automated count Cell Count Center </content>8.77 KCUMM<content styleCode="Ital ics"> (4.4-11.0 KCUMM)</content > Erythrocytes 4.4-5.9 Below low normal <content Saint [#/volume] in styleCode="Bold [facility] Blood by ">Red Blood Medical Automated count Cell Count Center </content>2.46 MCUMM L<content styleCode="Ital ics"> (4.4-5.9 MCUMM)</content > Erythrocyte mean 26.0-34. <content Saint corpuscular 0 styleCode="Bold [facility] hemoglobin ">Mean Medical [Entitic mass] Corposcular Center by Automated Hemoglobin count </content>28.0 PG<content styleCode="Ital ics"> (26.0-34.0 PG)</content> Hemoglobin 13.5-17. Below lower <content Saint [Mass/volume] in 5 panic limits styleCode="Bold Dario phs Blood ">Hemoglobin Medical </content><cont Center ent styleCode="Bold ">6.9 G/DL LL</content><co ntent styleCode="Ital ics"> (13.5-17.5 G/DL)</content> Erythrocyte mean 80.0-100 <content Saint corpuscular .0 styleCode="Bold [facility] volume [Entitic ">Mean Medical volume] by Corpuscular Center Automated count Volume </content>91.5 FL<content styleCode="Ital ics"> (80.0-100.0 FL)</content> Hematocrit 41.0-53. Below low normal <content Saint [Volume 0 styleCode="Bold [facility] Fraction] of ">Hematocrit Medical Blood by </content>22.5 Center Automated count % L<content styleCode="Ital ics"> (41.0-53.0 %)</content> Platelets 130-400 <content Saint [#/volume] in styleCode="Bold [facility] Blood by ">Platelet Medical Automated count Count Center </content>237 KCUMM<content styleCode="Ital ics"> (130-400 KCUMM)</content > Erythrocyte 11.5-14. Above high <content Saint distribution 5 normal styleCode="Bold [facility] width [Ratio] by ">Red Cell Medical Automated count Distribution Center Width </content>19.8 % H<content styleCode="Ital ics"> (11.5-14.5 %)</content> Erythrocyte mean 32.0-37. Below low normal <content Saint corpuscular 0 styleCode="[facility] hemoglobin ">Mean Corpus. Medical concentration Hgb Center [Mass/volume] by Concentration Automated count (MCHC) </content>30.7 G/DL L<content styleCode="Ital ics"> (32.0-37.0 G/DL)</content> UNK 1.6-7.3 Above high <content Saint normal styleCode="Bold [facility] ">Neutrophil Medical Count Center </content>7.46 KCUMM H<content styleCode="Ital ics"> (1.6-7.3 KCUMM)</content > Neutrophils 36-66 Above high <content Saint [#/volume] in normal styleCode="Bold [facility] Blood by ">Neutrophil Medical Automated count </content>85.0 Center % H<content styleCode="Ital ics"> (36-66 %)</content> Platelet mean 8.0-11.0 <content Saint volume [Entitic styleCode="Bold [facility] volume] in Blood ">Mean Platelet Medical by Automated Volume Center count </content>9.7 FL<content styleCode="Ital ics"> (8.0-11.0 FL)</content> Lymphocytes 24.0-44. Below low normal <content Saint [#/volume] in 0 styleCode="Bold [facility] Blood by ">Lymphocyte Medical Automated count </content>6.4 % Center L<content styleCode="Ital ics"> (24.0-44.0 %)</content> UNK 0.2-0.9 <content Saint styleCode="Bold [facility] ">Monocyte Medical Count Center </content>0.64 KCUMM<content styleCode="Ital ics"> (0.2-0.9 KCUMM)</content > Monocytes 3.0-10.0 <content Saint [#/volume] in styleCode="Bold [facility] Blood by ">Monocyte Medical Automated count </content>7.3 Center %<content styleCode="Ital ics"> (3.0-10.0 %)</content> UNK 1.0-4.8 Below low normal <content Saint styleCode="Bold [facility] ">Lymphocyte Medical Count Center </content>0.56 KCUMM L<content styleCode="Ital ics"> (1.0-4.8 KCUMM)</content > Eosinophils 0-5.0 <content Saint [#/volume] in styleCode="Bold [facility] Blood by ">Eosinophil Medical Automated count </content>0.5 Center %<content styleCode="Ital ics"> (0-5.0 %)</content> UNK 0.0-0.6 <content Saint styleCode="Bold [facility] ">Eosinophil Medical Count Center </content>0.04 KCUMM<content styleCode="Ital ics"> (0.0-0.6 KCUMM)</content > Basophils 0.0-1.0 <content Saint [#/volume] in styleCode="Bold [facility] Blood by ">Basophil Medical Automated count </content>0.3 Center %<content styleCode="Ital ics"> (0.0-1.0 %)</content> UNK 0.0-0.3 <content Saint styleCode="Bold [facility] ">Basophil Medical Count Center </content>0.03 KCUMM<content styleCode="Ital ics"> (0.0-0.3 KCUMM)</content > UNK < 1 <content Saint styleCode="B[facility] ">Immature Medical Granulocyte Center Ratio </content>0.5 %<content styleCode="Ital ics"> (< 1 %)</content> UNK 0-0.1 <content Saint styleCode="Bold [facility] ">Immature Medical Granulocyte Center Count </content>0.04 KCUMM<content styleCode="Ital ics"> (0-0.1 KCUMM)</content > UNK 0.0 <content Saint styleCode="Bold [facility] ">Nucleated Red Medical Blood Cell Center Count </content>0.00 KCUMM<content styleCode="Ital ics"> (0.0 KCUMM)</content > UNK 0 <content Saint styleCode="Bold [facility] ">Nucleated Red Medical Blood Cell Center </content>0.0 /100<content styleCode="Ital ics"> (0 /100)</content> UNK NORMAL <content Saint styleCode="Bold [facility] ">RBC Medical Morphology Center </content>ABNOR MAL <content styleCode="Ital ics"> (NORMAL )</content> UNK NORMAL <content Saint styleCode="Bold [facility] ">Platelet Medical Estimate Center </content>NICOLÁS L <content styleCode="Ital ics"> (NORMAL )</content> UNK NORMAL <content Saint styleCode="Bold [facility] ">Schistocyte Medical </content>SLIGH Center T <content styleCode="Ital ics"> (NORMAL )</content> UNK NORMAL <content Saint styleCode="Bold [facility] ">Anisocyte Medical </content>SLIGH Center T <content styleCode="Ital ics"> (NORMAL )</content> UNK NORMAL <content Saint styleCode="Bold [facility] ">Hypochromia Medical </content>SLIGH Center T <content styleCode="Ital ics"> (NORMAL )</content> UNK NORMAL <content Saint styleCode="Bold J[facility] ">Macrocyte Medical </content>SLIGH Center T <content styleCode="Ital ics"> (NORMAL )</content> UNK NORMAL <content [facility] styleCode="Bold Javan ">Microcyte Medical </content>SLIGH Center T <content styleCode="Ital ics"> (NORMAL )</content> ID Date Data Source Coagulation 02/20/2019 11:15:[address] [facility] Rout.[id number] EST Name Value Range Interpretation Description Data Sup porting Code Source(s) Document(s ) UNK 9.0-13.0 <content Saint styleCode="[facility] d">Protime Medical </content>11.9 Center SEC<content styleCode="Rand lics"> (9.0-13.0 SEC)</content> INR in 0.80-1.2 <content Saint Platelet poor 0 styleCode="[facility] plasma by d">INR Medical Coagulation </content>1.07 Center assay #<content styleCode="Rand lics"> (0.80-1.20 #)</content> ID Date Data Source CardiacMarkers.[id number] 02/20/2019 11:15:00 AM EST [facility] -0500 Name Value Range Interpretation Description Data Sup porting Code Source(s) Document(s ) Troponin < 0.034 Above upper panic <content Saint I.cardiac limits styleCode="Bold [facility] [Mass/volume ">Troponin I Medical ] in Serum </content><cont Center or Plasma ent styleCode="Bold ">0.048 NG/ML HH</content><co ntent styleCode="Ital ics"> (< 0.034 NG/ML)</content > ID Date Data Source GFR(Creatinine).[id number] 02/20/2019 11:15:00 AM EST [facility] 0-0500 Name Value Range Interpretation Code Description Data Ruth rce(s) Supporting Document(s ) UNK > 60 Below low normal <content Psychiatric styleCode="Bold"> Medical Cent er EGFR </content>5 GFR L<content styleCode="Italic s"> (> 60 GFR)</content> ID Date Data Source CHMROUTINECCDA.[id number] 02/20/2019 11:15:00 AM EST [facility] -0500 Name Value Range Interpretation Description Data Sup porting Code Source(s) Document(s ) UNK 2.3-3.5 <content [facility] styleCode="Bold Medical ">Globulin Center </content>2.9 G/DL<content styleCode="Ital ics"> (2.3-3.5 G/DL)</content> UNK >= 1.0 <content [facility] styleCode="Bold Medical ">AG Ratio Center </content>1.5 <content styleCode="Ital ics"> (>= 1.0 )</content> Protein 6.3-8.2 <content [facility] [Mass/volum styleCode="Bold Medical e] in Serum ">Total Protein Center or Plasma </content>7.2 G/DL<content styleCode="Ital ics"> (6.3-8.2 G/DL)</content> ID Date Data Source [facility].[id number] 02/20/2019 11:15:00 AM EST [facility] Name Value Range Interpretation Description Data Sup porting Code Source(s) Document(s ) Sodium 137-145 <content Saint [Moles/volume] in styleCode="Bold"> Dario phs Serum or Plasma Sodium Medical </content>141 Center MEQ/L<content styleCode="Italic s"> (137-145 MEQ/L)</content> Chloride 98-107 <content Saint [Moles/volume] in styleCode="Bold"> Dario [facility] Serum or Plasma Chloride Medical </content>99 Center MEQ/L<content styleCode="Italic s"> (98-107 MEQ/L)</content> Potassium 3.5-5.3 Above upper <content Saint [Moles/volume] in panic limits styleCode="Bold"> J osephs Serum or Plasma Potassium Medical </content><[facility] t styleCode="Bold"> 6.3 MEQ/L HH</content><cont ent styleCode="Italic s"> (3.5-5.3 MEQ/L)</content> Creatinine 0.5-1.3 Above upper <content Saint [Mass/volume] in panic limits styleCode="Bold"> [facility] Serum or Plasma Creatinine Medical </content><conten Center t styleCode="Bold"> 10.6 MG/DL HH</content><cont ent styleCode="Italic s"> (0.5-1.3 MG/DL)</content> Glucose 74-106 Above high <content Saint [Mass/volume] in normal styleCode="Bold"> Frankie hs Serum or Plasma Glucose Medical </content>140 Center MG/DL H<content styleCode="Italic s"> (74-106 MG/DL)</content> UNK 9-20 Above high <content Saint normal styleCode="Bold"> Javan BUN </content>63 Medical MG/DL H<content Center styleCode="Italic s"> (9-20 MG/DL)</content> Carbon dioxide, 22-30 <content Saint total styleCode="Bold"> Javan [Moles/volume] in Carbon Dioxide Medical Serum or Plasma </content>27 Center MEQ/L<content styleCode="Italic s"> (22-30 MEQ/L)</content> UNK > 60 Below low <content Saint normal styleCode="Bold"> Javan EGFR </content>5 Medical GFR L<content Center styleCode="Italic s"> (> 60 GFR)</content> Calcium 8.4-10. Above high <content Saint [Mass/volume] in 2 normal styleCode="Bold"> Frankie hs Serum or Plasma Calcium Medical </content>10.3 Center MG/DL H<content styleCode="Italic s"> (8.4-10.2 MG/DL)</content> Aspartate 17-59 <content Saint aminotransferase styleCode="Bold"> Frankie hs [Enzymatic Aspartate Medical activity/volume] Aminotransferase Center in Serum or Plasma (AST) </content>21 IU/L<content styleCode="Italic s"> (17-59 IU/L)</content> Alanine 7-50 <content [facility] aminotransferase styleCode="Bold"> Frankie hs [Enzymatic Alanine Medical activity/volume] Aminotransferase Center in Serum or Plasma (ALT) </content>14 IU/L<content styleCode="Italic s"> (7-50 IU/L)</content> Alkaline 38-126 <content [facility] phosphatase styleCode="Bold"> Javan [Enzymatic Alkaline Medical activity/volume] Phosphatase (ALP) Cente r in Serum or Plasma </content>53 IU/L<content styleCode="Italic s"> (38-126 IU/L)</content> Albumin 3.5-5.0 <content Saint [Mass/volume] in styleCode="Bold"> Frankie hs Serum or Plasma Albumin Medical </content>4.3 Center G/DL<content styleCode="Italic s"> (3.5-5.0 G/DL)</content> Bilirubin.total 0.2-1.3 <content Saint [Mass/volume] in styleCode="Bold"> Frankie hs Serum or Plasma Bilirubin Total Medical </content>0.7 Center MG/DL<content styleCode="Italic s"> (0.2-1.3 MG/DL)</content> Procedure Social History Code Duration Value Status Description Data Source(s ) Smoking 02/21/2019 Denies Ever completed Denies Ever Smoked [facility] 12:47:00 AM EST Smoked Medical C enter Smoking 02/20/2019 Denies Ever completed Denies Ever Smoked [facility] 08:35:00 PM EST Smoked Medical C enter Smoking 02/20/2019 Denies Ever completed Denies Ever Smoked [facility] 08:26:00 PM EST Smoked Medical C enter Smoking 02/20/2019 Denies Ever completed Denies Ever Smoked [facility] 11:00:00 AM EST Smoked Medical C enter Smoking 02/20/2019 Denies Ever completed Denies Ever Smoked [facility] 10:41:00 AM EST Smoked Medical C enter Vital Signs ID Date Data Source UNK Name Value Range Interpretation Code Description Data Source(s) Body temperature 36.016121 36.097305 [facility] Respiratory rate 20 /min 20 /min [facility] Heart rate 70 /min 70 /min [facility] Diastolic blood 61 mm[Hg] 61 mm[Hg] [facility] Systolic blood 147 mm[Hg] 147 mm[Hg] [facility] Oxygen saturation 94 % 94 % [facility] in Arterial blood [facility] by Pulse oximetry Body temperature 37.952644 37.523374 [facility] Respiratory rate 20 /min 20 /min [facility] Heart rate 72 /min 72 /min [facility] Diastolic blood 78 mm[Hg] 78 mm[Hg] [facility] Center Systolic blood 144 mm[Hg] 144 mm[Hg] [facility] Medical Center Body temperature 36.318380 36.468780 [facility] Respiratory rate 20 /min 20 /min [facility] Center Heart rate 69 /min 69 /min [facility] Diastolic blood 70 mm[Hg] 70 mm[Hg] [facility] pressure Medical Center Systolic blood 141 mm[Hg] 141 mm[Hg] [facility] Medical Center Body temperature 37.287630 37.744061 [facility] Respiratory rate 18 /min 18 /min [facility] Center Heart rate 73 /min 73 /min [facility] Diastolic blood 97 mm[Hg] 97 mm[Hg] [facility] pressure Medical Center Systolic blood 177 mm[Hg] 177 mm[Hg] [facility] Medical Center Body temperature 36.165350 36.470656 [facility] Respiratory rate 20 /min 20 /min [facility] Heart rate 69 /min 69 /min [facility] Diastolic blood 81 mm[Hg] 81 mm[Hg] [facility] Medical Center Systolic blood 167 mm[Hg] 167 mm[Hg] [facility] Medical [place] Body weight 85.894795 kg 85.569681 kg [facility] Medical [place] Body height 167.440588 167.361913 cm [facility] Medical [place] Body mass index 30.53 kg/m2 30.53 kg/m2 [facility] faisal (BMI) [Ratio] Medical [address] Oxygen saturation 98 % 98 % [facility] seth in Arterial blood Medical Center by Pulse oximetry Body temperature 37.078218 37.794633 [facility] Respiratory rate 20 /min 20 /min [facility] Heart rate 74 /min 74 /min [facility] Diastolic blood 70 mm[Hg] 70 mm[Hg] [facility] pressure Medical Center Systolic blood 160 mm[Hg] 160 mm[Hg] [facility] Medical Center Body temperature 36.716007 36.117921 [facility] Respiratory rate 20 /min 20 /min [facility] Heart rate 82 /min 82 /min [facility] Diastolic blood 71 mm[Hg] 71 mm[Hg] [facility] Medical Center Systolic blood 161 mm[Hg] 161 mm[Hg] [facility] Center Body weight 85.527967 kg 85.440088 kg [facility] Measured Medical Center Body height 167.542313 167.187204 cm [facility] Medical [place] Body mass index 30.53 kg/m2 30.53 kg/m2 [facility]seph[facility] (BMI) [Ratio] Medical [address] [facility] Body temperature 36.122440 36.622164 [facility] Respiratory rate 20 /min 20 /min [facility] Heart rate 63 /min 63 /min [facility] Diastolic blood 59 mm[Hg] 59 mm[Hg] [facility] Medical Center Systolic blood 157 mm[Hg] 157 mm[Hg] [facility] Oxygen saturation 90 % 90 % [facility] in Arterial blood [facility] Center by Pulse oximetry Body temperature 37.076467 37.726592 [facility] Respiratory rate 18 /min 18 /min [facility] Heart rate 61 /min 61 /min [facility] Diastolic blood 62 mm[Hg] 62 mm[Hg] [facility] Medical Center Systolic blood 152 mm[Hg] 152 mm[Hg] [facility] Oxygen saturation 87 % 87 % [facility] in [facility] blood [facility] by Pulse oximetry Body temperature 36.462815 36.168430 [facility] Respiratory rate 18 /min 18 /min [facility] Heart rate 58 /min 58 /min [facility] Diastolic blood 60 mm[Hg] 60 mm[Hg] [facility] Center Systolic blood 159 mm[Hg] 159 mm[Hg] [facility] Center Oxygen saturation 89 % 89 % [facility] in Arterial blood [facility] Center by Pulse oximetry Body weight 86.543095 kg 86.777793 kg [facility] Medical Center Body height 167.957134 167.077634 cm [facility] Center Body mass index 30.6 kg/m2 30.6 kg/m2 [facility] (BMI) [Ratio] Medical [facility] ter Oxygen saturation 93 % 93 % [facility] in Arterial blood [facility] by Pulse oximetry
[2019-11-25 16:39] VITALS: TEMP 97.5; BMI 31.6
--- NOTE | 2019-11-25 16:52 | PDOC ---
History of Present Illness - General Chief Complaint: Blood Pressure Problem Stated Complaint: BLOOD PRESSURE PROBLEMS Time Seen by Provider: 11/25/19 16:52 - History of Present Illness Initial Comments: 11/25/19 16:52 HPI: This is a 64 y/o male with a PMH of ESRD (Dialysis MWF), CAD, HTN, HLD, and DM presenting to the ED due to asymptomatic hypertension at home when he took his BP. Patient was dialized earlier, completed treatment. He states he went home to eat and then he took his blood pressure and it was in the 180's/80's. The patient states that his BP was in the 90's/60's after he completed dialysis. He took his blood pressure medications earlier. His blood pressure is usually in the 150's at baseline. Denies any accompanying chest pain, sob, abdominal pain, n/v, headache, blurry vision, fever/chills, or lightheadedness. He is admitting to some right lower tooth pain for the past 6 days. ROS: GENERAL/CONSTITUTIONAL: No fever/chills, diaphoresis, or weakness. HEENT: No change in vision. No ear pain. No sore throat. CARDIOVASCULAR: No chest pain, palpitations or peripheral edema. Asymptomatic hypertension RESPIRATORY: No shortness of breath, dyspnea with exertion, cough, wheezing, or hemoptysis. GASTROINTESTINAL: No abdominal pain, nausea, vomiting, diarrhea or constipation. GENITOURINARY: No dysuria, frequency, or change in urination. MUSCULOSKELETAL: No joint or muscle swelling or pain. SKIN: No rash or hives NEUROLOGIC: No headache, vertigo, focal weakness, loss of consciousness, or change in strength/sensation. ENDOCRINE: No increased thirst. No unexplained weight loss. HEMATOLOGIC/LYMPHATIC: No anemia, easy bleeding, or history of blood clots. PMH: ESRD (Dialysis MWF), CAD, HTN, HLD, and DM Social Hx: Denied etoh, tobacco, drug use Meds: See nurse note Allergies: See nurse note PE: GENERAL: Awake, alert, and fully oriented, in no acute distress. Patient is appropriately conversational. Laying in bed on his phone. Serbian speaking. HEENT: Normocephalic, atraumatic. PERRLA, EOMI. No conjunctival pallor. Moist mucous membranes. NECK: Normal ROM and supple. No lymphadenopathy, JVD, or masses. CARDIOVASCULAR: Regular rate and rhythm, normal S1 and S2, no murmurs, rubs or gallops PULMONARY: No respiratory distress. Breath sounds equal, clear to auscultation bilaterally. No wheezes, rales or rhonchi. ABDOMEN: Soft, nontender, normoactive bowel sounds. No guarding, no rebound. No masses EXTREMITIES: Normal range of motion, no edema or erythema, no calf tenderness. No clubbing or cyanosis. NEUROLOGICAL: Cranial nerves II through XII grossly intact. Normal speech, normal gait SKIN: Warm, Dry, normal turgor, no rashes or lesions noted. Normal capillary refill. MDM: 11/25/19 18:06 This is a 64 y/o male with a PMH of ESRD (Dialysis MWF), CAD, HTN, HLD, and DM presenting to the ED due to asymptomatic hypertension at home when he took his BP. - Patient completed dialysis earlier - Takes BP at home. Normally in the 150's. - Denying any associated symptoms. No chest pain, SOB, n/v, focal neurological deficits. - Exam is benign. Patient is well appearing. - Will give him his third dose of hydralazine. Tylenol for tooth pain. Reassess and send home. 11/25/19 18:11 - Patient has remained asymptomatic throughout his stay in the emergency d epartment. - He is now sitting up in bed eating dinner. - He feels well to go home - He understands return precautions. - Stable to d/c Past History - Medical History Allergies/Adverse Reactions: Allergies Allergy/AdvReac Type Severity Reaction Status Date / Time No Known Allergies Allergy Verified 11/25/19 16:36 Home Medications: Ambulatory Orders Aspirin Coated [Ecotrin -] 81 mg PO DAILY #0 tablet.ec 05/20/19 Atorvastatin Ca [Lipitor] 80 mg PO HS #90 tablet 05/20/19 Albuterol 2.5/Ipratropium 0.5 [Duoneb -] 1 amp NEB RQID amp 10/03/19 Nifedipine ER [Procardia XL -] 90 mg PO DAILY #30 tab.er.[id number] 10/03/19 hydrALAZINE HCL [Apresoline -] 75 mg PO TID #45 tablet 10/03/19 Anemia: No Asthma: No Cancer: No Cardiac Disorders: Yes (CAD) CVA: No COPD: No CHF: No Dementia: No Diabetes: No Dialysis: Yes GI Disorders: Yes (EPIGASTRIC PAIN,CONSTIPATION) Disorders: No HTN: Yes Hypercholesterolemia: Yes Liver Disease: No Seizures: No Thyroid Disease: No - Surgical History Abdominal Surgery: No Appendectomy: No Cardiac Surgery: Yes (Cardiac Cath) Cholecystectomy: No Lung Surgery: No Neurologic Surgery: No Orthopedic Surgery: No - Immunization History Immunization Up to Date: Yes - Psycho-Social/Smoking History Smoking Status: No Smoking History: Never smoked Have you smoked in the past 12 months: No Number of Cigarettes Smoked Daily: 0 - Substance Abuse Hx (Audit-C & DAST Scrn) How often the patient has a drink containing alcohol: Never Score: In Men: 4 or > Positive; In Women: 3 or > Positive: 0 Screen Result (Pos requires Nsg. Audit-10AR): Negative In the last yr the pt used illegal drug/Rx for NonMed reason: No Score: Yes response is considered Positive: 0 Screen Result (Positive result requires Nsg. DAST-10): Negative *Physical Exam - Vital Signs Last Vital Signs Temp Pulse Resp BP Pulse Ox 97.5 F L 52 L 20 194/80 H 100 11/25/19 16:37 11/25/19 16:37 11/25/19 16:37 11/25/19 16:37 11/25/19 16:37 Discharge - Discharge Information Problems reviewed: Yes Clinical Impression/Diagnosis: Asymptomatic hypertension Condition: Stable Disposition: HOME - Follow up/Referral Referrals: Adarsh Fairchild [Primary Care Provider] - - Patient Discharge Instructions Patient Printed Discharge Instructions: DI for High Blood Pressure Additional Instructions: Lleg a la amelia de emergencias debido a la presin arterial meredith. No tenas ningn otro sntoma. Le dimos casey dosis nocturna de medicamentos para la presin arterial. Permaneci asintomtico mientras estuvo aqu. Te damos el meredith a casa. Regrese si tiene algn dolor en el pecho, dificultad para respirar, mareo o cualquier otro sntoma nuevo o preocupante. - Post Discharge Activity
--- NOTE | 2019-11-25 17:10 | PDOC ---
Documentation entered by Tracy Cook SCRIBE, acting as scribe for Yokasta Mcnally MD. Yokasta Mcnally MD: This documentation has been prepared by the scribe, Tracy Cook SCRIBE, under my direction and personally reviewed by me in its entirety. I confirm that the documentation accurately reflects all work, treatment, procedures, and medical decision making performed by me. Attending Attestation - Resident Resident Name: Becca Green - ED Attending Attestation I have performed the following: I have examined & evaluated the patient, The case was reviewed & discussed with the resident, I agree w/resident's findings & plan, Exceptions are as noted - HPI HPI: 11/25/19 16:57 Patient is a 64 year old male with a significant past medical history of ESRD (MWF), CVA, hypertension, CAD,and congestive heart failure, who presents to the ED with asymptomatic elevated blood pressure. Patient stated he had his scheduled dialysis earlier, went home to eat, took his blood pressure at home, and realized it was high. Patient stated he has been compliant with blood pressure medications, Patient endorses: right lower tooth pain x6 days. Patient denies: fever, chills, headache, any vision changes, nausea, vomiting, SOB, chest pain, abdominal pain, dyspnea Allergies: NKDA - Physicial Exam PE: 11/25/19 17:08 wnwd 64 yo male presents with no acute distress head ncat neck supple lung cta b/l cvs [id number] abdomen nontender skin warm and ddry neuro axox4 - Medical Decision Making 11/25/19 19:17 pt has no complaints BP jew=154 pt d/c home Discharge - Discharge Information Problems reviewed: Yes Clinical Impression/Diagnosis: Asymptomatic hypertension Condition: Stable Disposition: HOME - Follow up/Referral Referrals: Adarsh Fairchild [Primary Care Provider] - - Patient Discharge Instructions Patient Printed Discharge Instructions: DI for High Blood Pressure Additional Instructions: Lleg a la amelia de emergencias debido a la presin arterial meredith. No tenas ningn otro sntoma. Le dimos casey dosis nocturna de medicamentos para la presin arterial. Permaneci asintomtico mientras estuvo aqu. Te damos el meredith a casa. Regrese si tiene algn dolor en el pecho, dificultad para respirar, mareo o cualquier otro sntoma nuevo o preocupante. - Post Discharge Activity
[2019-11-25] MEDS ORDERED: hydrALAZINE HCL 50 MG TABLET (FP) PO ONE (17:39)
[2019-11-25] MEDS ORDERED: ACETAMINOPHEN 325 MG TABLET (FP) PO ONE (17:40)
[2019-11-25] MEDS ORDERED: hydrALAZINE HCL 25 MG TABLET (FP) ONE (18:07)
[2019-11-25] MEDS ORDERED: ACETAMINOPHEN 325 MG TABLET (FP) ONE (18:07)
[2019-11-25 19:21] VITALS: BP 168/78; PULSE 59
--- NOTE | 2019-11-26 10:06 | EKG ---
Test Reason : Blood Pressure : / mmHG Vent. Rate : 052 BPM Atrial Rate : 052 BPM P-R Int : 176 ms QRS Dur : 094 ms QT Int : 530 ms P-R-T Axes : 045 050 258 degrees QTc Int : 492 ms SINUS BRADYCARDIA VOLTAGE CRITERIA FOR LEFT VENTRICULAR HYPERTROPHY CANNOT RULE OUT SEPTAL INFARCT (CITED ON OR BEFORE 30-SEP-2019) T WAVE ABNORMALITY, CONSIDER INFEROLATERAL ISCHEMIA ABNORMAL ECG WHEN COMPARED WITH ECG OF 01-OCT-2019 09:40, QUESTIONABLE CHANGE IN INITIAL FORCES OF SEPTAL LEADS Confirmed by MD Froylan, Aaron ([id number]) on 11/26/2019 10:06:27 AM Referred By: Confirmed By:Aaron Galeano MD
== END 2019-11-25 19:21 | disposition home or self-care (01) ==
LOC: JER 16:26
DX: R03.0 Elevated blood-pressure reading, without diagnosis of hypertension (principal)
CPT/HCPCS: 93005; 93010; 99283-25

== ENCOUNTER 2020-03-11 18:16 | Inpatient (IN) | payer OTHER ==
[2020-03-11 18:50] VITALS: BMI 29.7
[2020-03-11] MEDS ORDERED: hydrALAZINE HCL 20 MG/ML VIAL IVPUSH ONE (19:13)
[2020-03-11] MEDS ORDERED: hydrALAZINE HCL 20 MG/ML VIAL ONE (19:42)
[2020-03-11 19:53] LABS: HEMATOCRIT 37.7 % (35.4-49); HEMOGLOBIN 12.5 GM/dL (11.7-16.9); MCH 29.8 pg (25.7-33.7); MCHC 33.2 g/dl (32.0-35.9); MEAN CELL VOLUME 89.6 fl (80-96); MEAN PLT VOLUME 8.8 fl (7.5-11.1); PLATELET COUNT 157 K/MM3 (134-434); RBC 4.21 M/mm3 (4.00-5.60); RDW 17.9 % (11.9-15.9); WHITE BLOOD COUNT 7.7 K/mm3 (4.0-10.0)
[2020-03-11 20:14] LABS: POTASSIUM 4.6 mmol/L (3.5-5.1)
[2020-03-11 20:16] LABS: ALBUMIN 3.8 g/dl (3.4-5.0); BLOOD UREA NITROGEN 31.9 mg/dL (7-18); CALCIUM 10.2 mg/dL (8.5-10.1)
[2020-03-11 20:19] LABS: CREATININE 6.8 mg/dL (0.55-1.3)
[2020-03-11 20:21] LABS: BILIRUBIN,TOTAL 0.4 mg/dL (0.2-1); TOT PROT 8.4 g/dl (6.4-8.2)
[2020-03-11 20:24] LABS: N-TERMINAL BNP 22368.7 pg/ml (5-125)
[2020-03-11] MEDS ORDERED: NITROGLYCERIN 2% OINTMENT - 1GM PACKET TD ONE ×2 (20:30→20:42)
[2020-03-11] MEDS ORDERED: morphine CARPU-JECT 2 MG/1 ML DISP.SYRIN IVPUSH ONE (20:30)
[2020-03-11] MEDS ORDERED: MORPHINE SULFATE 2 MG/ML VIAL ONE (20:41)
[2020-03-12] MEDS ORDERED: NITROGLYCERIN 2% OINTMENT - 1GM PACKET TD STA (03:54)
[2020-03-12] MEDS ORDERED: NITROGLYCERIN 2% OINTMENT - 1GM PACKET TD ONE (04:16)
[2020-03-12] MEDS ORDERED: hydrALAZINE HCL 25 MG TABLET (FP) ONE (05:20)
[2020-03-12] MEDS: hydrALAZINE HCL 50 MG TABLET (FP) PO SCH ×3 (05:25→21:42)
[2020-03-12] MEDS ORDERED: hydrALAZINE HCL 50 MG TABLET (FP) PO SCH (06:00)
[2020-03-12 07:10] LABS: HEMATOCRIT 37.1 % (35.4-49); HEMOGLOBIN 12.5 GM/dL (11.7-16.9); MCHC 33.7 g/dl (32.0-35.9); MEAN CELL VOLUME 89.3 fl (80-96); MEAN PLT VOLUME 9.3 fl (7.5-11.1); PLATELET COUNT 160 K/MM3 (134-434); RBC 4.16 M/mm3 (4.00-5.60); RDW 18.4 % (11.9-15.9); WHITE BLOOD COUNT 8.6 K/mm3 (4.0-10.0)
[2020-03-12 07:19] LABS: POTASSIUM 5.2 mmol/L (3.5-5.1)
[2020-03-12 07:22] LABS: BLOOD UREA NITROGEN 39.8 mg/dL (7-18); CALCIUM 9.3 mg/dL (8.5-10.1)
[2020-03-12 07:56] LABS: CREATININE 8.2 mg/dL (0.55-1.3)
[2020-03-12] MEDS ORDERED: ASPIRIN COATED 81 MG TABLET.EC ONE (10:25)
[2020-03-12] MEDS: NIFEdipine E.R. 90 MG TABLET PO SCH (11:23)
[2020-03-12] MEDS: ASPIRIN COATED 81 MG TABLET.EC PO SCH (11:23)
[2020-03-12] MEDS ORDERED: SODIUM CHLORIDE 250 ML IV PRN (13:05)
[2020-03-12] MEDS ORDERED: ATORVASTATIN CA 80 MG TABLET (FP) PO SCH (22:00)
[2020-03-13] MEDS: hydrALAZINE HCL 50 MG TABLET (FP) PO SCH ×2 (05:58→13:49)
[2020-03-13 06:06] VITALS: TEMP 98.2
[2020-03-13] MEDS ORDERED: LOSARTAN POTASSIUM 50 MG TABLET PO SCH (10:00)
[2020-03-13] MEDS: ASPIRIN COATED 81 MG TABLET.EC PO SCH (10:02)
[2020-03-13] MEDS: NIFEdipine E.R. 90 MG TABLET PO SCH (10:02)
[2020-03-13 13:37] VITALS: BP 106/60; PULSE 64
== END 2020-03-13 15:17 | disposition home or self-care (01) | DRG 291 ==
LOC: JER 18:16 → JERBED 21:01 → J4W 03-12 20:56
PROVIDERS: ADMIT Hospitalist; ATTEND Family Medicine
PROC: 5A1D70Z Performance of Urinary Filtration, Intermittent, Less than 6 Hours Per Day (ICD-10-PCS; principal; 2020-03-12)
DX: I13.2 Hypertensive heart and chronic kidney disease with heart failure and with stage 5 chronic kidney disease, or end stage renal disease (principal); N18.6 End stage renal disease; I50.32 Chronic diastolic (congestive) heart failure; I16.0 Hypertensive urgency; E78.5 Hyperlipidemia, unspecified; I25.10 Atherosclerotic heart disease of native coronary artery without angina pectoris; E87.5 Hyperkalemia; D64.9 Anemia, unspecified; R07.9 Chest pain, unspecified; E83.52 Hypercalcemia; Z99.2 Dependence on renal dialysis
CPT/HCPCS: 36415; 70450-TC; 71045-TC-FY; 71275-TC; 80048; 80053; 82550; 83036; 83880; 84484; 85027; 85379; 86803; 87340; 93005; 93010; 93306-TC; 99291; 99292; C9803; U0003

== ENCOUNTER 2020-11-30 15:25 | Inpatient (IN) | payer OTHER ==
[2020-11-30] MEDS ORDERED: ACETAMINOPHEN 325 MG TABLET (FP) PO ONE (16:23)
[2020-11-30] MEDS ORDERED: ACETAMINOPHEN 325 MG TABLET (FP) ONE (16:59)
[2020-11-30 17:30] LABS: BASO % 0.6 % (0-2.0); EOS % 1.4 % (0-4.5); HEMATOCRIT 28.9 % (35.4-49); HEMOGLOBIN 9.8 GM/dL (11.7-16.9); LYMPH % 6.6 % (8-40); MCH 30.7 pg (25.7-33.7); MCHC 33.8 g/dl (32.0-35.9); MEAN CELL VOLUME 90.7 fl (80-96); MEAN PLT VOLUME 8.4 fl (7.5-11.1); MONO % 9.1 % (3.8-10.2); NEUT % 82.3 % (42.8-82.8); PLATELET COUNT 197 10^3/uL (134-434); RBC 3.19 M/mm3 (4.00-5.60); RDW 18.8 % (11.9-15.9); WHITE BLOOD COUNT 6.5 K/mm3 (4.0-10.0)
[2020-11-30 17:36] LABS: INR 0.99 (0.83-1.09); PROTHROMBIN TIME (PATIENT) 11.6 SEC (9.7-13.0)
[2020-11-30 17:50] LABS: ALBUMIN 3.3 g/dl (3.4-5.0)
[2020-11-30 17:52] LABS: BLOOD UREA NITROGEN 34.2 mg/dL (7-18)
[2020-11-30 17:54] LABS: CREATININE 6.5 mg/dL (0.55-1.3)
[2020-11-30 17:55] LABS: BILIRUBIN,TOTAL 0.7 mg/dL (0.2-1); TOT PROT 7.8 g/dl (6.4-8.2)
[2020-11-30] MEDS ORDERED: AZITHROMYCIN IVPB 500 MG in DEXTROSE 5%-WATER - 250 ML IVPB ONE (18:12)
[2020-11-30 18:13] LABS: N-TERMINAL BNP 79094.3 pg/ml (5-125)
[2020-11-30] MEDS ORDERED: ASPIRIN 81 MG CHEWABLE TABLETS PO ONE (18:36)
[2020-11-30] MEDS ORDERED: AZITHROMYCIN IVPB 500 MG/250 ML BAG IVPB ONE (19:21)
[2020-11-30] MEDS ORDERED: ASPIRIN COATED 81 MG TABLET.EC ONE (19:21)
[2020-11-30] MEDS ORDERED: POLYETHYLENE GLYCOL (HEALTHYLAX) 3350 17 GM PACKET PO PRN (22:33)
[2020-12-01] MEDS ORDERED: ACETAMINOPHEN 325 MG TABLET (FP) PO PRN (06:00)
[2020-12-01] MEDS ORDERED: HEPARIN NA (PORCINE) 5,000 UNITS/ML 1ML VIAL ONE ×2 (06:42→16:06)
[2020-12-01] MEDS: HEPARIN NA (PORCINE) 5,000 UNITS/ML 1ML VIAL SQ SCH ×3 (06:52→22:30)
[2020-12-01 07:51] LABS: BASO % 0.9 % (0-2.0); EOS % 1.8 % (0-4.5); HEMATOCRIT 28.1 % (35.4-49); HEMOGLOBIN 9.7 GM/dL (11.7-16.9); LYMPH % 9.3 % (8-40); MCH 31.6 pg (25.7-33.7); MCHC 34.3 g/dl (32.0-35.9); MEAN CELL VOLUME 91.9 fl (80-96); MEAN PLT VOLUME 8.5 fl (7.5-11.1); MONO % 9.1 % (3.8-10.2); NEUT % 78.9 % (42.8-82.8); PLATELET COUNT 190 10^3/uL (134-434); RBC 3.06 M/mm3 (4.00-5.60); RDW 18.3 % (11.9-15.9)
[2020-12-01] MEDS ORDERED: guaiFENesin/D-M SUGAR-FREE/ACLHOL-FREE 118 ML BOTTLE PO PRN (07:56)
[2020-12-01 08:02] LABS: CHLORIDE 100 mmol/L (98-107); SODIUM 140 mmol/L (136-145)
[2020-12-01 08:03] LABS: CALCIUM 10.1 mg/dL (8.5-10.1)
[2020-12-01 08:04] LABS: ANION GAP 11 MMOL/L (8-16); BLOOD UREA NITROGEN 50.9 mg/dL (7-18); CO2 29 mmol/L (21-32); GLUCOSE,RANDOM 84 mg/dL (74-106)
[2020-12-01 08:07] LABS: SGOT/AST 13 U/L (15-37); SGPT/ALT 22 U/L (13-61)
[2020-12-01 08:08] LABS: BILIRUBIN,TOTAL 0.6 mg/dL (0.2-1)
[2020-12-01 08:11] LABS: ALK PHOS 85 U/L (45-117)
[2020-12-01 08:21] LABS: CREATININE 8.3 mg/dL (0.55-1.3)
[2020-12-01] MEDS: CINACALCET HCL 30 MG TAB (FP) PO SCH (10:50)
[2020-12-01] MEDS ORDERED: ASPIRIN 325 MG ENTERIC COATED TABLET (FP) ONE (10:54)
[2020-12-01] MEDS ORDERED: AZITHROMYCIN IVPB 500 MG/250 ML BAG IVPB ONE (10:55)
[2020-12-01] MEDS ORDERED: LOSARTAN POTASSIUM 50 MG TABLET ONE (10:55)
[2020-12-01] MEDS ORDERED: NIFEdipine E.R. 30 MG TABLET ONE (10:55)
[2020-12-01] MEDS ORDERED: DOCUSATE SODIUM 100 MG CAPSULE (FP) PO ONE (10:55)
[2020-12-01] MEDS: LOSARTAN POTASSIUM 50 MG TABLET PO SCH (10:58)
[2020-12-01] MEDS: AZITHROMYCIN IVPB 500 MG/250 ML BAG IVPB SCH (10:58)
[2020-12-01] MEDS: DOCUSATE SODIUM 100 MG CAPSULE (FP) PO SCH ×2 (10:58→22:30)
[2020-12-01] MEDS: NIFEdipine E.R. 90 MG TABLET PO SCH (10:58)
[2020-12-01] MEDS: ASPIRIN 325 MG TABLET PO SCH (10:58)
[2020-12-01] MEDS: INSULIN SLIDING SCALE (NOVOLOG) 1 VIAL SQ SCH ×2 (11:50→22:31)
[2020-12-01] MEDS ORDERED: ALBUTEROL SO4 2.5/IPRATROPIUM 0.5 INH SOL 3 ML VIAL.NEB. NEB ONE ×3 (12:12→16:06)
[2020-12-01] MEDS: ALBUTEROL SO4 2.5/IPRATROPIUM 0.5 INH SOL 3 ML VIAL.NEB. NEB SCH ×3 (12:55→20:30)
[2020-12-01] MEDS: hydrALAZINE HCL 50 MG TABLET (FP) PO SCH ×2 (14:30→22:30)
[2020-12-01] MEDS: ATORVASTATIN CA 80 MG TABLET (FP) PO SCH (22:30)
[2020-12-01 23:02] VITALS: BMI 30.9
[2020-12-02] MEDS: hydrALAZINE HCL 50 MG TABLET (FP) PO SCH ×3 (05:58→23:04)
[2020-12-02] MEDS: HEPARIN NA (PORCINE) 5,000 UNITS/ML 1ML VIAL SQ SCH ×3 (05:58→23:03)
[2020-12-02] MEDS: INSULIN SLIDING SCALE (NOVOLOG) 1 VIAL SQ SCH ×4 (07:18→23:02)
[2020-12-02] MEDS: NIFEdipine E.R. 90 MG TABLET PO SCH (09:33)
[2020-12-02] MEDS: ASPIRIN 325 MG TABLET PO SCH (09:33)
[2020-12-02] MEDS: LOSARTAN POTASSIUM 50 MG TABLET PO SCH (09:33)
[2020-12-02] MEDS: DOCUSATE SODIUM 100 MG CAPSULE (FP) PO SCH ×2 (09:35→23:04)
[2020-12-02] MEDS: AZITHROMYCIN IVPB 500 MG/250 ML BAG IVPB SCH (09:36)
[2020-12-02] MEDS: CINACALCET HCL 30 MG TAB (FP) PO SCH (09:37)
[2020-12-02] MEDS: ALBUTEROL SO4 2.5/IPRATROPIUM 0.5 INH SOL 3 ML VIAL.NEB. NEB SCH ×5 (09:39→20:09)
[2020-12-02] MEDS: LORATADINE 10 MG TABLET PO SCH (10:29)
[2020-12-02] MEDS: guaiFENesin/D-M SUGAR-FREE/ACLHOL-FREE 5 ML UNIT DOSE PO SCH ×2 (11:33→17:42)
[2020-12-02] MEDS ORDERED: PT OWN MED DRAWER 7, Y5N ONE ×3 (11:34→17:27)
[2020-12-02] MEDS ORDERED: SODIUM CHLORIDE 250 ML IV PRN (11:39)
[2020-12-02] MEDS ORDERED: EPOETIN ALFA-EPBX 4,000 UNIT/ML VIAL IVPUSH ONE (13:00)
[2020-12-02] MEDS: ATORVASTATIN CA 80 MG TABLET (FP) PO SCH (23:04)
[2020-12-03] MEDS: guaiFENesin/D-M SUGAR-FREE/ACLHOL-FREE 5 ML UNIT DOSE PO SCH ×4 (00:17→18:11)
[2020-12-03] MEDS: INSULIN SLIDING SCALE (NOVOLOG) 1 VIAL SQ SCH ×3 (06:35→17:04)
[2020-12-03] MEDS: hydrALAZINE HCL 50 MG TABLET (FP) PO SCH ×3 (06:43→21:41)
[2020-12-03] MEDS: HEPARIN NA (PORCINE) 5,000 UNITS/ML 1ML VIAL SQ SCH ×3 (06:43→21:45)
[2020-12-03] MEDS ORDERED: PT OWN MED DRAWER 7, Y5N ONE ×4 (06:46→18:08)
[2020-12-03] MEDS: ALBUTEROL SO4 2.5/IPRATROPIUM 0.5 INH SOL 3 ML VIAL.NEB. NEB SCH ×4 (07:25→20:22)
[2020-12-03] MEDS: AZITHROMYCIN IVPB 500 MG/250 ML BAG IVPB SCH (08:46)
[2020-12-03] MEDS ORDERED: FUROSEMIDE 40 MG/4 ML INJECTABLE VIAL IVPUSH ONE (11:30)
[2020-12-03] MEDS: ASPIRIN 325 MG TABLET PO SCH (11:40)
[2020-12-03] MEDS: LORATADINE 10 MG TABLET PO SCH (11:41)
[2020-12-03] MEDS: DOCUSATE SODIUM 100 MG CAPSULE (FP) PO SCH ×2 (11:41→21:44)
[2020-12-03] MEDS: CINACALCET HCL 30 MG TAB (FP) PO SCH (11:42)
[2020-12-03] MEDS: NIFEdipine E.R. 90 MG TABLET PO SCH (11:42)
[2020-12-03] MEDS: LOSARTAN POTASSIUM 50 MG TABLET PO SCH (11:42)
[2020-12-03] MEDS: ATORVASTATIN CA 80 MG TABLET (FP) PO SCH (21:42)
[2020-12-04] MEDS ORDERED: PT OWN MED DRAWER 7, Y5N ONE ×2 (05:39→08:28)
[2020-12-04] MEDS: guaiFENesin/D-M SUGAR-FREE/ACLHOL-FREE 5 ML UNIT DOSE PO SCH ×3 (05:53→13:14)
[2020-12-04] MEDS: hydrALAZINE HCL 50 MG TABLET (FP) PO SCH (05:53)
[2020-12-04] MEDS: HEPARIN NA (PORCINE) 5,000 UNITS/ML 1ML VIAL SQ SCH (06:41)
[2020-12-04] MEDS: INSULIN SLIDING SCALE (NOVOLOG) 1 VIAL SQ SCH ×3 (06:42→13:14)
[2020-12-04] MEDS: ALBUTEROL SO4 2.5/IPRATROPIUM 0.5 INH SOL 3 ML VIAL.NEB. NEB SCH ×2 (08:21→11:40)
[2020-12-04] MEDS: ASPIRIN 325 MG TABLET PO SCH (09:33)
[2020-12-04] MEDS: LOSARTAN POTASSIUM 50 MG TABLET PO SCH (09:34)
[2020-12-04] MEDS: LORATADINE 10 MG TABLET PO SCH (09:34)
[2020-12-04] MEDS: DOCUSATE SODIUM 100 MG CAPSULE (FP) PO SCH (09:35)
[2020-12-04] MEDS: AZITHROMYCIN IVPB 500 MG/250 ML BAG IVPB SCH (09:35)
[2020-12-04] MEDS: NIFEdipine E.R. 90 MG TABLET PO SCH (09:35)
[2020-12-04] MEDS: CINACALCET HCL 30 MG TAB (FP) PO SCH (09:35)
[2020-12-04 11:35] LABS: HEMOGLOBIN 8.3 GM/dL (11.7-16.9); MCH 30.8 pg (25.7-33.7); MCHC 33.3 g/dl (32.0-35.9); MEAN CELL VOLUME 92.6 fl (80-96); PLATELET COUNT 158 10^3/uL (134-434); RDW 18.4 % (11.9-15.9); WHITE BLOOD COUNT 7.2 K/mm3 (4.0-10.0)
[2020-12-04 11:56] LABS: CHLORIDE 101 mmol/L (98-107); SODIUM 138 mmol/L (136-145)
[2020-12-04 12:14] VITALS: TEMP 98.2
[2020-12-04 12:21] LABS: ANION GAP 15 MMOL/L (8-16); BLOOD UREA NITROGEN 70.6 mg/dL (7-18); CO2 22 mmol/L (21-32); GLUCOSE,RANDOM 140 mg/dL (74-106)
[2020-12-04 12:25] LABS: CREATININE 10.2 mg/dL (0.55-1.3)
[2020-12-04] MEDS ORDERED: SODIUM CHLORIDE 250 ML IV PRN (13:00)
[2020-12-04] MEDS ORDERED: EPOETIN ALFA-EPBX 4,000 UNIT/ML VIAL IVPUSH ONE (13:00)
[2020-12-04 14:29] VITALS: BP 133/71; PULSE 72
[2020-12-05] MEDS ORDERED: TORSEMIDE 20 MG TABLET (FP) PO SCH (10:00)
== END 2020-12-04 15:51 | disposition home or self-care (01) | DRG 291 ==
LOC: JER 15:25 → JERBED 18:28 → J4W 12-01 22:20
PROVIDERS: ADMIT Internal Medicine; ATTEND Family Medicine
PROC: 5A1D70Z Performance of Urinary Filtration, Intermittent, Less than 6 Hours Per Day (ICD-10-PCS; principal; 2020-12-02)
PROC: 5A1D70Z Performance of Urinary Filtration, Intermittent, Less than 6 Hours Per Day (ICD-10-PCS; 2020-12-04)
DX: I13.2 Hypertensive heart and chronic kidney disease with heart failure and with stage 5 chronic kidney disease, or end stage renal disease (principal); N18.6 End stage renal disease; I50.33 Acute on chronic diastolic (congestive) heart failure; I24.8 Other forms of acute ischemic heart disease; R04.2 Hemoptysis; I25.10 Atherosclerotic heart disease of native coronary artery without angina pectoris; E78.5 Hyperlipidemia, unspecified; K59.00 Constipation, unspecified; D64.9 Anemia, unspecified; E11.22 Type 2 diabetes mellitus with diabetic chronic kidney disease; Z99.2 Dependence on renal dialysis; J45.909 Unspecified asthma, uncomplicated; D63.1 Anemia in chronic kidney disease; E66.9 Obesity, unspecified; E87.70 Fluid overload, unspecified; F41.9 Anxiety disorder, unspecified; Z68.30 Body mass index [BMI] 30.0-30.9, adult; Z86.73 Personal history of transient ischemic attack (TIA), and cerebral infarction without residual deficits
CPT/HCPCS: 36415; 71045-TC-FY; 71250-TC; 80048; 80053; 80061; 82550; 82962; 83880; 84443; 84484; 85025; 85027; 85610; 85730; 86803; 87340; 93005; 93010; 94640; 99285-25; C9803; J1644; Q5106; U0003; U0005

== ENCOUNTER 2021-01-11 07:14 | Inpatient (IN) | payer OTHER ==
[2021-01-11 07:37] VITALS: BMI 30.7
[2021-01-11 09:12] LABS: BASO % 0.5 % (0-2.0); EOS % 1.3 % (0-4.5); HEMOGLOBIN 7.2 GM/dL (11.7-16.9); LYMPH % 7.9 % (8-40); MCH 31.3 pg (25.7-33.7); MCHC 32.7 g/dl (32.0-35.9); MEAN CELL VOLUME 95.7 fl (80-96); MONO % 7.8 % (3.8-10.2); NEUT % 82.5 % (42.8-82.8); PLATELET COUNT 201 10^3/uL (134-434); RDW 18.8 % (11.9-15.9); WHITE BLOOD COUNT 8.6 K/mm3 (4.0-10.0)
[2021-01-11 09:48] LABS: CHLORIDE 102 mmol/L (98-107); SODIUM 141 mmol/L (136-145)
[2021-01-11 09:53] LABS: CALCIUM 9.9 mg/dL (8.5-10.1)
[2021-01-11 09:54] LABS: ALBUMIN 3.2 g/dl (3.4-5.0); ANION GAP 13 MMOL/L (8-16); BLOOD UREA NITROGEN 81.8 mg/dL (7-18); CO2 25 mmol/L (21-32); GLUCOSE,RANDOM 95 mg/dL (74-106)
[2021-01-11 09:56] LABS: SGPT/ALT 22 U/L (13-61)
[2021-01-11 09:57] LABS: SGOT/AST 19 U/L (15-37)
[2021-01-11 09:58] LABS: BILIRUBIN,TOTAL 0.8 mg/dL (0.2-1); TOT PROT 7.1 g/dl (6.4-8.2)
[2021-01-11 09:59] LABS: ALK PHOS 82 U/L (45-117)
[2021-01-11 11:05] LABS: CREATININE 11.2 mg/dL (0.55-1.3)
[2021-01-11] MEDS ORDERED: ACETAMINOPHEN 325 MG TABLET (FP) PO PRN (13:50)
[2021-01-11] MEDS ORDERED: POLYETHYLENE GLYCOL (HEALTHYLAX) 3350 17 GM PACKET PO PRN (13:50)
[2021-01-11] MEDS ORDERED: hydrALAZINE HCL 25 MG TABLET (FP) ONE (16:53)
[2021-01-11] MEDS ORDERED: HEPARIN NA (PORCINE) 5,000 UNITS/ML 1ML VIAL ONE (16:53)
[2021-01-11] MEDS ORDERED: ALBUTEROL SO4 2.5/IPRATROPIUM 0.5 INH SOL 3 ML VIAL.NEB. NEB ONE (16:53)
[2021-01-11] MEDS ORDERED: FUROSEMIDE 40 MG/4 ML INJECTABLE VIAL IVPB ONE (16:53)
[2021-01-11] MEDS: hydrALAZINE HCL 50 MG TABLET (FP) PO SCH (17:09)
[2021-01-11] MEDS: HEPARIN NA (PORCINE) 5,000 UNITS/ML 1ML VIAL SQ SCH (17:09)
[2021-01-11] MEDS: ALBUTEROL SO4 2.5/IPRATROPIUM 0.5 INH SOL 3 ML VIAL.NEB. NEB SCH ×2 (17:09→20:30)
[2021-01-11] MEDS ORDERED: FUROSEMIDE 40 MG/4 ML INJECTABLE VIAL ONE (18:40)
[2021-01-11] MEDS ORDERED: SODIUM CHLORIDE 250 ML IV PRN (20:54)
[2021-01-11] MEDS ORDERED: EPOETIN ALFA-EPBX 10,000 UNIT/ML VIAL SQ ONE (21:00)
[2021-01-12] MEDS: ATORVASTATIN CA 80 MG TABLET (FP) PO SCH ×2 (00:03→22:06)
[2021-01-12] MEDS: HEPARIN NA (PORCINE) 5,000 UNITS/ML 1ML VIAL SQ SCH ×3 (00:03→22:06)
[2021-01-12] MEDS: DOCUSATE SODIUM 100 MG CAPSULE (FP) PO SCH ×3 (00:03→22:06)
[2021-01-12] MEDS: hydrALAZINE HCL 50 MG TABLET (FP) PO SCH ×4 (00:03→22:06)
[2021-01-12] MEDS ORDERED: SODIUM CHLORIDE 250 ML IV PRN ×2 (07:21→13:49)
[2021-01-12] MEDS ORDERED: EPOETIN ALFA-EPBX 10,000 UNIT/ML VIAL SQ ONE (08:00)
[2021-01-12] MEDS: ALBUTEROL SO4 2.5/IPRATROPIUM 0.5 INH SOL 3 ML VIAL.NEB. NEB SCH ×4 (08:36→20:10)
[2021-01-12 08:37] LABS: BASO % 0.6 % (0-2.0); EOS % 1.1 % (0-4.5); HEMATOCRIT 26.4 % (35.4-49); MCH 32.2 pg (25.7-33.7); MCHC 34.3 g/dl (32.0-35.9); MEAN CELL VOLUME 93.9 fl (80-96); MEAN PLT VOLUME 9.3 fl (7.5-11.1); MONO % 11.2 % (3.8-10.2); NEUT % 79.1 % (42.8-82.8); PLATELET COUNT 177 10^3/uL (134-434); RBC 2.81 M/mm3 (4.00-5.60); RDW 18.6 % (11.9-15.9)
[2021-01-12 09:11] LABS: CHLORIDE 102 mmol/L (98-107); SODIUM 141 mmol/L (136-145)
[2021-01-12 09:25] LABS: ANION GAP 11 MMOL/L (8-16); CALCIUM 9.4 mg/dL (8.5-10.1); CO2 29 mmol/L (21-32); GLUCOSE,RANDOM 79 mg/dL (74-106)
[2021-01-12 09:28] LABS: SGOT/AST 15 U/L (15-37); SGPT/ALT 20 U/L (13-61)
[2021-01-12 09:30] LABS: TOT PROT 6.8 g/dl (6.4-8.2)
[2021-01-12 09:31] LABS: ALK PHOS 90 U/L (45-117)
[2021-01-12 09:43] LABS: BLOOD UREA NITROGEN 55.9 mg/dL (7-18)
[2021-01-12] MEDS: NIFEdipine E.R. 90 MG TABLET PO SCH (12:19)
[2021-01-12] MEDS: LOSARTAN POTASSIUM 50 MG TABLET PO SCH (12:19)
[2021-01-12] MEDS: LORATADINE 10 MG TABLET PO SCH (12:20)
[2021-01-12] MEDS: ASPIRIN COATED 81 MG TABLET.EC PO SCH (12:20)
[2021-01-13] MEDS: hydrALAZINE HCL 50 MG TABLET (FP) PO SCH ×3 (05:34→21:29)
[2021-01-13] MEDS ORDERED: EPOETIN ALFA-EPBX 10,000 UNIT/ML VIAL IVPUSH ONE (07:30)
[2021-01-13 09:13] LABS: HEMATOCRIT 27.4 % (35.4-49); HEMOGLOBIN 9.2 GM/dL (11.7-16.9); MCH 31.4 pg (25.7-33.7); MCHC 33.5 g/dl (32.0-35.9); MEAN CELL VOLUME 93.7 fl (80-96); MEAN PLT VOLUME 8.8 fl (7.5-11.1); PLATELET COUNT 206 10^3/uL (134-434); RBC 2.93 M/mm3 (4.00-5.60); RDW 18.2 % (11.9-15.9)
[2021-01-13 09:45] LABS: CHLORIDE 102 mmol/L (98-107); SODIUM 143 mmol/L (136-145)
[2021-01-13] MEDS: ALBUTEROL SO4 2.5/IPRATROPIUM 0.5 INH SOL 3 ML VIAL.NEB. NEB SCH ×3 (09:46→19:59)
[2021-01-13 09:47] LABS: ANION GAP 13 MMOL/L (8-16); BLOOD UREA NITROGEN 36.7 mg/dL (7-18); CALCIUM 9.4 mg/dL (8.5-10.1); CO2 28 mmol/L (21-32)
[2021-01-13 09:48] LABS: GLUCOSE,RANDOM 76 mg/dL (74-106)
[2021-01-13 09:56] LABS: CREATININE 7.5 mg/dL (0.55-1.3)
[2021-01-13] MEDS: DOCUSATE SODIUM 100 MG CAPSULE (FP) PO SCH ×2 (12:16→21:29)
[2021-01-13] MEDS: HEPARIN NA (PORCINE) 5,000 UNITS/ML 1ML VIAL SQ SCH ×2 (12:17→21:29)
[2021-01-13] MEDS: ASPIRIN COATED 81 MG TABLET.EC PO SCH (12:17)
[2021-01-13] MEDS: LORATADINE 10 MG TABLET PO SCH (12:17)
[2021-01-13] MEDS: NIFEdipine E.R. 90 MG TABLET PO SCH (12:17)
[2021-01-13] MEDS: LOSARTAN POTASSIUM 50 MG TABLET PO SCH (12:17)
[2021-01-13] MEDS: ATORVASTATIN CA 80 MG TABLET (FP) PO SCH (21:29)
[2021-01-14] MEDS: hydrALAZINE HCL 50 MG TABLET (FP) PO SCH ×3 (06:02→21:53)
[2021-01-14] MEDS: ALBUTEROL SO4 2.5/IPRATROPIUM 0.5 INH SOL 3 ML VIAL.NEB. NEB SCH ×4 (07:30→20:10)
[2021-01-14 07:59] LABS: BASO % 0.8 % (0-2.0); EOS % 2.6 % (0-4.5); HEMATOCRIT 27.5 % (35.4-49); HEMOGLOBIN 9.4 GM/dL (11.7-16.9); LYMPH % 11.2 % (8-40); MCH 32.3 pg (25.7-33.7); MEAN CELL VOLUME 94.9 fl (80-96); MEAN PLT VOLUME 8.3 fl (7.5-11.1); MONO % 10.4 % (3.8-10.2); PLATELET COUNT 221 10^3/uL (134-434); RDW 18.7 % (11.9-15.9); WHITE BLOOD COUNT 7.5 K/mm3 (4.0-10.0)
[2021-01-14 08:19] LABS: CREATININE 6.1 mg/dL (0.55-1.3)
[2021-01-14] MEDS: LOSARTAN POTASSIUM 50 MG TABLET PO SCH (09:07)
[2021-01-14] MEDS: LORATADINE 10 MG TABLET PO SCH (09:07)
[2021-01-14] MEDS: NIFEdipine E.R. 90 MG TABLET PO SCH (09:08)
[2021-01-14] MEDS: DOCUSATE SODIUM 100 MG CAPSULE (FP) PO SCH ×2 (09:08→21:53)
[2021-01-14] MEDS: HEPARIN NA (PORCINE) 5,000 UNITS/ML 1ML VIAL SQ SCH ×2 (09:08→21:53)
[2021-01-14] MEDS: ASPIRIN COATED 81 MG TABLET.EC PO SCH (09:14)
[2021-01-14] MEDS: ATORVASTATIN CA 80 MG TABLET (FP) PO SCH (21:53)
[2021-01-15] MEDS: hydrALAZINE HCL 50 MG TABLET (FP) PO SCH ×3 (06:27→21:19)
[2021-01-15] MEDS: ALBUTEROL SO4 2.5/IPRATROPIUM 0.5 INH SOL 3 ML VIAL.NEB. NEB SCH ×4 (08:40→20:10)
[2021-01-15] MEDS: LOSARTAN POTASSIUM 50 MG TABLET PO SCH (09:50)
[2021-01-15] MEDS: NIFEdipine E.R. 90 MG TABLET PO SCH (09:50)
[2021-01-15] MEDS: DOCUSATE SODIUM 100 MG CAPSULE (FP) PO SCH ×2 (09:50→21:19)
[2021-01-15] MEDS: HEPARIN NA (PORCINE) 5,000 UNITS/ML 1ML VIAL SQ SCH ×2 (09:50→21:19)
[2021-01-15] MEDS: ASPIRIN COATED 81 MG TABLET.EC PO SCH (09:50)
[2021-01-15] MEDS: LORATADINE 10 MG TABLET PO SCH (09:50)
[2021-01-15] MEDS ORDERED: EPOETIN ALFA-EPBX 10,000 UNIT/ML VIAL IVPUSH ONE (11:00)
[2021-01-15] MEDS ORDERED: SODIUM CHLORIDE 250 ML IV PRN (11:01)
[2021-01-15] MEDS ORDERED: PT OWN MED DRAWER 7, Y5N ONE (18:11)
[2021-01-15] MEDS: ATORVASTATIN CA 80 MG TABLET (FP) PO SCH (21:19)
[2021-01-16] MEDS: hydrALAZINE HCL 50 MG TABLET (FP) PO SCH ×3 (05:24→21:42)
[2021-01-16] MEDS: ALBUTEROL SO4 2.5/IPRATROPIUM 0.5 INH SOL 3 ML VIAL.NEB. NEB SCH ×2 (08:30→11:58)
[2021-01-16] MEDS: LOSARTAN POTASSIUM 50 MG TABLET PO SCH (09:38)
[2021-01-16] MEDS: ASPIRIN COATED 81 MG TABLET.EC PO SCH (09:38)
[2021-01-16] MEDS: HEPARIN NA (PORCINE) 5,000 UNITS/ML 1ML VIAL SQ SCH ×2 (09:38→21:41)
[2021-01-16] MEDS: NIFEdipine E.R. 90 MG TABLET PO SCH (09:38)
[2021-01-16] MEDS: DOCUSATE SODIUM 100 MG CAPSULE (FP) PO SCH ×2 (09:38→21:42)
[2021-01-16] MEDS: LORATADINE 10 MG TABLET PO SCH (09:38)
[2021-01-16] MEDS ORDERED: PT OWN MED DRAWER 7, Y5N ONE (12:57)
[2021-01-16] MEDS: ATORVASTATIN CA 80 MG TABLET (FP) PO SCH (21:42)
[2021-01-17] MEDS: hydrALAZINE HCL 50 MG TABLET (FP) PO SCH ×3 (06:03→21:32)
[2021-01-17] MEDS: DOCUSATE SODIUM 100 MG CAPSULE (FP) PO SCH ×2 (09:24→21:32)
[2021-01-17] MEDS: HEPARIN NA (PORCINE) 5,000 UNITS/ML 1ML VIAL SQ SCH ×2 (09:24→21:31)
[2021-01-17] MEDS: LORATADINE 10 MG TABLET PO SCH (09:24)
[2021-01-17] MEDS: LOSARTAN POTASSIUM 50 MG TABLET PO SCH (09:24)
[2021-01-17] MEDS: ASPIRIN COATED 81 MG TABLET.EC PO SCH (09:24)
[2021-01-17] MEDS: NIFEdipine E.R. 90 MG TABLET PO SCH (09:25)
[2021-01-17] MEDS: ATORVASTATIN CA 80 MG TABLET (FP) PO SCH (21:32)
[2021-01-17] MEDS ORDERED: SODIUM CHLORIDE 250 ML IV PRN (21:40)
[2021-01-18] MEDS: hydrALAZINE HCL 50 MG TABLET (FP) PO SCH ×3 (06:36→21:38)
[2021-01-18] MEDS: ASPIRIN COATED 81 MG TABLET.EC PO SCH (09:50)
[2021-01-18] MEDS: LORATADINE 10 MG TABLET PO SCH (09:50)
[2021-01-18] MEDS: DOCUSATE SODIUM 100 MG CAPSULE (FP) PO SCH ×2 (09:50→21:38)
[2021-01-18] MEDS: HEPARIN NA (PORCINE) 5,000 UNITS/ML 1ML VIAL SQ SCH (09:51)
[2021-01-18 10:16] LABS: BASO % 0.9 % (0-2.0); EOS % 3.2 % (0-4.5); HEMATOCRIT 28.4 % (35.4-49); HEMOGLOBIN 9.4 GM/dL (11.7-16.9); LYMPH % 12.4 % (8-40); MCH 31.9 pg (25.7-33.7); MCHC 33.2 g/dl (32.0-35.9); NEUT % 75.5 % (42.8-82.8); PLATELET COUNT 211 10^3/uL (134-434); RBC 2.95 M/mm3 (4.00-5.60); RDW 19.1 % (11.9-15.9); WHITE BLOOD COUNT 6.1 K/mm3 (4.0-10.0)
[2021-01-18 10:43] LABS: CHLORIDE 100 mmol/L (98-107); SODIUM 141 mmol/L (136-145)
[2021-01-18 10:49] LABS: ALBUMIN 2.8 g/dl (3.4-5.0); ANION GAP 13 MMOL/L (8-16); CALCIUM 10.2 mg/dL (8.5-10.1); CO2 27 mmol/L (21-32); GLUCOSE,RANDOM 92 mg/dL (74-106)
[2021-01-18 10:51] LABS: SGPT/ALT 46 U/L (13-61)
[2021-01-18 10:52] LABS: BILIRUBIN,TOTAL 0.4 mg/dL (0.2-1); SGOT/AST 37 U/L (15-37); TOT PROT 6.4 g/dl (6.4-8.2)
[2021-01-18 10:54] LABS: ALK PHOS 86 U/L (45-117)
[2021-01-18 10:55] LABS: BLOOD UREA NITROGEN 73.4 mg/dL (7-18); CREATININE 12.2 mg/dL (0.55-1.3)
[2021-01-18] MEDS: LOSARTAN POTASSIUM 50 MG TABLET PO SCH (16:58)
[2021-01-18] MEDS: NIFEdipine E.R. 90 MG TABLET PO SCH (16:58)
[2021-01-18] MEDS: ATORVASTATIN CA 80 MG TABLET (FP) PO SCH (21:38)
[2021-01-19] MEDS: hydrALAZINE HCL 50 MG TABLET (FP) PO SCH ×2 (05:50→16:44)
[2021-01-19 06:46] VITALS: TEMP 98.2
[2021-01-19] MEDS ORDERED: SODIUM CHLORIDE 250 ML IV PRN (13:14)
[2021-01-19] MEDS: LORATADINE 10 MG TABLET PO SCH (13:39)
[2021-01-19] MEDS: DOCUSATE SODIUM 100 MG CAPSULE (FP) PO SCH (13:39)
[2021-01-19] MEDS: NIFEdipine E.R. 90 MG TABLET PO SCH (13:39)
[2021-01-19] MEDS: LOSARTAN POTASSIUM 50 MG TABLET PO SCH (13:39)
[2021-01-19] MEDS: ASPIRIN COATED 81 MG TABLET.EC PO SCH (13:40)
[2021-01-19 15:16] VITALS: BP 142/73; PULSE 59
[2021-01-20] MEDS ORDERED: EPOETIN ALFA-EPBX 10,000 UNIT/ML VIAL SQ ONE (13:14)
== END 2021-01-19 17:30 | disposition home or self-care (01) | DRG 291 ==
LOC: JER 07:14 → JERBED 09:03 → J4S 20:54 → J5S 01-15 03:33
PROVIDERS: ADMIT Family Medicine; ATTEND Family Medicine
PROC: 30233N1 Transfusion of Nonautologous Red Blood Cells into Peripheral Vein, Percutaneous Approach (ICD-10-PCS; 2021-01-11)
PROC: 5A1D70Z Performance of Urinary Filtration, Intermittent, Less than 6 Hours Per Day (ICD-10-PCS; principal; 2021-01-18)
DX: I13.2 Hypertensive heart and chronic kidney disease with heart failure and with stage 5 chronic kidney disease, or end stage renal disease (principal); N18.6 End stage renal disease; G93.41 Metabolic encephalopathy; I50.33 Acute on chronic diastolic (congestive) heart failure; R04.2 Hemoptysis; A15.9 Respiratory tuberculosis unspecified; I42.9 Cardiomyopathy, unspecified; E78.00 Pure hypercholesterolemia, unspecified; J45.909 Unspecified asthma, uncomplicated; Z99.2 Dependence on renal dialysis; I25.10 Atherosclerotic heart disease of native coronary artery without angina pectoris; E11.22 Type 2 diabetes mellitus with diabetic chronic kidney disease; E78.5 Hyperlipidemia, unspecified; E87.70 Fluid overload, unspecified; D63.1 Anemia in chronic kidney disease
CPT/HCPCS: 36415; 36430; 71045-TC-FY; 80048; 80053; 82550; 84443; 84484; 85025; 85027; 86480; 86803; 86850; 86900; 86901; 86922; 87116; 87206; 87340; 87556; 87804; 93005; 93010; 94640; 94761; 99285-25; C9803; J1644; P9058; Q5106; U0003; U0005

== ENCOUNTER 2021-03-01 11:58 | Inpatient (IN) | payer OTHER ==
[2021-03-01 14:50] LABS: BASO % 0.7 % (0-2.0); EOS % 0.8 % (0-4.5); HEMATOCRIT 37.5 % (35.4-49); HEMOGLOBIN 12.4 GM/dL (11.7-16.9); LYMPH % 5.4 % (8-40); MCH 29.8 pg (25.7-33.7); MEAN CELL VOLUME 90.2 fl (80-96); MEAN PLT VOLUME 8.5 fl (7.5-11.1); MONO % 7.9 % (3.8-10.2); NEUT % 85.2 % (42.8-82.8); PLATELET COUNT 145 10^3/uL (134-434); RBC 4.16 M/mm3 (4.00-5.60); WHITE BLOOD COUNT 8.9 K/mm3 (4.0-10.0)
[2021-03-01 15:08] LABS: CHLORIDE 98 mmol/L (98-107); SODIUM 138 mmol/L (136-145)
[2021-03-01 15:11] LABS: ALBUMIN 3.9 g/dl (3.4-5.0); CALCIUM 10.3 mg/dL (8.5-10.1); CO2 25 mmol/L (21-32); GLUCOSE,RANDOM 97 mg/dL (74-106)
[2021-03-01 15:14] LABS: SGOT/AST 23 U/L (15-37); SGPT/ALT 30 U/L (13-61)
[2021-03-01 15:16] LABS: BILIRUBIN,TOTAL 0.6 mg/dL (0.2-1)
[2021-03-01 15:17] LABS: ALK PHOS 117 U/L (45-117)
[2021-03-01 15:26] LABS: ANION GAP 15 MMOL/L (8-16); CREATININE 12.8 mg/dL (0.55-1.3); N-TERMINAL BNP > 35000.0 pg/ml (5-125)
[2021-03-01] MEDS ORDERED: DEXTROSE 50%-WATER - 25 GM/50 ML VIAL IVPUSH ONE ×2 (15:34→15:35)
[2021-03-01] MEDS ORDERED: CALCIUM GLUCONATE 10% - 1,000 MG/10 ML VIAL IVPB ONE (15:34)
[2021-03-01] MEDS ORDERED: INSULIN REGULAR HUMAN 100 UNITS/ML *VIAL IVPUSH ONE (15:34)
[2021-03-01] MEDS ORDERED: FUROSEMIDE 40 MG/4 ML INJECTABLE VIAL IVPUSH ONE (15:37)
[2021-03-01] MEDS ORDERED: ALBUTEROL SO4 2.5/IPRATROPIUM 0.5 INH SOL 3 ML VIAL.NEB. NEB ONE (15:52)
[2021-03-01] MEDS ORDERED: CALCIUM GLUCONATE 10% - 1,000 MG/10 ML VIAL ONE (15:52)
[2021-03-01] MEDS ORDERED: DEXTROSE 50%-WATER 25 GM/50 ML DISP.SYRIN ONE (15:53)
[2021-03-01] MEDS ORDERED: FUROSEMIDE 40 MG/4 ML INJECTABLE VIAL ONE (15:53)
[2021-03-01] MEDS: ALBUTEROL SO4 2.5/IPRATROPIUM 0.5 INH SOL 3 ML VIAL.NEB. NEB SCH ×2 (16:09→16:36)
[2021-03-01] MEDS ORDERED: SODIUM CHLORIDE 250 ML IV PRN (16:29)
[2021-03-01] MEDS ORDERED: SODIUM BICARBONATE 8.4% 50 MEQ/50 ML DISP.SYRIN IVPUSH ONE (16:30)
[2021-03-01] MEDS ORDERED: SODIUM ZIRCONIUM CYCLOSILICATE (LOKELMA) 5 GM PACKET ONE (16:51)
[2021-03-01] MEDS ORDERED: SODIUM BICARBONATE 8.4% - 50 ML ONE (16:51)
[2021-03-01] MEDS: SODIUM ZIRCONIUM CYCLOSILICATE (LOKELMA) 5 GM PACKET PO SCH (17:08)
[2021-03-02 08:06] LABS: CHLORIDE 101 mmol/L (98-107); SODIUM 142 mmol/L (136-145)
[2021-03-02 08:17] LABS: ALBUMIN 3.2 g/dl (3.4-5.0); CALCIUM 9.9 mg/dL (8.5-10.1); GLUCOSE,RANDOM 81 mg/dL (74-106)
[2021-03-02 08:18] LABS: ANION GAP 11 MMOL/L (8-16); CO2 30 mmol/L (21-32)
[2021-03-02 08:20] LABS: SGOT/AST 23 U/L (15-37); SGPT/ALT 24 U/L (13-61)
[2021-03-02 08:21] LABS: BILIRUBIN,TOTAL 0.8 mg/dL (0.2-1); TOT PROT 6.9 g/dl (6.4-8.2)
[2021-03-02 08:23] LABS: ALK PHOS 97 U/L (45-117)
[2021-03-02 08:24] LABS: BLOOD UREA NITROGEN 61.8 mg/dL (7-18); CREATININE 9.1 mg/dL (0.55-1.3)
[2021-03-02 08:25] LABS: CHOLESTEROL 115 mg/dL (50-200)
[2021-03-02 08:26] LABS: LDL CHOLESTEROL (ONLY SJRH) 58 mg/dL (5-100); TRIGLYCERIDES 58 mg/dL (0-150)
[2021-03-02 08:29] LABS: HDL CHOLESTEROL 45 mg/dL (40-60)
[2021-03-02] MEDS: SODIUM ZIRCONIUM CYCLOSILICATE (LOKELMA) 5 GM PACKET PO SCH (12:30)
[2021-03-02] MEDS ORDERED: SODIUM ZIRCONIUM CYCLOSILICATE (LOKELMA) 5 GM PACKET PO SCH ×2 (12:40→22:00)
[2021-03-02] MEDS ORDERED: FUROSEMIDE 100 MG/10 ML INJECTABLE VIAL IVPB ONE (13:22)
[2021-03-02] MEDS ORDERED: SODIUM CHLORIDE 250 ML IV PRN (13:26)
[2021-03-02] MEDS ORDERED: FUROSEMIDE 40 MG/4 ML INJECTABLE VIAL IVPB ONE (13:45)
[2021-03-02 13:57] LABS: BASO % 0.6 % (0-2.0); EOS % 2.4 % (0-4.5); HEMATOCRIT 33.7 % (35.4-49); HEMOGLOBIN 10.8 GM/dL (11.7-16.9); LYMPH % 12.9 % (8-40); MCH 29.2 pg (25.7-33.7); MCHC 32.1 g/dl (32.0-35.9); MEAN CELL VOLUME 90.8 fl (80-96); MEAN PLT VOLUME 9.1 fl (7.5-11.1); MONO % 10.3 % (3.8-10.2); NEUT % 73.8 % (42.8-82.8); PLATELET COUNT 136 10^3/uL (134-434); RBC 3.71 M/mm3 (4.00-5.60); RDW 18.5 % (11.9-15.9); WHITE BLOOD COUNT 4.9 K/mm3 (4.0-10.0)
[2021-03-02 14:10] LABS: CHLORIDE 102 mmol/L (98-107); SODIUM 141 mmol/L (136-145)
[2021-03-02 14:14] LABS: BLOOD UREA NITROGEN 67.2 mg/dL (7-18); CALCIUM 10.1 mg/dL (8.5-10.1); GLUCOSE,RANDOM 103 mg/dL (74-106)
[2021-03-02 14:16] LABS: ALBUMIN 3.2 g/dl (3.4-5.0); CO2 29 mmol/L (21-32); MAGNESIUM 1.9 mg/dL (1.8-2.4)
[2021-03-02 14:19] LABS: SGOT/AST 17 U/L (15-37); SGPT/ALT 24 U/L (13-61)
[2021-03-02 14:20] LABS: TOT PROT 6.9 g/dl (6.4-8.2)
[2021-03-02 14:21] LABS: ALK PHOS 94 U/L (45-117); BILIRUBIN,TOTAL 0.8 mg/dL (0.2-1)
[2021-03-02 14:32] LABS: ANION GAP 9 MMOL/L (8-16); CREATININE 9.8 mg/dL (0.55-1.3)
[2021-03-02] MEDS ORDERED: FUROSEMIDE 40 MG/4 ML INJECTABLE VIAL ONE (16:08)
[2021-03-02] MEDS ORDERED: SODIUM ZIRCONIUM CYCLOSILICATE (LOKELMA) 5 GM PACKET PO ONE (19:48)
[2021-03-02] MEDS ORDERED: DEXTROSE 50%-WATER - 25 GM/50 ML VIAL IVPUSH ONE (19:49)
[2021-03-02] MEDS ORDERED: INSULIN REGULAR HUMAN 100 UNITS/ML *VIAL IVPUSH ONE (19:50)
[2021-03-02] MEDS ORDERED: CALCIUM GLUCONATE 10% - 1,000 MG/10 ML VIAL IVPB ONE (19:50)
[2021-03-02] MEDS ORDERED: ALBUTEROL SO4 0.083% IH SOL 2.5 MG/3 ML VIAL.NEB. NEB ONE ×2 (19:51→20:19)
[2021-03-02] MEDS ORDERED: CALCIUM GLUCONATE 10% - 1,000 MG/10 ML VIAL ONE (20:19)
[2021-03-02] MEDS ORDERED: DEXTROSE 50%-WATER 25 GM/50 ML DISP.SYRIN ONE (20:20)
[2021-03-02] MEDS ORDERED: INSULIN REGULAR HUMAN 100 UNITS/ML *VIAL ONE (20:21)
[2021-03-03] MEDS ORDERED: SODIUM ZIRCONIUM CYCLOSILICATE (LOKELMA) 5 GM PACKET PO ONE
[2021-03-03] MEDS ORDERED: SODIUM ZIRCONIUM CYCLOSILICATE (LOKELMA) 5 GM PACKET ONE (00:04)
[2021-03-03 03:23] LABS: CHLORIDE 100 mmol/L (98-107); SODIUM 139 mmol/L (136-145)
[2021-03-03 03:24] LABS: BLOOD UREA NITROGEN 80.6 mg/dL (7-18); CO2 27 mmol/L (21-32); GLUCOSE,RANDOM 98 mg/dL (74-106)
[2021-03-03 03:25] LABS: ALBUMIN 3.3 g/dl (3.4-5.0)
[2021-03-03 03:27] LABS: SGPT/ALT 29 U/L (13-61)
[2021-03-03 03:29] LABS: BILIRUBIN,TOTAL 0.6 mg/dL (0.2-1); SGOT/AST 30 U/L (15-37); TOT PROT 7.1 g/dl (6.4-8.2)
[2021-03-03 03:30] LABS: ALK PHOS 98 U/L (45-117)
[2021-03-03 03:37] LABS: ANION GAP 11 MMOL/L (8-16)
[2021-03-03 07:12] LABS: BASO % 0.7 % (0-2.0); EOS % 1.1 % (0-4.5); HEMATOCRIT 33.5 % (35.4-49); HEMOGLOBIN 10.7 GM/dL (11.7-16.9); LYMPH % 12.6 % (8-40); MCHC 31.9 g/dl (32.0-35.9); MEAN CELL VOLUME 90.7 fl (80-96); MEAN PLT VOLUME 8.7 fl (7.5-11.1); MONO % 7.6 % (3.8-10.2); PLATELET COUNT 130 10^3/uL (134-434); RBC 3.69 M/mm3 (4.00-5.60); RDW 18.4 % (11.9-15.9); WHITE BLOOD COUNT 5.6 K/mm3 (4.0-10.0)
[2021-03-03 07:44] LABS: CHLORIDE 98 mmol/L (98-107); SODIUM 138 mmol/L (136-145)
[2021-03-03 07:46] LABS: ALBUMIN 3.1 g/dl (3.4-5.0); BLOOD UREA NITROGEN 85.3 mg/dL (7-18); CALCIUM 9.7 mg/dL (8.5-10.1); CO2 30 mmol/L (21-32)
[2021-03-03 07:49] LABS: GLUCOSE,RANDOM 103 mg/dL (74-106); SGOT/AST 19 U/L (15-37); SGPT/ALT 27 U/L (13-61)
[2021-03-03 07:50] LABS: MAGNESIUM 2.4 mg/dL (1.8-2.4); TOT PROT 6.7 g/dl (6.4-8.2)
[2021-03-03 07:52] LABS: BILIRUBIN,TOTAL 0.5 mg/dL (0.2-1)
[2021-03-03 07:53] LABS: ALK PHOS 93 U/L (45-117)
[2021-03-03 08:23] LABS: ANION GAP 10 MMOL/L (8-16); CREATININE 11.2 mg/dL (0.55-1.3)
[2021-03-04 07:58] LABS: CHLORIDE 98 mmol/L (98-107); SODIUM 142 mmol/L (136-145)
[2021-03-04 08:05] LABS: ALBUMIN 3.1 g/dl (3.4-5.0); ANION GAP 12 MMOL/L (8-16); CALCIUM 9.9 mg/dL (8.5-10.1); CO2 32 mmol/L (21-32); GLUCOSE,RANDOM 90 mg/dL (74-106)
[2021-03-04 08:07] LABS: SGPT/ALT 25 U/L (13-61)
[2021-03-04 08:08] LABS: SGOT/AST 20 U/L (15-37)
[2021-03-04 08:10] LABS: ALK PHOS 92 U/L (45-117); BILIRUBIN,TOTAL 0.5 mg/dL (0.2-1); TOT PROT 6.8 g/dl (6.4-8.2)
[2021-03-04 08:18] LABS: BLOOD UREA NITROGEN 52.8 mg/dL (7-18); CREATININE 8.1 mg/dL (0.55-1.3)
[2021-03-04] MEDS: LOSARTAN POTASSIUM 50 MG TABLET PO SCH (10:35)
[2021-03-04] MEDS: SODIUM ZIRCONIUM CYCLOSILICATE (LOKELMA) 5 GM PACKET PO SCH ×2 (10:35→10:36)
[2021-03-04] MEDS ORDERED: REGADENOSON 0.4 MG/5 ML PRE-FILLED SYRINGE IVPUSH ONE ×2 (13:56→14:15)
[2021-03-04] MEDS ORDERED: VANCOMYCIN 1 GRAM (PRE-DOCKED) 1,000 MG/250 ML BAG IVPB ONE (20:15)
[2021-03-05 09:04] LABS: HEMATOCRIT 33.2 % (35.4-49); HEMOGLOBIN 11.2 GM/dL (11.7-16.9); MCH 29.8 pg (25.7-33.7); MCHC 33.7 g/dl (32.0-35.9); MEAN CELL VOLUME 88.5 fl (80-96); MEAN PLT VOLUME 8.3 fl (7.5-11.1); PLATELET COUNT 150 10^3/uL (134-434); RBC 3.75 M/mm3 (4.00-5.60); RDW 17.7 % (11.9-15.9); WHITE BLOOD COUNT 4.7 K/mm3 (4.0-10.0)
[2021-03-05 09:34] LABS: CHLORIDE 97 mmol/L (98-107); SODIUM 136 mmol/L (136-145)
[2021-03-05 09:35] LABS: CALCIUM 9.9 mg/dL (8.5-10.1)
[2021-03-05 09:36] LABS: ANION GAP 12 MMOL/L (8-16); CO2 28 mmol/L (21-32); GLUCOSE,RANDOM 159 mg/dL (74-106)
[2021-03-05 09:42] LABS: BLOOD UREA NITROGEN 78.8 mg/dL (7-18); CREATININE 10.6 mg/dL (0.55-1.3)
[2021-03-05] MEDS ORDERED: EPOETIN ALFA-EPBX 2,000 UNIT/ML VIAL SQ ONE (10:00)
[2021-03-05] MEDS ORDERED: SODIUM CHLORIDE 250 ML IV PRN (11:04)
[2021-03-05] MEDS: SODIUM ZIRCONIUM CYCLOSILICATE (LOKELMA) 5 GM PACKET PO SCH (13:16)
[2021-03-05] MEDS: LOSARTAN POTASSIUM 50 MG TABLET PO SCH (13:17)
[2021-03-05] MEDS ORDERED: hydrALAZINE HCL 50 MG TABLET (FP) PO SCH (14:00)
[2021-03-05 16:42] VITALS: BP 150/78; PULSE 62; TEMP 98.7
[2021-03-05 18:00] VITALS: BMI 29.7
== END 2021-03-05 17:21 | disposition home or self-care (01) | DRG 291 ==
LOC: JER 11:58 → JERBED 15:21 → J4W 03-03 06:35
PROVIDERS: ADMIT Family Medicine; ATTEND Family Medicine
PROC: 5A1D70Z Performance of Urinary Filtration, Intermittent, Less than 6 Hours Per Day (ICD-10-PCS; principal; 2021-03-01)
PROC: 5A1D70Z Performance of Urinary Filtration, Intermittent, Less than 6 Hours Per Day (ICD-10-PCS; 2021-03-03)
PROC: 5A1D70Z Performance of Urinary Filtration, Intermittent, Less than 6 Hours Per Day (ICD-10-PCS; 2021-03-05)
DX: I13.2 Hypertensive heart and chronic kidney disease with heart failure and with stage 5 chronic kidney disease, or end stage renal disease (principal); N18.6 End stage renal disease; I25.10 Atherosclerotic heart disease of native coronary artery without angina pectoris; I50.32 Chronic diastolic (congestive) heart failure; E78.5 Hyperlipidemia, unspecified; E11.22 Type 2 diabetes mellitus with diabetic chronic kidney disease; I50.84 End stage heart failure; E87.5 Hyperkalemia; D64.9 Anemia, unspecified; E87.70 Fluid overload, unspecified; R79.89 Other specified abnormal findings of blood chemistry; F41.9 Anxiety disorder, unspecified; E66.9 Obesity, unspecified; K59.00 Constipation, unspecified; Z68.29 Body mass index [BMI] 29.0-29.9, adult; Z99.2 Dependence on renal dialysis; Z86.73 Personal history of transient ischemic attack (TIA), and cerebral infarction without residual deficits
CPT/HCPCS: 36415; 71045-TC-FY; 71046-TC-FY; 78452-TC; 80048; 80053; 80061; 82550; 82962; 83036; 83605; 83735; 83880; 84484; 85025; 85027; 86803; 87040; 87340; 87804; 93005; 93010; 93017; 93306-TC; 99285-25; A9502; C9803; J2785; Q5106; U0003; U0005